=== PATIENT | male | born 1970 | race African-American/Black ===

== ENCOUNTER → 2018-01-21 11:22 | Outpatient (CLI) | payer SELFPAY ==
[2018-01-21 12:55] LABS: Vitamin D,25 Hydroxy 12.1 ng/mL (29.95-100.01)
[2018-01-21 12:59] LABS: Microalbumin:Creatinine Ratio 45.9 mg/g CRE (<30 mg/g CRE)
[2018-01-21 13:05] LABS: Albumin, Serum 3.8 g/dL (3.2-5.0); BUN 27 mg/dL (7-18); BUN/Creat Ratio 17.4 RATIO (10-20); Calcium,Total 9.1 mg/dL (8.5-10.1); Chloride 104 mmol/L (98-107); Creatinine, Serum 1.55 mg/dL (0.70-1.30); EST Glomerular Filtration Rate 52 mL/min (>60); Est Glom Filt Rate - Afr Amer 63 mL/min (>60); Glucose 95 mg/dL (74-106); Phosphorus 3.6 mg/dL (2.5-4.9); Potassium 3.9 mmol/L (3.5-5.1); Sodium Level 140 mmol/L (136-145); Uric Acid 8.8 mg/dL (3.5-7.2)
== END ==
PROVIDERS: Family Provider Family Medicine; PCP Family Medicine; Visit Provider Internal Medicine Nephrology
DX: N18.2 Chronic kidney disease, stage 2 (mild) (principal); E55.9 Vitamin D deficiency, unspecified
CPT/HCPCS: 36415; 80069; 82043; 82306; 82570; 84550

== ENCOUNTER → 2018-08-13 08:51 | Outpatient (CLI) | payer SELFPAY ==
[2018-08-13 10:34] LABS: Albumin, Serum 3.6 g/dL (3.2-5.0); BUN 20 mg/dL (7-18); BUN/Creat Ratio 12.2 RATIO (10-20); Calcium,Total 8.8 mg/dL (8.5-10.1); Chloride 109 mmol/L (98-107); Creatinine, Serum 1.64 mg/dL (0.70-1.30); EST Glomerular Filtration Rate 48 mL/min (>60); Est Glom Filt Rate - Afr Amer 59 mL/min (>60); Glucose 94 mg/dL (74-106); Phosphorus 2.9 mg/dL (2.5-4.9); Potassium 4.6 mmol/L (3.5-5.1); Sodium Level 142 mmol/L (136-145)
== END ==
LOC: LAB.FUTURE 08:58
PROVIDERS: Family Provider Family Medicine; PCP Family Medicine; Referring Provider Internal Medicine Nephrology; Visit Provider Internal Medicine Nephrology
DX: N18.2 Chronic kidney disease, stage 2 (mild) (principal)
CPT/HCPCS: 36415; 80069

== ENCOUNTER → 2018-08-19 13:35 | Outpatient (CLI) | payer SELFPAY ==
[2018-08-19 16:09] LABS: Uric Acid 7.3 mg/dL (3.5-7.2)
== END ==
PROVIDERS: Family Provider Family Medicine; PCP Family Medicine; Visit Provider Internal Medicine Nephrology
DX: M10.9 Gout, unspecified (principal)
CPT/HCPCS: 36415; 84550

== ENCOUNTER → 2019-05-07 12:17 | Outpatient (CLI) | payer MEDICAID, SELFPAY ==
[2019-05-07 14:19] LABS: Albumin, Serum 3.8 g/dL (3.2-5.0); BUN 21 mg/dL (7-18); BUN/Creat Ratio 14.2 RATIO (10-20); Calcium,Total 8.8 mg/dL (8.5-10.1); Chloride 105 mmol/L (98-107); Creatinine, Serum 1.48 mg/dL (0.70-1.30); EST Glomerular Filtration Rate 54 mL/min (>60); Est Glom Filt Rate - Afr Amer 66 mL/min (>60); Glucose 82 mg/dL (74-106); Phosphorus 2.5 mg/dL (2.5-4.9); Potassium 4.2 mmol/L (3.5-5.1); Sodium Level 139 mmol/L (136-145); Uric Acid 9.9 mg/dL (3.5-7.2)
== END ==
PROVIDERS: Family Provider Family Medicine; PCP Family Medicine; Referring Provider Internal Medicine Nephrology; Visit Provider Internal Medicine Nephrology
DX: N18.2 Chronic kidney disease, stage 2 (mild) (principal); M10.9 Gout, unspecified
CPT/HCPCS: 36415; 80069; 84550

== ENCOUNTER → 2019-12-23 11:19 | Outpatient (CLI) | payer MEDICAID, SELFPAY ==
[2019-12-23 12:26] LABS: Microalbumin:Creatinine Ratio 132.7 mg/g CRE (<30 mg/g CRE)
[2019-12-23 12:47] LABS: Albumin, Serum 3.8 g/dL (3.2-5.0); BUN 21 mg/dL (7-18); BUN/Creat Ratio 14.2 RATIO (10-20); Calcium,Total 8.9 mg/dL (8.5-10.1); Chloride 110 mmol/L (98-107); Creatinine, Serum 1.48 mg/dL (0.70-1.30); EST Glomerular Filtration Rate 54 mL/min (>60); Est Glom Filt Rate - Afr Amer 66 mL/min (>60); Glucose 101 mg/dL (74-106); Phosphorus 3.4 mg/dL (2.5-4.9); Potassium 3.9 mmol/L (3.5-5.1); Sodium Level 141 mmol/L (136-145); Uric Acid 7.6 mg/dL (3.5-7.2)
[2019-12-23 12:48] LABS: Vitamin D,25 Hydroxy 31.2 ng/mL
== END ==
PROVIDERS: PCP Family Medicine; Referring Provider Internal Medicine Nephrology; Visit Provider Internal Medicine Nephrology
DX: N18.2 Chronic kidney disease, stage 2 (mild) (principal); M10.9 Gout, unspecified; E55.9 Vitamin D deficiency, unspecified
CPT/HCPCS: 36415; 80069; 82043; 82306; 82570; 84550

== ENCOUNTER 2020-07-13 22:16 | Emergency (ER) | payer MEDICAID, SELFPAY ==
[2020-07-13 22:16] VITALS: BP 167/118; PULSE 107; RESP 18; TEMP 36.1; O2SAT 98; BMI 36.9
--- NOTE | 2020-07-13 22:25 | ED.VIS.GEN ---
History of Present Illness Chief Complaint: Upper Extremity Injury Informant: Patient Narrative: 49-year-old male with history of chronic kidney disease and gout states that for the past 3 weeks he has been having flares in his bilateral hands and right knee. He takes allopurinol daily. He states it has been about 10 years since he is needed to seek treatment for gout flare. He sees Dr. Mcduffie for renal and Dr. Pace for primary care. No fevers. No rashes. Most of his pain tonight is centered in the right index finger. Past Medical History - Allergies and Home Meds Allergies/Adverse Reactions: Allergies No Known Allergies Allergy (Verified 07/13/20 22:18) Primary Care Physician: Oscar Pace MD [Primary Care Provider] - Past Medical History: - - Kidney disease diabetes Surgical History: noncontributory Drugs: None Review of Systems General: Denies: Chills, Fever, Sweats Eyes: Denies: Visual changes - bilaterally, Diplopia ENT: Denies: Rhinorrhea, Sore throat Cardiovascular: Denies: Chest pain, Palpitations Respiratory: Denies: Dyspnea, Cough, Dyspnea on exertion Gastrointestinal: Denies: Abdominal pain, Nausea, Vomiting, Diarrhea, Melena, Hematochezia Genitourinary: Denies: Dysuria, Hematuria, Frequency Musculoskeletal: Reports: Swelling, Extremity Pain. Denies: Back pain Skin: Denies: Rash, Wounds Neurological: Denies: Headache, Weakness, Numbness Physical Exam Vital Signs/Narrative: Vital Signs Temp Pulse Resp BP Pulse Ox 07/13/20 22:16 96.9 F L 107 H 18 167/118 H 98 Inital Vital Signs reviewed: Yes General: Well nourished, Well developed, No Acute Distress Head: Normocephalic, Atraumatic Eyes: Perrl, EOMI ENT: Moist mucous membranes, No rhinorrhea Neck: Supple, Nontender Cardiovascular: Regular rate, Regular rhythm, No murmurs Respiratory: No distress, CTA bilaterally, Chest nontender Abdomen: Soft, Nontender, Nondistended, Normal bowel sounds Back: Nontender, Normal Inspection Extremities: Tenderness - Tenderness swelling right index finger right dorsum of hand. Skin: Normal color, No rash Neurological: Alert, Oriented x3, Cranial nerves II-XII grossly intact, Normal Strength, Normal Sensation Psychological: Normal affect, Normal Mood Diagnostic/Tx/Re-eval - Medical Decision Making Because of his chronic kidney disease we will place him on tapering dose of prednisone. Write for some [place] for pain control. Return if worsening or concerns follow-up primary care as needed ED Disposition - Plan for ED Patient: Disposition: Home or Assisted Living Diagnosis: Acute gout Instructions: ED Gout Prescriptions: Hydrocodone Bitart/Apap 5-325 [[place] 5MG-325MG] 1 tab PO Q6H PRN PRN 3 Days #10 tab PRN Reason: Pain Prescription Printed Prednisone 10 mg PO DAILY #63 tab Prescription Printed Referrals: Oscar Pace MD [Primary Care Provider] - 3-5 Days if not improving
[2020-07-13] MEDS: predniSONE 20 MG Tablet 60 MG PO (22:58)
[2020-07-13] MEDS: HYDROcodone Bitartrate/Apap 5/325 Tablet PO (22:58)
[2020-07-13 22:59] VITALS: O2SAT 98
== END 2020-07-13 22:59 | disposition home or self-care (01) ==
PROVIDERS: Emergency Provider Emergency Medicine; PCP Family Medicine
DX: M10.9 Gout, unspecified (principal); E11.22 Type 2 diabetes mellitus with diabetic chronic kidney disease; Z79.899 Other long term (current) drug therapy
CPT/HCPCS: 99283

== ENCOUNTER 2020-08-17 17:18 | Emergency (ER) | payer MEDICAID, SELFPAY ==
[2020-08-17 17:19] VITALS: BP 151/104; PULSE 111; RESP 20; TEMP 36.1; O2SAT 96; BMI 36.9
--- NOTE | 2020-08-17 18:15 | ED.VIS.GEN ---
History of Present Illness Chief Complaint: Lower Extremity Injury Informant: Patient Narrative: 49-year-old male with a long history of gout and chronic kidney disease on allopurinol states for the past 10 days has had pain swelling and increased warmth of the left knee. Patient sees Dr. Mcduffie for renal. He states that he has tried Uloric in the past and colchicine but alicea and side effects were prohibitive. I saw him in June of placed him on tapering dose of steroids and [place] which he did well with. Past Medical History - Allergies and Home Meds Allergies/Adverse Reactions: Allergies No Known Allergies Allergy (Verified 08/17/20 17:18) Primary Care Physician: Oscar Pace MD [Primary Care Provider] - Past Medical History: - - Chronic kidney disease gout Surgical History: noncontributory Lives: Spouse/ Significant Other Smoking Status: Never smoker Alcohol: None Drugs: None Review of Systems General: Denies: Chills, Fever, Sweats Eyes: Denies: Visual changes - bilaterally, Diplopia ENT: Denies: Rhinorrhea, Sore throat Cardiovascular: Denies: Chest pain, Palpitations Respiratory: Denies: Dyspnea, Cough, Dyspnea on exertion Gastrointestinal: Denies: Abdominal pain, Nausea, Vomiting, Diarrhea, Melena, Hematochezia Genitourinary: Denies: Dysuria, Hematuria, Frequency Musculoskeletal: Reports: Swelling, Extremity Pain. Denies: Back pain Skin: Denies: Rash, Wounds Neurological: Denies: Headache, Weakness, Numbness Physical Exam Vital Signs/Narrative: Vital Signs Temp Pulse Resp BP Pulse Ox 08/17/20 17:19 97 F L 111 H 20 H 151/104 H 96 Inital Vital Signs reviewed: Yes General: Well nourished, Well developed, No Acute Distress Head: Normocephalic, Atraumatic Eyes: Perrl, EOMI ENT: Moist mucous membranes, No rhinorrhea Neck: Supple, Nontender Cardiovascular: Regular rate, Regular rhythm, No murmurs Respiratory: No distress, CTA bilaterally, Chest nontender Abdomen: Soft, Nontender, Nondistended, Normal bowel sounds Back: Nontender, Normal Inspection Extremities: Tenderness - The left knee is swollen with increased warmth. No erythema. Painful range of motion. Skin: Normal color, No rash Neurological: Alert, Oriented x3, Cranial nerves II-XII grossly intact, Normal Strength, Normal Sensation Psychological: Normal affect, Normal Mood Diagnostic/Tx/Re-eval - Medical Decision Making I believe that this is most likely gout. Again place him on [place] and tapering dose of steroids. I asked that he follow-up with primary care. ED Disposition - Plan for ED Patient: Disposition: Home or Assisted Living Diagnosis: Gout of left knee Instructions: ED Gout Prescriptions: Prednisone [Deltasone] 60 mg PO DAILY #24 tab Prescription Printed Hydrocodone Bitart/Apap 5-325 [[place] 5MG-325MG] 1 tab PO Q6H PRN PRN 3 Days #10 tab PRN Reason: Pain Prescription Printed Referrals: Oscar Pace MD [Primary Care Provider] - 1-2 Weeks
[2020-08-17 18:37] VITALS: BP 108/74; PULSE 62; RESP 15; O2SAT 98
== END 2020-08-17 18:38 | disposition home or self-care (01) ==
LOC: ED 18:29
PROVIDERS: Emergency Provider Emergency Medicine; PCP Family Medicine
DX: M10.9 Gout, unspecified (principal); N18.9 Chronic kidney disease, unspecified; Z79.899 Other long term (current) drug therapy
CPT/HCPCS: 99282

== ENCOUNTER → 2020-10-20 16:30 | Outpatient (CLI) | payer MEDICAID, SELFPAY ==
[2020-10-20 17:36] LABS: Protein, Urine (Random) 77.2 mg/dL (<11.9); Protein:Creat Ratio 316 mg/g CRE (0-200)
[2020-10-20 18:04] LABS: Vitamin D,25 Hydroxy 18.3 ng/mL
[2020-10-20 19:31] LABS: AST(SGOT) 23 U/L (15-37); Alanine Aminotransfer ALT/SGPT 26 U/L (16-61); Albumin, Serum 3.6 g/dL (3.2-5.0); Alkaline Phosphatase 56 U/L (45-117); Bilirubin, Direct 0.13 mg/dL (0.00-0.30); Protein, Total 7.6 g/dL (6.4-8.2); Uric Acid 6.7 mg/dL (3.5-7.2)
[2020-10-23 14:20] LABS: Anion Gap 13 (5-15); BUN 20 mg/dL (7-18); BUN/Creat Ratio 13.2 RATIO (10-20); Calcium,Total 9.3 mg/dL (8.5-10.1); Chloride 108 mmol/L (98-107); Creatinine, Serum 1.51 mg/dL (0.70-1.30); EST Glomerular Filtration Rate 53 mL/min (>60); Est Glom Filt Rate - Afr Amer 64 mL/min (>60); Glucose 63 mg/dL (74-106); Phosphorus 3.8 mg/dL (2.5-4.9); Potassium 5.2 mmol/L (3.5-5.1); Sodium Level 141 mmol/L (136-145)
== END ==
PROVIDERS: PCP Family Medicine; Referring Provider Internal Medicine Nephrology; Visit Provider Internal Medicine Nephrology
DX: N18.2 Chronic kidney disease, stage 2 (mild) (principal); M10.9 Gout, unspecified; E55.9 Vitamin D deficiency, unspecified
CPT/HCPCS: 36415; 80048; 80076; 82306; 82570; 84100; 84156; 84550

== ENCOUNTER → 2020-10-24 11:14 | Outpatient (CLI) | payer MEDICAID, SELFPAY ==
[2020-10-24 12:32] LABS: Potassium 3.9 mmol/L (3.5-5.1)
== END ==
PROVIDERS: PCP Family Medicine; Visit Provider Internal Medicine Nephrology
DX: E87.5 Hyperkalemia (principal); N18.2 Chronic kidney disease, stage 2 (mild)
CPT/HCPCS: 36415; 84132

== ENCOUNTER 2021-02-28 21:16 | Emergency (ER) | payer MEDICAID, SELFPAY ==
[2021-02-28 21:17] VITALS: BP 143/94; PULSE 107; RESP 16; TEMP 36.2; O2SAT 96; BMI 31.2
--- NOTE | 2021-02-28 22:31 | EX.ED.DYSGE1 ---
HPI History of Present Illness Chief Complaint: Ear Problem Informant: patient Narrative Narrative: Patient presented with primary symptom of left earache. This started about 4 5 days ago. No drainage. No loss of hearing. He does have history of tubes as a child. He has had history of perforation. On review of systems, I also find out that the patient just has not felt well for about 4 to 5 days. He had a little bit of congestion. He has malaise. His appetite is down but he is able to eat and drink and has no nausea vomiting or diarrhea. He is not coughing or short of breath. He has no numbness tingling or weakness. He did have a slight fever off and on but he has not had 1 for about a day. Although he has a lot of malaise he does not really have myalgias. He states the symptoms are kind of improving but the earache seems to be worsening on the left. He has no known exposure to Covid. 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 He does not have Covid vaccination. [facility] Medical History Gout Home Medications allopurinol 200 mg PO DAILY 07/13/20 [History Last Taken Unknown] amoxicillin 500 mg PO TID #28 cap 02/28/21 [Rx Last Taken Unknown] naproxen 500 mg PO BID #14 tab 02/28/21 [Rx Last Taken Unknown] Allergy/AdvReac Type Severity Reaction Status Date / Time No Known Allergies Allergy Verified 02/28/21 21:18 Social History Smoking Status: Never smoker [facility] ED Constitutional Constitutional ED: Reports fever(s) Eyes Eyes: Denies change in vision ENT ENT ED: Reports ear pain, rhinorrhea and sore throat Cardiovascular Cardiovascular: Denies chest pain Respiratory/Chest Respiratory/Chest: Denies cough, dyspnea, dyspnea on exertion or sputum Gastrointestinal Gastrointestinal: Denies abdominal pain, nausea or vomiting Musculoskeletal Musculoskeletal: Denies arthralgias, back pain, myalgias or neck pain Integumentary Denies rash Neurologic Neurologic: Denies headache(s), paresthesias or weakness Endocrine Endocrinology: Denies polydipsia or polyuria Allergic/Immunologic Allergic/Immunologic ED: Denies urticaria EXAM Physical Exam Const Vital Signs: 02/28/21 21:17 Temperature 97.2 F L Temperature Source Temporal Pulse Rate 107 H Respiratory Rate 16 Blood Pressure 143/94 H Blood Pressure Mean 110 Pulse Ox 96 Oxygen Delivery Method Room Air Positive well nourished and well developed General Appearance ED: well developed and NAD; Negative for cyanotic or diaphoretic HEENT Reports moist mucous membranes HEENT Narrative: Pharynx is overall normal. No exudate. Voice is normal. No erythema. Right TM has moderate amount of scarring. There is a little bit of fluid. Mild erythema. Left tympanic membrane does have a perforation. There is a moderate amount of erythema. I do not see any drainage at this time. No tenderness around the tragus or motion of the ear. No parotid tenderness. No mastoid tenderness. No notable lymphadenopathy. No temporal artery tenderness. Eyes PERRL and EOMs intact bilaterally Neck no lymphadenopathy and no JVD General: Negative for tenderness Chest Wall inspection of chest normal Resp normal respiratory effort and clear to auscultation bilaterally Cardio regular rate and regular rhythm GI normal to inspection, nondistended, normoactive bowel sounds and non-tender Palpation: soft Extremity normal to inspection Neuro Sensorium / Orientation: alert Psych mental status grossly normal Skin no rashes or lesions noted and no wounds MDM MDM MDM Narrative Medical decision making narrative: With the patient's malaise we did check Covid which was negative. He states overall he is improving. His main symptom is left is the left ear pain. Other symptoms have improved although not gone. With some erythema perforation pain and fever we will treat as though this is infected. If he develops new symptoms, cough, trouble breathing or any other findings he should return. Discharge Plan Triage Chief Complaint: Ear Problem ED Provider: Peter Cox Dx/Rx/DC Orders Clinical Impression: URI (upper respiratory infection), Acute otitis media of left ear with perforation Prescriptions: New amoxicillin 500 mg capsule 500 mg PO TID Qty: 28 RF: 0 naproxen 500 mg tablet 500 mg PO BID Qty: 14 RF: 0 No Action allopurinol 100 MG tablet 200 mg PO DAILY RF: 0 Primary Care Provider: Oscar Pace Referrals: Oscar Pace MD [Primary Care Provider] - 3-5 Days if not improving Disposition Disposition: Home, Self Care
[2021-02-28 23:16] VITALS: BP 134/80; PULSE 74; RESP 17; O2SAT 96
[2021-02-28] MEDS: AMOXICILLIN 500 MG CAPSULE PO (23:23)
[2021-02-28] MEDS: Naproxen 375 MG Tablet PO (23:23)
== END 2021-02-28 23:24 | disposition home or self-care (01) ==
PROVIDERS: Emergency Provider Emergency Medicine; PCP Family Medicine
DX: J06.9 Acute upper respiratory infection, unspecified (principal); H66.92 Otitis media, unspecified, left ear; H72.92 Unspecified perforation of tympanic membrane, left ear; Z79.899 Other long term (current) drug therapy
CPT/HCPCS: 87426; 99283; A4216

== ENCOUNTER 2021-08-15 09:47 | Outpatient (CLI) | payer MEDICAID, SELFPAY ==
[2021-08-15 10:40] LABS: Vitamin D,25 Hydroxy 23.4 ng/mL
[2021-08-15 10:46] LABS: Albumin, Serum 3.5 g/dL (3.2-5.0); BUN 25 mg/dL (7-18); BUN/Creat Ratio 12.8 RATIO (10-20); Chloride 104 mmol/L (98-107); Creatinine, Serum 1.96 mg/dL (0.70-1.30); EST Glomerular Filtration Rate 39 mL/min (>60); Est Glom Filt Rate - Afr Amer 47 mL/min (>60); Glucose 101 mg/dL (74-106); Phosphorus 3.2 mg/dL (2.5-4.9); Potassium 4.4 mmol/L (3.5-5.1); Sodium Level 138 mmol/L (136-145)
[2021-08-15 14:37] LABS: Protein, Urine (Random) 56.2 mg/dL (<11.9); Protein:Creat Ratio 197 mg/g CRE (0-200)
== END 2021-08-15 23:59 | disposition home or self-care (01) ==
LOC: LAB 09:50
PROVIDERS: PCP Family Medicine; Referring Provider Internal Medicine Nephrology; Visit Provider Internal Medicine Nephrology
DX: N18.2 Chronic kidney disease, stage 2 (mild) (principal); E55.9 Vitamin D deficiency, unspecified
CPT/HCPCS: 36415; 80069; 82306; 82570; 84156

== ENCOUNTER 2021-08-25 16:59 | Emergency (ER) | payer MEDICAID, SELFPAY ==
[2021-08-25 16:59] VITALS: BP 148/108; PULSE 132; RESP 16; TEMP 36.3; O2SAT 98; BMI 36.2
--- NOTE | 2021-08-25 17:07 | RAD_ITS ---
STUDY: X-RAY - LEFT ANKLE REASON FOR EXAM: Male, 50 years old. PAIN TECHNIQUE: 3 view(s) of the ankle. COMPARISON: None. FINDINGS: Normal visualized distal tibia and fibula. Normal medial and lateral malleoli. Degenerative changes of the tibiotalar joint. Normal visualized talus and calcaneus. The visualized subtalar, talonavicular, calcaneocuboid and tarsal articulations are normal. The soft tissue structures are unremarkable. RAD/Ankle min 3 Views IMPRESSION: No fracture or malalignment. Electronically Signed: Krunal Gordon MD ([place]) at 17:29 EST ,
--- NOTE | 2021-08-25 17:59 | ED.VIS.LOWEX ---
HPI History of Present Illness Chief Complaint: Lower Extremity Injury Detail of Chief Complaint: Atraumatic left ankle pain Informant: patient Onset/Context/Timing Onset: Days Context: Gradual Onset Timing: Continuous Quality of Pain: Sharp Current Severity: Moderate Maximum Severity: Moderate Associated Symptoms Associated Symptoms: Negative for Parasthesia, Weakness and Loss of Funtion Narrative Narrative: 50-year-old male history of gout. He is of atraumatic left ankle pain for the last several days. He denies any fever. He is never had an infection in any joints. He is not diabetic. He has had no procedure on the left ankle. He has had gout before in a great toe and the ankle was primarily in toe in the past. He denies any falls or trauma. No injury. Prior similar symptoms: Yes Recent Illness/Hospitalization: No [facility] Medical History Gout Home Medications allopurinol 200 mg PO DAILY 07/13/20 [History Last Taken Unknown] hydrocodone-acetaminophen 2 tab PO Q6H PRN 5 Days #20 tab 08/25/21 [Rx Last Taken Unknown] prednisone 40 mg PO DAILY 10 Days #20 tab 08/25/21 [Rx Last Taken Unknown] Allergy/AdvReac Type Severity Reaction Status Date / Time No Known Allergies Allergy Verified 08/25/21 17:01 Social History Smoking Status: Never smoker ROS ROS ED ROS Narrative Denies. Review of Systems ROS Unobtainable: Denies due to encephalopathy Constitutional Constitutional ED: Denies fever(s) Eyes Eyes: Denies change in vision ENT ENT ED: Denies ear pain Cardiovascular Cardiovascular: Denies chest pain Respiratory/Chest Respiratory/Chest: Denies dyspnea Gastrointestinal Gastrointestinal: Denies abdominal pain Genitourinary Genitourinary ED: Denies dysuria Musculoskeletal Musculoskeletal: Denies myalgias Integumentary Denies rash Neurologic Neurologic: Denies headache(s) Psychiatric Psychiatric: Denies depression Endocrine Endocrinology: Denies polyuria Hematologic/Lymphatic Hematologic/Lymphatic: Denies easy bruising Allergic/Immunologic Allergic/Immunologic ED: Denies urticaria EXAM Physical Exam Narrative Exam Narrative: 50-year-old male no acute distress. Lungs are clear. Heart regular rate and rhythm. Abdomen soft. Left hip and knee are nontender. Left ankle mild swelling. Warmth. No redness. Pain with range of motion. Foot neurovascularly intact nontender. Normal DP pulse. There is no lymphangitic streaking. There is no inguinal lymphadenopathy. Exam is consistent with gout. Const Vital Signs: 08/25/21 16:59 Temperature 97.3 F L Temperature Source Temporal Pulse Rate 132 H Respiratory Rate 16 Blood Pressure 148/108 H Blood Pressure Mean 121 Pulse Ox 98 Oxygen Delivery Method Room Air Positive well nourished and well developed; Negative for cachectic, contractures or unkempt General Appearance ED: well developed and NAD; Negative for unkempt, cachectic or contractures Nutritional Appearance: Negative for cachectic HEENT Reports moist mucous membranes normocephalic and atraumatic Eyes PERRL Neck full ROM and supple Thyroid: Negative for tender Chest Wall inspection of chest normal and palpation of chest normal Resp normal respiratory effort, no retractions and clear to auscultation bilaterally Auscultation: Negative for rales, rhonchi or wheezes Cardio regular rate, regular rhythm, S1 normal heart sound, S2 normal heart sound and no murmurs GI non-tender, non-distended and no masses Auscultation: normoactive bowel sounds Palpation: soft; Negative for tender or guarding Back/Spine no CVA tenderness General Back: Negative for CVA tenderness Cervical Spine: Negative for cervical spine tenderness Thoracic Spine / Upper Back: Negative for thoracic spinal tenderness Extremity normal to inspection and full ROM Extremity Narrative: Except as nontender left ankle warm to the touch consistent with gout. No redness. No lymphangitic streaking. No inguinal lymphadenopathy. General Extremety ED: Negative for cyanosis or edema General Extremity: Negative for cyanosis or edema Neuro oriented x3 and moves all extremities Sensorium / Orientation: alert, oriented to person, oriented to place and oriented to time Motor Exam: strength 5/5 throughout Psych mental status grossly normal Appearance: Negative for unkempt Skin no wounds Lesions: no lesions Rashes: no rashes Trauma: Negative for abrasion or laceration MDM MDM MDM Narrative Medical decision making narrative: Middle-age male with atraumatic left ankle pain with a history of gout. Exam consistent with gout. X-ray showed chronic changes no acute process. Patient treated with [place] x2 here. Prednisone 60 mg. To be placed on prednisone for the next 10 days. [place] for pain. Follow-up with his primary care physician. Return if any signs of infection such as fever or red streaks. Lab Data Attestation: I reviewed the patient's lab results. Radiography Diagnostic Testing: Clinical Impression(s) from Imaging Studies Ankle X-Ray 08/25/21 17:07 IMPRESSION: No fracture or malalignment. Electronically Signed: Krunal Gordon MD ([place]) at 17:29 EST , Left ankle x-ray three views interpreted by myself and radiologist shows no acute abnormality. Chronic changes. No fracture. No dislocation. Discharge Plan Triage Chief Complaint: Lower Extremity Injury ED Provider: Dav Woody Dx/Rx/DC Orders Clinical Impression: Acute gout Instructions: ED Gout Prescriptions: New prednisone 20 mg tablet 40 mg PO DAILY 10 Days Qty: 20 RF: 0 hydrocodone-acetaminophen 5-325 mg tablet 2 tab PO Q6H PRN (Reason: pain) 5 Days Qty: 20 RF: 0 No Action allopurinol 100 MG tablet 200 mg PO DAILY RF: 0 Primary Care Provider: Oscar Pace Referrals: Oscar Pace MD [Primary Care Provider] - 3-5 Days Activity Restrictions/Additional Instructions: Prednisone daily and pill count and flareup has [place] for pain. Do not drive or drink alcohol if using the [place]. Plenty of fluids and fiber to prevent constipation. Follow-up with your doctor to ensure you are improving. Disposition Disposition: Home, Self Care
[2021-08-25] MEDS: HYDROcodone Bitartrate/Apap 5/325 Tablet PO (18:09)
[2021-08-25] MEDS: predniSONE 20 MG Tablet 60 MG PO (18:10)
== END 2021-08-25 18:25 | disposition home or self-care (01) ==
PROVIDERS: Emergency Provider Emergency Medicine; PCP Family Medicine; Visit Provider Emergency Medicine
DX: M10.9 Gout, unspecified (principal); M25.572 Pain in left ankle and joints of left foot
CPT/HCPCS: 73610; 99283

== ENCOUNTER 2021-09-06 14:12 | Outpatient (CLI) | payer MEDICAID, SELFPAY ==
[2021-09-06 16:06] LABS: Albumin, Serum 3.6 g/dL (3.2-5.0); BUN 29 mg/dL (7-18); BUN/Creat Ratio 16.2 RATIO (10-20); Calcium,Total 8.9 mg/dL (8.5-10.1); Chloride 104 mmol/L (98-107); Creatinine, Serum 1.79 mg/dL (0.70-1.30); EST Glomerular Filtration Rate 43 mL/min (>60); Est Glom Filt Rate - Afr Amer 52 mL/min (>60); Glucose 95 mg/dL (74-106); Phosphorus 3.3 mg/dL (2.5-4.9); Potassium 4.4 mmol/L (3.5-5.1); Sodium Level 137 mmol/L (136-145); Uric Acid 8.3 mg/dL (3.5-7.2)
== END 2021-09-06 23:59 | disposition home or self-care (01) ==
PROVIDERS: PCP Family Medicine; Referring Provider Internal Medicine Nephrology; Visit Provider Internal Medicine Nephrology
DX: N18.31 Chronic kidney disease, stage 3a (principal); M10.9 Gout, unspecified
CPT/HCPCS: 36415; 80069; 84550

== ENCOUNTER → 2022-01-18 | Outpatient (CLI) | payer MEDICAID, SELFPAY ==
[2022-01-18 14:26] LABS: Albumin, Serum 3.7 g/dL (3.2-5.0); BUN 19 mg/dL (7-18); BUN/Creat Ratio 12.3 RATIO (10-20); Calcium,Total 9.5 mg/dL (8.5-10.1); Chloride 105 mmol/L (98-107); Creatinine, Serum 1.54 mg/dL (0.70-1.30); EST Glomerular Filtration Rate 51 mL/min (>60); Est Glom Filt Rate - Afr Amer 62 mL/min (>60); Glucose 97 mg/dL (74-106); Phosphorus 3.1 mg/dL (2.5-4.9); Sodium Level 139 mmol/L (136-145)
== END | disposition home or self-care (01) ==
PROVIDERS: PCP Family Medicine; Visit Provider Internal Medicine Nephrology
DX: N18.31 Chronic kidney disease, stage 3a (principal); M10.9 Gout, unspecified
CPT/HCPCS: 36415; 80069; 84550

== ENCOUNTER 2022-03-17 14:43 | Emergency (ER) | payer MEDICAID, SELFPAY ==
[2022-03-17 14:43] VITALS: BP 149/99; PULSE 98; RESP 18; TEMP 36.6; O2SAT 98; BMI 36.2
--- NOTE | 2022-03-17 15:33 | ED.VIS.LOWEX ---
HPI History of Present Illness HPI Narrative: Patient presents with pain in his right great toe that has been constant for the past 3 days. Patient states it came on gradually. Patient states it feels similar to prior flareups of gout. Patient states he was on his feet all day yesterday and was unable to rest it. Patient states it has been worse in the past but he wants to get it treated before it becomes worse again. Patient describes his pain as dull. Patient denies any trauma or injury. Patient denies any fevers or chills. Patient states nothing makes it better and nothing makes it worse. Chief Complaint: Lower Extremity Injury Onset/Context/Timing Onset: Days (3) Context: Gradual Onset Timing: Continuous Quality of Pain: Dull Location: Right great toe Worsened by: Nothing Relieved by: Nothing Associated Symptoms Associated Symptoms: Negative for Parasthesia, Weakness or Loss of Funtion [facility] Medical History (Updated 03/17/22 @ 15:[address] Ulises Zhang DO) Chronic kidney disease Gout Home Medications allopurinol 100 mg tablet 200 mg PO DAILY 07/13/20 [History Last Taken Unknown] hydrocodone-acetaminophen 5-325mg 5mg-325mg 2 tab PO Q6H PRN pain 5 days #20 tabs 08/25/21 [Rx Last Taken Unknown] prednisone 20 mg tablet 40 mg PO DAILY 6 days #12 tabs 03/17/22 [Rx Last Taken Unknown] Allergy/AdvReac Type Severity Reaction Status Date / Time No Known Allergies Allergy Verified 03/17/22 14:45 Surgical History no surgical history no surgical history Social History Smoking Status: Never smoker ROS ROS ED Constitutional Constitutional ED: Denies chills or fever(s) Eyes Eyes: Denies blurry vision or change in vision ENT ENT ED: Denies rhinorrhea or sore throat Cardiovascular Cardiovascular: Denies chest pain or palpitations Respiratory/Chest Respiratory/Chest: Denies cough or dyspnea Gastrointestinal Gastrointestinal: Denies nausea or vomiting Genitourinary Genitourinary ED: Denies dysuria or hematuria Musculoskeletal Musculoskeletal: Denies back pain or neck pain Integumentary Denies abscess or rash Neurologic Neurologic: Denies headache(s) or weakness Allergic/Immunologic Allergic/Immunologic ED: Denies mouth swelling or urticaria EXAM Physical Exam Const Vital Signs: 03/17/22 14:43 Temperature 97.8 F Temperature Source Temporal Pulse Rate 98 Respiratory Rate 18 Blood Pressure 149/99 H Blood Pressure Mean 115 Pulse Ox 98 Oxygen Delivery Method Room Air Positive well nourished and well developed General Appearance ED: well developed and NAD Neck full ROM and supple Extremity Extremity Narrative: There is tenderness over the right first MTP joint and IP joint. There is some mild edema. There is some mild erythema. There is no warmth. Range of motion was limited in all motions of the MTP and IP joint of the right great toe. There is no obvious deformity noted. Strength is 5/5 in flexion extension of the MTP and IP joint of the right great toe. Sensation was intact to light touch in all digits. Capillary refill was less than 2 seconds in all digits. Pedal pulses are equal bilaterally. There is no tenderness of the ankle or calf. Neuro oriented x3, CN's II-XII intact bilaterally, moves all extremities and no sensory deficits noted Sensorium / Orientation: alert Motor Exam: strength 5/5 throughout Psych mental status grossly normal Skin no wounds MDM MDM MDM Narrative Medical decision making narrative: Patient states that his normal gout flareups are treated with prednisone. Patient states he does not tolerate colchicine well. Patient is on allopurinol already. Patient was given a prescription for prednisone. Patient was given his first dose here. Patient was instructed to ice and elevate the right foot. Patient was instructed to follow-up with his primary care physician in 5 to 7 days. Patient understood and was agreeable with the plan. All questions were answered. Discharge Plan Triage Chief Complaint: Lower Extremity Injury ED Provider: Ulises Zhang Dx/Rx/DC Orders Clinical Impression: Acute gouty arthritis, Chronic kidney disease Instructions: ED Gout Prescriptions: Continued prednisone 20 mg tablet 40 mg PO DAILY 6 Days Qty: 12 0RF No Action allopurinol 100 MG tablet 200 mg PO DAILY hydrocodone-acetaminophen 5-325 mg tablet 2 tab PO Q6H PRN (Reason: pain) 5 Days Qty: 20 0RF Primary Care Provider: Oscar Pace Referrals: Oscar Pace MD [Primary Care Provider] - 3-5 Days Disposition Disposition: Home, Self Care
[2022-03-17] MEDS: predniSONE 20 MG Tablet 40 MG PO (16:05)
== END 2022-03-17 16:07 | disposition home or self-care (01) ==
LOC: ED 15:47
PROVIDERS: Emergency Provider Emergency Medicine; PCP Family Medicine; Visit Provider Emergency Medicine
DX: M10.9 Gout, unspecified (principal); N18.9 Chronic kidney disease, unspecified; Z79.52 Long term (current) use of systemic steroids
CPT/HCPCS: 99283

== ENCOUNTER 2022-04-03 22:42 | Emergency (ER) | payer MEDICAID, SELFPAY ==
[2022-04-03 22:43] VITALS: BP 168/108; PULSE 120; RESP 16; TEMP 37.2; O2SAT 96; BMI 35.2
[2022-04-03 22:51] VITALS: BP 168/108; PULSE 120; RESP 16; TEMP 37.2; O2SAT 96
--- NOTE | 2022-04-03 23:33 | EDS_ITS ---
HPI History of Present Illness Chief Complaint: General Illness Informant: patient Onset/Context/Timing Onset: Days Context: Gradual Onset Timing: Continuous Current Severity: Mild Maximum Severity: Mild Narrative Narrative: 51-year-old male history of gout. States he has had fevers as high as 101 for last 2 days since Friday. He denies any nausea, vomiting or diarrhea. He denies any cough or shortness of breath. He denies abdominal pain. He denies any dysuria. He has a mild headache, sore throat and earaches. Denies any discharge. Prior similar symptoms: Yes Recent Illness/Hospitalization: No [facility] Medical History Chronic kidney disease Gout Home Medications allopurinol 100 mg tablet 200 mg PO DAILY 07/13/20 [History Last Taken Unknown] hydrocodone-acetaminophen 5-325mg 5mg-325mg 2 tab PO Q6H PRN pain 5 days #20 tabs 08/25/21 [Rx Last Taken Unknown] prednisone 20 mg tablet 40 mg PO DAILY 6 days #12 tabs 03/17/22 [Rx Last Taken Unknown] Allergy/AdvReac Type Severity Reaction Status Date / Time No Known Allergies Allergy Verified 04/03/22 22:45 Social History Smoking Status: Never smoker ROS ROS ED ROS Narrative HeadEarache, sore throat Review of Systems ROS Unobtainable: Denies due to encephalopathy Constitutional Constitutional ED: Reports fever(s); Denies chills Eyes Eyes: Denies blurry vision ENT ENT ED: Reports ear pain and sore throat; Denies rhinorrhea Cardiovascular Cardiovascular: Denies chest pain, palpitations or racing heartbeat Respiratory/Chest Respiratory/Chest: Denies cough or dyspnea Gastrointestinal Gastrointestinal: Denies abdominal pain, constipation, diarrhea, melena, nausea or vomiting Genitourinary Genitourinary ED: Denies dysuria or hematuria Musculoskeletal Musculoskeletal: Denies arthralgias Integumentary Denies abscess Neurologic Neurologic: Denies headache(s) Psychiatric Psychiatric: Denies anxiety or depression Endocrine Endocrinology: Denies cold intolerance Hematologic/Lymphatic Hematologic/Lymphatic: Reports none Allergic/Immunologic Allergic/Immunologic ED: Denies mouth swelling or tongue swelling EXAM Physical Exam Narrative Exam Narrative: 51-year-old male no acute distress. Vital signs stable afebrile. Temperature 9 0.9. Pulse ox 96% on room air no signs hypoxia. He is in no distress. Sitting upright in bed. H EENT exam chronic scarring to both eardrums. No perforation. Canals normal. Posterior pharynx status post tonsillectomy. No erythema or exudate. No trouble swallowing or breathing. No stridor or drooling. Tongue normal. Well-hydrated. Neck nontender. No meningismus. No lymphadenopathy. Attached in the chest. Lungs clear to auscultation bilaterally. Heart regular rhythm rate about 120 no murmur. Abdomen soft nontender normal bowel sounds no peritoneal signs. Completely nontender. Moving all 4 extremities. Nontender no edema. Normal range of motion. No hot, red or swollen joints. Back nontender. Neurologically is awake and alert with no focal motor deficits. Const Vital Signs: 04/03/22 22:43 04/03/22 22:51 Temperature 98.9 F 98.9 F Temperature Source Oral Oral Pulse Rate 120 H 120 H Respiratory Rate 16 16 Blood Pressure 168/108 H 168/108 H Blood Pressure Mean 128 128 Pulse Ox 96 96 Oxygen Delivery Method Room Air Room Air Positive well nourished and well developed; Negative for cachectic, contractures or unkempt General Appearance ED: well developed and NAD; Negative for unkempt, cachectic, contractures, cyanotic or diaphoretic Nutritional Appearance: Negative for cachectic HEENT Reports moist mucous membranes; Denies dry mucous membranes Negative for trauma or tenderness Mouth ED: No dry mucous membranes Mouth: No dry mucous membranes Eyes PERRL and EOMs intact bilaterally General Eye ED: Negative for pale conjunctiva or scleral icterus Neck no lymphadenopathy, supple and no JVD General: Negative for tenderness Resp normal respiratory effort and clear to auscultation bilaterally Effort and Inspection: Negative for retractions Auscultation: Negative for rales, rhonchi or wheezes Cardio regular rhythm, S1 normal heart sound, S2 normal heart sound and no murmurs; Negative for regular rate Palpation: Negative for palpable S3 Rate: tachycardic; Negative for bradycardia Rhythm: Negative for abnormal rhythm GI normal to inspection, nondistended, normoactive bowel sounds, non-tender, non- distended and no masses Inspection: Negative for abdominal distention Auscultation: normoactive bowel sounds Palpation: soft; Negative for tender or guarding Back/Spine no CVA tenderness General Back: Negative for CVA tenderness Cervical Spine: Negative for cervical spine tenderness Thoracic Spine / Upper Back: Negative for thoracic spinal tenderness Lumbar Spine / Lower Back: Negative for lumbar spinal tenderness Extremity normal to inspection General Extremety ED: Negative for edema or tenderness General Extremity: Negative for edema Neuro oriented x3 and CN's II-XII intact bilaterally Sensorium / Orientation: alert; Negative for orientation impaired, lethargic or stuporous Motor Exam: strength 5/5 throughout; Negative for general weakness or strength abnormal Psych mental status grossly normal Appearance: Negative for unkempt Attitude: No agitated Mood & Affect: Negative for depressed, anxious or tearful Skin no rashes or lesions noted and no wounds General Skin Exam: elasticity normal Lesions: lesion noted Rashes: No rashes noted Trauma: Negative for abrasion Wounds: Negative for wounds noted MDM MDM MDM Narrative Medical decision making narrative: 51-year-old male malaise. Reported fever at home but no fever here. Clinically looks well. Exam benign. Clinically and historically sounds like a viral URI. He will be treated as a viral syndrome. He does not need any antibiotics at this time. Discharge Plan Triage Chief Complaint: General Illness ED Provider: Dav Woody Dx/Rx/DC Orders Clinical Impression: Viral syndrome, URI (upper respiratory infection) Instructions: ED URI, Viral, No Abx (Adult) Prescriptions: No Action allopurinol 100 MG tablet 200 mg PO DAILY hydrocodone-acetaminophen 5-325 mg tablet 2 tab PO Q6H PRN (Reason: pain) 5 Days Qty: 20 0RF prednisone 20 mg tablet 40 mg PO DAILY 6 Days Qty: 12 0RF Primary Care Provider: Care Physician,No Primary Referrals: Oscar Pace MD [Med Staff - Active Staff] - 3-5 Days if not improving Care Physician,No Primary [Primary Care Provider] - Activity Restrictions/Additional Instructions: Plenty of fluids and rest. Tylenol for any fever. Follow-up with your doctor if not improving return if worse. At this time, Exam is unremarkable and you have no clinical findings to be prescribed antibiotics at this time. Disposition Disposition: Home, Self Care
== END 2022-04-03 23:55 | disposition home or self-care (01) ==
PROVIDERS: Emergency Provider Emergency Medicine; Visit Provider Emergency Medicine
DX: J06.9 Acute upper respiratory infection, unspecified (principal); N18.9 Chronic kidney disease, unspecified; R51.9 Headache, unspecified; B34.9 Viral infection, unspecified; Z79.52 Long term (current) use of systemic steroids
CPT/HCPCS: 99283

== ENCOUNTER 2022-06-10 16:33 | Emergency (ER) | payer MEDICAID, SELFPAY ==
[2022-06-10 16:34] VITALS: BP 187/119; PULSE 110; RESP 18; TEMP 35.8; O2SAT 99; BMI 30.1
--- NOTE | 2022-06-10 19:20 | RAD_ITS ---
STUDY: X-RAY - LEFT FOOT CLINICAL: Male, 51 years old. Pain, trauma TECHNIQUE: 3 view(s) of the foot. COMPARISON: None. FINDINGS: Normal talus, calcaneus, and tarsal bones. There is mild talonavicular spurring. Normal metatarsi. Normal metatarsophalangeal joint of the great toe. Normal tibial and fibular sesamoid bones. Normal interphalangeal joint of the great toe. Normal phalanges of the great toe. Normal second through fifth metatarsophalangeal joints. Normal interphalangeal joints and phalanges of the lesser toes. The soft tissue structures are unremarkable. There is no demonstrated fracture. RAD/Foot min 3 Views IMPRESSION: No acute fracture. Electronically Signed: Jason Sutton MD at 20:08 EST ,
--- NOTE | 2022-06-10 20:02 | ED.VIS.LOWEX ---
HPI History of Present Illness Chief Complaint: Lower Extremity Injury Informant: patient Narrative Narrative: Patient is a 51-year-old male with history of hypertension, CKD and gout presenting with worsening left foot pain. Patient states he accidentally struck his left foot 3 days ago. That pain is improved but then he had worsening pain over the base of his left great toe. States it feels like a gouty flare. Has had increased foot swelling. Is on allopurinol at baseline. Denies any systemic symptoms including fever, chills or night sweats. Cannot take NSAIDs because of his kidney function. States he does not tolerate colchicine because of side effects including sweating. No other complaints at this time [facility] Medical History Chronic kidney disease Gout Home Medications allopurinol 100 mg tablet 200 mg PO DAILY 07/13/20 [History Last Taken Unknown] hydrocodone-acetaminophen 5-325mg 5mg-325mg 2 tab PO Q6H PRN pain 5 days #20 tabs 08/25/21 [Rx Last Taken Unknown] prednisone 20 mg tablet 40 mg PO DAILY 6 days #12 tabs 03/17/22 [Rx Last Taken Unknown] hydrocodone-acetaminophen 5-325mg 5mg-325mg 1 tab PO Q6H PRN pain 3 days #12 tabs 06/10/22 [Rx Last Taken Unknown] prednisone 20 mg tablet 40 mg PO DAILY #8 tabs 06/10/22 [Rx Last Taken Unknown] Allergy/AdvReac Type Severity Reaction Status Date / Time No Known Allergies Allergy Verified 06/10/22 16:34 Social History Smoking Status: Never smoker ROS ROS ED Constitutional Constitutional ED: Denies chills, fever(s) or sweats Eyes Eyes: Denies change in vision ENT ENT ED: Denies rhinorrhea or sore throat Cardiovascular Cardiovascular: Denies chest pain Respiratory/Chest Respiratory/Chest: Denies cough Gastrointestinal Gastrointestinal: Denies nausea or vomiting Musculoskeletal Musculoskeletal: Reports other Details: Left foot pain Integumentary Reports rash Neurologic Neurologic: Denies headache(s), paresthesias or weakness Psychiatric Psychiatric: Denies anxiety or depression Hematologic/Lymphatic Hematologic/Lymphatic: Denies easy bleeding or easy bruising EXAM Physical Exam Const Vital Signs: 06/10/22 16:34 Temperature 96.5 F L Temperature Source Temporal Pulse Rate 110 H Respiratory Rate 18 Blood Pressure 187/119 H Blood Pressure Mean 141 Pulse Ox 99 Oxygen Delivery Method Room Air Positive well nourished and well developed General Appearance ED: well developed and NAD HEENT Reports moist mucous membranes normocephalic and atraumatic Eyes PERRL Neck full ROM and supple Chest Wall inspection of chest normal Resp normal respiratory effort and clear to auscultation bilaterally Cardio regular rate, regular rhythm and no murmurs Cardio Narrative: 2+ bilateral DP pulses GI non-tender and non-distended Extremity Extremity Narrative: Nonpitting mild edema of the left foot. No bony tenderness of the midfoot or ankle. Normal Borja test. Patient has exquisite tenderness with light palpation to the left first MTP with some mild associated edema and erythema. No lymphangitic streaking associated. Pain with range of motion of the left first toe. Neuro oriented x3, moves all extremities and no sensory deficits noted Motor Exam: strength 5/5 throughout Psych mental status grossly normal Skin Skin Narrative: Subtle erythema and warmth over the left first toe. Healing superficial abrasion to the medial aspect of the left midfoot. No associated tenderness, fluctuance or erythema. MDM MDM MDM Narrative Medical decision making narrative: Patient evaluated for pain at the left first MTP. Consistent with a gouty flare. Proximal to this he does have an abrasion I do not think the 2 are related. It is possible the trauma could have triggered the gouty flare. As patient has not tolerated colchicine and has CKD we will treat with prednisone and Isaban for pain control. Is given a dose in the ER. L foot x-ray reviewed by myself does not show any acute fracture. Patient will follow-up with his primary care doctor. 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 Discharge Plan Triage Chief Complaint: Lower Extremity Injury ED Provider: Carmen Casanova Dx/Rx/DC Orders Clinical Impression: Gout flare, Acute pain of left foot Instructions: ED Gout Prescriptions: New prednisone 20 mg tablet 40 mg PO DAILY Qty: 8 0RF hydrocodone-acetaminophen 5-325 mg tablet 1 tab PO Q6H PRN (Reason: pain) 3 Days Qty: 12 0RF No Action allopurinol 100 MG tablet 200 mg PO DAILY hydrocodone-acetaminophen 5-325 mg tablet 2 tab PO Q6H PRN (Reason: pain) 5 Days Qty: 20 0RF prednisone 20 mg tablet 40 mg PO DAILY 6 Days Qty: 12 0RF Primary Care Provider: Care Physician,No Primary Referrals: Care Physician,No Primary [Primary Care Provider] - Disposition Disposition: Home, Self Care
[2022-06-10] MEDS: predniSONE 20 MG Tablet 40 MG PO (20:11)
[2022-06-10] MEDS: HYDROcodone Bitartrate/Apap 5/325 Tablet PO (20:11)
== END 2022-06-10 20:38 | disposition home or self-care (01) ==
PROVIDERS: Emergency Provider Emergency Medicine; Visit Provider Emergency Medicine
DX: M10.072 Idiopathic gout, left ankle and foot (principal); M79.672 Pain in left foot; N18.9 Chronic kidney disease, unspecified
CPT/HCPCS: 73630; 99283

== ENCOUNTER → 2022-07-26 | Outpatient (CLI) | payer MEDICAID, SELFPAY ==
[2022-07-26 17:26] LABS: Albumin, Serum 3.7 g/dL (3.2-5.0); BUN 26 mg/dL (7-18); BUN/Creat Ratio 18.4 RATIO (10-20); Chloride 107 mmol/L (98-107); Creatinine, Serum 1.41 mg/dL (0.70-1.30); EST Glomerular Filtration Rate 57 mL/min (>60); Est Glom Filt Rate - Afr Amer 69 mL/min (>60); Glucose 102 mg/dL (74-106); Phosphorus 2.9 mg/dL (2.5-4.9); Sodium Level 140 mmol/L (136-145); Uric Acid 6.4 mg/dL (3.5-7.2)
== END | disposition home or self-care (01) ==
LOC: LAB 16:22
PROVIDERS: Visit Provider Internal Medicine Nephrology
DX: N18.31 Chronic kidney disease, stage 3a (principal); M10.9 Gout, unspecified
CPT/HCPCS: 36415; 80069; 84550

== ENCOUNTER 2022-08-12 19:17 | Inpatient (IN) | payer MEDICAID, SELFPAY ==
[2022-08-12] VITALS (9 sets, daily range): BP systolic 113–145; BP diastolic 66–91; PULSE 72–101; RESP 16–21; TEMP 36.3–36.8; O2SAT 97–100; BMI 34.5; BMI 34.6
--- NOTE | 2022-08-12 19:53 | ED.RN ---
RESPIRATORY NOTIFIED OF PT NEEDING AN EKG.
--- NOTE | 2022-08-12 20:30 | EKG12_ITS ---
Test Reason : SOB Blood Pressure : / mmHG Vent. Rate : 058 BPM Atrial Rate : 058 BPM P-R Int : 154 ms QRS Dur : 070 ms QT Int : 432 ms P-R-T Axes : 039 005 104 degrees QTc Int : 424 ms Sinus bradycardia Left ventricular hypertrophy with repolarization abnormality ( R in aVL ) Inferior infarct , possibly acute ACUTE MA / STEMI Consider right ventricular involvement in acute inferior infarct Abnormal ECG Confirmed by PRAFUL RODRIGUEZ, FRANCISCO JAVIER ([id number]), online editor NIMESH DAVIS ([id number]) on 08/13/2022 10:21:31 AM Referred By: Taz Brown Confirmed By:FRANCISCO JAVIER BASILIO MD
--- NOTE | 2022-08-12 20:31 | EDS_ITS ---
HPI History of Present Illness Chief Complaint: Shortness of Breath Narrative Narrative: 51-year-old male presenting with dyspnea and chest pain. He describes the chest pain as tightness, but then also describes it as someone standing on his chest. This happened at about 630 this evening. After patient finished CrossFit he states he just felt like he could not catch his breath. He states his only medical problems are CKD and sleep apnea. He denies cardiac history. No history of DVT/PE and no risk factors. He denied fever, chills, cough. [facility] Medical History Chronic kidney disease Gout Home Medications allopurinol 100 mg tablet 200 mg PO DAILY 07/13/20 [History Last Taken Unknown] hydrocodone-acetaminophen 5-325mg 5mg-325mg 2 tab PO Q6H PRN pain 5 days #20 tabs 08/25/21 [Rx Last Taken Unknown] prednisone 20 mg tablet 40 mg PO DAILY 6 days #12 tabs 03/17/22 [Rx Last Taken Unknown] hydrocodone-acetaminophen 5-325mg 5mg-325mg 1 tab PO Q6H PRN pain 3 days #12 tabs 06/10/22 [Rx Last Taken Unknown] prednisone 20 mg tablet 40 mg PO DAILY #8 tabs 06/10/22 [Rx Last Taken Unknown] Allergy/AdvReac Type Severity Reaction Status Date / Time No Known Allergies Allergy Verified 06/10/22 16:34 Social History Smoking Status: Never smoker EXAM Physical Exam Const Vital Signs: 08/12/22 19:18 08/12/22 20:14 08/12/22 20:55 Temperature 97.4 F L Temperature Source Temporal Pulse Rate 93 Respiratory Rate 20 H 21 H Respiratory Effort Pursed Lip Respiratory Depth Normal Blood Pressure 116/78 113/66 Blood Pressure Mean 90 Pulse Ox 100 Oxygen Delivery Method Room Air Room Air Oxygen Flow Rate (L/min) 08/12/22 20:30 08/12/22 21:15 08/12/22 21:18 Temperature Temperature Source Pulse Rate 72 Respiratory Rate 20 H Respiratory Effort Pursed Lip Respiratory Depth Blood Pressure 119/67 Blood Pressure Mean 84 Pulse Ox 97 Oxygen Delivery Method Room Air Nasal Cannula Oxygen Flow Rate (L/min) 2 Positive well nourished General Appearance ED: NAD and pallor HEENT Reports moist mucous membranes atraumatic Eyes PERRL and EOMs intact bilaterally Resp normal respiratory effort and clear to auscultation bilaterally Cardio regular rate and regular rhythm GI Auscultation: normoactive bowel sounds and hyperactive bowel sounds Palpation: soft Neuro oriented x3 and CN's II-XII intact bilaterally Sensorium / Orientation: alert Psych mental status grossly normal Skin no wounds and skin turgor normal General Skin Exam: jaundice and pallor MDM MDM MDM Narrative Medical decision making narrative: Patient with chest pain and shortness of breath. Will obtain EKG, chest x-ray. Cardiac work-up including troponin, CBC, BMP. Differential includes but is not limited to ACS, PE, PNA, chostochodritis, muscle strain, pneumothorax. Patient does not want a thing for pain at this point. I am however concerned more for ACS because the patient is laying there looking quite uncomfortable. I obtained an EKG which on my interpretation shows an acute DC. There is ST elevation in leads II 3, aVF with reciprocal changes in leads I and aVL. STEMI alert was called. Fortunately due to ER volume the patient had been sitting in the waiting room for an extended period of time before I could see him. I did immediately call a STEMI alert. I spoke with Dr. Brown. Patient given aspirin, Brilinta, heparin. Patient's vital signs are currently stable and he is afebrile. He is prepped for the Oral Health Therapist. Patient transported in stable condition. Impression: 1. STEMI Lab Data Attestation: I reviewed the patient's lab results. Labs: Laboratory Results - last 24 hr 08/12/22 08/12/22 08/12/22 20:30 20:30 20:30 WBC 9.7 RBC 3.91 L Hgb 11.4 L Hct 35.5 L MCV 90.8 MCH 29.2 MCHC 32.1 RDW Std Deviation 45.5 H RDW Coeff of Marquis 13.6 Plt Count 244 MPV 10.7 Immature Gran % (Auto) 0.700 Neut % (Auto) 81.1 H Lymph % (Auto) 11.1 L Mcdowell % (Auto) 5.2 Eos % (Auto) 1.7 Baso % (Auto) 0.2 Absolute Neuts (auto) 7.9 H Absolute Lymphs (auto) 1.07 Nucleated RBC % 0 PT 13.2 INR 1.0 APTT 30.4 Sodium 142 Potassium 4.4 Chloride 109 H Carbon Dioxide 24.0 Anion Gap 9 BUN 34 H Creatinine 2.02 H Estim Creat Clear Calc 48.55 Est GFR (MDRD) Af Amer 45 L Est GFR (MDRD) Non-Af 37 L BUN/Creatinine Ratio 16.8 Glucose 103 Calcium 9.9 Troponin I High Sens 35 Radiography Diagnostic Testing: Clinical Impression(s) from Imaging Studies Chest X-Ray 08/12/22 20:58 IMPRESSION: Normal x-ray examination of the chest. Electronically Signed: Omar Rincon MD at 21:37 EST , Discharge Plan Disposition Disposition: Acute Care Hospital [facility] Discharge Date/Time: 08/12/22 21:34
[2022-08-12 20:54] LABS: Absolute Lymphocyte Count 1.07 X10^3/uL (0.83-4.51); Absolute Neutrophil Count 7.9 X10^3/uL (2.0-7.7); Basophil# 0.02 X10^3/uL; Basophil% 0.2 % (0-1); Eosinophil# 0.16 X10^3/uL; Eosinophils% 1.7 % (0-5); Hematocrit 35.5 % (40-54); Hemoglobin 11.4 g/dL (13.0-16.5); Lymphocyte # 1.07 X10^3/ul (0.83-4.51); Lymphocyte % 11.1 % (19-41); Mean Corp Hgb Conc 32.1 g/dL (32-36); Mean Corpuscular Hgb 29.2 pg (27.0-32.0); Mean Corpuscular Volume 90.8 fL (80-94); Mean Platelet Vol. 10.7 fl (6.2-12.0); Monocyte% 5.2 % (0-10); NRBC Flagged by Analyzer 0 % (0-5); Neutrophil # 7.85 X10^3/uL (2.7-7.7); Neutrophil % 81.1 % (47-70); Platelet Count 244 K/mm3 (150-450); RBC Distribution Width CV 13.6 % (11.6-14.6); RBC Distribution Width SD 45.5 fl (35.1-43.9); Red Blood Count 3.91 M/mm3 (4.6-6.2); White Blood Count 9.7 K/mm3 (4.4-11.0)
--- NOTE | 2022-08-12 20:58 | RAD_ITS ---
STUDY: X-RAY CHEST REASON FOR EXAM: Male, 51 years old. chest pain TECHNIQUE: Single AP portable view of the chest. COMPARISON: None. FINDINGS: The lungs are clear and expanded. There is no demonstrated pleural abnormality. Normal size heart. Normal mediastinum and susan. Normal visualized pulmonary arteries. Normal visualized aortic arch and descending thoracic aorta. Normal visualized thoracic spine. Normal visualized ribs, clavicles, and shoulders. There is no demonstrated abnormality of the visualized soft tissue structures of the upper abdomen. RAD/Chest 1 View (Portable) IMPRESSION: Normal x-ray examination of the chest. Electronically Signed: Omar Rincon MD at 21:37 EST ,
[2022-08-12] MEDS: Aspirin 81 MG TAB.CHEW 324 MG PO (21:01)
[2022-08-12] MEDS: 0.9% Normal Saline 1,000 ML 1000 ML IV (21:01)
[2022-08-12] MEDS: Heparin Injection (Vial) 5,000 UNIT/ML VIAL 4000 UNIT IV (21:02)
[2022-08-12] MEDS: TICAGRELOR 90 MG TABLET 180 MG PO (21:02)
[2022-08-12 21:11] LABS: Anion Gap 9 (5-15); BUN 34 mg/dL (7-18); BUN/Creat Ratio 16.8 RATIO (10-20); Calcium,Total 9.9 mg/dL (8.5-10.1); Chloride 109 mmol/L (98-107); Creatinine, Serum 2.02 mg/dL (0.70-1.30); EST Glomerular Filtration Rate 37 mL/min (>60); Est Glom Filt Rate - Afr Amer 45 mL/min (>60); Estimated Creatinine Clearance 48.55 ml/min; Glucose 103 mg/dL (74-106); Potassium 4.4 mmol/L (3.5-5.1); Sodium Level 142 mmol/L (136-145); Troponin-I HS (w/2H Reflex) 35 pg/mL (3.0-78.0)
[2022-08-12 21:19] LABS: Prothrombin Time (Protime)PT. 13.2 SECONDS (11.7-14.9)
[2022-08-12 21:20] LABS: Partial Thromboplast Time 30.4 Seconds (24.1-36.2)
[2022-08-12] MEDS: Ondansetron 4 MG/2 ML Vial IV (21:24)
[2022-08-12] MEDS: Morphine 2 MG/ML Syringe IV (21:25)
--- NOTE | 2022-08-12 21:37 | CM.ED ---
SW Note Referral Source: STEMI Referral Reason: STEMI Code SW met with patient's and provided emotional support. SW remains available if needs arise. Kelly FLORES
--- NOTE | 2022-08-12 21:38 | HP.PCM_ITS ---
HPI - General General Date of Admission: 08/12/22 Date of Service: 08/12/22 Chief Complaint: Chest pain HPI Narrative NIK THOMAS, is a 51 M who presents to the emergency room with acute onset of chest pain. Patient states he was working out prior to arrival when he became more short of breath than usual for his workout along with some substernal chest pain pressure. Patient has no significant past medical history of known cardiac disease but he does have a history of chronic kidney disease. Current creatinine is 2.0 and was last tested at 1.4 on 26 July. Upon evaluation in the emergency room patient was given an EKG and found to have elevated ST segments in 2 3 aVF leads and a STEMI emergency was called. Patient was then transferred to the catheterization lab and evaluation is currently pending as I dictate now. Patient will be admitted to the ICU following his catheterization. [facility] Medical History Chronic kidney disease Gout Home Medications allopurinol 100 mg tablet 200 mg PO DAILY 07/13/20 [History Last Taken Unknown] hydrocodone-acetaminophen 5-325mg 5mg-325mg 2 tab PO Q6H PRN pain 5 days #20 tabs 08/25/21 [Rx Last Taken Unknown] prednisone 20 mg tablet 40 mg PO DAILY 6 days #12 tabs 03/17/22 [Rx Last Taken Unknown] hydrocodone-acetaminophen 5-325mg 5mg-325mg 1 tab PO Q6H PRN pain 3 days #12 tabs 06/10/22 [Rx Last Taken Unknown] prednisone 20 mg tablet 40 mg PO DAILY #8 tabs 06/10/22 [Rx Last Taken Unknown] Allergy/AdvReac Type Severity Reaction Status Date / Time No Known Allergies Allergy Verified 06/10/22 16:34 Social History Smoking Status: Never smoker ROS Constitutional Constitutional: Denies chills or fever(s) Eyes Eyes: Denies blurry vision ENT HEENT: Denies abnormal hearing Cardiovascular Cardiovascular: Reports chest pain Respiratory/Chest Respiratory/Chest: Reports shortness of breath at rest; Denies cough Gastrointestinal Gastrointestinal: Denies abdominal pain Genitourinary Genitourinary: Denies dysuria Musculoskeletal Musculoskeletal: Denies back pain Integumentary Integumentary: Denies jaundice Neurologic Neurologic: Denies abnormal gait, abnormal speech or confusion Psychiatric Psychiatric: Denies anxiety Vital Signs Vital Signs Vital Signs: 08/12/22 19:18 08/12/22 20:14 08/12/22 20:55 Temperature 97.4 F L Temperature Source Temporal Pulse Rate 93 Respiratory Rate 20 H 21 H Respiratory Effort Pursed Lip Respiratory Depth Normal Blood Pressure 116/78 113/66 Blood Pressure Mean 90 Pulse Ox 100 Oxygen Delivery Method Room Air Room Air 08/12/22 20:30 08/12/22 21:15 Temperature Temperature Source Pulse Rate Respiratory Rate Respiratory Effort Pursed Lip Respiratory Depth Blood Pressure Blood Pressure Mean Pulse Ox Oxygen Delivery Method Room Air Weight Weight: 255 lb Body Mass Index (BMI) 34.5 Physical Exam Const alert and oriented x3 General Appearance: cooperative and well developed HEENT normocephalic and head/scalp atraumatic Eyes PERRL Lymph Lymphatic: no lymphadenopathy noted Resp normal respiratory effort, normal air movement and clear to auscultation bi laterally Cardio regular rate, regular rhythm, S1 normal heart sound, S2 normal heart sound and no murmurs GI normal to inspection, nondistended, normoactive bowel sounds Skin General Skin Exam: no breakdown and turgor normal Neuro CN's II-XII intact bilaterally Psych cooperative and affect normal Appearance: appropriate Mood & Affect: anxious Results Lab / Micro Data Result Diagrams: 08/12/22 20:30 08/12/22 20:30 Labs: Laboratory Results - last 24 hr 08/12/22 20:30: WBC 9.7, RBC 3.91 L, Hgb 11.4 L, Hct 35.5 L, MCV 90.8, MCH 29.2, MCHC 32.1, RDW Std Deviation 45.5 H, RDW Coeff of Marquis 13.6, Plt Count 244, MPV 10.7, Immature Gran % (Auto) 0.700, Neut % (Auto) 81.1 H, Lymph % (Auto) 11.1 L, Cottle % (Auto) 5.2, Eos % (Auto) 1.7, Baso % (Auto) 0.2, Absolute Neuts (auto) 7.9 H, Absolute Lymphs (auto) 1.07, Nucleated RBC % 0 08/12/22 20:30: Sodium 142, Potassium 4.4, Chloride 109 H, Carbon Dioxide 24.0, Anion Gap 9, BUN 34 H, Creatinine 2.02 H, Estim Creat Clear Calc 48.55, Est GFR (MDRD) Af Amer 45 L, Est GFR (MDRD) Non-Af 37 L, BUN/Creatinine Ratio 16.8, Glucose 103, Calcium 9.9, Troponin I High Sens 35 08/12/22 20:30: PT 13.2, INR 1.0, APTT 30.4 Assessment & Plan Assessment/Plan (1) STEMI (ST elevation myocardial infarction): (2) Chronic kidney disease: PLAN: Plan [address] elevation MD. Patient is in the heart catheterization lab with Dr. ROGERS. Following catheterization patient will be transferred to the intensive care unit. 2. Chronic kidney disease?continue to follow basic metabolic panel especially following IV contrast media given during catheterization. We will continue IV hydration 3. DVT prophylaxis?anticoagulation per cardiology.
[2022-08-12 22:51] LABS: Reflex Troponin-HS? (from REC) Y
[2022-08-12] MEDS: 0.9% Normal Saline 1,000 ML 999 ML IV (23:00)
--- NOTE | 2022-08-12 23:02 | CL.I_ITS ---
Patient Name: NIK THOMAS Study Date: 08/12/2022 Performing: Taz Brown MD Ht: 72 inches 182.88 cm : 1970 Wt: 255.01 lbs 115.67 kg Age: 51 Gender: male BSA: 2.36 PROCEDURE(S) PERFORMED DC02-(92801)C/COR IC16-([id number]/[id number])AMI, DALIA OR PTCA, ARTERY/GRAFT, SINGLE VESSEL CLINICAL PROFILE AND CO-MORBIDITIES Heart Failure: None CONCLUSIONS 100% distal RCA 40% ostial, 30% Prox LAD 50% distal LCX LVEDP 31 mm Hg post-dilated using 3.5 mm balloon RECOMMENDATIONS ASA Supriyaefkenroy Griffin for at least 12 months DESCRIPTION OF PROCEDURE The patient arrived to the procedure lab. The risks and benefits of the procedure as well as a full description of our services here and lack of surgical backup were fully explained to the patient and/or their significant other prior to the catheterization. The Timeout was completed, verifying the correct patient and procedure. The patient's procedural site was prepped and draped in the usual fashion. Local anesthetic was given subcutaneously to right radial region with Lidocaine 2%. Using a modified Seldinger technique, arterial access was obtained via the right radial artery, a 6Fr sheath was inserted.. Left Coronary Artery selective angiography was performed in multiple views using a 5 Fr. 4.0 [place] catheter. Right Coronary Artery selective angiography was then performed in multiple views using a 5 Fr. 4.0 [place]wood catheterThe images were reviewed and options discussed. A decision was then made to proceed with an Intervention, IVUS or other adjunct procedure. AL 0.75 Guide catheter was inserted and engaged into the RCA. Runthrough Guide wire was advanced to the RCA. Emerge 2.0 x 12 Balloon catheter was inserted. Balloon catheter was advanced across lesion in the right coronary, distal. PTCA balloon inflated at 8 atms for 11 secs. PTCA balloon inflated at 6 atms for 10 secs. PTCA balloon inflated at 8 atms for 7 secs. Resolute Anil 2.5 x 18 Drug Eluting stent was inserted. Drug Eluting stent was advanced across the lesion in the right coronary, distal. Resolute [place] 3.0 x 8 Drug Eluting stent was inserted. Drug Eluting stent was advanced across the lesion in the right coronary, distal. NC Emerge 3.50 x 20 Balloon catheter was inserted. Balloon catheter was advanced across lesion in the right coronary, distal. Angiogram performed pre balloon dilatation. Angiogram performed post balloon dilatation. The arterial sheath was pulled and a TR Band was applied for hemostasis CORONARY ANGIOGRAPHY DOMINANCE: Right Dominant LEFT HEART ASSESSMENT Left Ventricular Ejection Fraction: Not assessed LVEDP: 31 mmHg LEFT ANTERIOR DESCENDING ARTERY: LAD: Tubular 40% Ostial lesion in LAD Tubular 30% Proximal lesion in LAD CIRCUMFLEX ARTERY: CIRCUMFLEX: Tubular 50% Distal lesion in Circumflex Tubular 40% Mid lesion in Circumflex RAMUS: Tubular 40% Proximal lesion in Ramus RIGHT CORONARY ARTERY: RCA: Tubular 50% Proximal lesion in RCA Complex 100% Distal lesion in RCA INTERVENTION INFORMATION LESION SITE: RCA (Distal) Lesion Complexity: High/C, thrombus present: Yes, lesion length: 24 mm, chronic total occlusion: No, culprit lesion: Yes Pre Stenosis: 100 % Pre intervention GERALD flow: 0 PROCEDURE: Drug Eluting Stent with pre and post dilatation Post Stenosis: 0 % Post intervention GERALD flow: 3 Lesion Devices: Cordis 6 Fr AL.75 100cm Guide Catheter Terumo .014 180cm Runthrough Extra Floppy straight Rodrigo Sci EMERGE MR 2.00x12 BALLOON Medtronic Resolute Anil RX DALIA 2.5x18 Medtronic Resolute Anil RX DALIA 3.0x08 Rodrigo Sci NC EMERGE MR 3.50x20 BALLOON COMPLICATIONS No Complications PROCEDURE MEDICATIONS Fentanyl 50 mcg IV Oxygen: 2 L/min via nasal cannula Atropine 1mg/10ml 0.5 amp 08/12/2022 22:03:51 Adenosine 48 mcg IC 08/12/2022 22:17:24 Adenosine 48 mcg IC @ 08/12/2022 22:19:41 Heparin 6000 unit(s) IV 08/12/2022 21:50:08 Heparin 4000 unit(s) IV 08/12/2022 22:09:02 Lasix 40 mg IV 08/12/2022 22:41:56 Verapamil 2.5mg, Ntg 200mcgs, given IA 08/12/2022 21:49:16 IV Bolus: .9 NaCl 250 ml total 08/12/2022 21:41:25 IV Bolus: .9 NaCl 800 ml total 08/12/2022 22:57:13 SUMMARY OF HEMODYNAMIC DATA Time AIR REST ECG 21:41:12 AO 94/78 (87) SA 21:52:24 LV 128/21, 31 22:27:55 LV 125/22, 31 22:28:04 LVp 125/19, 30 22:28:10 AOp 124/94 (107) 22:28:17 22:59:00 Signed By Taz Brown MD On 08/12/2022 23:01:39 Taz Brown MD
--- NOTE | 2022-08-12 23:07 | ECHOCS_ITS ---
Reason For Study: S/O HI Procedure This was a 2D Doppler, Color Flow transthoracic echocardiogram. The study was technically difficult. D/T BODY HABITUS. Contrast injection was performed. Exam performed portable in ICU/CCU. Left Ventricle Normal LV size. Mild concentric left ventricular hypertrophy. The left ventricular ejection fraction is 50 %. Normal diastololic function. Severe inferior and posterior hypokinesis. Right Ventricle Normal right ventricle. Atria The left and right atria are normal. Mitral Valve Trivial mitral valve insufficiency. Tricuspid Valve Trivial tricuspid valve insufficiency. Unable to estimate RV systolic pressure due to insufficient tricuspid regurgitant envelope. Aortic Valve Normal aortic valve. Pulmonic Valve The pulmonic valve is not well visualized. Great Vessels Normal sized aortic root. Pericardium/Pleural No pericardial effusion. Medication Diluted definity 3.0ml given slow IV push to enhance endocardial definition. MMode/2D Measurements & Calculations LVIDd: 5.1 cm IVSd: 1.4 cm LVOT diam: 2.2 cm LVIDs: 3.3 cm LVPWd: 1.4 cm RVDd: 3.3 cm FS: 34.7 % LVOT area: 3.7 cm2 Ao root diam: 3.4 cm LAV(MOD-bp): 55.9 ml LA A4 area: 18.2 cm2 LAV(MOD-bp) Indexed: 23.7 ml/m2 LAV(MOD-sp2): 53.0 ml LAV(MOD-sp4): 51.9 ml LA dimension(2D): 3.8 cm RA A4 area: 20.6 cm2 Time Measurements MV dec time: 0.15 sec Doppler Measurements & Calculations MV E max sheldon: 52.4 cm/sec Lat Peak E' Sheldon: 11.5 cm/sec Med Peak E' Sheldon: 7.6 cm/sec MV A max sheldon: 60.8 cm/sec E/E' lat: 4.6 E/E' med: 6.9 MV E/A: 0.86 Ao V2 max: 137.3 cm/sec LV V1 max: 78.7 cm/sec SV(LVOT): 52.2 ml Ao max P.5 mmHg LV V1 max P.5 mmHg Ao V2 mean: 89.9 cm/sec LV V1 mean P.4 mmHg Ao mean P.8 mmHg LV V1 mean: 55.7 cm/sec Ao V2 VTI: 23.7 cm LV V1 VTI: 14.3 cm AV (velocity ratio): 0.60 ABDI(I,D): 2.2 cm2 ABDI(V,D): 2.1 cm2 PA V2 max: 124.0 cm/sec PI dec slope: 270.6 cm/sec2 ECHO/Echo Complete W/ Contrast Interpretation Summary Mild concentric left ventricular hypertrophy. The left ventricular ejection fraction is 50 %. Severe inferior and posterior hypokinesis Ordering Physician: Taz Brown Referring Physician: NO PCP Performed By: Veena Rush, AMANDA, RVT
--- NOTE | 2022-08-12 23:10 | CON.PCM.CA_ITS ---
Assessment & Plan Assessment/Plan (1) STEMI (ST elevation myocardial infarction): PLAN: Emergent coronary angiography revealed total occlusion in the distal right coronary artery. The mid distal right coronary artery was noted to be corkscrew with a 360 degree turn. Successful percutaneous intervention was performed with balloon angioplasty and placement of 2 drug-eluting stents. Excellent results were noted. Continue aspirin lifelong. Brilinta for at least 1 year. Integrilin infusion for 6 hours. Risk factor modification. Check 2D echocardiogram. (2) Coronary artery disease: PLAN: See #1 above. Start on low-dose beta-blockers. Check lipid profile. Start atorvastatin. (3) Chronic kidney disease: PLAN: For IV hydration. Repeat creatinine in the morning. HPI Consult Data Date of Consult: 08/12/22 HPI Narrative Reason for Consultation: Acute SC HPI Narrative: NIK THOMAS, is a 51 M with past medical history significant for chronic kidney disease. He was doing his routine exercise this evening when he felt anterior chest discomfort. Subsequently presented to the emergency room. In the emergency room an EKG was done which showed acute inferior ST elevation myocardial infarction. Subsequently a STEMI alert was called. Denies any previous history of heart disease. [facility] Medical History Chronic kidney disease Gout Home Medications allopurinol 100 mg tablet 200 mg PO DAILY 07/13/20 [History Last Taken Unknown] hydrocodone-acetaminophen 5-325mg 5mg-325mg 2 tab PO Q6H PRN pain 5 days #20 tabs 08/25/21 [Rx Last Taken Unknown] prednisone 20 mg tablet 40 mg PO DAILY 6 days #12 tabs 03/17/22 [Rx Last Taken Unknown] hydrocodone-acetaminophen 5-325mg 5mg-325mg 1 tab PO Q6H PRN pain 3 days #12 tabs 06/10/22 [Rx Last Taken Unknown] prednisone 20 mg tablet 40 mg PO DAILY #8 tabs 06/10/22 [Rx Last Taken Unknown] Allergy/AdvReac Type Severity Reaction Status Date / Time No Known Allergies Allergy Verified 06/10/22 16:34 Social History Smoking Status: Never smoker Physical Exam Narrative Comfortable. No apparent distress. Bradycardic. Heart sounds 1 and 2 normal. Chest clear to auscultation bilaterally. Abdomen soft. Alert oriented x3. No ankle edema noted. Risk Stratification Risk Stratification Applicable: No Objective Data Vital Signs: Vital Signs Temp Pulse Resp BP Pulse Ox O2 Del Method O2 Flow Rate 98.1 F 72 20 H 119/67 97 Nasal Cannula 2 08/12/22 21:46 08/12/22 21:46 08/12/22 21:46 08/12/22 21:46 08/12/22 21:46 08/12/22 21:46 08/12/22 21:46 Oxygen Flow Rate (L/min) 2 Oxygen Delivery Method Nasal Cannula Weight: 255 lb Body Mass Index (BMI) 34.5 Lab / Micro Data Result Diagrams: 08/12/22 20:30 08/12/22 20:30 Labs: Laboratory Results - last 24 hr 08/12/22 20:30: WBC 9.7, RBC 3.91 L, Hgb 11.4 L, Hct 35.5 L, MCV 90.8, MCH 29.2, MCHC 32.1, RDW Std Deviation 45.5 H, RDW Coeff of [place] 13.6, Plt Count 244, MPV 10.7, Immature Gran % (Auto) 0.700, Neut % (Auto) 81.1 H, Lymph % (Auto) 11.1 L, [place] % (Auto) 5.2, Eos % (Auto) 1.7, Baso % (Auto) 0.2, Absolute Neuts (auto) 7.9 H, Absolute Lymphs (auto) 1.07, Nucleated RBC % 0 08/12/22 20:30: Sodium 142, Potassium 4.4, Chloride 109 H, Carbon Dioxide 24.0, Anion Gap 9, BUN 34 H, Creatinine 2.02 H, Estim Creat Clear Calc 48.55, Est GFR (MDRD) Af Amer 45 L, Est GFR (MDRD) Non-Af 37 L, BUN/Creatinine Ratio 16.8, Glucose 103, Calcium 9.9, Troponin I High Sens 35 08/12/22 20:30: PT 13.2, INR 1.0, APTT 30.4 Cardiology Labs/Tests 08/12/22 20:30: WBC 9.7, RBC 3.91 L, Hgb 11.4 L, Hct 35.5 L, MCV 90.8, MCH 29.2, MCHC 32.1, Plt Count 244, MPV 10.7, Immature Gran % (Auto) 0.700, Neut % (Auto) 81.1 H, Lymph % (Auto) 11.1 L, [place] % (Auto) 5.2, Eos % (Auto) 1.7, Baso % (Auto) 0.2, Absolute Neuts (auto) 7.9 H, Nucleated RBC % 0 08/12/22 20:30: Sodium 142, Potassium 4.4, Chloride 109 H, Carbon Dioxide 24.0, Anion Gap 9, BUN 34 H, Creatinine 2.02 H, Est GFR (MDRD) Af Amer 45 L, Est GFR (MDRD) Non-Af 37 L, BUN/Creatinine Ratio 16.8, Glucose 103, Calcium 9.9 08/12/22 20:30: PT 13.2, INR 1.0, APTT 30.4 Rhythm: EKG: ECHO: Stress Test: Cardiac Cath: PCI: CT Surgery: Holter monitor: EPS: PPM: CXR: Chest CT Scan: Radiography Diagnostic Testing: Radiology Impression Chest X-Ray 08/12/22 20:58 IMPRESSION: Normal x-ray examination of the chest. Electronically Signed: Omar Rincon MD at 21:37 EST ,
[2022-08-12] MEDS: 0.9% Saline Lock 10 ML Syringe IV (23:41)
[2022-08-12] MEDS: Atorvastatin Calcium 40 MG Tablet PO (23:41)
[2022-08-12] MEDS: Metoprolol Tartrate 25 MG Tablet 12.5 MG PO (23:55)
[2022-08-13] VITALS (26 sets, daily range): BP systolic 86–140; BP diastolic 49–103; PULSE 61–90; RESP 13–25; TEMP 35.9–37.1; O2SAT 93–100
[2022-08-13 00:46] LABS: Troponin-I HS 50962 pg/mL (3.0-78.0)
[2022-08-13] MEDS: 0.9% Normal Saline 1,000 ML 150 ML IV (00:52)
[2022-08-13 03:30] LABS: Hematocrit 31.3 % (40-54); Hemoglobin 9.9 g/dL (13.0-16.5); Mean Corp Hgb Conc 31.6 g/dL (32-36); Mean Corpuscular Hgb 29.3 pg (27.0-32.0); Mean Corpuscular Volume 92.6 fL (80-94); Mean Platelet Vol. 10.6 fl (6.2-12.0); Platelet Count 233 K/mm3 (150-450); RBC Distribution Width SD 47.4 fl (35.1-43.9); Red Blood Count 3.38 M/mm3 (4.6-6.2); White Blood Count 8.4 K/mm3 (4.4-11.0)
[2022-08-13 03:53] LABS: AST(SGOT) 253 U/L (15-37); Alanine Aminotransfer ALT/SGPT 38 U/L (16-61); Albumin, Serum 3.3 g/dL (3.2-5.0); Alkaline Phosphatase 43 U/L (45-117); Anion Gap 9 (5-15); BUN 30 mg/dL (7-18); BUN/Creat Ratio 16.1 RATIO (10-20); Calcium,Total 8.6 mg/dL (8.5-10.1); Chloride 107 mmol/L (98-107); Cholesterol 184 mg/dL (200); Creatinine, Serum 1.86 mg/dL (0.70-1.30); EST Glomerular Filtration Rate 41 mL/min (>60); Est Glom Filt Rate - Afr Amer 50 mL/min (>60); Estimated Creatinine Clearance 52.73 ml/min; Globulin 3.2 g/dL (2.2-4.2); Glucose 93 mg/dL (74-106); High Density Lipoprotein 46 mg/dL; Potassium 4.1 mmol/L (3.5-5.1); Protein, Total 6.5 g/dL (6.4-8.2); Sodium Level 139 mmol/L (136-145); Triglycerides 98 mg/dL; Very Low Density Lipoprotein 20 mg/dL (5-40)
--- NOTE | 2022-08-13 07:22 | PN.HOSP_ITS ---
Reason for Visit Reason for Visit: Diagnoses ST elevation (STEMI) myocardial infarction of unspecified site (08/12/22) Atherosclerotic heart disease of [place] coronary artery without angina pectoris (08/12/22) Chronic kidney disease, unspecified (08/12/22) Subjective Subjective Follow-up for inferior wall STEMI Objective Data Objective Data Vital Signs: Vital Signs Temp Pulse Resp BP Pulse Ox O2 Del Method O2 Flow Rate 98.2 F 76 16 122/87 H 97 Room Air 2 08/13/22 04:00 08/13/22 06:00 08/13/22 06:00 08/13/22 06:00 08/13/22 06:00 08/13/22 06:00 08/13/22 04:00 Oxygen Flow Rate (L/min) 2 Oxygen Delivery Method Room Air Weight: 255 lb 8.252 oz Body Mass Index (BMI) 34.6 Intake & Output: Intake and Output for Last 24 Hours 08/11/22 08/12/22 08/13/22 23:59 23:59 23:59 Intake Total 1000 / 1000 2000 / 1999 Output Total 2200 / 2200 Balance 1000 / -200 -200 / -200 Lab / Micro Data Result Diagrams: 08/13/22 03:20 08/13/22 03:20 Labs: Laboratory Results - last 24 hr 08/12/22 20:30: WBC 9.7, RBC 3.91 L, Hgb 11.4 L, Hct 35.5 L, MCV 90.8, MCH 29.2, MCHC 32.1, RDW Std Deviation 45.5 H, RDW Coeff of Marquis 13.6, Plt Count 244, MPV 10.7, Immature Gran % (Auto) 0.700, Neut % (Auto) 81.1 H, Lymph % (Auto) 11.1 L, [place] % (Auto) 5.2, Eos % (Auto) 1.7, Baso % (Auto) 0.2, Absolute Neuts (auto) 7.9 H, Absolute Lymphs (auto) 1.07, Nucleated RBC % 0 08/12/22 20:30: Sodium 142, Potassium 4.4, Chloride 109 H, Carbon Dioxide 24.0, Anion Gap 9, BUN 34 H, Creatinine 2.02 H, Estim Creat Clear Calc 48.55, Est GFR (MDRD) Af Amer 45 L, Est GFR (MDRD) Non-Af 37 L, BUN/Creatinine Ratio 16.8, Glucose 103, Calcium 9.9, Troponin I High Sens 35 08/12/22 20:30: PT 13.2, INR 1.0, APTT 30.4 08/12/22 23:43: Troponin I High Sens 38218 H* 08/13/22 03:20: WBC 8.4, RBC 3.38 L, Hgb 9.9 L, Hct 31.3 L, MCV 92.6, MCH 29.3, MCHC 31.6 L, RDW Std Deviation 47.4 H, RDW Coeff of Marquis 14.0, Plt Count 233, MPV 10.6 08/13/22 03:20: Sodium 139, Potassium 4.1, Chloride 107, Carbon Dioxide 23.0, Anion Gap 9, BUN 30 H, Creatinine 1.86 H, Estim Creat Clear Calc 52.73, Est GFR (MDRD) Af Amer 50 L, Est GFR (MDRD) Non-Af 41 L, BUN/Creatinine Ratio 16.1, Glucose 93, Calcium 8.6, Total Bilirubin 0.60, AST 253 H, ALT 38, Alkaline Phosphatase 43 L, Total Protein 6.5, Albumin 3.3, Globulin 3.2, Albumin/Globulin Ratio 1.0, Triglycerides 98, Cholesterol 184, LDL Cholesterol 118, VLDL Cholesterol 20, HDL Cholesterol 46 Radiography Diagnostic Testing: Radiology Impression Chest X-Ray 08/12/22 20:58 IMPRESSION: Normal x-ray examination of the chest. Electronically Signed: Omar Rincon MD at 21:37 EST , Physical Exam Narrative Seen and examined. Patient does not have chest pain or shortness of breath. Right forearm and hand is swollen after cardiac cath. Physical exam General: Alert, Oriented x3, Cooperative, obesity grade 2 with BMI 34.7 kg/m? HEENT: Atraumatic, PERRLA, EOMI, Normocephalic Oral: Oral mucosa moist. No Gingival or Mucosal Lesions/ Ulcerations Neck: Supple, No JVD, Negative Carotid Bruits Lungs: Air entry diminished in bilateral lung bases. No crepitation/rhonchi Cardiovascular: Regular rate, Regular Rhythm, Normal S1, Normal S2, No murmurs Abdomen: Bowel Sounds Present, Soft, Non Tender, Non-Distended : No renal angle tenderness. No suprapubic tenderness. Extremities: Right distal forearm and wrist and fingers are swollen, hematoma. Can extend fingers. No pedal edema, Capillary Refill Less than 3 Seconds Skin: No rashes, No breakdown Musculoskeletal: No Tenderness to Palpation of Joints or Extremities Neurological: Cranial nerves II-XII grossly intact, DTR 2+/4 and Symmetrical, Neuro grossly intact Psych/Mental Status: Normal Affect, Appropriate. Assessment & Plan Assessment/Plan (1) STEMI (ST elevation myocardial infarction): (2) Chronic kidney disease: PLAN: Plan 51-year-old gentleman came to ED for chest pain and dyspnea, sudden onset while doing his routine exercise. Twelve-lead EKG shows acute inferior wall STEMI. STEMI alert was called and patient was taken to Registered Nurse Step Down 1. Acute inferior wall ST elevation [place]. Patient is in the heart catheterization lab with Dr. ROGERS. Emergent coronary angiography showed total occlusion of distal RCA. Successful PCI with 2 DALIA was done. Integrilin infusion for 6 hours. On aspirin and Brilinta. On low-dose beta-laverne. Atorvastatin. Lipid profile shows LDL 118, TC 184, TG 98. HDL 46. 2D echo EF 50% with inferior and posterior hypokinesis. Mild concentric LVH 2. Right forearm and hand swelling and hematoma after cardiac cath access site: Pressure bandage intact. Right upper extremity venous duplex is ordered. 3. Chronic kidney disease?continue to follow basic metabolic panel especially following IV contrast media given during catheterization. continue IV hydration Follow-up with DVT prophylaxis?anticoagulation on hold due to hematoma. Clinical Impression(s) from Imaging Studies Chest X-Ray 08/12/22 20:58 IMPRESSION: Normal x-ray examination of the chest. Electronically Signed: Omar Rincon MD at 21:37 EST , Echocardiogram 08/12/22 23:07 Interpretation Summary Mild concentric left ventricular hypertrophy. The left ventricular ejection fraction is 50 %. Severe inferior and posterior hypokinesis Charges/Coding Visit Charges Inpatient E&M: 73541 Subs Hosp L3
[2022-08-13] MEDS: Aspirin E.C. 81 MG Tablet PO (08:16)
[2022-08-13 08:25] LABS: ACT Activated Clotting Time 167 sec (74-137)
[2022-08-13 08:26] LABS: ACT Activated Clotting Time 245 sec (74-137)
[2022-08-13] MEDS: TICAGRELOR 90 MG TABLET PO ×2 (09:38→20:55)
[2022-08-13] MEDS: Metoprolol Tartrate 25 MG Tablet 12.5 MG PO (09:40)
--- NOTE | 2022-08-13 09:58 | CRPHASE1 ---
Patient Communication Former Patient:: Phase I Guide to Cardiac Rehab Given to Patient:: Yes Cardiac Rehab Facility Choice List Given to Patient:: Yes Legal File Clerk:: Taz Brown Cardiac Rehabilitation Info Cardiac Rehabilitation Program Information: Cardiac Rehab The cardiac rehab team at [facility] consists of highly skilled exercise physiologists, nurses, respiratory therapists and physicians working together with you. Our purpose is to help you have a full recovery and achieve the goals you set for yourself. Over the years many of our patients have returned to activities they assumed they would never do again! We can help restore your confidence and motivation to make lifestyle changes that can have a significant impact on your health and quality of life! We can help answer questions and concerns you may have about exercise, lifestyle, medications, diet, stress and anxiety which are common following a hospitalization. WE monitor ECG and vital signs during exercise and discuss your progress with you and report to your physician(s). Cardiac Rehab is proven to help reduce readmissions, improve functional capacity and lower recurrence of problems with your heart. Our Cardiac Rehab program is Certified by the [place] [employer]-Vascular [employer] Pulmonary [employer] (AACVPR) and Accredited by the [place] [employer] through our [facility]. You can contact us at . We invite you to call us with your questions or to get started in our program. If you have other questions or concerns be sure to ask your physician/provider during your follow-up visit. WE look forward to seeing you!
--- NOTE | 2022-08-13 09:59 | CRPH1.INSTRU ---
General Education CAD and cardiac anatomy and function:: Patient communicates acknowledgment Explanation of diagnoses and procedures:: Patient communicates acknowledgment Sign/Symptoms of SD:: Patient communicates acknowledgment Antiplatelet therapy: Patient communicates acknowledgment Smoking Patient Nicotine/Smoking Risk Factors Are:: Never smoked Nicotine/Smoking Response Code:: Patient communicates acknowledgment Overweight/Obesity Overweight/Obesity:: Patient communicates acknowledgment Heart Disease Patient Heart Disease Risk Factors Are:: Previous cardiac event Heart Disease Response Code:: Patient communicates acknowledgment
--- NOTE | 2022-08-13 10:00 | EKG12_ITS ---
Test Reason : POSTCATH Blood Pressure : / mmHG Vent. Rate : 087 BPM Atrial Rate : 087 BPM P-R Int : 198 ms QRS Dur : 080 ms QT Int : 378 ms P-R-T Axes : 032 079 012 degrees QTc Int : 454 ms Sinus rhythm with occasional Premature ventricular complexes Otherwise normal ECG Confirmed by PRAFUL RODRIGUEZ, FRANCISCO JAVIER ([id number]), offline editor NIMESH DAVIS ([id number]) on 08/14/2022 1:54:39 PM Referred By: Taz Brown Confirmed By:FRANCISCO JAVIER BASILIO MD
--- NOTE | 2022-08-13 12:15 | CASEMGMT ---
RN?CM?[employer]W MEMBER?CM?to room to meet with patient for initial transition planning/care coordination?assessment.?RN?CM?introduced self and role at [facility].? Pt voices understanding and consents to?assessment?at this time.? Pt resting in bed in no distress at this time.?Mother @ bedside and pt agreeable to her being present during assessment. Pt is A/O at this time and answers all questions appropriately.?? Care providers, pharmacy, and demographics verified/updated at this time. PCP: Dr Pace Specialists: Dr Mcduffie-nephrology Preferred [facility]acy:[facility] Insurance: Lua Prescription Benefit:?Yes. Brilinta 30-day savings card given to pt and instructed on use. Living Will/HPOA:?Pt does not currently have LW/HCPOA LNOK: , [place] Living Arrangements: Lives w/ and 15-yr-old dtr. Independent. Transportation:?Pt states drives self and states no transportation concerns at this time.? also drives. DME:Has a CPAP. HHC/SNF: No hx of either. No needs identified. Pt wishes to return home and states has no concerns with going home at time of discharge.? ?CM?to follow for any further discharge planning/needs.? Pt voices no further concerns/needs at this time.? Advised pt to ask for?CM?if any further questions/concerns/needs arise.? Voices understanding. PLAN:??Home. Ayala BSN?RN?CM
--- NOTE | 2022-08-13 12:25 | VDUE_ITS ---
Reason For Study: Swelling Right Proximal Left Proximal Right jugular vein is spontaneous, widely Left subclavian vein is spontaneous, widely patent, phasic, with no intraluminal patent, phasic, with no intraluminal echogenicity noted. echogenicity noted. Right subclavian vein is spontaneous, widely patent, phasic, with no intraluminal echogenicity noted. Right Lower Arm Right radial vein is compressible. Right ulnar vein is compressible. Right Arm Right axillary vein is spontaneous, patent, phasic, competent, compressible and demonstrates augmentation. Right brachial vein is compressible. Right cephalic vein is compressible. Right basilic vein is compressible. . Radial artery, mid, 0.33 x 0.32 cm, 56.4 cm/sec. Radial artery, distal, 0.29 x 0.31 cm, 51.3 cm/sec. Patient Safety Preliminary report to DOSIER OPERATOR. VL/Venous Duplex US, Unilateral Interpretation Summary Deep veins of the right upper extremity are patent and compressible segmentally . There is no evidence of deep vein thrombosis. Superficial veins of the right upper extremity are patent and compressible segm entally. There is no evidence of deep vein thrombosis. Radial artery patent with normal waveforms, no evidence of pseudoaneurysm or fi stula. Ordering Physician: Taz Brown Performed By: Jesica Call RVT ???
--- NOTE | 2022-08-13 12:25 | PN.CARD_ITS ---
Subjective Subjective Resting blue. No distress. Denies any complaints. Objective Data Vital Signs: Vital Signs Temp Pulse Resp BP Pulse Ox O2 Del Method O2 Flow Rate 96.7 F L 73 16 90/66 97 Room Air 2 08/13/22 08:00 08/13/22 11:15 08/13/22 11:15 08/13/22 11:15 08/13/22 11:15 08/13/22 11:15 08/13/22 07:00 FiO2 98 08/13/22 06:56 Oxygen Flow Rate (L/min) 2 Oxygen Delivery Method Room Air Weight: 255 lb 8.252 oz Body Mass Index (BMI) 34.6 Intake & Output: Intake and Output for Last 24 Hours 08/11/22 08/12/22 08/13/22 23:59 23:59 23:59 Intake Total 1000 / 1000 3424.79 / 3424.79 Output Total 2500 / 2500 Balance 1000 / -200 924.79 / 924.79 Lab / Micro Data Result Diagrams: 08/13/22 03:20 08/13/22 03:20 Labs: Laboratory Results - last 24 hr 08/12/22 09:48: Activated Clotting Time 167 H 08/12/22 10:25: Activated Clotting Time 245 H 08/12/22 20:30: WBC 9.7, RBC 3.91 L, Hgb 11.4 L, Hct 35.5 L, MCV 90.8, MCH 29.2, MCHC 32.1, RDW Std Deviation 45.5 H, RDW Coeff of [place] 13.6, Plt Count 244, MPV 10.7, Immature Gran % (Auto) 0.700, Neut % (Auto) 81.1 H, Lymph % (Auto) 11.1 L, [place] % (Auto) 5.2, Eos % (Auto) 1.7, Baso % (Auto) 0.2, Absolute Neuts (auto) 7.9 H, Absolute Lymphs (auto) 1.07, Nucleated RBC % 0 08/12/22 20:30: Sodium 142, Potassium 4.4, Chloride 109 H, Carbon Dioxide 24.0, Anion Gap 9, BUN 34 H, Creatinine 2.02 H, Estim Creat Clear Calc 48.55, Est GFR (MDRD) Af Amer 45 L, Est GFR (MDRD) Non-Af 37 L, BUN/Creatinine Ratio 16.8, Glucose 103, Calcium 9.9, Troponin I High Sens 35 08/12/22 20:30: PT 13.2, INR 1.0, APTT 30.4 08/12/22 23:43: Troponin I High Sens 35031 H* 08/13/22 03:20: WBC 8.4, RBC 3.38 L, Hgb 9.9 L, Hct 31.3 L, MCV 92.6, MCH 29.3, MCHC 31.6 L, RDW Std Deviation 47.4 H, RDW Coeff of [place] 14.0, Plt Count 233, MPV 10.6 08/13/22 03:20: Sodium 139, Potassium 4.1, Chloride 107, Carbon Dioxide 23.0, Anion Gap 9, BUN 30 H, Creatinine 1.86 H, Estim Creat Clear Calc 52.73, Est GFR (MDRD) Af Amer 50 L, Est GFR (MDRD) Non-Af 41 L, BUN/Creatinine Ratio 16.1, Glucose 93, Calcium 8.6, Total Bilirubin 0.60, AST 253 H, ALT 38, Alkaline Phosphatase 43 L, Total Protein 6.5, Albumin 3.3, Globulin 3.2, Albumin/Globulin Ratio 1.0, Triglycerides 98, Cholesterol 184, LDL Cholesterol 118, VLDL Cholesterol 20, HDL Cholesterol 46 Rhythm Strip Rhythm Strip: Sinus Rhythm Cardiology Labs/Tests 08/12/22 20:30: WBC 9.7, RBC 3.91 L, Hgb 11.4 L, Hct 35.5 L, MCV 90.8, MCH 29.2, MCHC 32.1, Plt Count 244, MPV 10.7, Immature Gran % (Auto) 0.700, Neut % (Auto) 81.1 H, Lymph % (Auto) 11.1 L, [place] % (Auto) 5.2, Eos % (Auto) 1.7, Baso % (Auto) 0.2, Absolute Neuts (auto) 7.9 H, Nucleated RBC % 0 08/12/22 20:30: Sodium 142, Potassium 4.4, Chloride 109 H, Carbon Dioxide 24.0, Anion Gap 9, BUN 34 H, Creatinine 2.02 H, Est GFR (MDRD) Af Amer 45 L, Est GFR (MDRD) Non-Af 37 L, BUN/Creatinine Ratio 16.8, Glucose 103, Calcium 9.9 08/12/22 20:30: PT 13.2, INR 1.0, APTT 30.4 08/13/22 03:20: WBC 8.4, RBC 3.38 L, Hgb 9.9 L, Hct 31.3 L, MCV 92.6, MCH 29.3, MCHC 31.6 L, Plt Count 233, MPV 10.6 08/13/22 03:20: Sodium 139, Potassium 4.1, Chloride 107, Carbon Dioxide 23.0, Anion Gap 9, BUN 30 H, Creatinine 1.86 H, Est GFR (MDRD) Af Amer 50 L, Est GFR (MDRD) Non-Af 41 L, BUN/Creatinine Ratio 16.1, Glucose 93, Calcium 8.6, Total Bilirubin 0.60, Triglycerides 98, Cholesterol 184, LDL Cholesterol 118, VLDL Cholesterol 20, HDL Cholesterol 46 Rhythm: EKG: ECHO: Stress Test: Cardiac Cath: PCI: CT Surgery: Holter monitor: EPS: PPM: CXR: Chest CT Scan: Radiography Diagnostic Testing: Radiology Impression Chest X-Ray 08/12/22 20:58 IMPRESSION: Normal x-ray examination of the chest. Electronically Signed: Omar Rincon MD at 21:37 EST , Echocardiogram 08/12/22 23:07 Interpretation Summary Mild concentric left ventricular hypertrophy. The left ventricular ejection fraction is 50 %. Severe inferior and posterior hypokinesis Ordering Physician: Taz Brown Referring Physician: NO PCP Performed By: Veena Rush, RDCS, RVT Physical Exam Narrative Comfortable. No distress. Heart sounds 1 and 2 are normal. No murmurs or rubs. Chest clear to auscultation bilaterally. Abdomen soft. Alert oriented x3. No ankle edema. Right hand and forearm swollen. No tenderness. Right radial pulse 2+. Assessment & Plan Assessment/Plan (1) STEMI (ST elevation myocardial infarction): PLAN: Status post drug-eluting stents to the distal right coronary artery. Stable. Asymptomatic. Continue current medications. (2) Coronary artery disease: PLAN: See #1 above. (3) Chronic kidney disease: PLAN: Creatinine better. Continue to monitor. (4) Dyslipidemia: PLAN: Started on atorvastatin. (5) Swelling of arm: PLAN: Probably hematoma however will also check venous Doppler rule out DVT
[2022-08-13] MEDS: Atorvastatin Calcium 40 MG Tablet PO (20:54)
[2022-08-14] VITALS (19 sets, daily range): BP systolic 103–139; BP diastolic 56–99; PULSE 77–97; RESP 13–89; TEMP 36.3–36.7; O2SAT 91–97
[2022-08-14 07:56] LABS: Hemoglobin 9.9 g/dL (13.0-16.5); Mean Corp Hgb Conc 30.9 g/dL (32-36); Mean Corpuscular Volume 93.8 fL (80-94); Mean Platelet Vol. 10.7 fl (6.2-12.0); Platelet Count 204 K/mm3 (150-450); RBC Distribution Width CV 14.3 % (11.6-14.6); RBC Distribution Width SD 49.1 fl (35.1-43.9); Red Blood Count 3.41 M/mm3 (4.6-6.2); White Blood Count 7.3 K/mm3 (4.4-11.0)
[2022-08-14] MEDS: Aspirin E.C. 81 MG Tablet PO (08:55)
--- NOTE | 2022-08-14 10:00 | EKG12_ITS ---
Test Reason : POST PCI Blood Pressure : / mmHG Vent. Rate : 073 BPM Atrial Rate : 073 BPM P-R Int : 172 ms QRS Dur : 066 ms QT Int : 376 ms P-R-T Axes : 051 -25 -03 degrees QTc Int : 414 ms Sinus rhythm with marked sinus arrhythmia with occasional Premature ventricular complexes and Fusion complexes Inferior infarct , age undetermined Abnormal ECG Confirmed by PRAFUL RODRIGUEZ, FRANCISCO JAVIER ([id number]), book or script editor NIMESH DAVIS ([id number]) on 08/14/2022 1:53:47 PM Referred By: Taz Brown Confirmed By:FRANCISCO JAVIER BASILIO MD
[2022-08-14] MEDS: Metoprolol Tartrate 25 MG Tablet 12.5 MG PO ×2 (10:56→21:46)
[2022-08-14] MEDS: TICAGRELOR 90 MG TABLET PO ×2 (10:56→21:46)
--- NOTE | 2022-08-14 11:13 | PN.CARD_ITS ---
Subjective Subjective Denies any complaints. Objective Data Vital Signs: Vital Signs Temp Pulse Resp BP Pulse Ox O2 Del Method O2 Flow Rate 97.4 F L 92 89 H 123/78 H 95 Room Air 2 08/14/22 10:00 08/14/22 10:56 08/14/22 10:00 08/14/22 10:56 08/14/22 10:00 08/14/22 10:00 08/13/22 07:00 FiO2 98 08/13/22 06:56 Oxygen Flow Rate (L/min) 2 Oxygen Delivery Method Room Air Weight: 256 lb 13.416 oz Body Mass Index (BMI) 34.6 Intake & Output: Intake and Output for Last 24 Hours 08/12/22 08/13/22 08/14/22 23:59 23:59 23:59 Intake Total 1000 / 1000 4144.79 / 4144.79 300 / 300 Output Total 3350 / 3950 1550 / 1550 Balance 1000 / -200 794.79 / 194.79 -1250 / -1250 Lab / Micro Data Attestation: I reviewed the patient's lab results. Result Diagrams: 08/14/22 07:45 08/13/22 03:20 Labs: Laboratory Results - last 24 hr 08/14/22 07:45: WBC 7.3, RBC 3.41 L, Hgb 9.9 L, Hct 32.0 L, MCV 93.8, MCH 29.0, MCHC 30.9 L, RDW Std Deviation 49.1 H, RDW Coeff of [place] 14.3, Plt Count 204, MPV 10.7 Rhythm Strip Rhythm Strip: Sinus Rhythm Cardiology Labs/Tests 08/14/22 07:45: WBC 7.3, RBC 3.41 L, Hgb 9.9 L, Hct 32.0 L, MCV 93.8, MCH 29.0, MCHC 30.9 L, Plt Count 204, MPV 10.7 Rhythm: EKG: ECHO: Stress Test: Cardiac Cath: PCI: CT Surgery: Holter monitor: EPS: PPM: CXR: Chest CT Scan: Radiography Diagnostic Testing: Radiology Impression Echocardiogram 08/12/22 23:07 Interpretation Summary Mild concentric left ventricular hypertrophy. The left ventricular ejection fraction is 50 %. Severe inferior and posterior hypokinesis Ordering Physician: Taz Brown Referring Physician: JASWANT PCP Performed By: Veena Rush RDCS, RVT Venous Doppler Study 08/13/22 12:25 Interpretation Summary Deep veins of the right upper extremity are patent and compressible segmentally. There is no evidence of deep vein thrombosis. Superficial veins of the right upper extremity are patent and compressible segmentally. There is no evidence of deep vein thrombosis. Radial artery patent with normal waveforms, no evidence of pseudoaneurysm or fistula. Ordering Physician: Taz Brown Performed By: Jesica Call RVT ??? Physical Exam Narrative Comfortable. No distress. Heart sounds 1 and 2 are normal. No murmurs or rubs. Chest clear to auscultation bilaterally. Abdomen soft. Alert oriented x3. No ankle edema. Right hand and forearm swollen. No tenderness. Right radial pulse 2+. Assessment & Plan Assessment/Plan (1) STEMI (ST elevation myocardial infarction): PLAN: Status post drug-eluting stents to the distal right coronary artery. Stable. Asymptomatic. Continue current medications. (2) Coronary artery disease: PLAN: See #1 above. (3) Chronic kidney disease: PLAN: Continue to monitor. Check basic metabolic panel in a.m. (4) Dyslipidemia: PLAN: Started on atorvastatin. (5) Swelling of arm: PLAN: Hematoma right hand. Soft. Moving all fingers without any discomfort. Right radial pulse 2+. Continue to monitor. PLAN: Plan Okay to transfer to [facility] today. Possibly home tomorrow.
--- NOTE | 2022-08-14 12:38 | PN.HOSP_ITS ---
Reason for Visit Reason for Visit: Diagnoses Hyperlipidemia, unspecified (08/12/22) ST elevation (STEMI) myocardial infarction of unspecified site (08/12/22) Atherosclerotic heart disease of [place] coronary artery without angina pectoris (08/12/22) Other specified soft tissue disorders (08/12/22) Chronic kidney disease, unspecified (08/12/22) Subjective Subjective Follow-up for inferior wall STEMI Objective Data Objective Data Vital Signs: Vital Signs Temp Pulse Resp BP Pulse Ox O2 Del Method O2 Flow Rate 97.4 F L 81 18 122/93 H 96 Room Air 2 08/14/22 10:00 08/14/22 12:00 08/14/22 12:00 08/14/22 12:00 08/14/22 12:00 08/14/22 12:00 08/13/22 07:00 FiO2 98 08/13/22 06:56 Oxygen Flow Rate (L/min) 2 Oxygen Delivery Method Room Air Weight: 256 lb 13.416 oz Body Mass Index (BMI) 34.6 Intake & Output: Intake and Output for Last 24 Hours 08/12/22 08/13/22 08/14/22 23:59 23:59 23:59 Intake Total 1000 / 1000 4144.79 / 4144.79 680 / 680 Output Total 3350 / 3950 1950 / 1950 Balance 1000 / -200 794.79 / 194.79 -1270 / -1270 Lab / Micro Data Result Diagrams: 08/14/22 07:45 08/13/22 03:20 Labs: Laboratory Results - last 24 hr 08/14/22 07:45: WBC 7.3, RBC 3.41 L, Hgb 9.9 L, Hct 32.0 L, MCV 93.8, MCH 29.0, MCHC 30.9 L, RDW Std Deviation 49.1 H, RDW Coeff of [place] 14.3, Plt Count 204, MPV 10.7 Radiography Diagnostic Testing: Radiology Impression Venous Doppler Study 08/13/22 12:25 Interpretation Summary Deep veins of the right upper extremity are patent and compressible segmentally. There is no evidence of deep vein thrombosis. Superficial veins of the right upper extremity are patent and compressible segmentally. There is no evidence of deep vein thrombosis. Radial artery patent with normal waveforms, no evidence of pseudoaneurysm or fistula. Ordering Physician: Taz Rogers Performed By: Jesica Call, RVT ??? Rhythm Strip Rhythm Strip: Sinus Rhythm Physical Exam Narrative Seen and examined. Patient does not have chest pain or shortness of breath. Right forearm and hand hematoma is better. Patient can close his fingers. Physical exam General: Alert, Oriented x3, Cooperative, obesity grade 2 with BMI 34.7 kg/m? HEENT: Atraumatic, PERRLA, EOMI, Normocephalic Oral: Oral mucosa moist. No Gingival or Mucosal Lesions/ Ulcerations Neck: Supple, No JVD, Negative Carotid Bruits Lungs: Air entry diminished in bilateral lung bases. No crepitation/rhonchi Cardiovascular: Regular rate, Regular Rhythm, Normal S1, Normal S2, No murmurs Abdomen: Bowel Sounds Present, Soft, Non Tender, Non-Distended : No renal angle tenderness. No suprapubic tenderness. Extremities: Right distal forearm and wrist and fingers are swollen, hematoma improving. No tenderness on extension of fingers. Radial artery 2+. Capillary Refill Less than 3 Seconds Skin: Right radial artery minimally described above No breakdown Musculoskeletal: No Tenderness to Palpation of Joints or Extremities Neurological: Cranial nerves II-XII grossly intact, DTR 2+/4 and Symmetrical, Neuro grossly intact Psych/Mental Status: Normal Affect, Appropriate. Assessment & Plan Assessment/Plan (1) STEMI (ST elevation myocardial infarction): (2) Chronic kidney disease: PLAN: Plan 51-year-old gentleman came to ED for chest pain and dyspnea, sudden onset while doing his routine exercise. Twelve-lead EKG shows acute inferior wall STEMI. STEMI alert was called and patient was taken to [facility]. Acute inferior wall ST elevation DC. Patient is in the heart catheterization lab with Dr. ROGERS. Emergent coronary angiography showed total occlusion of distal RCA. Successful PCI with 2 DALIA was done. Integrilin infusion for 6 hours. On aspirin and Brilinta. On low-dose beta-laver[place]. Atorvastatin. Lipid profile shows LDL 118, TC 184, TG 98. HDL 46. 2D echo EF 50% with inferior and posterior hypokinesis. Mild concentric LVH 08/14: Right radial artery hematoma patient is transferred to PCU. BMP tomorrow AM. Right radial artery hematoma improving. No tenderness on extension of right hand fingers. Venous duplex showed normal radial artery waveforms with no pseudoaneurysm or fistula. Patient is transferred to PCU. 2. Right forearm and hand swelling and hematoma after cardiac cath access site: Pressure bandage intact. Right upper extremity venous duplex is ordered. 3. Chronic kidney disease?continue to follow basic metabolic panel especially following IV contrast media given during catheterization. continue IV hydration Follow-up with DVT prophylaxis?anticoagulation on hold due to hematoma. Clinical Impression(s) from Imaging Studies Chest X-Ray 08/12/22 20:58 IMPRESSION: Normal x-ray examination of the chest. Electronically Signed: Omar Rincon MD at 21:37 EST , Echocardiogram 08/12/22 23:07 Interpretation Summary Mild concentric left ventricular hypertrophy. The left ventricular ejection fraction is 50 %. Severe inferior and posterior hypokinesis Ordering Physician: Taz Rogers Referring Physician: NO PCP Performed By: Veena Rush, RDCS, RVT Venous Doppler Study 08/13/22 12:25 Interpretation Summary Deep veins of the right upper extremity are patent and compressible segmentally. There is no evidence of deep vein thrombosis. Superficial veins of the right upper extremity are patent and compressible segmentally. There is no evidence of deep vein thrombosis. Radial artery patent with normal waveforms, no evidence of pseudoaneurysm or fistula. ? Charges/Coding Visit Charges Inpatient E&M: 86947 Subs Hosp L2
[2022-08-14] MEDS: Pantoprazole Sodium 40 MG Tablet PO (15:31)
[2022-08-14] MEDS: Atorvastatin Calcium 40 MG Tablet PO (21:46)
[2022-08-15] VITALS (9 sets, daily range): BP systolic 116–137; BP diastolic 70–92; PULSE 81–88; RESP 15–18; TEMP 35.9–36.7; O2SAT 95–98
[2022-08-15 03:45] LABS: Absolute Lymphocyte Count 1.25 X10^3/uL (0.83-4.51); Absolute Neutrophil Count 4.5 X10^3/uL (2.0-7.7); Basophil# 0.02 X10^3/uL; Basophil% 0.3 % (0-1); Eosinophil# 0.35 X10^3/uL; Eosinophils% 5.4 % (0-5); Hematocrit 30.6 % (40-54); Hemoglobin 9.7 g/dL (13.0-16.5); Lymphocyte # 1.25 X10^3/ul (0.83-4.51); Lymphocyte % 19.1 % (19-41); Mean Corp Hgb Conc 31.7 g/dL (32-36); Mean Corpuscular Hgb 29.7 pg (27.0-32.0); Mean Corpuscular Volume 93.6 fL (80-94); Mean Platelet Vol. 10.8 fl (6.2-12.0); Monocyte# 0.41 X10^3/uL; Monocyte% 6.3 % (0-10); NRBC Flagged by Analyzer 0 % (0-5); Neutrophil % 68.7 % (47-70); Platelet Count 209 K/mm3 (150-450); RBC Distribution Width SD 47.9 fl (35.1-43.9); Red Blood Count 3.27 M/mm3 (4.6-6.2); White Blood Count 6.5 K/mm3 (4.4-11.0)
[2022-08-15 03:55] LABS: Anion Gap 7 (5-15); BUN 19 mg/dL (7-18); BUN/Creat Ratio 12.5 RATIO (10-20); Calcium,Total 8.6 mg/dL (8.5-10.1); Chloride 109 mmol/L (98-107); Creatinine, Serum 1.52 mg/dL (0.70-1.30); EST Glomerular Filtration Rate 52 mL/min (>60); Est Glom Filt Rate - Afr Amer 63 mL/min (>60); Estimated Creatinine Clearance 64.52 ml/min; Glucose 95 mg/dL (74-106); Potassium 3.8 mmol/L (3.5-5.1); Sodium Level 141 mmol/L (136-145)
[2022-08-15] MEDS: Metoprolol Tartrate 25 MG Tablet 12.5 MG PO (07:59)
[2022-08-15] MEDS: TICAGRELOR 90 MG TABLET PO (08:00)
[2022-08-15] MEDS: Aspirin E.C. 81 MG Tablet PO (08:00)
[2022-08-15] MEDS: Pantoprazole Sodium 40 MG Tablet PO (08:00)
--- NOTE | 2022-08-15 08:03 | DCINST_ITS ---
Discharge Instructions Diet Discharge Diet: Low fat / Low cholesterol and 2000 mg Sodium Diet Activity Discharge Activity: Return to Normal Activity Weight Bearing Status: Weight bearing as tolerated Dressing / Incision Call your doctor if you observe: Fever of 101 or Higher, Coldness, Increased Pain, Numbness or Tingling, Change in Color, Inability to urinate, Inability to have a bowel movement, Shortness of breath, Dizziness, Fainting spells, Swelling in the ankles, Chest pain, Prolonged hiccupping, Increased palpitations (irregular heartbeat) and Calf discomfort Follow Up Care When: IN 2 WEEKS Test Results: Test results from this visit will be discussed in further detail at your follow- up appointment, if applicable. Discharge Plan Admission Admit Date/Time: 08/12/22 21:46 Primary Reason for Your Visit: INFERIOR Wall STEMI Attending Provider: Jonah Carmen Primary Care Provider: Oscar Pace Consulting Providers: Taz Brown Discharge Orders/Prescriptions Prescriptions: New atorvastatin 40 mg Tablet 40 mg PO QHS Qty: 30 3RF aspirin 81 mg Tablet,Delayed Release (Dr/Ec) 81 mg PO DAILY@0800 30 Days Qty: 30 4RF metoprolol tartrate 25 mg Tablet 25 mg PO BID Qty: 60 3RF Brilinta 90 mg Tablet 90 mg PO BID Qty: 60 3RF nitroglycerin 0.4 mg tablet, sublingual 0.4 mg sublingual Q5M PRN (Reason: chest pain) Qty: 30 0RF Rx Instructions: do not exceed 3 doses per episode Continued allopurinol 100 MG tablet 200 mg PO DAILY hydrocodone-acetaminophen 5-325 mg tablet 2 tab PO Q6H PRN (Reason: pain) 5 Days Qty: 20 0RF hydrocodone-acetaminophen 5-325 mg tablet 1 tab PO Q6H PRN (Reason: pain) 3 Days Qty: 12 0RF Discontinued prednisone 20 mg tablet 40 mg PO DAILY 6 Days Qty: 12 0RF prednisone 20 mg tablet 40 mg PO DAILY Qty: 8 0RF Referrals / Follow Up: Taz Brown MD [Med Staff - Active Staff] - Within 2 Weeks (Inferior wall STEMI) Oscar Pace MD [Primary Care Provider] - Care Physician,No Primary [Non-Staff] - Disposition Disposition (needs filled in before D/C Order can be placed): Home, Self Care
--- NOTE | 2022-08-15 08:15 | PCM.DC.SUM ---
Providers Date of Admission: 08/12/22 Date of Discharge: 08/15/22 Primary Care Physician: Dr. Oscar Pace MD Reason For Visit: STEMI Diagnosis Discharge Diagnosis (1) STEMI (ST elevation myocardial infarction): Status: Acute Code(s): I21.3 - ST elevation (STEMI) myocardial infarction of unspecified site (2) Chronic kidney disease: Status: Chronic Code(s): N18.9 - Chronic kidney disease, unspecified Plan 51-year-old gentleman came to ED for chest pain and dyspnea, sudden onset while doing his routine exercise. Twelve-lead EKG shows acute inferior wall STEMI. STEMI alert was called and patient was taken to [facility]. Acute inferior wall ST elevation [place]. Patient is in the heart catheterization lab with Dr. ROGERS. Emergent coronary angiography showed total occlusion of distal RCA. Successful PCI with 2 DALIA was done. Integrilin infusion for 6 hours. On aspirin and Brilinta. On low-dose beta-jessica. Atorvastatin. Lipid profile shows LDL 118, TC 184, TG 98. HDL 46. 2D echo EF 50% with inferior and posterior hypokinesis. Mild concentric LVH 08/14: Right radial artery hematoma patient is transferred to PCU. BMP tomorrow AM. Right radial artery hematoma improving. No tenderness on extension of right hand fingers. 08/15: Metoprolol dose increased to 25 mg twice daily. Patient discharged on aspirin, Brilinta, metoprolol and atorvastatin. Discussed with the fell cutter Dr. Rogers. 2. Right forearm and hand swelling and hematoma after cardiac cath access site: Pressure bandage intact. Venous duplex showed normal radial artery waveforms with no pseudoaneurysm or fistula. Patient is transferred to PCU. 08/15: Right wrist and forearm hematoma has much improved about 60 to 70%. Patient can make a fist and extend fingers. Advised not to do lifting pushing pulling from right hand at least for 2 weeks. 3. Chronic kidney disease?continue to follow basic metabolic panel especially following IV contrast media given during catheterization. continue IV hydration 08/15: Daily monitoring of kidney function as well as improvement to 1.52. Patient was admitted with creatinine 2.0. Patient does not need CÉSAR or ARB as EF is 50% and patient has CKD. Follow-up with DVT prophylaxis?anticoagulation on hold due to hematoma. Discharge medication reconciliation done. Discharge follow-up instructions completed. Discharge process discussed with the patient and all questions were answered to patient's satisfaction. Total time spent, exact 35 minutes on discharge meds reconciliation, examination, coordination of care with nurses and ancillary staff, review of imaging and blood test and discussion with the patient on follow-up instructions. Clinical Impression(s) from Imaging Studies Chest X-Ray 08/12/22 20:58 IMPRESSION: Normal x-ray examination of the chest. Electronically Signed: Omar Rincon MD at 21:37 EST , Echocardiogram 08/12/22 23:07 Interpretation Summary Mild concentric left ventricular hypertrophy. The left ventricular ejection fraction is 50 %. Severe inferior and posterior hypokinesis Ordering Physician: Taz Rogers Referring Physician: NO PCP Performed By: Veena Rush, AMANDA, RVT Venous Doppler Study 08/13/22 12:25 Interpretation Summary Deep veins of the right upper extremity are patent and compressible segmentally. There is no evidence of deep vein thrombosis. Superficial veins of the right upper extremity are patent and compressible segmentally. There is no evidence of deep vein thrombosis. Radial artery patent with normal waveforms, no evidence of pseudoaneurysm or fistula. ? Medications at Discharge Home Medications allopurinol 100 mg tablet 200 mg PO DAILY 07/13/20 hydrocodone-acetaminophen 5-325mg 5mg-325mg 2 tab PO Q6H PRN pain 5 days #20 tabs 08/25/21 hydrocodone-acetaminophen 5-325mg 5mg-325mg 1 tab PO Q6H PRN pain 3 days #12 tabs 06/10/22 aspirin 81 mg tablet,delayed release 81 mg PO DAILY@0800 30 days #30 tabs 08/15/22 atorvastatin 40 mg tablet 40 mg PO QHS #30 tabs 08/15/22 metoprolol tartrate 25 mg tablet 25 mg PO BID #60 tabs 08/15/22 nitroglycerin 0.4 mg sublingual tablet 0.4 mg sublingual Q5M PRN chest pain #30 tabs 08/15/22 ticagrelor 90 mg tablet (Brilinta) 90 mg PO BID #60 tabs 08/15/22 Physical Exam Narrative Seen and examined. Patient does not have chest pain or shortness of breath. Right forearm and hand hematoma is better. Patient can close his fingers. Physical exam General: Alert, Oriented x3, Cooperative, obesity grade 2 with BMI 34.7 kg/m? HEENT: Atraumatic, PERRLA, EOMI, Normocephalic Oral: Oral mucosa moist. No Gingival or Mucosal Lesions/ Ulcerations Neck: Supple, No JVD, Negative Carotid Bruits Lungs: Air entry diminished in bilateral lung bases. No crepitation/rhonchi Cardiovascular: Regular rate, Regular Rhythm, Normal S1, Normal S2, No murmurs Abdomen: Bowel Sounds Present, Soft, Non Tender, Non-Distended : No renal angle tenderness. No suprapubic tenderness. Extremities: Right distal forearm and wrist and fingers are swollen, hematoma improving. No tenderness on extension of fingers. Radial artery 2+. Capillary Refill Less than 3 Seconds Skin: Right radial artery minimally described above No breakdown Musculoskeletal: No Tenderness to Palpation of Joints or Extremities Neurological: Cranial nerves II-XII grossly intact, DTR 2+/4 and Symmetrical, Neuro grossly intact Psych/Mental Status: Normal Affect, Appropriate. Weight / BMI Weight Weight: 256 lb 13.416 oz Body Mass Index (BMI) 34.6 ABG / Lab / Microbiology Data Result Diagrams: 08/15/22 03:20 08/15/22 03:20 Laboratory: Laboratory Results - last 24 hr 08/15/22 03:20: WBC 6.5, RBC 3.27 L, Hgb 9.7 L, Hct 30.6 L, MCV 93.6, MCH 29.7, MCHC 31.7 L, RDW Std Deviation 47.9 H, RDW Coeff of Marquis 14.0, Plt Count 209, MPV 10.8, Immature Gran % (Auto) 0.200, Neut % (Auto) 68.7, Lymph % (Auto) 19.1, [place] % (Auto) 6.3, Eos % (Auto) 5.4 H, Baso % (Auto) 0.3, Absolute Neuts (auto) 4.5, Absolute Lymphs (auto) 1.25, Nucleated RBC % 0 08/15/22 03:20: Sodium 141, Potassium 3.8, Chloride 109 H, Carbon Dioxide 25.0, Anion Gap 7, BUN 19 H, Creatinine 1.52 H, Estim Creat Clear Calc 64.52, Est GFR (MDRD) Af Amer 63, Est GFR (MDRD) Non-Af 52 L, BUN/Creatinine Ratio 12.5, Glucose 95, Calcium 8.6 D/C Instructions Discharge Diet: Low fat / Low cholesterol and 2000 mg Sodium Diet Weight Bearing Status: Weight bearing as tolerated Call your doctor if you observe: Fever of 101 or Higher, Coldness, Increased Pain, Numbness or Tingling, Change in Color, Inability to urinate, Inability to have a bowel movement, Shortness of breath, Dizziness, Fainting spells, Swelling in the ankles, Chest pain, Prolonged hiccupping, Increased palpitations (irregular heartbeat) and Calf discomfort When: IN 2 WEEKS Meaningful Use Info Meaningful Use Diagnoses (Choose all that apply): AMI AMI/Post PCI/Angioplasty Aspirin given w/in 24hrs of arrival?: Yes ASA at discharge?: Yes Statins at discharge?: Yes César/ARB at discharge?: No Reason César/ARB not ordered:: Worsening renal disease Beta Jessica at discharge?: Yes Done w/ Acute [place] measure.: Yes Discharge Plan Admission Admit Date/Time: 08/12/22 21:46 Primary Reason for Your Visit: INFERIOR Wall STEMI Attending Provider: Jonah Carmen Primary Care Provider: Oscar Pace Consulting Providers: Taz Rogers Discharge Orders/Prescriptions Prescriptions: New atorvastatin 40 mg Tablet 40 mg PO QHS Qty: 30 3RF aspirin 81 mg Tablet,Delayed Release (Dr/Ec) 81 mg PO DAILY@0800 30 Days Qty: 30 4RF metoprolol tartrate 25 mg Tablet 25 mg PO BID Qty: 60 3RF Brilinta 90 mg Tablet 90 mg PO BID Qty: 60 3RF nitroglycerin 0.4 mg tablet, sublingual 0.4 mg sublingual Q5M PRN (Reason: chest pain) Qty: 30 0RF Rx Instructions: do not exceed 3 doses per episode Continued allopurinol 100 MG tablet 200 mg PO DAILY hydrocodone-acetaminophen 5-325 mg tablet 2 tab PO Q6H PRN (Reason: pain) 5 Days Qty: 20 0RF hydrocodone-acetaminophen 5-325 mg tablet 1 tab PO Q6H PRN (Reason: pain) 3 Days Qty: 12 0RF Discontinued prednisone 20 mg tablet 40 mg PO DAILY 6 Days Qty: 12 0RF prednisone 20 mg tablet 40 mg PO DAILY Qty: 8 0RF Referrals / Follow Up: Taz Rogers MD [Med Staff - Active Staff] - Within 2 Weeks (Inferior wall STEMI) Oscar Pace MD [Primary Care Provider] - Care Physician,No Primary [Non-Staff] - Disposition Disposition (needs filled in before D/C Order can be placed): Home, Self Care Charges/Coding Visit Charges Inpatient E&M: 38160 Disch Hosp >30min
--- NOTE | 2022-08-15 09:28 | CASEMGMT ---
NALDO CM Follow-up: Face to face with pt at bedside. Pt received Brilinta card previously, denies any concerns or needs at discharge. No additional DC needs identified at this time. Hamilton Woods RN CM
--- NOTE | 2022-08-15 10:00 | EKG12_ITS ---
Test Reason : AM EKG Blood Pressure : / mmHG Vent. Rate : 088 BPM Atrial Rate : 088 BPM P-R Int : 152 ms QRS Dur : 076 ms QT Int : 374 ms P-R-T Axes : 049 -22 -36 degrees QTc Int : 452 ms Normal sinus rhythm Inferior infarct , age undetermined Abnormal ECG When compared with ECG of 13-AUG-2022 05:11, MANUAL COMPARISON REQUIRED, DATA IS UNCONFIRMED Confirmed by AMOL RODRIGUEZ, PANCHITO ([id number]), newspaper editor NIMESH DAVIS ([id number]) on 08/15/2022 11:22:25 AM Referred By: Taz Brown Confirmed By:PANCHITO CARMICHAEL MD
== END 2022-08-15 14:15 | disposition home or self-care (01) | DRG 174 ==
LOC: ED 20:56 → ICU 21:45
PROVIDERS: Admitting Provider Internal Medicine Cardiovascular Disease; Emergency Provider Student in an Organized Health Care Education/Training Program; PCP Family Medicine; Referring Provider Internal Medicine Cardiovascular Disease; Visit Provider Internal Medicine
DX: I21.11 ST elevation (STEMI) myocardial infarction involving right coronary artery (principal); E78.5 Hyperlipidemia, unspecified; I25.10 Atherosclerotic heart disease of native coronary artery without angina pectoris; L76.32 Postprocedural hematoma of skin and subcutaneous tissue following other procedure; N18.9 Chronic kidney disease, unspecified; M10.9 Gout, unspecified; G47.30 Sleep apnea, unspecified; Z79.52 Long term (current) use of systemic steroids; Z79.899 Other long term (current) drug therapy
CPT/HCPCS: 71045; 80048; 80053; 80061; 84484; 85025; 85027; 85347; 85610; 85730; 92941; 93005; 93306; 93454; 93971; 99152; 99153; 99284; C1757; J7030; J7040; J7050; Q9957; Q9967; A4216; C1725; C1769; C1874; C1887; C1894; C8929; C9606; J0153; J1327; J1940; J2405

== ENCOUNTER 2022-08-28 21:18 | Emergency (ER) | payer MEDICAID, SELFPAY ==
[2022-08-28 21:19] VITALS: BP 150/113; PULSE 96; RESP 18; TEMP 36.6; O2SAT 100; BMI 75.9
--- NOTE | 2022-08-28 21:45 | EDS_ITS ---
HPI History of Present Illness Chief Complaint: Lower Extremity Injury Informant: patient Narrative Narrative: Nontraumatic left ankle pain and swelling since yesterday. No fevers. No injuries. History of similar multiple times with gout. Last time a few months ago. He states he did not know what medications to take due to having a STEMI 2 weeks ago. Currently on aspirin Brilinta and statin. Reported no family history of MIs at young age no tobacco or diabetes history. Denies any increasing red meat seafood wine or cheese. Prior similar symptoms: Yes [facility] Medical History (Updated 08/28/22 @ 22:[address] Piotr Russo DO) Acute otitis media of left ear with perforation Chronic kidney disease Dyslipidemia Gout STEMI (ST elevation myocardial infarction) Swelling of arm URI (upper respiratory infection) Home Medications allopurinol 100 mg tablet 200 mg PO DAILY 07/13/20 [History Last Taken Unknown] hydrocodone-acetaminophen 5-325mg 5mg-325mg 2 tab PO Q6H PRN pain 5 days #20 tabs 08/25/21 [Rx Last Taken Unknown] hydrocodone-acetaminophen 5-325mg 5mg-325mg 1 tab PO Q6H PRN pain 3 days #12 t abs 06/10/22 [Rx Last Taken Unknown] aspirin 81 mg tablet,delayed release 81 mg PO DAILY@0800 30 days #30 tabs 08/15/22 [Rx Last Taken Unknown] atorvastatin 40 mg tablet 40 mg PO QHS #30 tabs 08/15/22 [Rx Last Taken Unknown] metoprolol tartrate 25 mg tablet 25 mg PO BID #60 tabs 08/15/22 [Rx Last Taken Unknown] nitroglycerin 0.4 mg sublingual tablet 0.4 mg sublingual Q5M PRN chest pain #30 tabs 08/15/22 [Rx Last Taken Unknown] ticagrelor 90 mg tablet (Brilinta) 90 mg PO BID #60 tabs 08/15/22 [Rx Last Taken Unknown] prednisone 20 mg tablet 40 mg PO DAILY #12 tabs 08/28/22 [Rx Last Taken Unknown] Allergy/AdvReac Type Severity Reaction Status Date / Time No Known Allergies Allergy Verified 06/10/22 16:34 Surgical History (Updated 08/28/22 @ 22:[address] Piotr Russo DO) History of coronary artery stent placement (~08/12/22) Social History Smoking Status: Never smoker ROS ROS ED Constitutional Constitutional ED: Denies chills, fever(s) or sweats Eyes Eyes: Denies change in vision ENT ENT ED: Denies dysphagia or sore throat Cardiovascular Cardiovascular: Denies chest pain, leg edema, palpitations or racing heartbeat Respiratory/Chest Respiratory/Chest: Denies cough, dyspnea or dyspnea on exertion Gastrointestinal Gastrointestinal: Denies abdominal pain, diarrhea, nausea or vomiting Genitourinary Genitourinary ED: Denies dysuria, hematuria or urinary frequency Musculoskeletal Musculoskeletal: Reports arthralgias; Denies back pain, extremity pain or neck pain Integumentary Denies rash or wounds Neurologic Neurologic: Denies headache(s), paresthesias or weakness EXAM Physical Exam Const Vital Signs: 08/28/22 21:19 08/28/22 22:08 Temperature 98 F Temperature Source Temporal Pulse Rate 96 Respiratory Rate 18 16 Blood Pressure 150/113 H Blood Pressure Mean 125 Pulse Ox 100 Oxygen Delivery Method Room Air Positive well nourished and well developed General Appearance ED: well developed and NAD HEENT Reports moist mucous membranes normocephalic and atraumatic Eyes PERRL, EOMs intact bilaterally and conjunctivae normal General Eye ED: Yes normal appearance of both eyes Neck no lymphadenopathy and supple General: Negative for tenderness Chest Wall Chest: Negative for tenderness Resp normal respiratory effort and normal air movement Effort and Inspection: symmetric chest movement; Negative for respiratory distress Cardio regular rate, regular rhythm and no murmurs Peripheral Pulses: pulses 2+ throughout GI normal to inspection, nondistended, normoactive bowel sounds and non-tender Palpation: Negative for guarding or rebound tenderness present Back/Spine no CVA tenderness and no thoracic nor lumbar tenderness Extremity Extremity Narrative: Left lower extremity: There is swelling around the left ankle there is no redness or warmth. No pain with short arc movement. Skin intact. Pulses intact distally. General Extremety ED: Yes edema; Negative for tenderness General Extremity: edema Neuro oriented x3 and no sensory deficits noted Sensorium / Orientation: awake and alert Skin no rashes or lesions noted and no wounds MDM MDM MDM Narrative Medical decision making narrative: Interventions / MDM: Differential diagnosis: Gouty arthritis Diagnosis considered but do not suspect: Septic joint without any redness or warmth, sprain however denies injuries. My EKG interpretation: N/A Imaging independently reviewed and interpreted by myself: N/A External documents reviewed: N/A Test considered but not ordered:N/A ED course: Similar presentation of swelling in the past. Treated with Tylenol and start on prednisone. He will avoid NSAIDs due to recent stenting. No clinical signs of septic joint. He is able to ambulate. Outpatient follow-up. Re-evaluation: stable Disposition discussed with patient/family/significant other: Patient Case discussed with consulting clinician: N/A Discharge Plan Triage Chief Complaint: Lower Extremity Injury ED Provider: Piotr Russo Dx/Rx/DC Orders Clinical Impression: Gout attack, History of coronary artery stent placement Instructions: ED Gout Prescriptions: New prednisone 20 mg tablet 40 mg PO DAILY Qty: 12 0RF No Action allopurinol 100 MG tablet 200 mg PO DAILY hydrocodone-acetaminophen 5-325 mg tablet 2 tab PO Q6H PRN (Reason: pain) 5 Days Qty: 20 0RF hydrocodone-acetaminophen 5-325 mg tablet 1 tab PO Q6H PRN (Reason: pain) 3 Days Qty: 12 0RF atorvastatin 40 mg Tablet 40 mg PO QHS Qty: 30 3RF aspirin 81 mg Tablet,Delayed Release (Dr/Ec) 81 mg PO DAILY@0800 30 Days Qty: 30 4RF metoprolol tartrate 25 mg Tablet 25 mg PO BID Qty: 60 3RF Brilinta 90 mg Tablet 90 mg PO BID Qty: 60 3RF nitroglycerin 0.4 mg tablet, sublingual 0.4 mg sublingual Q5M PRN (Reason: chest pain) Qty: 30 0RF Rx Instructions: do not exceed 3 doses per episode Primary Care Provider: Oscar Pace Referrals: Oscar Pace MD [Primary Care Provider] - Activity Restrictions/Additional Instructions: Avoid NSAIDs with your recent heart attack. May use Tylenol. Take prednisone as prescribed. Next dose tomorrow. Disposition Disposition: Home, Self Care Discharge Date/Time: 08/28/22 22:08
[2022-08-28] MEDS: Acetaminophen 500 MG Tablet 1000 MG PO (21:50)
[2022-08-28] MEDS: predniSONE 20 MG Tablet 40 MG PO (21:50)
[2022-08-28 22:08] VITALS: RESP 16
== END 2022-08-28 22:08 | disposition home or self-care (01) ==
PROVIDERS: Emergency Provider Emergency Medicine; PCP Family Medicine; Visit Provider Emergency Medicine
DX: M10.9 Gout, unspecified (principal); I21.3 ST elevation (STEMI) myocardial infarction of unspecified site; Z95.5 Presence of coronary angioplasty implant and graft; N18.9 Chronic kidney disease, unspecified; E78.5 Hyperlipidemia, unspecified; Z79.82 Long term (current) use of aspirin; Z79.52 Long term (current) use of systemic steroids
CPT/HCPCS: 99283

== ENCOUNTER → 2022-09-05 | Outpatient (CLI) | payer MEDICAID, SELFPAY ==
--- NOTE | 2022-09-05 09:37 | CR.ITP_ITS ---
Diagnosis - General Information Admitting Diagnosis: ST Elevated Myocardial Infarction (STEMI), PCI w/ coronary stenting Personal Learning Style:: Audio/Visual, Written Gave educational material for:: Treating Heart Disease, Emotions & Heart Disease, Stress Management & Relaxation, Sleep Disorders & Heart Disease, How The Heart Works, What it means to have Heart Disease, How Coronary Artery Disease is Diagnosed, Heart Procedures, What Heart Medications Do, Risk Factors & Modifications, Living an Active Life, Nutrition - Education/Goals Individual Counseling: Initial Assessment: Overweight/Obesity - BMI>35 Cardiac Rehabilitation Goals: 1. Maintain the individual as the primary focus of care. 2. To improve the patient's quality of life. 3. Identification of cardiac risk factors and provide cardiac risk factor management. 4. Enhance the psychosocial status of the patient. 5. Reconditioning enough to allow the patient to resume customary activities. 6. Control symptoms of cardiac disease Personal Goals: Initial Assessment: Get back to work, or to resume activities faster, Control risk factors (learn risk factor modification) Scale for measuring improvement of personal goals: Enter appropriate number in Comments. 2 = Unchanged. 3 = Slightly Better. 4 = Moderate Improvement. 5 = Met my Goal - Diagnosis & Disease Process Outcomes/Goals: Pt IDs own risk factors & lifestyle modifications by Session 10, Verbalizes symptoms of angina & response by session 3., Pt independently manages Plan/Interventions: Instruct on individual risk factors, Review symptoms of angina & emergency actions, Review secondary diagnosis & identify educational needs. - Safety Referral to Physical Therapy: No Referral to [facility] Case Management: No Fall Risk Assessed:: Yes Assistive Devices:: None Exercise - Initial Assessment - Visit Date of Eval: 09/05/22 Session #:: 0 - Pre-cardiac Rehab Evaluation Mets: Pre-: >7 METS for 30 minutes by discharge - Physician Prescribed Exercise Modalities: Treadmill, Rower, Airdyne Frequency: 3x/week for 12 weeks [36 sessions] Intensity: 60-80% of age predicted maximum heart rate reserve Duration: 30 - 45 minutes Current METSs:: 5.0 Target Heart Rate:: 111-128 Resting Blood Pressure: 118/66 EKG Type: Normal SInus Rhythm Current Physical Activity or Exercising minutes: Patient actively exercised and does cross fit 3-4 days per week. - Outcomes & Goals Goals:: Verbalizes understanding of THR, RPE & goal METS by session 6, Documents in home exercise log/reports 30 min aerobic 5 day/wk by DC, Demonstrates accurate pulse taking by DC - Intervention & Plan Exercise Program Goals: Instruct on personal THR & RPE, Instruct on MET level & personal MET goal, Show patient to take own pulse /validate performance until accurate, Instruct on home exercise - Physical Activity Home Exercise Physical Activity - Home Exercise: Safe Exercise, Warm-up, Self-monitoring, C ool-Down, Home Exercise > 30 min Daily, Sitting Time <3 hours/daily - Outcomes & Goals Outcomes/Goals: Demonstrates correct Warm-up/exercise Cool-Down (S3) if = 2.5 METs, Verbalizes symptoms of exercise intolerance by Session 3 (S3), Demonstrate safe equipment use (S3) & follows exercise prescrition (6) - Intervention & Plan Plan/Intervention: Instruct warm-up & cool-down if exercising at > 2 METs, Instruct on symptoms of exercise intolerance & actions to take, Instruct & monitor on saf, Assess intial functional capacity & safety risk Nutrition - Initial Assessment - Program Goals Nutrition Program Goals: LDL <100 optimal. 100 - 129 Near optimal. 130 - 159 Borderline High. 160 - 189 High. Total Cholesterol <200 desirable. 200 - 239 Borderline High. >/= 240 High. HDL < 40 Low >/=60 High. Triglycerides <150 desirable. <199 optimal. VlDL 5 - 40. HgbA1C <7%. BMI <25 Patient has diagnosis of Hyperlipidemia (ICD E78)?: Yes - Visit Date of Assessment:: 09/05/22 Session #:: 0 - Pre-cardiac Rehab Evaluation - Cholesterol/Lipids (Other Core Measures) Determine presence & major risk factors that modify LDL goal: Hypertension or hypertensive medication, Low HDL cholesterol <40 mg/dL*, Age men > 45 years; women >/= 55 years Outcomes/Goals: Pt IDs own risk factors & lifestyle modifications by Session 10, Verbalizes symptoms of angina & response by session 3., Pt independently manages Intervention/Plan: Instruct on personal lipid levels & lipid goals/NCEP guidelines, Instruct on cholesterol Referral to dietitian:: Yes - Medical Nutrition Therapy - Diabetes (Other Core Measures) Diabetes Type: Not Applicable - Weight Mgt (Other Care) Not Applicable: No Height: 6 ft - Weight:: 256 lb BMI: 34.7 Diagnosis Overweight/Obesity BMI> 30% ICD-10 E66: Yes Diagnosis High BMI/Morbid Obesity BMI> 35% ICD-10 Z68: Yes Outcomes/Goals: Pt sets, maintains & shows weight loss goal & trend during rehab Intervention/Plan: Instruct on ideal BMI & set weight loss goal w/patient, Assist pt to ID & incorporate diet changes for weight loss by S9, Refer to Structured Weight Loss program as appropriate, Encourage goal of using 250- 300dcal per session for weight loss - Healthy Eating Habits Will attend diet classes:: Yes Outcomes/Goals:: Consume diet rich in vegs,fruits,whole grain/high fiber,fish,lean meat, Limit sat/trans fats,cholesterol & added salts & sugars Intervention/Plan:: Assess current eating habits - Education Gave educational materials for:: Healthy eating Nutrition - 30-Day Assessment Nutrition - 60-Day Assessment Nutrition - 90-Day Assessment Nutrition - Final Assessment Core - Initial Assessment - Visit Date of Eval: 09/05/22 Session #:: 0 - Pre-cardiac Rehab Evaluation - Medication Compliance Preventative Medication(s):: Aspirin, Ticagrelor/P2Y12 inhibitor, Statin/lipid, Beta laverne H/O mental health issues: depression, anxiety, or addiction?: No Doesn?t believe in the benefits of treatment?: No Believes medications are unnecessary or harmful?: No Has a concern about medication side effects?: No Expresses concern over the cost of medications?: No Outcomes/Goals: Verbalizes medications,desired effect & common side effects @ DC, Pt self-reports following medication regimen, Keeps card in wallet w/medications listed by DC Interventions/plans: Instruct on medication effects & side effects, Review medication list w/patient every two weeks, Instruct importance of taking meds as ordered & assist problem solving - Tobacco Use Tobacco Use: Non-smoker - Hypertension Hypertension Diagnosis:: Hypertension ICD-10 I10 Resting Blood Pressure:: 118/66 [place] [employer] Hypertension Guidelines: [place] [employer] Hypertension Guidelines. Normal BP Less than 120/80. Elevated BP 120/80. Hypertension Stage 1: BP 130-139/80-89. Hypertesnion Stage 2: BP 140 or higher/90 or higher. Hypertension Crisis: BP higher than 180/120 Outcomes/Goals: Able to verbalize/achieve optimal blood pressure <130/80, Incorporates diet changes & exercise for blood pressure control by DC Interventions/plan: Instruct on optimal blood pressure, hypertension & medications, Instruct on effects of sodium, alcohol, stress, exercise &hypertension - Tobacco Cessation Referral Smoking Cessation Referral:: No Individual Education/Counseling:: No Education Schedule Given:: Yes Core - 30-Day Assessment Core - 60-Day Assessment Core - 90 Day Assessment Core - Final Assessment Psychosocial - Initial Assess - VIsit Date of Eval: 09/05/22 Session #:: 0 - Pre-cardaic Rehab Evaluation Not Applicable: Yes History of previous Mental disease:: No - Psychosocial Test Tool Used:: [employer] Power QOL Cardiac, PHQ-9 Questionnaire phq-9 Severity: Severity. 1-4 Minimal Depression. 5-9 Mild Depression. 10-14 Moderate Depression. 15-19 Moderately Sever Depression. 20-27 Severe Depression. Rule: - Outcomes/Goals: See list Psychosocial Outcomes/Goals:: ID's personal stressors & 2 strategies to manage stress by discharge - Intervention/Plan: See List Interventions/Plan:: Assess stressors,coping strategies & signs of derpression on admission, Instruct/assist pt to develop coping & personal stress Mgt strategies, Instruct patient to recognize signs & symptoms of depression, Instruct patient to recog Psychosocial - 30-Day Assess Psychosocial - 60-Day Assess Psychosocial - 90-Day Assess Psychosocial - Final Assessmen Patient Health Questionnaire Initial Assessment 1. Little interest or pleasure in doing things: Not at all 2. Feeling down, depressed, or hopeless: Not at all 3. Trouble falling or staying asleep, or sleeping too much: More than half the days 4. Feeling tired or having little energy: More than half the days 5. Poor appetite or overeating: Several days 6. Feeling bad about yourself -- or that you are a failure or have let yourself or your family down: Not at all 7. Trouble concentrating on things, such as reading the newspaper or watching television: Not at all 8. Moving or speaking so slowly that other people could have noticed. Or the opposite - being so fidgety or restless that you have been moving around a lot more than usual: Not at all 9. Thoughts that you would be better off , or of hurting yourself in some way: Not at all How difficult have these problems made it for you to do your work, take care of things at home, or get along with other people?: Not difficult at all Total Score: 5 BEN-Q SV Test - Statements CAD is a disease of the arteries in the heart: False Examples of risk factors for heart disease: True Angina is chest pain or discomfort: True The benefits of resistance training include: True Eating more meat and dairy products: False Anti-platelet medications such as aspirin are important: True The only effective way to manage stress: True An exercise warm-up slowly increases heart rate: True Prepared, processed foods usually have high sodium: True Depression is common after a heart attack: True The statin medications lower cholesterol: False To control blood pressure, lower the amount of sodium: I Don't Know If someone gets chest discomfort during walking: False Transfats are partially hydrogenated vegetable oils: I Don't Know Sleep apnea that is not treated increases the risk: False To control cholesterol, one should become a vegetarian: False Someone knows if he/she is exercising at the right level: True Diabetes cannot be prevented with exercise & health eating: I Don't Know Stress is a large risk for heart attack: True A diet that can help lower blood pressure is rich in: True - Total Score Total Correct Responses: 15 Self-Efficacy Initial Assessment We would like to know how confident you are in doing certain activities. Please select your confidence level for:: Select your confidence level for the following using the scale 1-10 where 1 is not at all confident and 10 is totally confident. Your score is the average of all 6 responses. Fatigue: How confident are you that you can keep the fatigue caused by your disease from interfering with the things you want to do? Select Number: 5 Physical Discomfort or Pain: How confident are you that you can keep the physical discomfort or pain of your disease from interfering with the things you want to do? Select Number: 5 Emotional Distress: How confident are you that you can keep the emotional distress caused by your disease from interfering with the things you want to do? Select Number: 9 Other Symptoms or Health Problems: How confident are you that you can keep other symptoms or health problems from interfering with the things you want to do? Select Number: 7 Different Tasks and Activities: How confident are you that you can do the different tasks and activities needed to manage your health condition so as to reduce your need to see a doctor? Select Number: 9 Medication: How confident are you that you can do things other than just taking medication to reduce how much your illness affects your everyday life? Select Number: 10 Total Score:: 7 Nutrition Survey - Nutrition Survey Initial Have you lost >10 lbs over the past 2 months without trying?: No Are you following a special diet at home for diabetes, low fat, or low salt?: No Are you interested in meeting with a dietitian for help understanding your diet?: No Do you eat less than 3 meals a day?: No Do you eat fatty meats (tate, sausage, ribs, etc), fried foods, desserts, large amounts of salad dressings, margarine, butter, or cheese most days?: No Do you have food allergies? [Enter types in comment field]: No Do you eat in restaurants more than 3 times a week?: Yes Do you season food with salt, seasoning salt, or garlic salt?: Yes Do you used canned, boxed, frozen meals, or soups, seasoning packets?: No Total Score:: 2
--- NOTE | 2022-09-05 09:37 | PCM.CR.HP2 ---
CR - History & Physical - General Arrival date:: 09/05/22 Arrival time:: 09:40 Date of Referral:: 08/13/22 - History of Present Cardiac Event Onset Date: Enter Onset Date of cardiac illnesses in Comment field below Acute Myocardial Infarction within 12 months:: Yes - STEMI 08/12/2022 PTCA or coronary stenting:: Yes - 08/12/2022 Type of Symptoms:: 51 yr old male patient of Dr. Brown presented to the emergency room on 08/12/2022 with change in shortness of breath and chest pains. HE described the pain as tightness similar to someone standing on his chest. - Sleep Disorder Evaluation Hx of Sleep Apnea: Yes Do you snore loudly (louder than talking or can be heard through closed doors)?: Yes - Patient has CPAP unit at home Do you often feel tired/ fatigued/ sleepy during daytime?: No Has anyone observed you stop breathing during sleep?: No History of Hypertension (for STOP score): No STOP Results: Negative - Medications Home Medications: Ambulatory Orders Medication Instructions Recorded allopurinol 100 mg tablet 200 mg PO DAILY 07/13/20 hydrocodone-acetaminophen 5-325mg 2 tab PO Q6H PRN pain 5 days #20 08/25/21 5mg-325mg tabs hydrocodone-acetaminophen 5-325mg 1 tab PO Q6H PRN pain 3 days #12 06/10/22 5mg-325mg tabs aspirin 81 mg tablet,delayed 81 mg PO DAILY@0800 30 days #30 08/15/22 release tabs atorvastatin 40 mg tablet 40 mg PO QHS #30 tabs 08/15/22 metoprolol tartrate 25 mg tablet 25 mg PO BID #60 tabs 08/15/22 nitroglycerin 0.4 mg sublingual 0.4 mg sublingual Q5M PRN chest 08/15/22 tablet pain #30 tabs ticagrelor 90 mg tablet (Brilinta) 90 mg PO BID #60 tabs 08/15/22 prednisone 20 mg tablet 40 mg PO DAILY #12 tabs 08/28/22 - Allergies Allergies/Adverse Reactions: Allergies No Known Allergies Allergy (Verified 06/10/22 16:34) Advanced Directives - Advanced Directives Power of Assembler For Puller Over Machine: No Living Will: No Advance Directives Information Provided: No Advance Directives on File: No DNR Order?:: No - MOLST See MOLST form: No Past Medical History - Covid-19 Screening Fever: No Unexplained muscle aches: No Current respiratory symptoms: No Upper respiratory infections symptoms: No Gastro-intestinal symptoms: No [id number] symptoms: No Has tested positive for COVID-19 in last 30 days: No Date of testin09/05/22 - patinet unvaccinated Had contact w/person w/symptoms or Covid-19 (+) last 14 days: No Has High Risk Exposures ID'd by Health dept/Inf Control team: No 65 years or older:: No Lives in Assisted Living facility:: No Has a chronic lung disease or moderate to severe asthma:: No Has a serious heart condition:: No Immunocompromised:: No Severely obese (Body Mass Index of 40 or higher):: No Diabetic:: No Has chronic kidney disease undergoing dialysis:: Yes Has liver disease:: No - Past Medical Illness Medical History: Past Medical History (Last Updated 08/13/22 @ 11:21 by Marina Connell) Acute otitis media of left ear with perforation H66.92, H72.92 Chronic kidney disease N18.9 Dyslipidemia E78.5 Gout M10.9 STEMI (ST elevation myocardial infarction) I21.3 Swelling of arm M79.89 URI (upper respiratory infection) J06.9 - Past Surgical History Surgical History: Past Surgical History (Last Updated 08/13/22 @ 11:21 by Marina Connell) History of coronary artery stent placement Onset Date: ~08/12/22 Z95.5 PTCA/DALIA Distal RCA using Resolute [place] 2.5x18mm and Resolute [place] 3.0x8mm Surgical History: noncontributory Social History - Smoking History Smoking Status: Former smoker - Quti smoking well over 20 years ago. - Alcohol Use Alcohol Usage: No - Substance Abuse Hx Substance Use: No - Occupation Occupation (List type of work in comments):: Employed Hours worked per day:: 8 - Hobbies, Recreation, Social Activities Hobbies: Sports - play poker, Exercise - Cross fit, Other - kid keep me busy Social Environment - Status Marital Status: - Current Living Arrangements Living Environment:: Spouse - Children How many children do you have?: 3 Do any of your children live nearby?: Yes - Safety Do you feel safe in your surroundings?: Yes - Assistance Do you need any assistance at home?: no Review of Systems - Review of Systems Hints: Right click = Denies (Slash). Left click = Reports (Fults) Review of Present Symptoms: Reports: Shortness of Breath at Rest - mostly related to the sleep apnea, when he awakens finds he has to take a couple deep breaths first., Dizziness/Lightheadedness - one incident about a week ago. Sitting and watching TV., Fatigue - at times, there are some days just tired., Sleep - Normal. Denies: Shortness of Breath with Exertion, Angina, Heart Arrhythmia/Irregularities, Appetite - Normal - less than normal right now. Eating less than did prior to the STEMI, Appetite - Special Diet, Sexual Changes - Pain Is Patient Pain Free?: Yes Pain Level: 0/10 - History of GOUT Risk Factor Assessment - Vital Signs Temperature: 97.4 F Respiratory Rate: 14 Pulse Ox: 97 Blood Pressure: 119/67 - Pulse Pulse Rate: 72 Pulse Rhythm: Regular - Hypertension How long have you been treated?: no previous history Blood Pressure Sitting - Left Arm: 119/67 - Blood Cholesterol/Lipids Total Cholesterol (mg/dL) Goal = less than 200 mg/dL: 184 HDL Cholesterol (mg/dL) Goal = less than 40 mg/dL: 46 LDL Cholesterol (mg/dL) Goal = less than 70 mg/dL: 118 Triglycerides (mg/dL) Goal = less than 150 mg/dL: 98 - Obesity Height: 5 ft 11 in Weight:: 256 lb Weight in Pounds: 256.0 lbs Weight Source: Stated by Patient Body Mass Index (BMI): 35.6 Nutritional Referral for Obesity: Yes - Physical Inactivity Physical Inactivity: Reg Exercise 30 min/day, Recreational activity - Actively did cross fit 3-4 times per week. - Risk Stratification Risk Guidelines: Lowest Risk: Risk Factor for Smoking, Risk Factor for Dyslipidemia, Risk Factor for Diabetes, Risk Factor for Obesity, Risk Factor for Hypertension, Risk Factor for Sedentary Lifestyle, Risk Factor for Depression Motivation - Motivation to Participate On a scale of 1 to 10, how prepared are you to commit to attending program?: 10 What do you see as barriers to successfully being able to complete the program?: none What do you see as the benefits of succesfully completing the program? In other words, what do you hope to get out of participating in the program?: get back to where I was before Are there issues you are dealing with that will interfere with completing the program?: none Do you have a spouse or signficant other, family or friends who will help support you to complete the program?: Yes
[2022-09-05 10:01] VITALS: BP 119/67; PULSE 72; RESP 14; TEMP 36.3; O2SAT 97; BMI 35.6
[2022-09-05 10:20] VITALS: BP 118/66; BMI 34.7
== END | disposition home or self-care (01) ==
LOC: CR 09:33
PROVIDERS: PCP Family Medicine; Referring Provider Internal Medicine Cardiovascular Disease; Visit Provider Internal Medicine Cardiovascular Disease
DX: I25.2 Old myocardial infarction (principal); Z95.5 Presence of coronary angioplasty implant and graft

== ENCOUNTER → 2022-09-10 | Outpatient (CLI) | payer MEDICAID, SELFPAY ==
[2022-09-05 10:20] VITALS: BMI 34.7
[2022-09-10 12:13] LABS: Hematocrit 37.2 % (40-54); Hemoglobin 11.6 g/dL (13.0-16.5); Mean Corp Hgb Conc 31.2 g/dL (32-36); Mean Corpuscular Hgb 29.3 pg (27.0-32.0); Mean Corpuscular Volume 93.9 fL (80-94); Platelet Count 249 K/mm3 (150-450); RBC Distribution Width CV 13.5 % (11.6-14.6); RBC Distribution Width SD 46.4 fl (35.1-43.9); Red Blood Count 3.96 M/mm3 (4.6-6.2); White Blood Count 9.5 K/mm3 (4.4-11.0)
[2022-09-10 12:36] LABS: Anion Gap 5 (5-15); BUN 19 mg/dL (7-18); BUN/Creat Ratio 13.5 RATIO (10-20); Calcium,Total 9.6 mg/dL (8.5-10.1); Chloride 107 mmol/L (98-107); Creatinine, Serum 1.41 mg/dL (0.70-1.30); EST Glomerular Filtration Rate 57 mL/min (>60); Est Glom Filt Rate - Afr Amer 68 mL/min (>60); Glucose 93 mg/dL (74-106); Sodium Level 139 mmol/L (136-145)
== END | disposition home or self-care (01) ==
LOC: LAB 10:53
PROVIDERS: PCP Family Medicine; Visit Provider Internal Medicine Cardiovascular Disease
DX: I12.9 Hypertensive chronic kidney disease with stage 1 through stage 4 chronic kidney disease, or unspecified chronic kidney disease (principal); E78.5 Hyperlipidemia, unspecified; I25.10 Atherosclerotic heart disease of native coronary artery without angina pectoris; N18.9 Chronic kidney disease, unspecified
CPT/HCPCS: 36415; 80048; 85027

== ENCOUNTER 2022-09-23 09:17 | Outpatient (RCR) | payer MEDICAID, SELFPAY ==
[2022-09-05 10:20] VITALS: BMI 34.7
== END 2022-09-27 23:59 ==
LOC: NS 09:17
PROVIDERS: PCP Family Medicine; Visit Provider Internal Medicine Cardiovascular Disease
DX: Z71.3 Dietary counseling and surveillance (principal); Z68.35 Body mass index [BMI] 35.0-35.9, adult; I21.4 Non-ST elevation (NSTEMI) myocardial infarction; N18.9 Chronic kidney disease, unspecified; M10.9 Gout, unspecified
CPT/HCPCS: 97802

== ENCOUNTER 2022-09-27 08:00 | Outpatient (RCR) | payer MEDICAID, SELFPAY ==
[2022-09-05 10:20] VITALS: BMI 34.7
== END 2022-09-27 23:59 ==
LOC: CR 08:00
PROVIDERS: PCP Family Medicine; Visit Provider Internal Medicine Cardiovascular Disease
DX: Z95.5 Presence of coronary angioplasty implant and graft (principal); I25.10 Atherosclerotic heart disease of native coronary artery without angina pectoris; I21.3 ST elevation (STEMI) myocardial infarction of unspecified site; Z71.3 Dietary counseling and surveillance; Z68.35 Body mass index [BMI] 35.0-35.9, adult; I21.4 Non-ST elevation (NSTEMI) myocardial infarction; N18.9 Chronic kidney disease, unspecified; M10.9 Gout, unspecified; I12.9 Hypertensive chronic kidney disease with stage 1 through stage 4 chronic kidney disease, or unspecified chronic kidney disease; E78.5 Hyperlipidemia, unspecified
CPT/HCPCS: 36415; 80048; 85027; 93798; 97802

== ENCOUNTER 2022-10-21 08:00 | Outpatient (RCR) | payer MEDICAID, SELFPAY ==
[2022-09-05 10:20] VITALS: BMI 34.7
--- NOTE | 2022-10-07 12:59 | PCM.CR.ITP ---
Diagnosis Exercise - 30-day Assessment - Visit Date of Eval: 10/07/22 Session #:: 11 - Physician Prescribed Exercise Modalities: Treadmill, Rower Frequency: 3x/week for 12 weeks [36 sessions] Intensity: 60-80% of age predicted maximum heart rate reserve Duration: 30 - 45 minutes Current METSs:: 7.0 Target Heart Rate:: 128-145 Current RPE:: 10-13 Maximum Excercise HR:: 157 Resting Blood Pressure: 124/64 Maximum Exercise Blood Pressure: 200/98 EKG Type: NSR to sinus tachycardia with rare PVCs - Outcomes & Goals Goals:: Verbalizes understanding of THR, RPE & goal METS by session 6, Documents in home exercise log/reports 30 min aerobic 5 day/wk by DC, Demonstrates accurate pulse taking by DC - Intervention & Plan Exercise Program Goals: Instruct on personal THR & RPE, Instruct on MET level & personal MET goal, Show patient to take own pulse /validate performance until accurate, Instruct on home exercise - 30-day Reassessments 30 day Reassessments:: Met - Physical Activity Home Exercise Physical Activity - Home Exercise: Safe Exercise, Warm-up, Self-monitoring, Cool-Down, Home Exercise > 30 min Daily, Sitting Time <3 hours/daily - Outcomes & Goals Outcomes/Goals: Demonstrates correct Warm-up/exercise Cool-Down (S3) if = 2.5 METs, Verbalizes symptoms of exercise intolerance by Session 3 (S3), Demonstrate safe equipment use (S3) & follows exercise prescrition (6) - Intervention & Plan Plan/Intervention: Instruct warm-up & cool-down if exercising at > 2 METs, Instruct on symptoms of exercise intolerance & actions to take, Instruct & monitor on saf, Assess intial functional capacity & safety risk - 30-day Reassessments 30 day Reassessments:: Met Nutrition - Initial Assessment Nutrition - 30-Day Assessment - Program Goals Nutrition Program Goals: LDL <100 optimal. 100 - 129 Near optimal. 130 - 159 Borderline High. 160 - 189 High. Total Cholesterol <200 desirable. 200 - 239 Borderline High. >/= 240 High. HDL < 40 Low >/=60 High. Triglycerides <150 desirable. <199 optimal. VlDL 5 - 40. HgbA1C <7%. BMI <25 Patient has diagnosis of Hyperlipidemia (ICD E78)?: Yes - Visit Date of Assessment:: 10/07/22 Session #:: 11 - Cholesterol/Lipids (Other Core Measures) Triglycerides (mg/dL): 98 Total Cholesterol (mg/dL): 184 LDL Cholesterol (mg/dL): 118 HDL Cholesterol (mg/dL): 46 Determine presence & major risk factors that modify LDL goal: Hypertension or hypertensive medication, Age men > 45 years; women >/= 55 years Outcomes/Goals: Pt IDs own risk factors & lifestyle modifications by Session 10, Verbalizes symptoms of angina & response by session 3., Pt independently manages Intervention/Plan: Instruct on personal lipid levels & lipid goals/NCEP guidelines, Instruct on cholesterol Referral to dietitian:: No - Met with Nutritional Services on 09/23/2022 30-day Reassessments:: Met - Diabetes (Other Core Measures) Diabetes Type: Not Applicable - Weight Mgt (Other Care) Height: 6 ft Weight:: 247 lb 8 oz BMI: 33.5 Diagnosis Overweight/Obesity BMI> 30% ICD-10 E66: Yes Diagnosis High BMI/Morbid Obesity BMI> 35% ICD-10 Z68: No Outcomes/Goals: Pt sets, maintains & shows weight loss goal & trend during rehab Intervention/Plan: Instruct on ideal BMI & set weight loss goal w/patient, Assist pt to ID & incorporate diet changes for weight loss by S9, Encourage goal of using 250-300dcal per session for weight loss 30 day Reassessments:: Progressing - Healthy Eating Habits Will attend diet classes:: Yes Outcomes/Goals:: Consume diet rich in vegs,fruits,whole grain/high fiber,fish,lean meat, Limit sat/trans fats,cholesterol & added salts & sugars Intervention/Plan:: Assess current eating habits 30-day Reassessments:: Met - Education Gave educational materials for:: Healthy eating Nutrition - 60-Day Assessment Nutrition - 90-Day Assessment Nutrition - Final Assessment Core - Initial Assessment Core - 30-Day Assessment - Visit Date of Eval: 10/07/22 Session #:: 11 - Medication Compliance Preventative Medication(s):: Aspirin, Ticagrelor/P2Y12 inhibitor, Statin/lipid, Beta laverne H/O mental health issues: depression, anxiety, or addiction?: No Doesn?t believe in the benefits of treatment?: No Believes medications are unnecessary or harmful?: No Has a concern about medication side effects?: No Expresses concern over the cost of medications?: No Outcomes/Goals: Verbalizes medications,desired effect & common side effects @ DC, Pt self-reports following medication regimen, Keeps card in wallet w/medications listed by DC Interventions/plans: Instruct on medication effects & side effects, Review medication list w/patient every two weeks, Instruct importance of taking meds as ordered & assist problem solving 30-day Reassessments:: Progressing - Tobacco Use Tobacco Use: Non-smoker - Hypertension Hypertension Diagnosis:: Hypertension ICD-10 I10 Resting Blood Pressure:: 124/64 [place] [employer] Hypertension Guidelines: [place] [employer] Hypertension Guidelines. Normal BP Less than 120/80. Elevated BP 120/80. Hypertension Stage 1: BP 130-139/80-89. Hypertesnion Stage 2: BP 140 or higher/90 or higher. Hypertension Crisis: BP higher than 180/120 Peak Exercise Blood Pressure:: 200/98 Outcomes/Goals: Able to verbalize/achieve optimal blood pressure <130/80, Incorporates diet changes & exercise for blood pressure control by DC Interventions/plan: Instruct on optimal blood pressure, hypertension & medications, Instruct on effects of sodium, alcohol, stress, exercise &hypertension 30 day Reassessments:: Met - Tobacco Cessation Referral Smoking Cessation Referral:: No Individual Education/Counseling:: No Education Schedule Given:: Yes Core - 60-Day Assessment Core - 90 Day Assessment Core - Final Assessment Psychosocial - Initial Assess Psychosocial - 30-Day Assess - VIsit Date of Eval: 10/07/22 Session #:: 11 Not Applicable: Yes History of previous Mental disease:: No - Psychosocial Test Tool Used:: PHQ-9 Questionnaire phq-9 Severity: Severity. 1-4 Minimal Depression. 5-9 Mild Depression. 10-14 Moderate Depression. 15-19 Moderately Sever Depression. 20-27 Severe Depression. Rule: - Referral to Behavioral Health PS - Interventions: Yes Attend Stress Management Classes, No Referral to Behavioral Health if PHQ-9 score >9:, No Referral to [facility], No Referral to Physician if PHQ-9 if score is 5-9: - Outcomes/Goals: See list Psychosocial Outcomes/Goals:: ID's personal stressors & 2 strategies to manage stress by discharge - Intervention/Plan: See List Interventions/Plan:: Assess stressors,coping strategies & signs of derpression on admission, Instruct/assist pt to develop coping & personal stress Mgt strategies, Instruct patient to recognize signs & symptoms of depression, Instruct patient to recog - 30-day Reassessments: 30 day Reassessments:: Met Psychosocial - 60-Day Assess Psychosocial - 90-Day Assess Psychosocial - Final Assessmen Patient Health Questionnaire 30-Day Re-eval Assessment 1. Little interest or pleasure in doing things: Not at all 2. Feeling down, depressed, or hopeless: Not at all 3. Trouble falling or staying asleep, or sleeping too much: Several days 4. Feeling tired or having little energy: Several days 5. Poor appetite or overeating: Not at all 6. Feeling bad about yourself -- or that you are a failure or have let yourself or your family down: Not at all 7. Trouble concentrating on things, such as reading the newspaper or watching television: Not at all 8. Moving or speaking so slowly that other people could have noticed. Or the opposite - being so fidgety or restless that you have been moving around a lot more than usual: Not at all 9. Thoughts that you would be better off , or of hurting yourself in some way: Not at all How difficult have these problems made it for you to do your work, take care of things at home, or get along with other people?: Not difficult at all Total Score: 2 Self-Efficacy 30-Day Re-eval Assessment We would like to know how confident you are in doing certain activities. Please select your confidence level for:: Select your confidence level for the following using the scale 1-10 where 1 is not at all confident and 10 is totally confident. Your score is the average of all 6 responses. Fatigue: How confident are you that you can keep the fatigue caused by your disease from interfering with the things you want to do? Select Number: 8 Physical Discomfort or Pain: How confident are you that you can keep the physical discomfort or pain of your disease from interfering with the things you want to do? Select Number: 8 Emotional Distress: How confident are you that you can keep the emotional distress caused by your disease from interfering with the things you want to do? Select Number: 9 Other Symptoms or Health Problems: How confident are you that you can keep other symptoms or health problems from interfering with the things you want to do? Select Number: 8 Different Tasks and Activities: How confident are you that you can do the different tasks and activities needed to manage your health condition so as to reduce your need to see a doctor? Select Number: 10 Medication: How confident are you that you can do things other than just taking medication to reduce how much your illness affects your everyday life? Select Number: 10 Total Score:: 8 Nutrition Survey
[2022-10-07 13:09] VITALS: BP 124/64; BP 200/98; BMI 33.5
== END 2022-10-27 23:59 ==
LOC: CR 08:00
PROVIDERS: PCP Family Medicine; Visit Provider Internal Medicine Cardiovascular Disease
DX: Z95.5 Presence of coronary angioplasty implant and graft (principal); I25.10 Atherosclerotic heart disease of native coronary artery without angina pectoris; I21.3 ST elevation (STEMI) myocardial infarction of unspecified site; Z71.3 Dietary counseling and surveillance; Z68.35 Body mass index [BMI] 35.0-35.9, adult; N18.9 Chronic kidney disease, unspecified; M10.9 Gout, unspecified
CPT/HCPCS: 93798

== ENCOUNTER → 2022-12-26 | Outpatient (CLI) | payer MEDICAID, SELFPAY ==
[2022-10-07 13:09] VITALS: BMI 33.5
[2022-12-26 13:13] LABS: AST(SGOT) 19 U/L (15-37); Alanine Aminotransfer ALT/SGPT 23 U/L (16-61); Albumin, Serum 3.7 g/dL (3.2-5.0); Alkaline Phosphatase 56 U/L (45-117); CPK Total, Creatine Kinase 330 U/L (39-308); Cholesterol 120 mg/dL (200); Globulin 3.7 g/dL (2.2-4.2); High Density Lipoprotein 41 mg/dL; Protein, Total 7.4 g/dL (6.4-8.2); Triglycerides 115 mg/dL; Very Low Density Lipoprotein 23 mg/dL (5-40)
== END | disposition home or self-care (01) ==
LOC: LAB 11:37
PROVIDERS: PCP Family Medicine; Referring Provider Internal Medicine Cardiovascular Disease; Visit Provider Internal Medicine Cardiovascular Disease
DX: I25.10 Atherosclerotic heart disease of native coronary artery without angina pectoris (principal); I12.9 Hypertensive chronic kidney disease with stage 1 through stage 4 chronic kidney disease, or unspecified chronic kidney disease; N18.9 Chronic kidney disease, unspecified; E78.00 Pure hypercholesterolemia, unspecified; Z95.5 Presence of coronary angioplasty implant and graft
CPT/HCPCS: 36415; 80061; 80076; 82550

== ENCOUNTER 2023-01-20 23:29 | Emergency (ER) | payer MEDICAID, SELFPAY ==
[2022-10-07 13:09] VITALS: BMI 33.5
[2023-01-20 23:30] VITALS: BP 156/110; PULSE 75; RESP 16; TEMP 35.8; O2SAT 97; BMI 34.1
--- NOTE | 2023-01-21 00:18 | EDS_ITS ---
HPI History of Present Illness HPI Narrative: Atraumatic right elbow pain since Friday night. No fall injury or trauma. No fever or redness. History of gout with similar pain. Chief Complaint: Upper Extremity Injury Informant: patient Occured/Mechanism Mechanism/Context: No injury and No blunt trauma Comment: Atraumatic right elbow pain for days. Onset/Context/Timing Onset: Days Context: Gradual Onset Timing: Continuous Quality of Pain: Dull and Aching Current Severity: Moderate Maximum Severity: Moderate Associated Symptoms Associated Symptoms: Negative for Parasthesia, Weakness or Loss of Funtion Narrative Narrative: 52-year-old male history of gout atraumatic right elbow pain for 4 days. No fever. No prior surgeries to the right elbow. Prior similar symptoms: Yes Recent Illness/Hospitalization: No PFSH PFSH Medical History Acute otitis media of left ear with perforation Atherosclerosis of coronary artery of [place] heart without angina pectoris Chronic kidney disease Dyslipidemia Essential (primary) hypertension Gout STEMI (ST elevation myocardial infarction) Swelling of arm URI (upper respiratory infection) Home Medications nitroglycerin 0.4 mg sublingual tablet 0.4 mg sublingual Q5M PRN chest pain #30 tabs 08/15/22 [Rx Last Taken Unknown] allopurinol 300 mg tablet 300 mg PO DAILY 09/10/22 [History Last Taken Unknown] ergocalciferol (vitamin D2) 1,250 mcg (50,000 unit) capsule 50,000 unit PO QMONTH 09/10/22 [History Last Taken Unknown] metoprolol tartrate 50 mg tablet 50 mg PO BID #60 tabs 09/10/22 [Rx Last Taken Unknown] atorvastatin 40 mg tablet 40 mg PO QHS #90 tabs 12/13/22 [Rx Last Taken Unknown] ticagrelor 90 mg tablet (Brilinta) 90 mg PO BID #180 tabs 12/13/22 [Rx Last Taken Unknown] aspirin 81 mg tablet,delayed release 81 mg PO DAILY #90 tabs 01/13/23 [Rx Last Taken Unknown] prednisone 20 mg tablet 40 mg (2 x 20 mg) PO DAILY 10 days #20 tabs 01/21/23 [Rx Last Taken Unknown] Allergy/AdvReac Type Severity Reaction Status Date / Time No Known Allergies Allergy Verified 01/20/23 23:30 Surgical History History of coronary artery stent placement (~08/12/22) Hx of tonsillectomy Social History Smoking Status: Former smoker alcohol intake: current alcohol intake frequency: holidays/special occasions only details: rarely substance use type: does not use caffeine: Yes Type: coffee Number of servings: 1 ROS ROS ED ROS Narrative Denies recent illness. Denies fever. Review of Systems ROS Unobtainable: Denies due to encephalopathy Constitutional Constitutional ED: Denies chills or fever(s) Eyes Eyes: Denies blurry vision ENT ENT ED: Denies ear pain Cardiovascular Cardiovascular: Denies chest pain Respiratory/Chest Respiratory/Chest: Denies cough Gastrointestinal Gastrointestinal: Denies abdominal pain Genitourinary Genitourinary ED: Denies dysuria Musculoskeletal Musculoskeletal: Denies back pain Integumentary Denies abscess Neurologic Neurologic: Denies headache(s) Psychiatric Psychiatric: Denies anxiety Endocrine Endocrinology: Denies cold intolerance Hematologic/Lymphatic Hematologic/Lymphatic: Denies easy bleeding Allergic/Immunologic Allergic/Immunologic ED: Denies mouth swelling EXAM Physical Exam Narrative Exam Narrative: 52-year-old male no acute distress. Vital signs stable afebrile. He does not look septic toxic. HEENT exam unremarkable. Lungs clear. Heart regular rhythm. No murmur. Rate about 75. Chest were nontender. Abdomen soft nontender. Moving all 4 extremities. Right elbow mildly swollen. Minimal tenderness. Discomfort with range of motion. Does not appear to be a septic j oint. No cellulitis. No axillary lymphadenopathy. Normal radial pulse. 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 Normal range of motion to his wrist. He can do flexion and extension of his right elbow is just uncomfortable. Clinically this is consistent with gout. Neurologically is awake and alert. Const Vital Signs: 01/20/23 23:30 Temperature 96.4 F L Temperature Source Temporal Pulse Rate 75 Respiratory Rate 16 Blood Pressure 156/110 H Blood Pressure Mean 125 Pulse Ox 97 Positive well nourished and well developed; Negative for cachectic, contractures or unkempt General Appearance ED: well developed and NAD; Negative for unkempt, cachectic, contractures, cyanotic or diaphoretic Nutritional Appearance: Negative for cachectic HEENT Reports moist mucous membranes normocephalic and atraumatic; Negative for trauma or tenderness Eyes PERRL and EOMs intact bilaterally General Eye ED: Negative for other Neck full ROM and supple General: Negative for tenderness Lymph Lymphatic: Negative for other Chest Wall inspection of chest normal and palpation of chest normal Resp normal respiratory effort and clear to auscultation bilaterally Effort and Inspection: Negative for pain with movement Auscultation: Negative for rales, rhonchi or wheezes Cardio regular rate, regular rhythm, S1 normal heart sound, S2 normal heart sound and no murmurs GI non-tender, non-distended and no masses Auscultation: normoactive bowel sounds Palpation: soft Back/Spine no CVA tenderness Extremity normal to inspection and full ROM Extremity Narrative: Except mild tenderness right elbow. Mild swelling. No redness. No cellulitis. Range of motion with some discomfort but able to do it. No axillary lymphadenopathy. Right wrist and hand nontender. 5/5 bag machine set up operator strength. Normal radial pulse. Exam consistent with acute gout right elbow. General Extremety ED: Yes edema General Extremity: edema Neuro oriented x3, CN's II-XII intact bilaterally, moves all extremities and no focal motor deficits Sensorium / Orientation: alert, oriented to person, oriented to place and oriented to time; Negative for orientation impaired or lethargic Motor Exam: strength 5/5 throughout Psych mental status grossly normal Appearance: Negative for unkempt Attitude: No agitated Mood & Affect: Negative for depressed, anxious or tearful Skin Lesions: no lesions Rashes: no rashes Trauma: no lacerations or abrasions MDM MDM MDM Narrative Medical decision making narrative: 52-year-old history of gout has atraumatic right elbow pain consistent with gout. He will be given 60 mg p.o. prednisone now. Written a prescription for prednisone 40 mg a day for 10 days. May stop early if his elbow resolves. He did not want anything for pain or any pain medications for home. He will follow-up with his primary care provider as needed. He knows if he develops a fever or this is not improving he needs to be reevaluated. History & Record Review Discussion w/independent historian: Patient Discharge Plan Triage Chief Complaint: Upper Extremity Injury ED Provider: Dav Woody Dx/Rx/DC Orders Clinical Impression: Acute gout Instructions: ED Gout Prescriptions: New prednisone 20 mg tablet 40 mg PO DAILY 10 Days Qty: 20 0RF No Action allopurinol 300 mg tablet 300 mg PO DAILY ergocalciferol (vitamin D2) 1,250 mcg (50,000 unit) capsule 50,000 unit PO QMONTH metoprolol tartrate 50 mg tablet 50 mg PO BID Qty: 60 6RF nitroglycerin 0.4 mg tablet, sublingual 0.4 mg sublingual Q5M PRN (Reason: chest pain) Qty: 30 0RF Rx Instructions: do not exceed 3 doses per episode atorvastatin 40 mg tablet 40 mg PO QHS Qty: 90 3RF Brilinta 90 mg tablet 90 mg PO BID Qty: 180 3RF aspirin 81 mg tablet,delayed release (DR/EC) 81 mg PO DAILY Qty: 90 3RF Primary Care Provider: Care Physician,No Primary Referrals: Care Physician,No Primary [Primary Care Provider] - Activity Restrictions/Additional Instructions: Prednisone 40 mg a day for the next 10 days. You may stop early if your elbow gets back to normal. Follow-up with your primary care provider if not improving. Return if you develop a fever or significant redness. Motrin and Tylenol for pain. Disposition Disposition: Home, Self Care
[2023-01-21] MEDS: predniSONE 20 MG Tablet 60 MG PO (00:35)
== END 2023-01-21 00:37 | disposition home or self-care (01) ==
PROVIDERS: Emergency Provider Emergency Medicine; Visit Provider Emergency Medicine
DX: M10.9 Gout, unspecified (principal); I25.10 Atherosclerotic heart disease of native coronary artery without angina pectoris; I12.9 Hypertensive chronic kidney disease with stage 1 through stage 4 chronic kidney disease, or unspecified chronic kidney disease; N18.9 Chronic kidney disease, unspecified; E78.5 Hyperlipidemia, unspecified; I25.2 Old myocardial infarction; Z79.82 Long term (current) use of aspirin; Z79.02 Long term (current) use of antithrombotics/antiplatelets; Z79.899 Other long term (current) drug therapy; Z87.891 Personal history of nicotine dependence
CPT/HCPCS: 99283

== ENCOUNTER → 2023-02-14 | Outpatient (CLI) | payer MEDICAID, SELFPAY ==
[2022-10-07 13:09] VITALS: BMI 33.5
[2023-02-14 14:09] LABS: Albumin, Serum 3.5 g/dL (3.2-5.0); BUN 17 mg/dL (7-18); Chloride 108 mmol/L (98-107); Creatinine, Serum 1.42 mg/dL (0.70-1.30); EST Glomerular Filtration Rate 56 mL/min (>60); Est Glom Filt Rate - Afr Amer 68 mL/min (>60); Glucose 102 mg/dL (74-106); Phosphorus 3.1 mg/dL (2.5-4.9); Potassium 3.9 mmol/L (3.5-5.1); Sodium Level 138 mmol/L (136-145); Uric Acid 5.5 mg/dL (3.5-7.2)
== END | disposition home or self-care (01) ==
PROVIDERS: Referring Provider Internal Medicine Nephrology; Visit Provider Internal Medicine Nephrology
DX: N18.31 Chronic kidney disease, stage 3a (principal); M10.9 Gout, unspecified
CPT/HCPCS: 36415; 80069; 84550

== ENCOUNTER → 2023-02-19 | Outpatient (CLI) | payer MEDICAID, SELFPAY ==
[2022-10-07 13:09] VITALS: BMI 33.5
[2023-02-19 12:32] LABS: Vitamin D,25 Hydroxy 32.8 ng/mL
== END | disposition home or self-care (01) ==
LOC: POLAB3 10:33
PROVIDERS: Visit Provider Internal Medicine Nephrology
DX: E55.9 Vitamin D deficiency, unspecified (principal)
CPT/HCPCS: 36415; 82306

== ENCOUNTER → 2023-04-01 | Outpatient (CLI) | payer MEDICAID, SELFPAY ==
[2022-10-07 13:09] VITALS: BMI 33.5
[2023-04-01 14:52] LABS: Absolute Lymphocyte Count 1.38 X10^3/uL (0.83-4.51); Basophil# 0.04 X10^3/uL; Basophil% 0.6 % (0-1); Eosinophil# 0.43 X10^3/uL; Eosinophils% 6.8 % (0-5); Hematocrit 39.5 % (40-54); Hemoglobin 12.7 g/dL (13.0-16.5); Lymphocyte # 1.38 X10^3/ul (0.83-4.51); Lymphocyte % 21.8 % (19-41); Mean Corp Hgb Conc 32.2 g/dL (32-36); Mean Corpuscular Hgb 30.4 pg (27.0-32.0); Mean Corpuscular Volume 94.5 fL (80-94); Mean Platelet Vol. 10.3 fl (6.2-12.0); Monocyte# 0.48 X10^3/uL; Monocyte% 7.6 % (0-10); NRBC Flagged by Analyzer 0 % (0-5); Neutrophil # 3.99 X10^3/uL (2.7-7.7); Neutrophil % 62.9 % (47-70); Platelet Count 227 K/mm3 (150-450); RBC Distribution Width CV 13.1 % (11.6-14.6); Red Blood Count 4.18 M/mm3 (4.6-6.2); White Blood Count 6.3 K/mm3 (4.4-11.0)
[2023-04-01 15:43] LABS: ALB/GLOB Ratio 0.9 RATIO (0.9-2.4); AST(SGOT) 20 U/L (15-37); Alanine Aminotransfer ALT/SGPT 29 U/L (16-61); Albumin, Serum 3.6 g/dL (3.2-5.0); Alkaline Phosphatase 49 U/L (45-117); Anion Gap 3 (5-15); BUN 18 mg/dL (7-18); BUN/Creat Ratio 12.2 RATIO (10-20); Calcium,Total 9.2 mg/dL (8.5-10.1); Chloride 111 mmol/L (98-107); Cholesterol 164 mg/dL (200); Creatinine, Serum 1.47 mg/dL (0.70-1.30); EST Glomerular Filtration Rate 54 mL/min (>60); Est Glom Filt Rate - Afr Amer 65 mL/min (>60); Globulin 3.8 g/dL (2.2-4.2); Glucose 91 mg/dL (74-106); High Density Lipoprotein 40 mg/dL; Potassium 4.5 mmol/L (3.5-5.1); Protein, Total 7.4 g/dL (6.4-8.2); Sodium Level 142 mmol/L (136-145); Triglycerides 237 mg/dL; Uric Acid 5.6 mg/dL (3.5-7.2); Very Low Density Lipoprotein 47 mg/dL (5-40)
[2023-04-01 16:13] LABS: Hepatitis C Antibody Non-Reactive (Nonreactive); Vitamin D,25 Hydroxy 35.3 ng/mL
== END | disposition home or self-care (01) ==
LOC: POLAB3 14:38
PROVIDERS: Visit Provider Family Medicine Geriatric Medicine
DX: I25.10 Atherosclerotic heart disease of native coronary artery without angina pectoris (principal); E78.5 Hyperlipidemia, unspecified; E55.9 Vitamin D deficiency, unspecified; M10.9 Gout, unspecified
CPT/HCPCS: 36415; 80053; 80061; 82306; 84443; 84550; 85025; 86803

== ENCOUNTER 2023-06-27 21:13 | Emergency (ER) | payer MEDICAID, SELFPAY ==
[2022-10-07 13:09] VITALS: BMI 33.5
[2023-06-27 21:14] VITALS: BP 142/99; PULSE 92; TEMP 37.3; O2SAT 96; BMI 34.2
--- NOTE | 2023-06-27 22:14 | EDS_ITS ---
HPI History of Present Illness Chief Complaint: General Illness Informant: patient Onset/Context/Timing Onset: Today and Yesterday Context: Gradual Onset Timing: Continuous Current Severity: Mild Maximum Severity: Mild Narrative Narrative: 52-year-old male history of CAD and CKD. On Brilinta. URI symptoms last 2 day s. Denies nausea or vomiting. He has been taking in p.o. fluids. He still urinating. Complaining of dry cough fever and body aches. Prior similar symptoms: Yes Recent Illness/Hospitalization: No [facility] Medical History Acute otitis media of left ear with perforation Atherosclerosis of coronary artery of cahto heart without angina pectoris Chronic kidney disease Dyslipidemia Essential (primary) hypertension Gout STEMI (ST elevation myocardial infarction) Swelling of arm URI (upper respiratory infection) Home Medications nitroglycerin 0.4 mg sublingual tablet 0.4 mg sublingual Q5M PRN chest pain #30 tabs 08/15/22 [Rx Last Taken Unknown] allopurinol 300 mg tablet 300 mg PO DAILY 09/10/22 [History Last Taken Unknown] ergocalciferol (vitamin D2) 1,250 mcg (50,000 unit) capsule 50,000 unit PO QMONTH 09/10/22 [History Last Taken Unknown] atorvastatin 40 mg tablet 40 mg PO QHS #90 tabs 12/13/22 [Rx Last Taken Unknown] ticagrelor 90 mg tablet (Brilinta) 90 mg PO BID #180 tabs 12/13/22 [Rx Last Taken Unknown] aspirin 81 mg tablet,delayed release 81 mg PO DAILY #90 tabs 01/13/23 [Rx Last Taken Unknown] prednisone 20 mg tablet 40 mg (2 x 20 mg) PO DAILY 10 days #20 tabs 01/21/23 [Rx Last Taken Unknown] metoprolol tartrate 50 mg tablet See Rx Instructions .Route .COMPLEX #180 tabs 06/24/23 [Rx Last Taken Unknown] Allergy/AdvReac Type Severity Reaction Status Date / Time No Known Allergies Allergy Verified 06/27/23 21:16 Surgical History History of coronary artery stent placement (~08/12/22) Hx of tonsillectomy Social History Smoking Status: Former smoker alcohol intake: current alcohol intake frequency: holidays/special occasions only details: rarely substance use type: does not use caffeine: Yes Type: coffee Number of servings: 1 ROS ROS ED ROS Narrative Dry cough. Fever and chills. Review of Systems ROS Unobtainable: Denies due to encephalopathy Constitutional Constitutional ED: Reports chills and fever(s) Eyes Eyes: Denies blurry vision ENT ENT ED: Denies ear pain, rhinorrhea or sore throat Cardiovascular Cardiovascular: Denies chest pain or palpitations Respiratory/Chest Respiratory/Chest: Reports cough; Denies dyspnea Gastrointestinal Gastrointestinal: Denies abdominal pain, constipation, diarrhea, melena, nausea or vomiting Genitourinary Genitourinary ED: Denies dysuria Musculoskeletal Musculoskeletal: Reports myalgias; Denies arthralgias, back pain or neck pain Integumentary Denies abscess, Abrasions or rash Neurologic Neurologic: Denies headache(s) Psychiatric Psychiatric: Denies anxiety or depression Endocrine Endocrinology: Denies cold intolerance Hematologic/Lymphatic Hematologic/Lymphatic: Reports none Allergic/Immunologic Allergic/Immunologic ED: Denies mouth swelling, tongue swelling or urticaria EXAM Physical Exam Narrative Exam Narrative: Well-appearing 52-year-old male. Vital signs are stable. Temperature 99.1 he does not look septic or toxic. He does not look dehydrated. He is resting comfortably. H EENT exam unremarkable. Moist membranes. Neck nontender. Lungs dry cough. No rales, rhonchi or wheezing. Equal symmetrical. Clear. Heart regular rhythm rate about 90 no murmur. Abdomen soft nontender. Moving all 4 extremities. Calves are nontender without edema or cords. Neurologically is awake and alert. Const Vital Signs: 06/27/23 21:14 06/27/23 21:13 Temperature 99.1 F Temperature Source Temporal Pulse Rate 92 Respiratory Effort Normal Non-Labored Respiratory Pattern Normal Blood Pressure 142/99 H Blood Pressure Mean 113 Pulse Ox 96 Oxygen Delivery Method Room Air Positive well nourished and well developed; Negative for cachectic, contractures or unkempt General Appearance ED: well developed and NAD; Negative for unkempt, cachectic, contractures, cyanotic, diaphoretic or pallor Nutritional Appearance: Negative for cachectic HEENT Reports moist mucous membranes Negative for trauma or tenderness Eyes PERRL and EOMs intact bilaterally General Eye ED: Negative for pale conjunctiva, scleral icterus or other Neck no lymphadenopathy, supple and no JVD General: Negative for tenderness Lymph Lymphatic: Negative for other Chest Wall inspection of chest normal and palpation of chest normal Chest: Negative for other Resp normal respiratory effort and clear to auscultation bilaterally Effort and Inspection: Negative for retractions Auscultation: Negative for rales, rhonchi or wheezes Cardio regular rate, regular rhythm, S1 normal heart sound, S2 normal heart sound and no murmurs Rhythm: Negative for abnormal rhythm GI normal to inspection, nondistended, normoactive bowel sounds, non-tender, non- distended and no masses Inspection: Negative for abdominal distention Auscultation: normoactive bowel sounds Palpation: soft; Negative for tender or guarding Back/Spine no CVA tenderness General Back: Negative for CVA tenderness or other Cervical Spine: Negative for cervical spine tenderness Thoracic Spine / Upper Back: Negative for thoracic spinal tenderness or paraspinal muscle tenderness Lumbar Spine / Lower Back: Negative for lumbar spinal tenderness Extremity normal to inspection General Extremety ED: Negative for edema, tenderness or other findings General Extremity: Negative for edema or other findings Neuro oriented x3 and CN's II-XII intact bilaterally Sensorium / Orientation: alert; Negative for orientation impaired, lethargic or stuporous Motor Exam: strength 5/5 throughout Psych mental status grossly normal Appearance: Negative for unkempt Attitude: No agitated Mood & Affect: Negative for depressed, anxious or tearful Skin no rashes or lesions noted, no wounds and skin turgor normal General Skin Exam: elasticity normal; Negative for jaundice or pallor Lesions: No lesion noted Rashes: No rashes noted Trauma: Negative for abrasion Wounds: Negative for wounds noted MDM MDM MDM Narrative Medical decision making narrative: 52-year-old male with URI symptoms. I do not believe he needs a chest x-ray at this time I do not hear any pneumonia. RSV COVID and flu will be obtained. He did not want an IV or IV fluids clinically I do not think he needs it at this time and he is drinking glasses ice water bedside. repeat exam doing well at 11:30 p.m. His drink p.o. fluids. History & Record Review Discussion w/independent historian: Patient Additional record(s) reviewed:: Prior inpatient record, Prior outpatient record, Prior ED visit and Prior labs Lab Data Attestation: I reviewed the patient's lab results. Lab results narrative: Influenza A positive. COVID and RSV negative. Discharge Plan Triage Chief Complaint: General Illness ED Provider: Dav Woody Dx/Rx/DC Orders Clinical Impression: Influenza A, Chronic kidney disease, History of coronary artery disease Instructions: The Flu (Influenza) Prescriptions: No Action allopurinol 300 mg tablet 300 mg PO DAILY ergocalciferol (vitamin D2) 1,250 mcg (50,000 unit) capsule 50,000 unit PO QMONTH nitroglycerin 0.4 mg tablet, sublingual 0.4 mg sublingual Q5M PRN (Reason: chest pain) Qty: 30 0RF Rx Instructions: do not exceed 3 doses per episode prednisone 20 mg tablet 40 mg PO DAILY 10 Days Qty: 20 0RF atorvastatin 40 mg tablet 40 mg PO QHS Qty: 90 3RF Brilinta 90 mg tablet 90 mg PO BID Qty: 180 3RF aspirin 81 mg tablet,delayed release (DR/EC) 81 mg PO DAILY Qty: 90 3RF metoprolol tartrate 50 mg tablet See Rx Instructions .ROUTE .COMPLEX Qty: 180 3RF Dose Instruction: Take 1 tablet by mouth twice daily Rx Instructions: Take 1 tablet by mouth twice daily Primary Care Provider: Berto Urena Chi Referrals: Berto Urena Chi, MD [Primary Care Provider] - 3-5 Days if not improving Activity Restrictions/Additional Instructions: Plenty of fluids and rest. Tylenol for fever. Follow-up if not improving or return if worse. You have the flu. Disposition Disposition: Home, Self Care
[2023-06-27] MEDS: Acetaminophen 500 MG Tablet 1000 MG PO (22:28)
--- OUTSIDE RECORDS SUMMARY | 2023-06-27 22:59 | XMS RPT_ITS | CCD ---
Author Name Unknown Address [address] [place] [address] Organization [facility] Care Team Providers Care Repair Operator Name Role Phone Unavailable Primary Care Provider Waleska Concepcion APRN.CNP Primary Care Provider WALESKA SENA Attending Unavailable WALESKA SENA Primary Care Unavailable Medications Current Medications Medication Drug Class(es) Dates Sig (Normalized) Sig (Original) amoxicillin 875 mg oral tablet (1 source) Penicillin-class Antibacterial Start: 10-26-2021 End: 11-02-2021 take 1 tablet by mouth twice daily amoxicillin (AMOXIL) 875 mg tablet Indications: Other acute nonsuppurative otitis media of right ear, recurrence not specified Take 1 tablet by mouth twice daily for 7 days. 14 tablet 0 10/26/2021 11/02/2021 Active Completed/Discontinued Medications Medication Drug Class(es) Dates Sig (Normalized) Sig (Original) allopurinol 300 mg oral tablet (3 sources) Xanthine Oxidase Inhibitor Start: 07-20-2022 allopurinol (ZYLOPRIM) 300 mg tablet allopurinol (ZYLOPRIM) 200 mg tablet Haitian Formulary (2 sources) take 1 tablet by mouth once daily allopurinol (ZYLOPRIM) 200 mg tablet Haitian Formulary Take 200 mg by mouth once daily. 0 Active Problems Active Problems Problem Classification Problem Date Documented Da te Episodic/Chronic Abdominal pain (1 source) Right lower quadrant pain; Translations: [Right lower quadrant pain] Episodic Acute myocardial infarction (3 sources) Myocardial infarction; Translations: [Acute myocardial infarction, unspecified] Onset: 09-04-2022 09-24-2022 Chronic Chronic kidney disease (3 sources) Chronic kidney disease; Translations: [Chronic kidney disease, unspecified] Onset: 08-08-2022 09-24-2022 Chronic Coronary atherosclerosis and other heart disease (3 sources) Coronary arteriosclerosis; Translations: [Atherosclerotic heart disease of [place] coronary artery without angina pectoris] Onset: 09-04-2022 09-24-2022 Chronic Disorders of lipid metabolism (3 sources) Dyslipidemia; Translations: [Hyperlipidemia, unspecified] Onset: 09-04-2022 09-24-2022 Chronic Essential hypertension (3 sources) Essential hypertension; Translations: [Essential (primary) hypertension] Onset: 09-10-2022 09-24-2022 Chronic Osteoarthritis (3 sources) Arthritis of knee; Translations: [Unilateral primary osteoarthritis, unspecified knee] Onset: 09-04-2022 09-24-2022 Chronic Other nutritional; endocrine; and metabolic disorders (3 sources) Obese class I; Translations: [Obesity, unspecified] Onset: 09-24-2022 09-24-2022 Chronic Other upper respiratory disease (5 sources) Seasonal allergy; Translations: [Other seasonal allergic rhinitis] Onset: 06-13-2009 06-13-2009 Chronic Otitis media and related conditions (1 source) Acute secretory otitis media; Translations: [Other acute nonsuppurative otitis media, right ear] Episodic Residual codes; unclassified (5 sources) Sleep apnea; Translations: [Sleep apnea, unspecified] Onset: 06-13-2009 06-13-2009 Chronic Residual codes; unclassified (1 source) Obstructive sleep apnea (adult) (pediatric); Translations: [Obstructive sleep apnea syndrome] Onset: 06-13-2009 Chronic Past or Other Problems Problem Classification Problem Date Documented Da te Episodic/Chronic Coronary atherosclerosis and other heart disease (3 sources) History of cardiovascular surgery; Translations: [Presence of coronary angioplasty implant and graft] Onset: 09-23-2022 09-24-2022 Episodic Other screening for suspected conditions (not mental disorders or infectious disease) (2 sources) Patient encounter status; Translations: [Encounter for screening for malignant neoplasm of colon] Onset: 09-24-2022 Episodic Results Test Name Value Interpretation Reference Range Facil ity Vital Signs Date Time Vital Sign Value Performing Clinician Jerrod riley 10-26-2021 13:41-0400 Body temperature 97.39 [degF] Maggie Praisler-Wood CITIZENSHIP INSTRUCTOR.MOLDER P[employer]CH Work Phone: [facility] 10-26-2021 13:41-0400 Body weight 116.85 kg Maggie Praisler-Wood CITIZENSHIP INSTRUCTOR.M[employer]DER [employer]CH Work Phone: [facility] 10-26-2021 13:41-0400 Diastolic blood pressure 88 mm[Hg] Maggie Praisler-Wood CITIZENSHIP INSTRUCTOR.M[employer]DER [employer]CH Work Phone: [facility] 10-26-2021 13:41-0400 Heart rate 86 /min Maggie Praisler-Wood CITIZENSHIP INSTRUCTOR.[employer] Work Phone: [facility] 10-26-2021 13:41-0400 Respiratory rate 16 /min Maggie Praisler-Wood CITIZENSHIP INSTRUCTOR.M[employer] Work Phone: [facility] 10-26-2021 13:41-0400 SaO2% (BldA) [Mass fraction] 98 % Maggie Praisler-Wood CITIZENSHIP INSTRUCTOR.[employer] Work Phone: [facility] 10-26-2021 13:41-0400 Systolic blood pressure 130 mm[Hg] Maggie Praisler-Wood CITIZENSHIP INSTRUCTOR.[employer] Work Phone: [facility] 10-18-2021 12:41-0400 Body temperature 97.59 [degF] Josue Covington MD Work Phone: [facility] 10-18-2021 12:41-0400 Body weight 116.21 kg Josue Covington MD Work Phone: [facility] 10-18-2021 12:41-0400 Diastolic blood pressure 84 mm[Hg] Josue Covington MD Work Phone: [facility] 10-18-2021 12:41-0400 Heart rate 97 /min Josue Covington MD Work Phone: [facility] 10-18-2021 12:41-0400 SaO2% (BldA) [Mass fraction] 98 % Josue Covington MD Work Phone: [facility] 10-18-2021 12:41-0400 Systolic blood pressure 126 mm[Hg] Josue Covington MD Work Phone: [facility] Encounters Encounter Date Encounter Type Care Provider Facility Start: 12-26-2022 Orders Only Dylon Jean MD Work Phone: [facility] Procedures Date Procedure Procedure Detail Performing Clinician Start: 06-20-2009 Lipid 1996 panel - S lori or Plasma Dylon Jean MD Work Phone: Plan of Treatment Date Care Activity Detail Author Start: 09-13-2026 Urine microalbumin profile [facility] Start: 09-25-2023 ANNUAL PCP TEAM SHIP MANAGER TERRY DISEASE VISIT ANNUAL PCP TEAM CHRONIC DISEASE VISIT [facility] Start: 09-25-2023 BP CONTROLLED (<130/80) BP CONTROLLE D (<130/80) [facility] Start: 09-25-2023 COLORECTAL CANCER SCREENING COLORECTAL CANCER SCREENING [facility] Immunizations Immunization Date Immunization Notes Care Provider Adithya grace 09-13-2016 tetanus toxoid, redu whit[place] diphtheria toxoid, and acellular pertussis vaccine, adsorbed Waleska Sena APRN.CNP Work Phone: [facility] 01-16-2009 tetanus toxoid, redu whitney diphtheria toxoid, and acellular pertussis vaccine, adsorbed Josue Covington MD Work Phone: [facility] Work Phone: Payers Date Payer Category Payer Medicaid [employer] [employer] [id number] 2022-Present [phone] [place] [id number] Medicaid [id number] 2022 Medicaid [id number] 2019 Medicaid [employer] [employer] [employer] [id number] 2019-Present [phone] [place] [id number] Medicaid [id number] Social History Date Type Detail Facility Start: 09-24-2022 Tobacco smoking stat us NHIS Ex-smoker [facility] End: 06-30-2000 History of tobacco use Current smoker [facility]: 06-30-2000 History of tobacco use Cigarette Smoker [facility] Start: 10-18-2021 End: 09-24-2022 Alcohol intake Current drinker of alcohol (finding) [facility] Start: 06-13-2009 History SDOH Alcohol Comment rare use - much less than one drink/week [facility] Start: 1970 Sex Assigned At Not on file [facility] Start: 10-08-2021 End: 10-26-2021 Exposure to SARS-CoV-2 (event) Not sure [facility] Start: 09-24-2022 Cigarettes smoked current (pack per day) - Reported 0.5 [facility] Work Phone: Start: 09-24-2022 Tobacco use and exposure Smokeless tobacco non-user [facility] Start: 09-24-2022 Tobacco use panel [facility] Work Phone: Adult Depression Screening Assessment 0 [facility] Work Phone: Clinical Notes 10-18-2021 to 10-02-2022 Telephone Encounter - Zeina Garrison RN - 10/02/2022 12:44 PM EDTTelephone Encounter - Pamella Mar - 09/24/2022 12:01 PM Alvina Washington APRN.CNP - 10/26/2021 1:56 PM EDT Note Date & Type Note Facility 10-02-2022 Miscellaneous Notes Formattin g of this note might be different from the original. Images from the original note were not included. Screening Colonoscopy Checklist Luke Dc [phone] (home) [phone] (work) 1970 52 year old Date of Referral: 09/24/22 Referral #: [id number] Referring physician: Lisa Sena Height: 6f Weight: 248lb BMI: 33.63 *If BMI is 40 or > or weight is >350 lbs., schedule at the hospital. Assessment Questions 80 years old or greater? No *If yes, requires an office visit Do you live in a [facility]? No *If from [facility] facility schedule at [facility]. Can you ambulate without assistance? ambulatory *Schedule at [facility] if needs more than 1 assist and or Jonathan lift. Are you using oxygen at home? No *Continuous oxygen schedule at [facility]. Did you use a CPAP or BIPAP machine? Yes Any previous problems with anesthesia? No *Any personal history of difficult airway or personal or family history of malignant hyperthermia schedule at [facility]. Have you had a heart attack or stents placed in your heart in the past year? Yes *If yes, refer back to PCP to schedule a later date; if no proceed to next question. Do you see a electronic device monitor on a regular basis? Yes *If yes, has patient seen electronic device monitor in past year? If yes, OK to schedule, if no, patient to see electronic device monitor before scheduling at [facility] or schedule at [facility]. Have you had a stroke in the last year? No *If yes, has patient had follow up in the last 6 months? If yes, OK to schedule, if no, patient needs follow up appointment or schedule at [facility]. Do you have a pacemaker or an ICD? No *If yes, document in [facility], schedule so instructions can be obtained from device clinic in advance. Are you currently having any chest pain or are you currently being evaluated or undergoing any testing for chest pain or heart problems? No *If yes, schedule after cardiac evaluation is complete. Do you have a heart valve replacement? No [] MVR [] AVR *Ok to schedule if patient has had follow up office visit and echo. Have you ever been told you have a heart valve problem, other than mitral valve prolapse? No *If yes, patient needs to have seen a electronic device monitor within the last year or be scheduled at [facility]. Are you currently on any blood thinners? Yes (Coumadin, Xarelto, Plavix, Eliquis, Pradaxa, Brillinta,Effient) [] Managed by PCP [x] Managed by Rag Room Supervisor [] Managed by [facility] Are you currently on Aspirin? Yes [x] 81 mg daily (pt to continue) [] 325 mg daily (pt to DISCONTINUE prior to procedure) Are you currently undergoing treatment for cancer? No *Current treatment for head, neck, or lung cancer, schedule at [facility]. Do you have a history of renal failure or chronic kidney disease? No [] On dialysis *If yes, report to physician for optional prep orders. Do you have any allergies to latex, adhesives, or medications? No *If anaphylactic reaction to latex, schedule at the hospital. Have you ever had a colonoscopy? No If yes, where and when: Are you having any abdominal pain? No Have you had any changes in your bowel habits? No Have you noticed any blood in your stool or had black tarry stools? No Do you personally have a history of colon polyps or colon cancer? No Is there a family history of colon polyps or colon cancer? No Do you have Crohn's disease or ulcerative colitis? No Office visit scheduled: Not Applicable Colonoscopy scheduled: Yes Date/time: 03/25/2023 Endoscopist: Dylon Jean Locations:[x] [facility] [] [facility] [] [facility] Case#: [x] On spreadsheet [] Referral list completed [] On Completed by: Meli Hatfield Reminder phone call (date/time/initials): documented in this encounter [facility] 09-24-2022 Note HNO ID: [id number] Author: Waleska Sena APRN.CNP Service: ? Author Type: Nurse Practitioner Type: Progress Notes Filed: 09/24/2022 5:43 PM Note Text: [facility] Waleska Sena APRN-MOL[employer] PUNCH [address] [place] [address] Dept Dept. Visit Date: September 24, 2022 Mr.Johnnie Mauro Dc Date of : 1970 MRN/E #: [id number] Chief Complaint: Patient presents with: Wellness Establish Care History of Present Illness Luke Dc is a 51 year old male presenting today as a new patient to establish care. I reviewed past medical, surgical, social, and family histories today and updated chart. Allergies, chronic medications, and supplements were also reviewed. PMH of recent inferior wall STEMI in July 2022 that resulted in 1 drug-eluting stent placed. PMH also significant for CKD and follows with nephrology every 8-10 months (diagnosed about 3-4 years ago) He was started on Brilinta, Metoprolol, Lipitor, ASA, and Nitro prn (which hasn't had to use). He has had a follow up with cardiology since his discharge and has been attending cardiac rehab 3 times a week for the last 3 weeks. Will go for a total of 8-12 weeks. His previous PCP was Dr. Tate with [facility] but he didn't see him much the last few years. Rare alcohol use Caffeine use- 1-2 cups most days Not currently working out outside of cardiac rehab Had labs checked while in the hospital- need records Also has a educational guidance counselor Has followed up with cardiology- Dr. Brown in [place] Due for colonoscopy, has never had one No family history of colon cancer Has RONEN and has a CPAP machine but it is old. Thinks his last sleep study was back in 2008. The history is provided by the patient. No language path was used. PAST MEDICAL HISTORY Diagnosis Date CKD (chronic kidney disease) Dyslipidemia Gout Heart attack (HCC) 07/31/2022 Hiatal hernia Hypertension RONEN (obstructive sleep apnea) Vitamin D deficiency PAST SURGICAL HISTORY Procedure Laterality Date PAST SURGICAL HISTORY OF 1977 T AND A PAST SURGICAL HISTORY OF 1979 BMT with tympanoplasty Social History Tobacco Use Smoking status: Former Packs/day: 0.50 Years: 2.00 Pack years: 1.00 Types: Cigarettes Quit date: 06/30/2000 Years since quittin.2 Smokeless tobacco: Never Substance Use Topics Alcohol use: Yes Comment: rare use - much less than one drink/week Drug use: Never Social History Social History Narrative Not on file Family History Reviewed Including Cardiac Diseases, Psychiatric Diseases, AND Substance Abuse Problem: Breast Cancer Relation: Mother Age of Onset: (Not Specified) Comment: at 55 Problem: Kidney Disease Relation: Father Age of Onset: (Not Specified) Problem: Allergies Relation: Sister Age of Onset: (Not Specified) Problem: Diabetes Relation: Maternal Grandmother Age of Onset: (Not Specified) Problem: Hypertension Relation: Maternal Grandfather Age of Onset: (Not Specified) Problem: Kidney Disease Relation: Paternal Grandfather Age of Onset: (Not Specified) ALLERGIES No Known Allergies Current Outpatient Medications Medication Sig allopurinol (ZYLOPRIM) 300 mg tablet BRILINTA 90 mg tablet Take 90 mg by mouth twice daily. nitroglycerin sublingual (NITROQUICK) 0.4 mg SL tablet Nitroglycerin Active 0.4 MG SL Q5M August 15, 2022 1:00am do not exceed 3 doses per episode metoprolol tartrate, short acting, (LOPRESSOR) 50 mg tablet Take 50 mg by mouth twice daily. aspirin, enteric coated (ASPIRIN, ENTERIC COATED) 81 mg EC tablet TAKE 1 TABLET BY MOUTH ONCE DAILY AT 8 AM atorvastatin (LIPITOR) 40 mg tablet Take 40 mg by mouth daily at bedtime. ergocalciferol 50,000 unit capsule (VITAMIN D2, DRISDOL) TAKE 1 CAPSULE BY MOUTH ONCE A WEEK FOR 8 WEEKS, THEN DECREASE TO 1 CAPSULE ONCE PER MONTH No current facility-administered medications for this visit. Review of Systems Review of Systems Constitutional: Negative for appetite change, chills, diaphoresis, fatigue, fever and unexpected weight change. Eyes: Negative for visual disturbance. Respiratory: Positive for apnea (RONEN and wears CPAP) and shortness of breath. Negative for cough, chest tightness and wheezing. Cardiovascular: Negative for chest pain, palpitations and leg swelling. Gastrointestinal: Negative for abdominal pain, blood in stool, constipation, diarrhea, nausea and vomiting. Genitourinary: Negative. Musculoskeletal: Negative. Skin: Negative. Neurological: Negative for dizziness, light-headedness and headaches. Psychiatric/Behavioral: Positive for sleep disturbance (some nights doesn't sleep well). Negative for dysphoric mood. The patient is not nervous/anxious. Vital Signs BP 120/76 Pulse 62 Temp 98 Resp 19 Ht 6' 0 (1.83m) Wt 248 lb (112.5kg) SpO2 98% (more content not included)... [facility] 09-24-2022 Miscellaneous Notes Formattin g of this note might be different from the original. Referral for Dr. Jean was placed on [facility] Portal with Id # [id number]. Pamella Mar documented in this encounter [facility] 10-26-2021 Note HNO ID: [id number] Author: Maggie Washington APRN.MOLDER PUNCH Service: ? Author Type: Nurse Practitioner Type: Progress Notes Filed: 10/26/2021 1:58 PM Note Text: Subjective HPI Luke Dc is a 51 year old male who presents with bilateral ear pain for the past one day. He has hx of ruptured eardrum on left since childhood. He denies associated URI symptoms. He rates his pain 5/10. Worse on right than left side. No headaches or sore throat. He has not taken any medication for this problem. Review of Systems Constitutional: Negative for chills and fever. HENT: Positive for ear pain. Negative for hearing loss, sore throat and tinnitus. Respiratory: Negative for cough. Cardiovascular: Negative. Neurological: Negative for headaches. BP 130/88 Pulse 86 Temp 36.3 ?C (97.4 ?F) Resp 16 Wt 116.8 kg (257 lb 9.6 oz) SpO2 98% PAST MEDICAL HISTORY Diagnosis Date - CKD (chronic kidney disease) - Gout - Hiatal hernia - Vitamin D deficiency PAST SURGICAL HISTORY Procedure Laterality Date - PAST SURGICAL HISTORY OF 1977 T AND A - PAST SURGICAL HISTORY OF 1979 BMT with tympanoplasty ALLERGIES Patient has no known allergies. MEDICATIONS ergocalciferol 50,000 unit capsule (VITAMIN D2, DRISDOL) TAKE 1 CAPSULE BY MOUTH ONCE A WEEK FOR 8 WEEKS, THEN DECREASE TO 1 CAPSULE ONCE PER MONTH allopurinol (ZYLOPRIM) 200 mg tablet Haitian Formulary Take 200 mg by mouth once daily. amoxicillin (AMOXIL) 875 mg tablet Take 1 tablet by mouth twice daily for 7 days. FAMILY HISTORY Problem Relation Age of Onset - Allergies Sister - Breast Cancer Mother at 55 - Diabetes Maternal Grandmother - Hypertension Maternal Grandfather Social History Tobacco Use - Smoking status: Former Smoker Packs/day: 0.50 Years: 2.00 Pack years: 1.00 Types: Cigarettes Quit date: 06/30/2000 Years since quittin.3 - Smokeless tobacco: Never Used Substance Use Topics - Alcohol use: Yes Comment: rare use - much less than one drink/week - Drug use: No Objective Physical Exam Vitals and nursing note reviewed. Constitutional: Appearance: He is obese. HENT: Right Ear: Ear canal and external ear normal. A middle ear effusion is present. Tympanic membrane is injected and erythematous. Left Ear: Ear canal and external ear normal. 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 Nose: Nose normal. Mouth/Throat: Mouth: Mucous membranes are moist. Pharynx: Oropharynx is clear. Uvula midline. No oropharyngeal exudate or posterior oropharyngeal erythema. Cardiovascular: Rate and Rhythm: Normal rate and regular rhythm. Heart sounds: Normal heart sounds. Pulmonary: Effort: Pulmonary effort is normal. No respiratory distress. Breath sounds: Normal breath sounds. No wheezing or rales. Musculoskeletal: Cervical back: Neck supple. Lymphadenopathy: Cervical: No cervical adenopathy. Skin: General: Skin is warm and dry. Findings: No erythema or rash. Neurological: Mental Status: He is alert. ASSESSMENT/PLAN: 1. Other acute nonsuppurative otitis media of right ear, recurrence not specified - ICD9: 381.00, ICD10: H65.191 - Will begin treatment with Amoxicillin for 7 days - Supportive care with plenty of fluids, rest, and analgesia prn. - AMOXICILLIN 875 MG TABLET - Follow-up with your PCP in 3-5 days if symptoms have not improved or sooner if symptoms worsen - Discussed red flags and need for immediate medical evaluation if any occur. - Discussed supportive care treatment with fluids, rest and analgesia. - Discussed expected course of illness Maggie Washington APRN.[facility] 10-26-2021 History of Presen t illness Narrative Subjective HPI Luke Dc is a 51 year old male who presents with bilateral ear pain for the past one day. He has hx of ruptured eardrum on left since childhood. He denies associated URI symptoms. He rates his pain 5/10. Worse on right than left side. No headaches or sore throat. He has not taken any medication for this problem. Review of Systems Constitutional: Negative for chills and fever. HENT: Positive for ear pain. Negative for hearing loss, sore throat and tinnitus. Respiratory: Negative for cough. Cardiovascular: Negative. Neurological: Negative for headaches. BP 130/88 Pulse 86 Temp 36.3 C (97.4 F) Resp 16 Wt 116.8 kg (257 lb 9.6 oz) SpO2 98% PAST MEDICAL HISTORY Diagnosis Date CKD (chronic kidney disease) Gout Hiatal hernia Vitamin D deficiency PAST SURGICAL HISTORY Procedure Laterality Date PAST SURGICAL HISTORY OF 1977 T & A PAST SURGICAL HISTORY OF 1979 BMT with tympanoplasty ALLERGIES Patient has no known allergies. MEDICATIONS ergocalciferol 50,000 unit capsule (VITAMIN D2, DRISDOL) TAKE 1 CAPSULE BY MOUTH ONCE A WEEK FOR 8 WEEKS, THEN DECREASE TO 1 CAPSULE ONCE PER MONTH allopurinol (ZYLOPRIM) 200 mg tablet Haitian Formula Take 200 mg by mouth once daily. amoxicillin (AMOXIL) 875 mg tablet Take 1 tablet by mouth twice daily for 7 days. FAMILY HISTORY Problem Relation Age of Onset Allergies Sister Breast Cancer Mother at 55 Diabetes Maternal Grandmother Hypertension Maternal Grandfather Social History Tobacco Use Smoking status: Former Smoker Packs/day: 0.50 Years: 2.00 Pack years: 1.00 Types: Cigarettes Quit date: 06/30/2000 Years since quittin.3 Smokeless tobacco: Never Used Substance Use Topics Alcohol use: Yes Comment: rare use - much less than one drink/week Drug use: No Objective Physical Exam Vitals and nursing note reviewed. Constitutional: Appearance: He is obese. HENT: Right Ear: Ear canal and external ear normal. A middle ear effusion is present. Tympanic membrane is injected and erythematous. Left Ear: Ear canal and external ear normal. 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 Nose: Nose normal. Mouth/Throat: Mouth: Mucous membranes are moist. Pharynx: Oropharynx is clear. Uvula midline. No oropharyngeal exudate or posterior oropharyngeal erythema. Cardiovascular: Rate and Rhythm: Normal rate and regular rhythm. Heart sounds: Normal heart sounds. Pulmonary: Effort: Pulmonary effort is normal. No respiratory distress. Breath sounds: Normal breath sounds. No wheezing or rales. Musculoskeletal: Cervical back: Neck supple. Lymphadenopathy: Cervical: No cervical adenopathy. Skin: General: Skin is warm and dry. Findings: No erythema or rash. Neurological: Mental Status: He is alert. ASSESSMENT/PLAN: 1. Other acute nonsuppurative otitis media of right ear, recurrence not specified - ICD9: 381.00, ICD10: H65.191 - Will begin treatment with Amoxicillin for 7 days - Supportive care with plenty of fluids, rest, and analgesia prn. - AMOXICILLIN 875 MG TABLET - Follow-up with your PCP in 3-5 days if symptoms have not improved or sooner if symptoms worsen - Discussed red flags and need for immediate medical evaluation if any occur. - Discussed supportive care treatment with fluids, rest and analgesia. - Discussed expected course of illness Maggie Washington APRN.[employer] documented in this encounter [facility] 10-26-2021 Instructions Maggie Washington APRN.CNP - 10/26/2021 1:48 PM EDT ASSESSMENT/PLAN: 1. Other acute nonsuppurative otitis media of right ear, recurrence not specified - ICD9: 381.00, ICD10: H65.191 - Will begin treatment with Amoxicillin for 7 days - Supportive care with plenty of fluids, rest, and analgesia prn. - AMOXICILLIN 875 MG TABLET - Follow-up with your PCP in 3-5 days if symptoms have not improved or sooner if symptoms worsen - Discussed red flags and need for immediate medical evaluation if any occur. - Discussed supportive care treatment with fluids, rest and analgesia. - Discussed expected course of illness Maggie Washington APRN.CNP OTITIS MEDIA GENERAL INFORMATION: Otitis media is an infection of the middle ear. The middle ear sits behind the eardrum. This infection may be caused by a virus or bacteria and often follows a cold. Children often have repeat ear infections. Otitis media is not contagious. INSTRUCTIONS: 1. An antibiotic has been prescribed. It should be taken exactly as prescribed. Do not stop the medicine even if the symptoms go away. 2. Uzyg-zrd-caidzio pain medication may be taken or other pain medication as prescribed by the doctor. 3. Nothing should be placed in the ear unless instructed by your doctor. 4. The patient may return to school/daycare or work when the temperature is normal (98.6 F or 37 C). 5. The patient should not swim while the ear is infected. CONTACT YOUR DOCTOR IF YOU OR YOUR CHILD: 1. Does not feel better within 36 hours. 2. Develops a temperature over 102E F (39E C). 3. Starts vomiting or has diarrhea. 4. Develops drainage from the affected ear. 5. Has any new problem that may be related to the medicine prescribed. RETURN TO THE ED IF: 1. You or your child has a severe headache or pain around the ear. 2. You or your child notice swelling around the ear. 3. You or your child has a seizure (convulsion), twitching of the facial muscles, or passes out. 4. You or your child is dizzy, has a stiff neck, or cannot walk or talk normally. 5. Your child becomes more irritable or listless (not interested in his or her surroundings, does not get soothed by you holding him or her). documented in this encounter [facility] 10-18-2021 Note HNO ID: [id number] Author: Josue Covington MD Service: ? Author Type: Physician Type: Progress Notes Filed: 10/18/2021 2:23 PM Note Text: Patient presents with: Pain: Pt reported lower (RT) groin pain radiating to leg, pain rated 3, x5 days HPI: Right groin pain: Duration: 5 days. Location: RLQ Character: dull Radiation: Medial right thigh Aggravating: Worse when he wakes. No change with BM or lifting Relieving: Improves during the day, walking Pain relievers: none Associated: Pertinent negatives: Denies fever, diarrhea, constipation, nausea, anorexia, blood in stool PAST MEDICAL HISTORY Diagnosis Date - CKD (chronic kidney disease) - Gout - Hiatal hernia - Vitamin D deficiency PAST SURGICAL HISTORY Procedure Laterality Date - PAST SURGICAL HISTORY OF 1977 T AND A - PAST SURGICAL HISTORY OF 1979 BMT with tympanoplasty MEDICATIONS: ergocalciferol 50,000 unit capsule (VITAMIN D2, DRISDOL) TAKE 1 CAPSULE BY MOUTH ONCE A WEEK FOR 8 WEEKS, THEN DECREASE TO 1 CAPSULE ONCE PER MONTH allopurinol (ZYLOPRIM) 200 mg tablet Haitian Formulary Take 200 mg by mouth once daily. ALLERGIES: ALLERGIES No Known Allergies VITALS: BP 126/84 Pulse 97 Temp 36.4 ?C (97.6 ?F) Wt 116.2 kg (256 lb 3.2 oz) SpO2 98% PHYSICAL EXAM: GEN: pleasant, no acute distress, alert HEENT: PERRL, EOMI, NECK: supple, no lymphadenopathy, no thyromegaly HEART: regular rate, regular rhythm, no murmurs LUNGS: clear to auscultation, no wheezes or crackles, no increased WOB ABD: soft, non-distended, no masses palpated, tender RLQ : Normal external male genitalia. No masses. No testicular tenderness. No femoral or inguinal hernia area bulges. EXT: no clubbing, no cyanosis, no edema. Right hip flexion induces some groin pain. ASSESSMENT/PLAN: 1. Abdominal pain, RLQ (right lower quadrant) - ICD9: 789.03, ICD10: R10.31 Differential includes abdominal or groin strain, occult hernia, appendicitis, right diverticulitis. He would like to observe symptoms for now. No supporting signs or symptoms of appendicitis. Proceed to the ER with increasing abdominal pain, anorexia/nausea, significant change in bowel habits, blood in the stool, fever. He is without a PCP currently because of insurance change. He may return here or be referred to general surgery if pain is not resolving. Josue Covington MD [facility] 10-18-2021 History of Presen t illness Narrative Patient presents with: Pain: Pt reported lower (RT) groin pain radiating to leg, pain rated 3, x5 days HPI: Right groin pain: Duration: 5 days. Location: RLQ Character: dull Radiation: Medial right thigh Aggravating: Worse when he wakes. No change with BM or lifting Relieving: Improves during the day, walking Pain relievers: none Associated: Pertinent negatives: Denies fever, diarrhea, constipation, nausea, anorexia, blood in stool PAST MEDICAL HISTORY Diagnosis Date CKD (chronic kidney disease) Gout Hiatal hernia Vitamin D deficiency PAST SURGICAL HISTORY Procedure Laterality Date PAST SURGICAL HISTORY OF 1977 T & A PAST SURGICAL HISTORY OF 1979 BMT with tympanoplasty MEDICATIONS: ergocalciferol 50,000 unit capsule (VITAMIN D2, DRISDOL) TAKE 1 CAPSULE BY MOUTH ONCE A WEEK FOR 8 WEEKS, THEN DECREASE TO 1 CAPSULE ONCE PER MONTH allopurinol (ZYLOPRIM) 200 mg tablet Haitian Formula Take 200 mg by mouth once daily. ALLERGIES: ALLERGIES No Known Allergies VITALS: BP 126/84 Pulse 97 Temp 36.4 C (97.6 F) Wt 116.2 kg (256 lb 3.2 oz) SpO2 98% PHYSICAL EXAM: GEN: pleasant, no acute distress, alert HEENT: PERRL, EOMI, NECK: supple, no lymphadenopathy, no thyromegaly HEART: regular rate, regular rhythm, no murmurs LUNGS: clear to auscultation, no wheezes or crackles, no increased WOB ABD: soft, non-distended, no masses palpated, tender RLQ : Normal external male genitalia. No masses. No testicular tenderness. No femoral or inguinal hernia area bulges. EXT: no clubbing, no cyanosis, no edema. Right hip flexion induces some groin pain. ASSESSMENT/PLAN: 1. Abdominal pain, RLQ (right lower quadrant) - ICD9: 789.03, ICD10: R10.31 Differential includes abdominal or groin strain, occult hernia, appendicitis, right diverticulitis. He would like to observe symptoms for now. No supporting signs or symptoms of appendicitis. Proceed to the ER with increasing abdominal pain, anorexia/nausea, significant change in bowel habits, blood in the stool, fever. He is without a PCP currently because of insurance change. He may return here or be referred to general surgery if pain is not resolving. Josue Covington MD documented in this encounter [facility] Diagnosis Other acute nonsuppurative otitis media of right ear, recurrence not specified- Primary [facility] Diagnosis Encounter for screening colonoscopy- Primary Special screening for malignant neoplasms, colon [facility] Outpatient Procedure (Routine) - Authorized Specialty Diagnoses / Procedures Referred By Jewels t Referred To Contact [facility] Diagnoses Encounter for screening colonoscopy Procedures COLONOSCOPY SCREENING COLONOSCOPY FLX DX W/COLLJ SPEC WHEN PFRMD Dylon Jean MD [address] [id number] [facility] [address] [place] [address] Referral ID Status Reason Start Date Expiration Date Visits Requested Visits Authorized [id number] Authorized Auto-Generat ed Referral 03/25/2023 12/27/2023 1 1 [facility] Summary Purpose Family History No Family History Records FoundNo Family History Records Found Advance Directives No Advanced Directives Records FoundNo Advanced Directives Records Found Additional Source Comments Source Comments (unrecognize d section and content) In the event this informatio n is protected by the Federal Confidentiality of Alcohol and Drug Abuse Patient Records regulations: The Federal rules restrict any use of the information to criminally investigate or prosecute any alcohol or drug abuse patient.[facility] the event this information is protected by the Federal Confidentiality of Alcohol and Drug Abuse Patient Records regulations: The Federal rules restrict any use of the information to criminally investigate or prosecute any alcohol or drug abuse patient.[facility] the event this information is protected by the Federal Confidentiality of Alcohol and Drug Abuse Patient Records regulations: The Federal rules restrict any use of the information to criminally investigate or prosecute any alcohol or drug abuse patient.[facility] the event this information is protected by the Federal Confidentiality of Alcohol and Drug Abuse Patient Records regulations: The Federal rules restrict any use of the information to criminally investigate or prosecute any alcohol or drug abuse patient.[facility] the event this information is protected by the Federal Confidentiality of Alcohol and Drug Abuse Patient Records regulations: The Federal rules restrict any use of the information to criminally investigate or prosecute any alcohol or drug abuse patient.[facility] Reason for Visit (unrecogniz ed section and content) Reason Comments Ear Pain Bilateral ear pain r ated 5, x1 week swelling neck Reason Comments Referral Information Reason Comments screening colonoscopy checklist (unrecognized sect ion and content) No Status Records FoundNo Status Records Found INFORMATION SOURCE (unrecogn ized section and content) DATE CREATED AUTHOR AUTHOR'S ORGANIZ ATION 05/10/2023 [facility] Care Teams (unrecognized sec tion and content) Repair Operator Relationship Specialty Start Date End Date Waleska Sena, CITIZENSHIP INSTRUCTOR.[employer]CH [address] [place], [place] [id number] PCP - General Family Medicine 09/24/22 Repair Operator Relationship Specialty Start Date End Date Waleska Sena CITIZENSHIP INSTRUCTOR.DAVID [address] [place], [place] [id number] PCP - General Family Medicine 09/24/22 FOR RECORDS PERTAINING TO PATIENTS WHO ARE OR HAVE BEEN ENROLLED IN A CHEMICAL DEPENDENCY/SUBSTANCEABUSE PROGRAM, SOME INFORMATION MAY BE OMITTED. This clinical summary was aggregated from multiple sources. Caution should be exercised in using it in the provision of clinical care. This summary normalizes information from multiple sources, and as a consequence, information in this document may materially change the coding, format and clinical context of patient data. In addition, data may be omitted in some cases. CLINICAL DECISIONS SHOULD BE BASED ON THE PRIMARY CLINICAL RECORDS. [facility] [employer] provides no warranty or guarantee of the accuracy or completeness of information in this document.
[2023-06-27 23:36] VITALS: PULSE 93; RESP 17; O2SAT 98
== END 2023-06-27 23:37 | disposition home or self-care (01) ==
PROVIDERS: Emergency Provider Emergency Medicine; PCP Family Medicine Geriatric Medicine; Referring Provider Emergency Medicine; Visit Provider Emergency Medicine
DX: J10.1 Influenza due to other identified influenza virus with other respiratory manifestations (principal); I25.10 Atherosclerotic heart disease of native coronary artery without angina pectoris; I12.9 Hypertensive chronic kidney disease with stage 1 through stage 4 chronic kidney disease, or unspecified chronic kidney disease; N18.9 Chronic kidney disease, unspecified; Z87.891 Personal history of nicotine dependence; Z79.02 Long term (current) use of antithrombotics/antiplatelets
CPT/HCPCS: 87631; 99282

== ENCOUNTER → 2023-07-30 | Outpatient (CLI) | payer MEDICAID, SELFPAY ==
[2022-10-07 13:09] VITALS: BMI 33.5
[2023-07-30 12:37] LABS: AST(SGOT) 21 U/L (15-37); Alanine Aminotransfer ALT/SGPT 25 U/L (16-61); Albumin, Serum 3.8 g/dL (3.2-5.0); Alkaline Phosphatase 59 U/L (45-117); Anion Gap 4 (5-15); BUN 20 mg/dL (7-18); BUN/Creat Ratio 14.2 RATIO (10-20); Bilirubin, Direct 0.27 mg/dL (0.00-0.30); Calcium,Total 9.8 mg/dL (8.5-10.1); Chloride 108 mmol/L (98-107); Cholesterol 147 mg/dL (200); Creatinine, Serum 1.41 mg/dL (0.70-1.30); EST Glomerular Filtration Rate 56 mL/min (>60); Est Glom Filt Rate - Afr Amer 68 mL/min (>60); Globulin 3.8 g/dL (2.2-4.2); Glucose 97 mg/dL (74-106); High Density Lipoprotein 43 mg/dL; Potassium 3.9 mmol/L (3.5-5.1); Protein, Total 7.6 g/dL (6.4-8.2); Sodium Level 139 mmol/L (136-145); Triglycerides 154 mg/dL; Very Low Density Lipoprotein 31 mg/dL (5-40)
== END | disposition home or self-care (01) ==
LOC: LAB 11:40
PROVIDERS: PCP Family Medicine Geriatric Medicine; Referring Provider Internal Medicine Cardiovascular Disease; Visit Provider Internal Medicine Cardiovascular Disease
DX: I12.9 Hypertensive chronic kidney disease with stage 1 through stage 4 chronic kidney disease, or unspecified chronic kidney disease (principal); N18.9 Chronic kidney disease, unspecified; E78.00 Pure hypercholesterolemia, unspecified
CPT/HCPCS: 36415; 80048; 80061; 80076

== ENCOUNTER → 2023-10-20 | Outpatient (CLI) | payer MEDICAID, SELFPAY ==
[2022-10-07 13:09] VITALS: BMI 33.5
[2023-10-20 13:12] LABS: Vitamin D,25 Hydroxy 21.8 ng/mL
[2023-10-20 13:14] LABS: Albumin, Serum 3.6 g/dL (3.2-5.0); BUN 22 mg/dL (7-18); BUN/Creat Ratio 12.6 RATIO (10-20); Calcium,Total 8.9 mg/dL (8.5-10.1); Chloride 109 mmol/L (98-107); Creatinine, Serum 1.74 mg/dL (0.70-1.30); EST Glomerular Filtration Rate 44 mL/min (>60); Est Glom Filt Rate - Afr Amer 54 mL/min (>60); Glucose 103 mg/dL (74-106); Phosphorus 3.2 mg/dL (2.5-4.9); Sodium Level 140 mmol/L (136-145); Uric Acid 5.7 mg/dL (3.5-7.2)
== END | disposition home or self-care (01) ==
LOC: LAB 11:27
PROVIDERS: PCP Family Medicine Geriatric Medicine; Referring Provider Internal Medicine Nephrology; Visit Provider Internal Medicine Nephrology
DX: N18.31 Chronic kidney disease, stage 3a (principal); E55.9 Vitamin D deficiency, unspecified; M10.9 Gout, unspecified
CPT/HCPCS: 36415; 80069; 82306; 84550

== ENCOUNTER → 2024-01-05 | Outpatient (CLI) | payer MEDICAID, SELFPAY ==
[2022-10-07 13:09] VITALS: BMI 33.5
[2024-01-05 11:03] LABS: Hematocrit 36.6 % (40-54); Hemoglobin 11.5 g/dL (13.0-16.5); Mean Corp Hgb Conc 31.4 g/dL (32-36); Mean Corpuscular Hgb 29.2 pg (27.0-32.0); Mean Corpuscular Volume 92.9 fL (80-94); Platelet Count 205 K/mm3 (150-450); RBC Distribution Width CV 13.5 % (11.6-14.6); RBC Distribution Width SD 45.8 fl (35.1-43.9); Red Blood Count 3.94 M/mm3 (4.6-6.2); White Blood Count 6.1 K/mm3 (4.4-11.0)
[2024-01-05 11:55] LABS: AST(SGOT) 23 U/L (15-37); Alanine Aminotransfer ALT/SGPT 22 U/L (16-61); Albumin, Serum 3.5 g/dL (3.2-5.0); Alkaline Phosphatase 52 U/L (45-117); Anion Gap 5 (5-15); BUN 20 mg/dL (7-18); BUN/Creat Ratio 13.9 RATIO (10-20); Calcium,Total 8.8 mg/dL (8.5-10.1); Chloride 107 mmol/L (98-107); Creatinine, Serum 1.44 mg/dL (0.70-1.30); EST Glomerular Filtration Rate 55 mL/min (>60); Est Glom Filt Rate - Afr Amer 66 mL/min (>60); Globulin 3.4 g/dL (2.2-4.2); Glucose 96 mg/dL (74-106); Phosphorus 2.8 mg/dL (2.5-4.9); Potassium 3.7 mmol/L (3.5-5.1); Protein, Total 6.9 g/dL (6.4-8.2); Sodium Level 138 mmol/L (136-145)
== END | disposition home or self-care (01) ==
LOC: LAB 10:28
PROVIDERS: PCP Family Medicine Geriatric Medicine; Referring Provider Internal Medicine Cardiovascular Disease; Visit Provider Internal Medicine Nephrology
DX: N18.31 Chronic kidney disease, stage 3a (principal)
CPT/HCPCS: 36415; 80053; 84100; 85027

== ENCOUNTER → 2024-03-09 | Outpatient (CLI) | payer MEDICAID, SELFPAY ==
[2022-10-07 13:09] VITALS: BMI 33.5
[2024-03-09 10:19] LABS: Absolute Lymphocyte Count 1.72 X10^3/uL (0.83-4.51); Absolute Neutrophil Count 3.6 X10^3/uL (2.0-7.7); Basophil# 0.03 X10^3/uL; Basophil% 0.5 % (0-1); Eosinophil# 0.44 X10^3/uL; Eosinophils% 6.8 % (0-5); Hematocrit 37.4 % (40-54); Hemoglobin 11.9 g/dL (13.0-16.5); Lymphocyte # 1.72 X10^3/ul (0.83-4.51); Lymphocyte % 26.7 % (19-41); Mean Corp Hgb Conc 31.8 g/dL (32-36); Mean Corpuscular Volume 94.2 fL (80-94); Mean Platelet Vol. 11.1 fl (6.2-12.0); Monocyte# 0.58 X10^3/uL; NRBC Flagged by Analyzer 0 % (0-5); Neutrophil # 3.64 X10^3/uL (2.7-7.7); Neutrophil % 56.4 % (47-70); Platelet Count 220 K/mm3 (150-450); RBC Distribution Width CV 13.7 % (11.6-14.6); RBC Distribution Width SD 46.6 fl (35.1-43.9); Red Blood Count 3.97 M/mm3 (4.6-6.2); White Blood Count 6.5 K/mm3 (4.4-11.0)
[2024-03-09 11:36] LABS: AST(SGOT) 29 U/L (15-37); Alanine Aminotransfer ALT/SGPT 34 U/L (16-61); Albumin, Serum 3.7 g/dL (3.2-5.0); Alkaline Phosphatase 60 U/L (45-117); Anion Gap 5 (5-15); BUN 25 mg/dL (7-18); BUN/Creat Ratio 16.4 RATIO (10-20); Calcium,Total 9.4 mg/dL (8.5-10.1); Chloride 106 mmol/L (98-107); Cholesterol 158 mg/dL (200); Creatinine, Serum 1.52 mg/dL (0.70-1.30); EST Glomerular Filtration Rate 52 mL/min (>60); Est Glom Filt Rate - Afr Amer 62 mL/min (>60); Globulin 3.7 g/dL (2.2-4.2); Glucose 103 mg/dL (74-106); High Density Lipoprotein 40 mg/dL; Potassium 3.9 mmol/L (3.5-5.1); Protein, Total 7.4 g/dL (6.4-8.2); Sodium Level 137 mmol/L (136-145); Triglycerides 168 mg/dL; Uric Acid 4.8 mg/dL (3.5-7.2); Very Low Density Lipoprotein 34 mg/dL (5-40)
== END | disposition home or self-care (01) ==
LOC: POLAB3 10:03
PROVIDERS: PCP Family Medicine Geriatric Medicine; Visit Provider Family Medicine Geriatric Medicine
DX: E78.5 Hyperlipidemia, unspecified (principal); M10.9 Gout, unspecified; R53.83 Other fatigue
CPT/HCPCS: 36415; 80053; 80061; 84443; 84550; 85025

== ENCOUNTER → 2024-05-10 | Outpatient (CLI) | payer MEDICAID, SELFPAY ==
[2022-10-07 13:09] VITALS: BMI 33.5
[2024-05-10 13:55] LABS: Vitamin D,25 Hydroxy 22.1 ng/mL
[2024-05-10 14:01] LABS: Albumin, Serum 3.8 g/dL (3.2-5.0); BUN 27 mg/dL (7-18); BUN/Creat Ratio 18.4 RATIO (10-20); Calcium,Total 8.8 mg/dL (8.5-10.1); Chloride 106 mmol/L (98-107); Creatinine, Serum 1.47 mg/dL (0.70-1.30); EST Glomerular Filtration Rate 54 mL/min (>60); Est Glom Filt Rate - Afr Amer 65 mL/min (>60); Glucose 106 mg/dL (74-106); Phosphorus 2.8 mg/dL (2.5-4.9); Sodium Level 140 mmol/L (136-145)
== END | disposition home or self-care (01) ==
LOC: LAB 13:17
PROVIDERS: PCP Family Medicine Geriatric Medicine; Referring Provider Internal Medicine Nephrology; Visit Provider Internal Medicine Nephrology
DX: N18.31 Chronic kidney disease, stage 3a (principal); E55.9 Vitamin D deficiency, unspecified
CPT/HCPCS: 36415; 80069; 82306

== ENCOUNTER 2024-11-29 13:17 | Emergency (ER) | payer OTHER, SELFPAY ==
[2022-10-07 13:09] VITALS: BMI 33.5
[2024-11-29 13:18] VITALS: BP 145/100; PULSE 84; RESP 19; TEMP 36.7; O2SAT 98; BMI 34.4
--- NOTE | 2024-11-29 13:45 | EKG12_ITS ---
Test Reason : CHEST PRESSURE Blood Pressure : */* mmHG Vent. Rate : 73 BPM Atrial Rate : 73 BPM P-R Int : 168 ms QRS Dur : 68 ms QT Int : 378 ms P-R-T Axes : 44 -18 -36 degrees QTcB Int : 416 ms Normal sinus rhythm Inferior infarct , age undetermined Abnormal ECG Confirmed by Foreign Stroud ([id number]), sound editor NIMESH DAVIS ([id number]) on 11/30/2024 9:55:02 AM Referred By: BEVERLY/ERICK Confirmed By: Foreign Stroud
[2024-11-29 14:08] LABS: Absolute Lymphocyte Count 1.32 X10^3/uL (0.83-4.51); Absolute Neutrophil Count 3.3 X10^3/uL (2.0-7.7); Basophil# 0.02 X10^3/uL; Basophil% 0.4 % (0-1); Eosinophil# 0.49 X10^3/uL; Eosinophils% 8.9 % (0-5); Hematocrit 35.2 % (40-54); Hemoglobin 11.6 g/dL (13.0-16.5); Lymphocyte # 1.32 X10^3/ul (0.83-4.51); Mean Corpuscular Hgb 29.9 pg (27.0-32.0); Mean Corpuscular Volume 90.7 fL (80-94); Mean Platelet Vol. 11.3 fl (6.2-12.0); Monocyte# 0.34 X10^3/uL; Monocyte% 6.2 % (0-10); NRBC Flagged by Analyzer 0 % (0-5); Platelet Count 199 K/mm3 (150-450); RBC Distribution Width CV 13.3 % (11.6-14.6); RBC Distribution Width SD 44.3 fl (35.1-43.9); Red Blood Count 3.88 M/mm3 (4.6-6.2); White Blood Count 5.5 K/mm3 (4.4-11.0)
--- NOTE | 2024-11-29 14:10 | RAD_ITS ---
PROCEDURE: CHEST 1 VIEW (PORTABLE) 11/29/2024 REASON FOR EXAM: CHEST PAIN TECHNIQUE: Frontal view of the chest. COMPARISON: 08/12/2022 FINDINGS: Lungs: Lungs clear of pneumonia and congestion. Pleura: No pleural effusions, thickening, or pneumothorax. Heart: Normal in size and configuration. Mediastinum/Reyna: Unremarkable. Great vessels: Unremarkable. Bones/soft tissues: Unremarkable. Cardiac monitoring leads overlie the chest wall. RAD/Chest 1 View (Portable) IMPRESSION: No active cardiopulmonary disease. Reading Location: [place] [address]
[2024-11-29 14:18] LABS: Troponin T High Sensitivity 12 ng/L (<=22)
[2024-11-29 14:19] LABS: Anion Gap 11 (5-15); BUN 21 mg/dL (4-19); BUN/Creat Ratio 64.7 RATIO (10-20); Carbon Dioxide 21.3 mmol/L (21.0-32.0); Chloride 105 mmol/L (98-108); Creatinine, Serum 0.33 mg/dL (0.70-1.20); EST Glomerular Filtration Rate 139 (>60); Estimated Creatinine Clearance 343.26 ml/min (50-250); Glucose 90 mg/dL (70-99); Potassium 4.4 mmol/L (3.3-5.1); Sodium Level 138 mmol/L (133-145)
[2024-11-29 14:57] VITALS: BP 119/90; PULSE 74; RESP 15; TEMP 36.7; O2SAT 98
--- NOTE | 2024-11-29 15:02 | ED.VIS.CHEST ---
HPI History of Present Illness Chief Complaint: Chest Pain Informant: patient Narrative Narrative: 54-year-old male with history of coronary artery disease having had stent placement August 12, 2022 presenting to the emergency room with intermittent chest discomfort. Patient notes a pressure discomfort midsternally that lasted maybe a minute. Typically comes on at rest sometimes with exertion. He denies any radiation of the pain. No sweating nausea dyspepsia shortness of breath. He called his lye machine operator on Friday and they called him back today recommending that he come to emergency. He states he has not had a stress test or echocardiogram that he knows of/recalls since his heart catheterization because insurance will not approve it. [facility] Medical History History of coronary artery disease Influenza A Coronary artery disease Essential (primary) hypertension Atherosclerosis of coronary artery of [place] heart without angina pectoris Swelling of arm Dyslipidemia Chronic kidney disease STEMI (ST elevation myocardial infarction) Acute otitis media of left ear with perforation URI (upper respiratory infection) Gout Home Medications ?Medication ?Instructions ?Recorded ?Last Taken ?Type nitroglycerin 0.4 mg sublingual 0.4 mg sublingual Q5M PRN chest 08/15/22 Unknown Rx tablet pain #30 tabs allopurinol 300 mg tablet 300 mg PO DAILY 09/10/22 11/29/24 History ergocalciferol (vitamin D2) 1,250 50,000 unit PO QMONTH 09/10/22 11/22/24 History mcg (50,000 unit) capsule amlodipine 5 mg tablet 5 mg PO DAILY #90 tabs 12/29/23 11/29/24 Rx aspirin 81 mg tablet,delayed 81 mg PO DAILY #90 tabs 01/30/24 11/29/24 Rx release clopidogrel 75 mg tablet 75 mg PO DAILY #90 tabs 09/21/24 11/29/24 Rx atorvastatin 40 mg tablet 40 mg PO QHS #90 tabs 11/01/24 11/28/24 Rx metoprolol tartrate 50 mg tablet 50 mg PO BID #180 tabs 11/01/24 11/29/24 Rx diphenhydramine HCl 25 mg tablet 25 mg PO DAILY PRN allergy symptoms 11/29/24 11/29/24 History ([id number]) Allergy/AdvReac Type Severity Reaction Status Date / Time No Known Allergies Allergy Verified 07/20/24 14:39 Family History no significant family his Surgical History Hx of tonsillectomy History of coronary artery stent placement (~08/12/22) Social History Smoking Status: Never smoker alcohol intake: current alcohol intake frequency: holidays/special occasions only details: rarely substance use type: does not use caffeine: Yes Type: coffee Number of servings: 1 ROS ROS ED Constitutional Constitutional ED: Denies chills, fever(s) or weight loss Eyes Eyes: Denies change in vision or diplopia ENT ENT ED: Denies ear pain, rhinorrhea or sore throat Cardiovascular Cardiovascular: Reports as per HPI and chest pain; Denies orthopnea, palpitations or racing heartbeat Respiratory/Chest Respiratory/Chest: Denies cough, dyspnea or orthopnea Gastrointestinal Gastrointestinal: Denies abdominal pain, diarrhea, nausea or vomiting Genitourinary Genitourinary ED: Denies dysuria, hematuria or urinary frequency Musculoskeletal Musculoskeletal: Denies arthralgias or myalgias Integumentary Denies abscess or rash Neurologic Neurologic: Denies headache(s) or weakness Psychiatric Psychiatric: Denies anxiety, depression, suicidal ideation or suicidal thoughts Endocrine Endocrinology: Denies polydipsia, polyphagia or polyuria Allergic/Immunologic Allergic/Immunologic ED: Denies mouth swelling, tongue swelling or urticaria EXAM Physical Exam Const Vital Signs: 11/29/24 13:18 11/29/24 13:57 11/29/24 14:57 Temperature 98.1 F 98.1 F Temperature Source Oral Pulse Rate 84 74 Respiratory Rate 19 H 15 Respiratory Effort Normal Non-Labored Blood Pressure 145/100 H 119/90 H Blood Pressure Mean 115 99 Pulse Ox 98 98 Oxygen Delivery Method Room Air Positive well nourished and well developed General Appearance ED: well developed HEENT Reports normocephalic, head/scalp atraumatic and moist mucous membranes Eyes PERRL and EOMs intact bilaterally Neck no lymphadenopathy, supple and no JVD Resp normal respiratory effort and clear to auscultation bilaterally Cardio regular rate, regular rhythm and no murmurs GI normal to inspection, nondistended, normoactive bowel sounds and non-tender Palpation: soft Back/Spine no CVA tenderness and normal ROM Extremity normal to inspection General Extremety ED: Negative for edema General Extremity: Negative for edema Neuro oriented x3 and CN's II-XII intact bilaterally Sensorium / Orientation: alert Motor Exam: strength 5/5 throughout Psych mental status grossly normal Mood & Affect: Negative for depressed or tearful Skin no rashes or lesions noted and no wounds MDM MDM MDM Narrative Medical decision making narrative: Differential diagnosis includes but not limited to pleurisy esophagitis esophageal spasm acute coronary syndrome pericarditis costochondritis Patient's EKG is normal sinus rhythm with rate of 73. My independent interpretation of the chest x-ray is no acute process. Troponin is 12. Glucose 90 white count 5.5 hemoglobin 11.6 creatinine 0.33. Clinically given that it is intermittent I do not think it is pulmonary embolism. I do not see evidence of pericarditis. Is not reproducible with palpation of the chest wall. A second troponin I do not feel is indicated as this been intermittent over the past week. Patient to follow-up with cardiology return if worsening or concerns History & Record Review Additional record(s) reviewed:: Prior inpatient record, Prior outpatient record, Prior ED visit and Prior labs Lab Data Attestation: I reviewed the patient's lab results. Labs: Laboratory Results - last 24 hr 11/29/24 13:15 WBC 5.5 RBC 3.88 L Hgb 11.6 L Hct 35.2 L MCV 90.7 MCH 29.9 MCHC 33.0 RDW Std Deviation 44.3 H RDW Coeff of Marquis 13.3 Plt Count 199 MPV 11.3 Immature Gran % (Auto) 0.500 Neut % (Auto) 60.0 Lymph % (Auto) 24.0 [place] % (Auto) 6.2 Eos % (Auto) 8.9 H Baso % (Auto) 0.4 Absolute Neuts (auto) 3.3 Absolute Lymphs (auto) 1.32 Nucleated RBC % 0 Sodium 138 Potassium 4.4 Chloride 105 Carbon Dioxide 21.3 Anion Gap 11 BUN 21 H Creatinine 0.33 L Estim Creat Clear Calc 343.26 H Est GFR (MDRD) Non-Af 139 BUN/Creatinine Ratio 64.7 H Glucose 90 Calcium 9.0 Troponin T High Sens 12 Radiography Diagnostic Testing: Clinical Impression(s) from Imaging Studies Chest X-Ray 11/29/24 14:10 IMPRESSION: No active cardiopulmonary disease. Reading Location: [place] [address] EKG Initial EKG: Attestation: I personally reviewed and interpreted this EKG as follows: Comments: Normal sinus rhythm ventricular to 73 bpm Prior EKG tracings: available for review Prior: Unchanged Discharge Plan Triage Chief Complaint: Chest Pain ED Provider: Domingo Beauchamp Dx/Rx/DC Orders Clinical Impression: Coronary artery disease, Chest pain Instructions: ED Chest Pain, Uncertain Cause Prescriptions: No Action allopurinol 300 mg tablet 300 mg PO DAILY ergocalciferol (vitamin D2) 1,250 mcg (50,000 unit) capsule 50,000 unit PO QMONTH amlodipine 5 mg tablet 5 mg PO DAILY Qty: 90 3RF nitroglycerin 0.4 mg tablet, sublingual 0.4 mg sublingual Q5M PRN (Reason: chest pain) Qty: 30 0RF Rx Instructions: do not exceed 3 doses per episode diphenhydramine HCl [Kkeyq-R-Kndp] 25 mg tablet 25 mg PO DAILY PRN (Reason: allergy symptoms) aspirin 81 mg tablet,delayed release (DR/EC) 81 mg PO DAILY Qty: 90 3RF clopidogrel 75 mg tablet 75 mg PO DAILY Qty: 90 3RF atorvastatin 40 mg tablet 40 mg PO QHS Qty: 90 3RF metoprolol tartrate 50 mg tablet 50 mg PO BID Qty: 180 3RF Primary Care Provider: Berto Urena Chi Referrals: Taz Brown MD [Med Staff - Active Staff] - (call to arrange follow up) Berto Urena Chi, MD [Primary Care Provider] - Print Language: Uzbek Disposition Disposition: Home, Self Care
== END 2024-11-29 15:03 | disposition home or self-care (01) ==
PROVIDERS: Emergency Provider Emergency Medicine; PCP Family Medicine Geriatric Medicine; Visit Provider Emergency Medicine
DX: I25.10 Atherosclerotic heart disease of native coronary artery without angina pectoris (principal); R07.9 Chest pain, unspecified; I12.9 Hypertensive chronic kidney disease with stage 1 through stage 4 chronic kidney disease, or unspecified chronic kidney disease; E78.5 Hyperlipidemia, unspecified; N18.9 Chronic kidney disease, unspecified; Z79.82 Long term (current) use of aspirin; Z79.02 Long term (current) use of antithrombotics/antiplatelets; Z79.899 Other long term (current) drug therapy; Z95.5 Presence of coronary angioplasty implant and graft; I25.2 Old myocardial infarction
CPT/HCPCS: 71045; 80048; 84484; 85025; 93005; 99284; A4216

== ENCOUNTER → 2025-02-02 | Outpatient (CLI) | payer MEDICAID, SELFPAY ==
[2022-10-07 13:09] VITALS: BMI 33.5
--- OUTSIDE RECORDS SUMMARY | 2025-02-02 19:57 | XMS RPT_ITS | CCD ---
Author Organization [facility] Care Team Providers Care Field Technical Assistant Name Role Phone Unavailable Primary Care Provider Unavailabl Care Physician, No Primary Primary Care Provider Unavailable Dr. Wayne Gonzalez Emergency Provider [phone] Sue, Dr. Mcghee Admit Provider Sue, Dr. Mcghee Referring Provider Sue, Dr. Mcghee Other Provider Dr. Oscar Pace Attending Provider Sue, Dr. Mcghee Attending Provider Sue, Dr. Mcghee Referring Provider Dr. Jonah Carmen Attending Provider Dr. Jonah Carmen Other Provider Dr. Oscar Pace Primary Care Provider Dr. Ulises Carrillo Attending Provider Dr. Jonah Carmen Referring Provider Care Physician, No Primary Primary Care Provider Unavailable Dr. Wayne Gonzalez Emergency Provider Sue, Dr. Mcghee Admit Provider Sue, Dr. Mcghee Other Provider Dr. Oscar Pace Attending Provider Sue, Dr. Mcghee Attending Provider Sue, Dr. Mcghee Referring Provider Dr. Jonah Carmen Attending Provider Dr. Jonah Carmen Other Provider Dr. Oscar Pace Primary Care Provider Dr. Ulises Carrillo Attending Provider Dr. Jonah Carmen Referring Provider [phone] Katelynn, Dr. Moore Referring Provider Alfredo DATABASE TECHNICIAN.Waleska HERNANDEZ Primary Care Provider Katelynn, Dr. Moore Primary Care Provider Sue, Dr. Mcghee Attending Provider Kiki Watts Attending Provider Unavailable Pace, Dr. Moore Primary Care Provider Katelynn, Dr. Moore Referring Provider Sue, Dr. Mcghee Attending Provider WALESKA SENA Attending Unavailable WALESKA SENA A Primary Care Unavailable Sue, Dr. Mcghee Attending Provider Romel, Dr. Berto Cardenas Primary Care Provider Romel, Dr. Berto Cardenas Referring Provider Sue, Dr. Mcghee Attending Provider Romel, Dr. Berto Cardenas Primary Care Provider Romel, Dr. Berto Cardenas Referring Provider Romel , Dr. Berto Cardenas Primary Care Provider [phone] Dr. Domingo Beauchamp DO Emergency Provider Dr. Domingo Beauchamp DO Attending Provider Romel RODRIGUEZ, Dr. Berto Cardenas Referring Provider Nathan DISC INSPECTOR-C, Marina Attending Provider Ted DISC INSPECTOR-C, Sofia Murray Attending Provider Cynthia Ruffin Attending Unavailable Romel, Berto Chi Primary Care Unavailable Romel, Berto Chi Primary Care Unavailable SueaTz Attending Unavailable SueTaz andino Referring Unavailable Cynthia Ruffin Attending Unavailable Cynthia Ruffin Referring Unavailable Romel, Berto Chi Primary Care Unavailable Romel, Berto Chi Primary Care Unavailable Romel, Berto Chi Attending Unavailable Romel, Berto Chi Primary Care Unavailable Taz Rogers Attending Unavailable Taz Rogers Referring Unavailable Domingo Beauchamp Attending Unavailable Romel, Berto Chi Primary Care Unavailable Nathan MANCIA, Marina Attending Unavailable Marina Evans NP Referring Unavailable Romel, Berto Chi Primary Care Unavailable Romel, Berto Chi Referring Unavailable Romel, Berto Chi Primary Care Unavailable Sofia Jean Attending Unavailable Romel, Berto Chi Primary Care Unavailable Romel, Berto Chi Referring Unavailable Taz Rogers Attending Unavailable Nathan MANCIA, Marina Attending Unavailable Romel, Berto Chi Referring Unavailable Romel, Berto Chi Primary Care Unavailable Romel, Berto Chi Referring Unavailable Romel, Berto Chi Primary Care Unavailable Sofia Jean Attending Unavailable Romel, Berto Chi Primary Care Unavailable Sofia Jean Attending Unavailable Sofia Jean Referring Unavailable Medications Current Medications Medication Drug Class(es) Dates Sig (Normalized) Sig (Original) allopurinol 300 mg oral tablet (20 sources) Xanthine Oxidase Inhibitor Start: 07-20-2022 take 1 tablet by mouth once daily Allopurinol 300 mg tablet Active 300 mg PO DAILY September 10, 2022 12:00am Start: 07-13-2020 End: 09-10-2022 take 2 tablets by mouth once daily Allopurinol 100 MG tablet Discontinued 200 mg PO DAILY July 13, 2020 1:00am September 10, 2022 10:24am Start: 07-13-2020 End: 09-10-2022 take 200 mg by mouth once daily Allopurinol Discontinu ed 200 MG PO DAILY July 13, 2020 1:00am September 10, 2022 10:24am amLODIPine 5 mg oral tablet (3 sources) Dihydropyridine Calcium Channel Jessica Start: 12-29-2023 take 1 tablet by mouth once daily Amlodipine 5 mg tablet Active 5 mg PO DAILY 90 3 December 29, 2023 12:00am amoxicillin 875 mg oral tablet (1 source) Penicillin-class Antibacterial Start: 10-26-2021 End: 11-02-2021 take 1 tablet by mouth twice daily amoxicillin (AMOXIL) 875 mg tablet Indications: Other acute nonsuppurative otitis media of right ear, recurrence not specified Take 1 tablet by mouth twice daily for 7 days. 14 tablet 0 10/26/2021 11/02/2021 Active Comment on above: Take 1 tablet by raphael th twice daily for 7 days. aspirin 81 mg oral tablet (20 sources) Platelet Aggregation Inhibitor, Nonsteroidal Anti-inflammatory Drug Start: 12-27-2024 take 1 tablet by mouth once daily Aspirin 81 mg tablet Active 81 mg PO daily December 27, 2024 12:00am Start: 08-15-2022 End: 12-07-2024 take 1 tablet by mouth once daily Aspirin 81 mg tablet,delayed release (DR/EC) Discontinued 81 mg PO DAILY 90 January 30, 2024 12:28pm December 07, 2024 3:32pm Comment on above: TAKE 1 TABLET BY RAPHAEL TH ONCE DAILY AT 8 AM clopidogrel 75 mg oral tablet (8 sources) [id number] Platelet Inhibitor Start: 07-22-19 End: 09-22-19 take 1 tablet by mouth once daily Clopidogrel 75 mg tablet Active 75 mg PO DAILY 90 September 21, 2024 3:41pm ipratropium bromide 0.042 mg/actuat metered dose nasal spray (2 sources) Anticholinergic Start: 12-28-19 Ipratropium [place] 42 mcg (0.06 %) spray,non-aerosol Active INTRANASAL as needed December 27, 2024 9:56am Completed/Discontinued Medications Medication Drug Class(es) Dates Sig (Normalized) Sig (Original) acetaminophen 325 mg / HYDROcodone bitartrate 5 mg oral tablet (20 sources) Opioid Agonist Start: 08-25-2021 End: 09-10-2022 Hydrocodone-Acetami nophen 5-325 mg tablet Discontinued 1 {tbl} PO EVERY 6 HOURS as needed for pain 12 3 0 June 10, 2022 September 10, 2022 10:24am Acute gout Gout, unspecified Start: 08-25-2021 End: 09-10-2022 take 1 tablet by mouth every six hours Hydrocodone-Acetaminophen Discontinued 1 TABLET PO EVERY 6 HOURS 12 3 June 10, 2022 September 10, 2022 10:24am Start: 08-17-2020 End: 08-20-2020 Hydrocodone-Acetaminophen 1 TABLET tablet Discontinued 1 {tbl} PO EVERY 6 HOURS NEEDED as needed for Pain 10 3 0 August 17, 2020 August 19, 2020 1:00am August 20, 2020 1:03am Acute gout Gout, unspecified Start: 08-17-2020 End: 08-20-2020 take 1 tablet by mouth every six hours as needed Hydrocodone-Acetaminophen Discontinued 1 TABLET PO EVERY 6 HOURS NEEDED 10 3 August 17, 2020 August 20, 2020 1:03am Start: 07-13-2020 End: 07-16-2020 Hydrocodone-Acetaminophen 1 TABLET tablet Discontinued 1 {tbl} PO EVERY 6 HOURS NEEDED as needed for Pain 10 3 0 July 13, 2020 July 15, 2020 1:00am July 16, 2020 1:03am Acute gout Gout, unspecified Start: 07-13-2020 End: 07-16-2020 take 1 tablet by mouth every six hours as needed Hydrocodone-Acetaminophen Discontinued 1 TABLET PO EVERY 6 HOURS NEEDED 10 3 July 13, 2020 July 16, 2020 1:03am allopurinol (ZYLOPRIM) 200 mg tablet [place] Formulary (2 sources) take 1 tablet by mouth once daily allopurinol (ZYLOPRIM) 200 mg tablet Swedish Formulary Take 200 mg by mouth once daily. 0 Active Comment on above: Take 200 mg by mouth once daily. atorvastatin 40 mg oral tablet (20 sources) HMG-CoA Reductase Inhibitor Start: 08-15-19 End: 11-02-19 take 1 tablet by mouth at bedtime Atorvastatin 40 mg tablet Discontinued 40 mg PO AT BEDTIME 90 3 December 13, 2022 1:36pm November 01, 2024 9:59am Comment on above: Take 40 mg by mouth daily at bedtime. diphenhydrAMINE hydrochloride 25 mg oral tablet (3 sources) Histamine-1 Receptor Antagonist Start: 11-30-19 End: 12-08-19 take 1 tablet by mouth once daily as needed Diphenhydramine Hcl (Zurqj-G-Qwmp) 25 mg tablet Discontinued 25 mg PO DAILY as needed for allergy symptoms November 29, 2024 12:00am December 07, 2024 3:33pm ergocalciferol 1.25 mg oral capsule (17 sources) Provitamin D2 Compound Start: 09-11-19 End: 12-08-19 Ergocalciferol (Vitamin D2) 1,250 mcg (50,000 unit) capsule Discontinued 36056 U PO EVERY MONTH September 10, 2022 12:00am December 07, 2024 3:33pm Start: 03-14-2023 take 88384 [IU] by m outh every month Ergocalciferol (Vitamin D2) Active 39432 UNIT PO EVERY MONTH September 10, 2022 12:00am Start: 10-13-2021 take [address] [facility] every week, then take 1 capsule by mouth every month ergocalciferol 50,000 unit capsule (VITAMIN D2, DRISDOL) TAKE 1 CAPSULE BY MOUTH ONCE A WEEK FOR 8 WEEKS, THEN DECREASE TO 1 CAPSULE ONCE PER MONTH 0 10/13/2021 Active Comment on above: TAKE 1 CAPSULE BY MO [facility] ONCE A WEEK FOR 8 WEEKS, THEN DECREASE TO 1 CAPSULE ONCE PER MONTH hydroCHLOROthiazide 12.5 mg oral tablet (5 sources) Thiazide Diuretic Start: 2023 End: 2023 take 1 tablet by mouth once daily Hydrochlorothiazide 12.5 mg tablet Discontinued 12.5 mg PO DAILY 90 July 22, 2023 1:00am December 23, 2023 10:58am hydrocortisone acetate 0.025 mg/mg / lidocaine hydrochloride 0.03 mg/mg rectal gel (1 source) Antiarrhythmic, Corticosteroid, Amide Local Anesthetic Start: 2009 End: 2021 hc acetate/lidocain hcl/halle v(ANAMANTLE HC 3 %-2.5 % (7 GRAM) RECTAL KIT) Indications: Rectal pain Apply up to twice per day as needed. 7g 0 08/04/2009 10/18/2021 Discontinued Comment on above: Apply up to twice pe r day as needed. Ipratropium [place] 42 mcg (0.06 %) spray,non-aerosol (2 sources) Start: 2024 End: 2024 Ipratropium [place] 42 mcg (0.06 %) spray,non-aerosol Discontinued INTRANASAL December 07, 2024 12:00am December 27, 2024 9:56am levocetirizine dihydrochloride 5 mg oral tablet (2 sources) Histamine-1 Receptor Antagonist Start: 2024 End: 2024 take 1 tablet by mouth once daily Levocetirizine (Xyzal) 5 mg tablet Discontinued 5 mg PO daily December 07, 2024 12:00am December 27, 2024 9:56am metoprolol tartrate 50 mg oral tablet (20 sources) beta-Adrenergic Jessica Start: 2022 End: 2024 take 1 tablet by mouth twice daily Metoprolol Tartrate 50 mg tablet Discontinued 0 .ROUTE .COMPLEX 180 July 10, 2023 10:35am July 22, 2023 3:28pm Take 1 tablet by mouth twice daily Start: 08-15-2022 End: 09-10-2022 take 1 tablet by mouth twice daily Metoprolol Tartrate 25 mg Tablet Discontinued 25 mg PO TWICE A DAY 60 August 15, 2022 1:00am September 10, 2022 10:40am Comment on above: Take 50 mg by mouth twice daily. nitroglycerin 0.4 mg sublingual tablet (16 sources) Nitrate Vasodilator Start: 08-15-2022 nitroglycerin sublingual (NITROQUICK) 0.4 mg SL tablet Nitroglycerin Active 0.4 MG SL Q5M August 15, 2022 1:00am do not exceed 3 doses per episode 0 08/15/2022 Active Start: 08-15-2022 End: 12-07-2024 Nitroglycerin 0.4 mg tablet, sublingual Discontinued 0.4 mg SL Q5M as needed for chest pain August 15, 2022 1:00am December 07, 2024 3:33pm do not exceed 3 doses per episode Start: 08-15-2022 Nitroglycerin Active 0.4 MG SL Q5M August 15, 2022 1:00am do not exceed 3 doses per episode Comment on above: Nitroglycerin Active 0.4 MG SL Q5M August 15, 2022 1:00am do not exceed 3 doses per episode predniSONE 20 mg oral tablet (20 sources) Start: End: take 2 tablets by mouth once daily Prednisone 20 mg tablet Discontinued 40 mg PO DAILY January 21, 2023 12:00am July 22, 2023 3:27pm Start: 01-21-2023 End: 07-22-2023 take 40 mg by mouth once daily Prednisone Discontinued 40 MG PO DAILY 20 January 21, 2023 12:00am July 22, 2023 3:27pm Start: 08-28-2022 End: 09-10-2022 take 2 tablets by mouth once daily Prednisone 20 mg tablet Discontinued 40 mg PO DAILY 12 August 28, 2022 1:00am September 10, 2022 10:25am Start: 08-28-2022 End: 09-10-2022 take 40 mg by mouth once daily Prednisone Discontinued 40 MG PO DAILY August 28, 2022 1:00am September 10, 2022 10:25am Start: 08-25-2021 End: 08-15-2022 take 2 tablets by mouth once daily Prednisone 20 mg tablet Discontinued 40 mg PO DAILY June 10, 2022 1:00am August 15, 2022 9:06am Start: 08-25-2021 End: 08-15-2022 take 40 mg by mouth once daily Prednisone Discontinued 40 MG PO DAILY June 10, 2022 1:00am August 15, 2022 9:06am ticagrelor 90 mg oral tablet (20 sources) Start: 08-15-2022 End: 07-22-2023 take 1 tablet by mouth twice daily Ticagrelor (Brilinta) 90 mg tablet Discontinued 90 mg PO TWICE A DAY 180 December 13, 2022 1:36pm July 22, 2023 3:28pm Comment on above: Take 90 mg by mouth twice daily. Problems Active Problems Problem Classification Problem Date Documented Da te Episodic/Chronic Abdominal pain (1 source) Right lower quadrant pain; Translations: [Right lower quadrant pain] Episodic Acute myocardial infarction (18 sources) Myocardial infarction; Translations: [ST elevation (STEMI) myocardial infarction of unspecified site] Onset: 09-04-2022 08-12-2022 Chronic Chronic kidney disease (20 sources) Chronic kidney disease; Translations: [Chronic kidney disease, unspecified] Onset: 08-08-2022 03-25-2022 Chronic Chronic kidney disease (2 sources) Chronic kidney disease; Translations: [Chronic kidney disease, stage 3b] Onset: 06-06-2024 Coronary atherosclerosis and other heart disease (20 sources) Coronary arteriosclerosis; Translations: [Atherosclerotic heart disease of [place] coronary artery without angina pectoris] Onset: 09-04-2022 09-10-2022 Chronic Disorders of lipid metabolism (20 sources) Dyslipidemia; Translations: [Hyperlipidemia, unspecified] Onset: 09-04-2022 08-23-2022 Chronic Essential hypertension (20 sources) Essential hypertension; Translations: [Essential (primary) hypertension] Onset: 09-10-2022 09-10-2022 Chronic Gout and other crystal arthropathies (20 sources) Arthritis of knee; Translations: [Gout, unspecified] Onset: 09-04-2022 08-18-2020 Chronic Influenza (6 sources) Influenza due to Influenza A virus; Translations: [Influenza due to other identified influenza virus with other respiratory manifestations] 06-27-2023 Episodic Nonspecific chest pain (6 sources) Chest pain; Translations: [Chest pain, unspecified] Onset: 01-29-2025 11-29-2024 Episodic Other circulatory disease (6 sources) H/O: heart disorder; Translations: [Personal history of other diseases of the circulatory system] 06-27-2023 Episodic Other connective tissue disease (16 sources) Foot pain; Translations: [Pain in left foot] 06-18-2022 Episodic Other connective tissue disease (13 sources) Swelling of upper limb; Translations: [Other specified soft tissue disorders] 08-23-2022 Episodic Other nutritional; endocrine; and metabolic disorders (3 sources) Obese class I; Translations: [Obesity, unspecified] Onset: 09-24-2022 09-24-2022 Chronic Other upper respiratory disease (5 sources) Seasonal allergy; Translations: [Other seasonal allergic rhinitis] Onset: 06-13-2009 06-13-2009 Chronic Other upper respiratory infections (19 sources) Upper respiratory infection; Translations: [Acute upper respiratory infection, unspecified] 04-03-2022 Episodic Otitis media and related conditions (20 sources) Acute secretory otitis media; Translations: [Other acute nonsuppurative otitis media, right ear] Episodic Residual codes; unclassified (5 sources) Sleep apnea; Translations: [Sleep apnea, unspecified] Onset: 06-13-2009 06-13-2009 Chronic Residual codes; unclassified (2 sources) Obstructive sleep apnea (adult) (pediatric); Translations: [Obstructive sleep apnea syndrome] Onset: 06-13-2009 Chronic Residual codes; unclassified (2 sources) Obstructive sleep apnea syndrome; Translations: [Obstructive sleep apnea (adult) (pediatric)] 12-29-2024 Chronic Residual codes; unclassified (1 source) Hypersomnia, unspecified; Translations: [Hypersomnia, unspecified] Onset: 01-26-2025 Chronic Unclassified (3 sources) call to arrange follow up Viral infection (17 sources) Viral disease; Translations: [Viral infection, unspecified] 04-11-2022 Episodic Past or Other Problems Problem Classification Problem Date Documented Da te Episodic/Chronic Coronary atherosclerosis and other heart disease (5 sources) History of cardiovascular surgery; Translations: [Presence of coronary angioplasty implant and graft] Onset: 09-23-2022 09-24-2022 Episodic Other screening for suspected conditions (not mental disorders or infectious disease) (2 sources) Patient encounter status; Translations: [Encounter for screening for malignant neoplasm of colon] Onset: 09-24-2022 Episodic Results Test Name Value Interpretation Reference Range Facility Pulmonary Visit Reporton Pulmonary Visit Report [facility] [address] [place] [address] OFFICE VISIT Date of Service: 12/29/24 MR#: [id number] Acct: [id number] Name: MARTHALUKESHAYAN RUFFIN Jr. Rep #: [id number] : 1970 Provider: Sofia Jean NP Age/Sex: 54/M Location: [facility] [place] Status: Signed Assessment and Plan Assessment and Plan (1) Obstructive sleep apnea: Status: Acute Plan: The patient has a longstanding history of obstructive sleep apnea. Unfortunately I do not have baseline data to review today. I have recommended that he proceed with split-night testing at this time. He does carry significant risk factors for which can be worsened with untreated sleep apnea. The patient is agreeable to complete a study. After the results are received he will be set up with new device. He should follow up in 3 months with compliance download. Orders: Orders Split Night Sleep Study Today G47.10 - Hypersomnia, unspecified, G47.33 - Obstructive sleep apnea (adult) (pediatric) Plan Details Follow Up: 3 Months (LMR) HPI HPI Comments Details: Patient is a 54-year-old male who presents today to establish for RONEN. He is ambulatory and currently on room air. He is being referred by Dr. Urena. He has a history of obstructive sleep apnea but I do not have his baseline studies available to review today. He indicates that he had sleep studies performed over 20 years ago. He reports that his device is old and needs to be replaced, he believes his device is greater than 10 years old. His device is so old that he has not been able to receive replacement supplies. He does snore. There is no family history of sleep apnea. He is tired on occasion. He denies nocturia. He denies gasping. His neck circumference is 48 cm. His ESS today is 11. 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 He has no history of asthma or bronchitis or pneumonia. He is a lifetime non-smoker. Intake Vital Signs 11/29/24 13:18 12/29/24 09:24 Height 6 ft 6 ft Weight: 247 lb BMI 33.5 BP 117/78 Blood Pressure Location Lt brachial Position Sitting Respiration 18 Pulse 61 Pulse Source Monitor Temp 97.3 F L Temperature Source Temporal Artery Pulse Oximetry (%) 98 Oxygen Delivery Method room air Intake Visit Reasons: Sleep apnea Chief Complaint: STEMI Diesel Motor Mechanic Required: No DME Vendor: [employer] Accompanied by: Self Is patient in pain?: No Allergies No Known Allergies Allergy (Verified 12/29/24 13:46) Medications ???Medication ???Instructions ???Recorded ???Confirmed ???Type allopurinol 300 mg tablet 300 mg PO DAILY 09/10/22 12/29/24 History amlodipine 5 mg tablet 5 mg PO DAILY #90 tabs 12/29/23 Rx clopidogrel 75 mg tablet 75 mg PO DAILY #90 tabs 09/21/24 0 12/29/24 Rx atorvastatin 40 mg tablet 40 mg PO QHS #90 tabs 11/01/2408/24 Rx metoprolol tartrate 50 mg tablet 50 mg PO BID #180 tabs 11/01/24 Rx aspirin 81 mg tablet 81 mg PO QDAY 12/27/24 12/29/24 Hi story ipratropium bromide 42 mcg (0.06 intranasal PRN 12/27/24 12/29/24 H istory %) nasal spray [facility] Medical History History of coronary artery disease Influenza A Coronary artery disease Essential (primary) hypertension Atherosclerosis of coronary artery of [place] heart without angina pectoris Swelling of arm Dyslipidemia Chronic kidney disease STEMI (ST elevation myocardial infarction) Acute otitis media of left ear with perforation URI (upper respiratory infection) Gout Surgical History Hx of tonsillectomy History of coronary artery stent placement ( 08/12/22) Social History (Updated 12/29/24 @ 13:48 by Angelica Workman) current occupational status: employed 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 Smoking Status: Never smoker alcohol intake: current alcohol intake frequency: holidays/special occasions only details: rarely substance use type: does not use caffeine: Yes Type: coffee Number of servings: 1 Review of Systems Resp Respiratory: Yes as per HPI Exam Const Constitutional: Positive cooperative, in no acute respiratory distress, healthy appearing, well developed, well nourished and obese; Negative ill appearing Appears tired Head Head: Yes normocephalic and Yes atraumatic Eyes Eye: Positive clear conjunctiva Ears Ear: Positive hearing normal and external ears normal Nose Nose: Yes external nose normal Mouth Mouth: Positive oral mucosae normal and good dentition Neck Neck: Positive normal visual inspection and trachea midline Chest Wall Chest: Positive symmetric chest move (more content not included)... Normal [facility] Cardiology Visit Reporton Cardiology Visit Report [facility] [address] [place] [address] OFFICE VISIT Date of Service: 12/27/24 MR#: [id number] Acct: [id number] Name: LUKE THOMAS Jr. Rep #: [id number] : 1970 Provider: COLLIN fuchs Age/Sex: 54/M Location[place] [facility] [place] Status: Signed HPI HPI History of Present Illness Details: This is a 54-year-old gentleman who presents to the office today for cardiovascular follow-up visit. He has a history of coronary artery disease status post inferior LA, status post drug-eluting stent to the distal RCA in July 2022. From a cardiac standpoint, the patient is doing well. He does acknowledge occasional chest pain-this was located midsternal. He described this as a dull pain. He denies any palpitations, pressure or heaviness. He denies SOB, Orthopnea, and PND. He does not have bleeding issues; no blood in urine, stool, or nosebleeds. He denies any decrease in energy level, myalgias, or claudication. He does not have edema, or sudden weight gain. He denies lightheadedness, dizziness, syncopal or near syncopal episodes, and headaches. Intake Vital Signs 11/29/24 13:18 12/27/24 07:42 Height 6 ft 6 ft Weight: 249 lb BMI 33.7 BP 128/86 H Blood Pressure Location Lt brachial Position Sitting Respiration 18 Pulse 58 L Pulse Source Monitor Pulse Oximetry (%) 96 Intake Visit Reasons: 6 M Diesel Motor Mechanic Required: No Is patient in pain?: No Allergies No Known Allergies Allergy (Verified 12/27/24 10:08) Medications ???Medication ???Instructions ???Recorded ???Confirmed ???Type allopurinol 300 mg tablet 300 mg PO DAILY 09/10/22 12/27/24 History amlodipine 5 mg tablet 5 mg PO DAILY #90 tabs 12/29/23 Rx clopidogrel 75 mg tablet 75 mg PO DAILY #90 tabs 09/21/24 0 12/27/24 Rx atorvastatin 40 mg tablet 40 mg PO QHS #90 tabs 11/01/24 Rx metoprolol tartrate 50 mg tablet 50 mg PO BID #180 tabs 11/01/24 Rx aspirin 81 mg tablet 81 mg PO QDAY 12/27/24 12/27/24 Hi story ipratropium bromide 42 mcg (0.06 intranasal PRN 12/27/24 12/27/24 H istory %) nasal spray Ejection fraction %: 50 Have you fallen in the past year?: No PFSH Medical History History of coronary artery disease Influenza A Coronary artery disease Essential (primary) hypertension Atherosclerosis of coronary artery of [place] heart without angina pectoris Swelling of arm Dyslipidemia Chronic kidney disease STEMI (ST elevation myocardial infarction) Acute otitis media of left ear with perforation URI (upper respiratory infection) Gout Surgical History Hx of tonsillectomy History of coronary artery stent placement ( 02/13/23) Social History Smoking Status: Never smoker alcohol intake: current alcohol intake frequency: holidays/special occasions only details: rarely substance use type: does not use caffeine: Yes Type: coffee Number of servings: 1 ROS Const Const: Negative for fatigue, weakness, headache(s) or frequent falls Eyes Eyes: Negative for blurry vision ENT ENT: Negative for headache(s), dizziness or Nosebleed/epistaxis Cardio Chest Pain: Yes Frequency: other Character: dull Onset: at rest Location: mid sternal Duration: minutes Palpitations: No Edema: None Muscle aches with walking: None Resp Respiratory: Negative for SOB with activity, SOB at rest or SOB orthopnea SOB lying down GI GI: Negative nausea, vomiting, heartburn, bright, red blood in stools or black,tarry stools : Negative for hematuria Neuro Neuro: Negative for dizziness, lightheadedness, near syncope, syncope, frequent falls, headache(s), weakness or blurry vision Endo Endo: Negative for fatigue Cardiology Exam Const Appearance: cooperative, comfortable and no acute distress Nutritional Appearance: well nourished and obese Orientation: alert and oriented x3 Head Head: normal to inspection Ears: hearing grossly normal bilaterally Nose: external nose normal Face and Sinus: face symmetric Eyes General: appearance normal, both eyes and all related structures Eyelids: eyelids normal Conjunctivae: conjunctivae normal Pupils: PERRL and pupil size EOM: EOM intact bilaterally Neck Neck: no JVD Carotids: Negative bruit Chest Chest inspection: normal inspection of the chest and normal respiratory effort Auscultation: Bilateral: Clear to Auscultation Cardio Palpation: normal PMI Rate: regular rate Rhythm: regular rhythm Heart sounds: S1 normal and S2 normal GI GI: normal to inspection, soft and obese Neuro General: patient alert, patient awake and p (more content not included)... Normal [facility] 12 Lead EKGon 11-29-2024 12 Lead EKG [facility] Cardiovascular Services [address] [place] [address] 12 Lead EKG 11/29/24 1325 MR#: [id number] Acct: [id number] Name: LUKE THOMAS Jr. Rep #: [id number] : 1970 54 From: Foreign Stroud MD Attending Dr: Status: DEP ER Ordering Dr: Domingo Beauchamp DO Date: 11/29/24 Location: ED Sex: M AA Admitted: Test Reason : CHEST PRESSURE Blood Pressure : */* mmHG Vent. Rate : 73 BPM Atrial Rate : 73 BPM P-R Int : 168 ms QRS Dur : 68 ms QT Int : 378 ms P-R-T Axes : 44 -18 -36 degrees QTcB Int : 416 ms Normal sinus rhythm Inferior infarct , age undetermined Abnormal ECG Confirmed by Foreign Stroud ([id number]), newspaper managing editor NIMESH DAVIS ([id number]) on 11/30/2024 9:55:02 AM Referred By: BEVERLY/ERICK Confirmed By: Foreign Stroud 11/30/24 0955 Date Foreign Stroud MD CC: Dr. Domingo Beauchamp DO; Dr. Berto Urena MD Signed Normal [facility] Absolute lymphocyte countOrd ered By: Domingo Beauchamp on 11-29-2024 Lymphocytes Auto (Unsp spec) [#/Vol] 1.32 10*3/uL 0.83-4.51 [facility] Absolute neutrophil countOrd ered By: Domingo Beauchamp on 11-29-2024 Neutrophils (Bld) [#/Vol] 3.3 10*3/uL 2.0-7.7 [facility] Anion gap in Serum or Plasma Ordered By: Domingo Beauchamp on 11-29-2024 Anion gap [Moles/Vol] 11 mmol/L 5-15 [facility] Automated lymphocyte count a s percentage of total leukocytesOrdered By: Domingo Beauchamp on 11-29-2024 Lymphocytes/100 WBC Auto (Unsp spec) 24.0 % - [facility] BUN/creatinine ratioOrdered By: Domingo Beauchamp on 11-29-2024 Urea nitrogen/Creatinine [Mass ratio] 64.7 mg/mg High - [facility] Basic Metabolic Profile (BMP )on 11-29-2024 BUN/CRE 64.7 RATIO High 04-18 [facility] Comment on above: Performed By: #### L 501.4021, L500.2500, L100.0100 #### [facility] [address] [place], [address] Calcium [Mass/Vol] 9.0 mg/dL Normal 7.6-11.0 [facility] Comment on above: Performed By: #### L 501.4021, L500.2500, L100.0100 #### [facility] [address] [place], [address] Chloride [Moles/Vol] 105 mmol/L Normal 98-108 [facility] Comment on above: Performed By: #### L 501.4021, L500.2500, L100.0100 #### [facility] [address] [place], [address] CO2 [Moles/Vol] 21.3 mmol/L Normal 21.0-32.0 [facility] Comment on above: Performed By: #### L 501.4021, L500.2500, L100.0100 #### [facility] [address] [place], [address] Creatinine [Mass/Vol] 0.33 mg/dL Low 0.70-1.20 [facility] Comment on above: Performed By: #### L 501.4021, L500.2500, L100.0100 #### [facility] [address] [place], [address] GAP 11 Normal 5-15 [facility] Comment on above: Performed By: #### L 501.4021, L500.2500, L100.0100 #### [facility] [address] [place], [address] GFR/1.73 sq M.predicted among non-blacks MDRD (S/P/Bld) [Vol rate/Area] 139 mL/min/{1.73_m2} Normal >60 [facility] Comment on above: Result Comment: mL/m in/1.73m2 CKD-EPI Creatinine Equation (2020) Performed By: #### L 501.4021, L500.2500, L100.0100 #### [facility] [address] [place], [address] Glucose [Mass/Vol] 90 mg/dL Normal 70-99 [facility] Comment on above: Performed By: #### L 501.4021, L500.2500, L100.0100 #### [facility] [address] [place], [address] Potassium [Moles/Vol] 4.4 mmol/L Normal 3.3-5.1 [facility] Comment on above: Result Comment: Hemo lysis present, Results??could be affected. ?? Performed By: #### L 501.4021, L500.2500, L100.0100 #### [facility] [address] [place], [address] Sodium [Moles/Vol] 138 mmol/L Normal 133-145 [facility] Comment on above: Performed By: #### L 501.4021, L500.2500, L100.0100 #### [facility] [address] [place], [address] Urea nitrogen [Mass/Vol] 21 mg/dL High 4-19 [facility] Comment on above: Performed By: #### L 501.4021, L500.2500, L100.0100 #### [facility] [address] [place], [address] Basophil percentageOrdered B y: Domingo Beauchamp on 11-29-2024 Basophils/100 WBC (Bld) 0.4 % 0-1 [facility] CBC W/Diff, Automatedon Absolute Lymph 1.32 X10 3/uL Normal 0.83-4.51 [facility] Comment on above: Performed By: #### L 501.4021, L500.2500, L100.0100 #### [facility] [address] [place], [address] Absolute Neut 3.3 X10 3/uL Normal 2.0-7.7 [facility] Comment on above: Performed By: #### L 501.4021, L500.2500, L100.0100 #### [facility] [address] [place], [address] Basophils/100 WBC (Bld) 0.4 % Normal 0-1 [facility] Comment on above: Performed By: #### L 501.4021, L500.2500, L100.0100 #### [facility] [address] [place], [address] Eosinophils/100 WBC (Bld) 8.9 % High 0-5 [facility] Comment on above: Performed By: #### L 501.4021, L500.2500, L100.0100 #### [facility] [address] [place], [address] Erythrocyte distribution width (RBC) [Ratio] 13.3 % Normal 11.6-14.6 [facility] Comment on above: Performed By: #### L 501.4021, L500.2500, L100.0100 #### [facility] [address] [place], [address] Hematocrit (Bld) [Volume fraction] 35.2 % Low 40-54 [facility] Comment on above: Performed By: #### L 501.4021, L500.2500, L100.0100 #### [facility] [address] [place], [address] Hemoglobin (Bld) [Mass/Vol] 11.6 g/dL Low 13.0-16.5 [facility] Comment on above: Performed By: #### L 501.4021, L500.2500, L100.0100 #### [facility] [address] [place], [address] IG% 0.500 Normal 0.0-0.9 [facility] Comment on above: Result Comment: IG% - Immature Granulocytes (promyelocytes, myelocytes and metamyelocytes) > 1% indicates that a LEFT SHIFT is Present. Performed By: #### L 501.4021, L500.2500, L100.0100 #### [facility] [address] [place], [address] Lymphocytes/100 WBC (Bld) 24.0 % Normal 19-41 [facility] Comment on above: Performed By: #### L 501.4021, L500.2500, L100.0100 #### [facility] [address] [place], [address] MCH (RBC) [Entitic mass] 29.9 pg Normal 27.0-32.0 [facility] Comment on above: Performed By: #### L 501.4021, L500.2500, L100.0100 #### [facility] [address] [place], [address] MCHC (RBC) [Mass/Vol] 33.0 g/dL Normal 32-36 [facility] Comment on above: Performed By: #### L 501.4021, L500.2500, L100.0100 #### [facility] [address] [place], [address] MCV (RBC) [Entitic vol] 90.7 fL Normal 80-94 [facility] Comment on above: Performed By: #### L 501.4021, L500.2500, L100.0100 #### [facility] [address] [place], [address] Monocytes/100 WBC (Bld) 6.2 % Normal 0-10 [facility] Comment on above: Performed By: #### L 501.4021, L500.2500, L100.0100 #### [facility] [address] [place], [address] Neutrophils/100 WBC (Bld) 60.0 % Normal 47-70 [facility] Comment on above: Performed By: #### L 501.4021, L500.2500, L100.0100 #### [facility] [address] [place], [address] Nucleated RBC (Bld) [#/Vol] 0 10*3/uL Normal 0-5 [facility] Comment on above: Performed By: #### L 501.4021, L500.2500, L100.0100 #### [facility] [address] [place], [address] Platelet mean volume (Bld) [Entitic vol] 11.3 fL Normal 6.2-12.0 [facility] Comment on above: Performed By: #### L 501.4021, L500.2500, L100.0100 #### [facility] [address] [place], [address] Platelets (Bld) [#/Vol] 199 10*3/uL Normal 150-450 [facility] Comment on above: Performed By: #### L 501.4021, L500.2500, L100.0100 #### [facility] [address] [place], [address] RBC (Bld) [#/Vol] 3.88 10*6/uL Low 4.6-6.2 [facility] Comment on above: Performed By: #### L 501.4021, L500.2500, L100.0100 #### [facility] [address] [place], [address] RDW SD 44.3 fl High 35.1-43.9 [facility] Comment on above: Performed By: #### L 501.4021, L500.2500, L100.0100 #### [facility] [address] [place], [address] WBC (Bld) [#/Vol] 5.5 10*3/uL Normal 4.4-11.0 [facility] Comment on above: Performed By: #### L 501.4021, L500.2500, L100.0100 #### [facility] [address] [place], [address] Carbon dioxide, total [Moles /volume] in Central venous bloodOrdered By: Domingo Beauchamp on 11-29-2024 CO2 [Moles/Vol] 21.3 mmol/L 21.0-32.0 [facility] Chest 1 View (Portable)on Chest 1 View (Portable) [facility] Imaging Services [address] [place] [address] Chest 1 View (Portable) MR#: [id number] Acct: [id number] Name: LUKE THOMAS JrShiloh Rep #: [id number] : 1970 M 54 From: Ulises Andrew MD PCP: Dr. Berto Urena MD Status: [facility] ER Study: Chest 1 View (Portable) Date of Exam: 11/29/24 Exam# [id number] Ordering Dr: Domingo Beauchamp DO PROCEDURE: CHEST 1 VIEW (PORTABLE) 11/29/2024 REASON FOR EXAM: CHEST PAIN TECHNIQUE: Frontal view of the chest. COMPARISON: 08/12/2022 FINDINGS: Lungs: Lungs clear of pneumonia and congestion. Pleura: No pleural effusions, thickening, or pneumothorax. Heart: Normal in size and configuration. Mediastinum/Reyna: Unremarkable. Great vessels: Unremarkable. Bones/soft tissues: Unremarkable. Cardiac monitoring leads overlie the chest wall. RAD/Chest 1 View (Portable) IMPRESSION: No active cardiopulmonary disease. Reading Location: [place] [address] CC: Dr. Domingo Beauchamp DO; Dr. Berto Urena MD [employer]: Signed Normal [facility] Chloride assayOrdered By: Shahram Beauchamp on 11-29-2024 Chloride [Moles/Vol] 105 mmol/L 98-108 [facility] Emergency Department Summary on 11-29-2024 Emergency Department Summary [facility] Medical Records Department [address] [place] [address] Emergency Department Summary 11/29/24 MR#: [id number] Acct: [id number] Name: LUKE THOMAS Jr. Rep #: [id number] : 1970 54 From: Domingo Beauchamp DO PCP: Dr. Berto Urena MD Status:DEP ER Location: ED HPI History of Present Illness Chief Complaint: Chest Pain Informant: patient Narrative Narrative: 54-year-old male with history of coronary artery disease having had stent placement August 12, 2022 presenting to the emergency room with intermittent chest discomfort. Patient notes a pressure discomfort midsternally that lasted maybe a minute. Typically comes on at rest sometimes with exertion. He denies any radiation of the pain. No sweating nausea dyspepsia shortness of breath. 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 He states he has not had a stress test or echocardiogram that he knows of/recalls since his heart catheterization because insurance will not approve it. [facility] Medical History History of coronary artery disease Influenza A Coronary artery disease Essential (primary) hypertension Atherosclerosis of coronary artery of [place] heart without angina pectoris Swelling of arm Dyslipidemia Chronic kidney disease STEMI (ST elevation myocardial infarction) Acute otitis media of left ear with perforation URI (upper respiratory infection) Gout Home Medications ???Medication ???Instructions ???Recorded ???Last Taken ???Type nitroglycerin 0.4 mg sublingual 0.4 mg sublingual Q5M PRN chest Unknown Rx tablet pain #30 tabs allopurinol 300 mg tablet 300 mg PO DAILY 09/10/22 11/29/24 History ergocalciferol (vitamin D2) 1,250 50,000 unit PO QMONTH 09/10/22 History mcg (50,000 unit) capsule amlodipine 5 mg tablet 5 mg PO DAILY #90 tabs 12/29/23 Rx aspirin 81 mg tablet,delayed 81 mg PO DAILY #90 tabs 01/30/24 0 11/29/24 Rx release clopidogrel 75 mg tablet 75 mg PO DAILY #90 tabs 09/21/24 0 11/29/24 Rx atorvastatin 40 mg tablet 40 mg PO QHS #90 tabs 11/01/2407/24 Rx metoprolol tartrate 50 mg tablet 50 mg PO BID #180 tabs 11/01/24 Rx diphenhydramine HCl 25 mg tablet 25 mg PO DAILY PRN allergy symptom s 11/29/24 11/29/24 History (Ertpi-I-Eykc) Allergy/AdvReac Type Severity Reaction Status Date / Time No Known Allergies Allergy Verified 07/20/24 14:39 Family History no significant family his Surgical History Hx of tonsillectomy History of coronary artery stent placement ( 08/12/22) Social History Smoking Status: Never smoker alcohol intake: current alcohol intake frequency: holidays/special occasions only details: rarely substance use type: does not use caffeine: Yes Type: coffee Number of servings: 1 ROS ROS ED Constitutional Constitutional ED: Denies chills, fever(s) or weight loss Eyes Eyes: Denies change in vision or diplopia ENT ENT ED: Denies ear pain, rhinorrhea or sore throat Cardiovascular Cardiovascular: Reports as per HPI and chest pain; Denies orthopnea, palpitations or racing heartbeat Respiratory/Chest Respiratory/Chest: Denies cough, dyspnea or orthopnea Gastrointestinal Gastrointestinal: Denies abdominal pain, diarrhea, nausea or vomiting Genitourinary Genitourinary ED: Denies dysuria, hematuria or urinary frequency Musculoskeletal Musculoskeletal: Denies arthralgias or myalgias Integumentary Denies abscess or rash Neurologic Neurologic: Denies headache(s) or weakness Psychiatric Psychiatric: Denies anxiety, depression, suicidal ideation or suicidal thoughts Endocrine Endocrinology: Denies polydipsia, polyphagia or polyuria Allergic/Immunologic Allergic/Immunologic ED: Denies mouth swelling, tongue swelling or urticaria EXAM Physical Exam Const Vital Signs: 11/29/24 13:18 11/29/24 13:57 11/29/24 14:57 Temperature 98.1 F 98.1 F Temperature Source Oral Pulse Rate 84 74 Respiratory Rate 19 H 15 Respiratory Effort Normal Non-Labored Blood Pressure 145/100 H 119/90 H Blood Pressure Mean 115 99 Pulse Ox 98 98 Oxygen Delivery Method Room Air Positive well nourished and well developed General Appearance ED: well developed HEENT Reports normocephalic, head/scalp atraumatic and moist mucous membranes Eyes PERRL and EOMs intact bilaterally Neck no lymphadenopathy, supple and no JVD Resp normal respiratory effort and clear to auscultation bilaterally Cardio regular rate, regular rhythm and no murmurs GI normal to inspection, nondistended, n (more content not included)... Normal [facility] Eosinophil percentageOrdered By: Domingo Beauchamp on 11-29-2024 Eosinophils/100 WBC (Bld) 8.9 % High 0-5 [facility] Erythrocyte distribution wid th ratioOrdered By: Domingo Beauchamp on 11-29-2024 Erythrocyte distribution width (RBC) [Ratio] 13.3 % 11.6-14.6 [facility] Erythrocyte distribution wid th standard deviationOrdered By: Domingo Beauchamp on 11-29-2024 Erythrocyte distribution width (RBC) [Ratio] 44.3 fl High 35.1-43.9 [facility] Glomerular filtration rate ( GFR) estimation/1.73 sq m using serum, plasma, or whole bOrdered By: Domingo Beauchamp on 11-29-2024 GFR/1.73 sq M.predicted among non-blacks MDRD (S/P/Bld) [Vol rate/Area] 139 mL/min/{1.73_m2} >60 [facility] Comment on above: mL/min/1.73m2 CKD-EP I Creatinine Equation (2020) Hematocrit Auto (Bld) [Volum e fraction]Ordered By: Domingo Beauchamp on 11-29-2024 Hematocrit (Bld) [Volume fraction] 35.2 % Low 40-54 [facility] Hemoglobin measurementOrdere d By: Domingo Beauchamp on 11-29-2024 Hemoglobin (Bld) [Mass/Vol] 11.6 g/dL Low 13.0-16.5 [facility] Immature granulocytes/100 WB C Auto (Bld)Ordered By: Domingo Beauchamp on 11-29-2024 Immature granulocytes/100 WBC (Bld) 0.500 % 0.0-0.9 [facility] Comment on above: IG% - Immature Granu locytes (promyelocytes, myelocytes and metamyelocytes) > 1% indicates that a LEFT SHIFT is Present. L499.0042on 11-29-2024 Trop T High Sen Normal <=22 [facility] Comment on above: Result Comment: Canc elled via OM: Order cancelled - Patient discharged Performed By: #### L 499.0042 ####[facility] [address] [place], [address] L499.0043on 11-29-2024 Trop T High Sen Normal <=22 [facility] Comment on above: Result Comment: Canc elled via OM: Order cancelled - Patient discharged Performed By: #### L 499.0043 ####[facility] [address] [place], [address] L501.4021on 11-29-2024 Trop T High Sen 12 ng/L Normal <=22 [facility] Comment on above: Performed By: #### L 501.4021, L500.2500, L100.0100 #### [facility] [address] [place], [address] MCV (mean corpuscular volume ) determinationOrdered By: Domingo Beauchamp on 11-29-2024 MCV (RBC) [Entitic vol] 90.7 fL 80-94 [facility] Mean corpuscular hemoglobin (MCH) determinationOrdered By: Domingo Beauchamp on 11-29-2024 MCH (RBC) [Entitic mass] 29.9 pg 27.0-32.0 [facility] Mean corpuscular hemoglobin concentration (MCHC) determinationOrdered By: Domingo Beauchamp on 11-29-2024 MCHC (RBC) [Mass/Vol] 33.0 g/dL 32-36 [facility] Mean platelet volume determi nationOrdered By: Domingo Beauchamp on 11-29-2024 Platelet mean volume (Bld) [Entitic vol] 11.3 fL 6.2-12.0 [facility] Monocyte percentageOrdered B y: Domingo Beauchamp on 11-29-2024 Monocytes/100 WBC (Bld) 6.2 % 0-10 [facility] Neutrophil percentageOrdered By: Domingo Beauchamp on 11-29-2024 Neutrophils/100 WBC (Bld) 60.0 % 47-70 [facility] Nucleated red blood cell per centageOrdered By: Domingo Beauchamp on 11-29-2024 Nucleated RBC/100 WBC (Bld) [Ratio] 0 % 0-5 [facility] Platelet countOrdered By: Shahram Beauchamp on 11-29-2024 Platelets (Bld) [#/Vol] 199 10*3/uL 150-450 [facility] Potassium measurement (mass/ volume)Ordered By: Domingo Beauchamp on 11-29-2024 Potassium (Unsp spec) [Mass/Vol] 4.4 mmol/L 3.3-5.1 [facility] Comment on above: Hemolysis present, R esults could be affected. RBC Auto (Bld) [#/Vol]Ordere d By: Domingo Beauchamp on 11-29-2024 RBC (Bld) [#/Vol] 3.88 10*6/uL Low 4.6-6.2 [facility] Serum creatinine measurement (mass/volume)Ordered By: Domingo Beauchamp on 11-29-2024 Creatinine [Mass/Vol] 0.33 mg/dL Low 0.70-1.20 [facility] Serum glucose measurement (m ass/volume)Ordered By: Domingo Beauchamp on 11-29-2024 Glucose [Mass/Vol] 90 mg/dL 70-99 [facility] Serum or plasma calcium sharon urement (mass/volume)Ordered By: Domingo Beauchamp on 11-29-2024 Calcium [Mass/Vol] 9.0 mg/dL 7.6-11.0 [facility] Serum or plasma urea nitroge n measurement (mass/volume)Ordered By: Domingo Beauchamp on 11-29-2024 Urea nitrogen [Mass/Vol] 21 mg/dL High 4-19 [facility] Sodium levelOrdered By: Caio Beauchamp on 11-29-2024 Sodium [Moles/Vol] 138 mmol/L 133-145 [facility] Troponin T.cardiac [Mass/vol ume] in Serum or Plasma by High sensitivity methodOrdered By: Domingo Beauchamp on 11-29-2024 Troponin T.cardiac High sensitivity method [Mass/Vol] 12 ng/L <22 [facility] White blood cell (WBC) count Ordered By: Domingo Beauchamp on 11-29-2024 WBC (Bld) [#/Vol] 5.5 10*3/uL 4.4-11.0 [facility] Cardiology Visit Reporton Cardiology Visit Report [facility] [address] [place], [place] [address] OFFICE VISIT Date of Service: 07/20/24 MR#: [id number] Acct: [id number] Name: LUKE THOMAS Jr. Rep #: [id number] : 1970 Provider: Dr. Taz Rogers MD Age/Sex: 53/M Location: [facility] Status: Signed HPI HPI History of Present Illness Details: This gentleman with history of coronary artery disease status post inferior LA, status post drug- eluting stent to the distal RCA in July 2022, is here for follow-up visit. Overall reports doing well. Denies any complaints. No chest pains. No shortness of breath. No palpitations. No orthopnea or PND. No ankle edema. Intake Vital Signs 12/29/23 10:31 07/20/24 08:55 Height 6 ft 6 ft Weight: 254 lb BMI 34.4 BP 119/80 Blood Pressure Location Lt brachial Position Sitting Respiration 16 Pulse 73 Pulse Source NIBP Intake Visit Reasons: 6 M FU [employer]el [employer] Required: No Accompanied by: Self Is patient in pain?: No Allergies No Known Allergies Allergy (Verified 07/20/24 14:39) Medications ???Medication ???Instructions ???Recorded ???Confirmed ???Type nitroglycerin 0.4 mg sublingual 0.4 mg sublingual Q5M PRN chest 08/15/22 07/20/24 Rx tablet pain #30 tabs allopurinol 300 mg tablet 300 mg PO DAILY 09/10/22 07/20/24 History ergocalciferol (vitamin D2) 1,250 50,000 unit PO QMONTH 09/10/22 07/20/24 History mcg (50,000 unit) capsule atorvastatin 40 mg tablet 40 mg PO QHS #90 tabs 12/13/22 07/20/24 Rx clopidogrel 75 mg tablet 75 mg PO DAILY #90 tabs 07/22/23 07/20/24 Rx metoprolol tartrate 50 mg tablet 50 mg PO BID #180 tabs 07/22/23 07/20/24 Rx amlodipine 5 mg tablet 5 mg PO DAILY #90 tabs 12/29/23 07/20/24 Rx aspirin 81 mg tablet,delayed 81 mg PO DAILY #90 tabs 01/30/24 07/20/24 Rx release Ejection fraction %: 50 Have you fallen in the past year?: No PFSH Medical History Acute otitis media of left ear with perforation Atherosclerosis of coronary artery of [place] heart without angina pectoris Chronic kidney disease Coronary artery disease Dyslipidemia Essential (primary) hypertension Gout History of coronary artery disease Influenza A STEMI (ST elevation myocardial infarction) Swelling of arm URI (upper respiratory infection) Surgical History History of coronary artery stent placement ( 08/12/22) Hx of tonsillectomy Social History Smoking Status: Former smoker alcohol intake: current alcohol intake frequency: holidays/special occasions only details: rarely substance use type: does not use caffeine: Yes Type: coffee Number of servings: 1 ROS Const Const: Negative for fatigue, weakness, headache(s) or weight gain ENT ENT: Negative for headache(s), dizziness, Nosebleed/epistaxis or balance problems Cardio Chest Pain: No Palpitations: No (unsure, sometimes I think it's in my head per pt) Edema: Bilateral (occasional, resolves quickly) Muscle aches with walking: None Resp Respiratory: Negative for SOB with activity, SOB at rest or SOB orthopnea SOB lying down GI GI: Negative nausea, vomiting or heartburn Musc Musc: Negative for muscle aches/ myalgia, muscle weakness, joint pain or balance problems Neuro Neuro: Negative for dizziness, lightheadedness, near syncope, syncope, headache(s) or weakness Endo Endo: Negative for fatigue Cardiology Exam Const Appearance: comfortable and no acute distress Nutritional Appearance: well nourished Neck Neck: no JVD Carotids: Negative bruit Chest Auscultation: Bilateral: Clear to Auscultation Cardio Rate: regular rate Rhythm: regular rhythm Heart sounds: S1 normal and S2 normal Neuro General: patient alert, patient awake and patient oriented x3 Extremities Lower Extremity Edema: None: Bilateral Supplemental Info Supplemental Information ECHOCARDIOGRAM 08/13/22 Interpretation Summary Mild concentric left ventricular hypertrophy. The left ventricular ejection fraction is 50 %. Severe inferior and posterior hypokinesis Cardiac Intervention 08/12/22 CONCLUSIONS 100% distal RCA 40% ostial, 30% Prox LAD 50% distal LCX LVEDP 31 mm Hg post-dilated using 3.5 mm balloon RECOMMENDATIONS ASA Indefinitley Brilinta for at least 12 months CORONARY ANGIOGRAPHY DOMINANCE:??? Right Dominant LEFT HEART ASSESSMENT Left Ventricular Ejection Fraction: Not assessed LVEDP: 31 mmHg LEFT ANTERIOR DESCENDING ARTERY: LAD: Tubular 40% Ostial lesion in LAD Tubular 30% Proximal lesion in LAD CIRCUMFLEX ARTERY: CIRCUMFLEX: Tubular 50% Distal lesion in Circumflex Tubular 40% Mid lesion in Circumflex (more content not included)... Normal [facility] Renal Profileon 05-10-2024 Albumin [Mass/Vol] 3.8 g/dL Normal 3.2-5.0 [facility] Comment on above: Performed By: #### L 506.1000, L500.3600 ####[facility] [address] [place], [address] BUN/CRE 18.4 RATIO Normal - [facility] Comment on above: Performed By: #### L 506.1000, L500.3600 ####[facility] [address] [place], [address] CA,Total 8.8 mg/dL Normal 8.5-10.1 [facility] Comment on above: Result Comment: Slig ht Lipemia, Result may be falsely increased. Performed By: #### L 506.1000, L500.3600 ####[facility] [address] [place], [address] Chloride [Moles/Vol] 106 mmol/L Normal 98-107 [facility] Comment on above: Performed By: #### L 506.1000, L500.3600 ####[facility] [address] [place], [address] CO2 [Moles/Vol] 27.0 mmol/L Normal 21.0-32.0 [facility] Comment on above: Result Comment: Slig ht Lipemia, Result may be falsely increased. Performed By: #### L 506.1000, L500.3600 ####[facility] [address] [place], [address] Creatinine [Mass/Vol] 1.47 mg/dL High 0.70-1.30 [facility] Comment on above: Result Comment: Slig ht Lipemia, Result may be falsely increased. The validity of the calculated GFR GFRAA in patients over 70 years has not been determined. Clinical correlation is essential. Performed By: #### L 506.1000, L500.3600 ####[facility] [address] [place], [address] EST GFR - AA 65 mL/min Normal >60 [facility] Comment on above: Result Comment: Afri can [place]is[place] GFR Calc Performed By: #### L 506.1000, L500.3600 ####[facility] [address] [place], [address] GFR/1.73 sq M.predicted among non-blacks MDRD (S/P/Bld) [Vol rate/Area] 54 mL/min/{1.73_m2} Low >60 [facility] Comment on above: Result Comment: Non- GFR Calc Performed By: #### L 506.1000, L500.3600 ####[facility] [address] [place], [address] Glucose [Mass/Vol] 106 mg/dL Normal 74-106 [facility] Comment on above: Result Comment: Slig ht Lipemia, Result may be falsely increased. Fasting Glucose result from 100 to 125 mg/dL suggests IMPAIRED HOMEOSTASIS per A.D.A. criteria. Performed By: #### L 506.1000, L500.3600 ####[facility] [address] [place], [address] Phosphate [Mass/Vol] 2.8 mg/dL Normal 2.5-4.9 [facility] Comment on above: Result Comment: Slig ht Lipemia, Result may be falsely increased. Performed By: #### L 506.1000, L500.3600 ####[facility] [address] [place], [address] Potassium [Moles/Vol] 4.0 mmol/L Normal 3.5-5.1 [facility] Comment on above: Result Comment: Mode rate Hemolysis, Result may be falsely increased.-Slight Lipemia, Result may be falsely increased. Performed By: #### L 506.1000, L500.3600 ####[facility] [address] [place], [address] Sodium [Moles/Vol] 140 mmol/L Normal 136-145 [facility] Comment on above: Performed By: #### L 506.1000, L500.3600 ####[facility] [address] [place], [address] Urea nitrogen [Mass/Vol] 27 mg/dL High 7-18 [facility] Comment on above: Result Comment: Slig ht Lipemia, Result may be falsely increased. Performed By: #### L 506.1000, L500.3600 ####[facility] [address] [place], [address] Vitamin D,25 Hydroxyon 11-11 -2024 Vitamin D 25-OH 22.1 ng/mL Normal [facility] Comment on above: Result Comment: Nisha min D 25(OH) Status Range Deficiency <20 ng/mL (50nmol/L) Insufficiency 20 - 30 ng/mL (50 - 75 nmol/L) Sufficiency 30 - 100 ng/mL (75 - 250 nmol/L) Toxicity >100 ng/mL (>250 nmol/L) Performed By: #### L 506.1000, L500.3600 ####[facility] [address] [place], [address] CBC W/Diff, Automatedon 02-28 Absolute Lymph 1.72 X10 3/uL Normal 0.83-4.51 [facility] Comment on above: Order Comment: CC CM P AND LIPID TO CRISTINE GREGORY CC CMP TO TAZ SUE Performed By: #### L 501.1400, L100.0100, L500.4100, L501.9520, L500.4050 #### [facility] [address] [place], [address] Absolute Neut 3.6 X10 3/uL Normal 2.0-7.7 [facility] Comment on above: Order Comment: CC CM P AND LIPID TO CRISTINE GREGORY CC CMP TO TAZ SUE Performed By: #### L 501.1400, L100.0100, L500.4100, L501.9520, L500.4050 #### [facility] [address] [place], [address] Basophils/100 WBC (Bld) 0.5 % Normal 0-1 [facility] Comment on above: Order Comment: CC CM P AND LIPID TO CRISTINE GREGORY CC CMP TO TAZ SUE Performed By: #### L 501.1400, L100.0100, L500.4100, L501.9520, L500.4050 #### [facility] [address] [place], [address] Eosinophils/100 WBC (Bld) 6.8 % High 0-5 [facility] Comment on above: Order Comment: CC CM P AND LIPID TO CRISTINE PRATHERONNELL CC CMP TO TAZ SUE Performed By: #### L 501.1400, L100.0100, L500.4100, L501.9520, L500.4050 #### [facility] [address] [place], [address] Erythrocyte distribution width (RBC) [Ratio] 13.7 % Normal 11.6-14.6 [facility] Comment on above: Order Comment: CC CM P AND LIPID TO CRISTINE GREGORY CC CMP TO TAZ SUE Performed By: #### L 501.1400, L100.0100, L500.4100, L501.9520, L500.4050 #### [facility] [address] [place], [address] Hematocrit (Bld) [Volume fraction] 37.4 % Low 40-54 [facility] Comment on above: Order Comment: CC CM P AND LIPID TO CRISTINE PRATHERONNELL CC CMP TO TAZ SUE Performed By: #### L 501.1400, L100.0100, L500.4100, L501.9520, L500.4050 #### [facility] [address] [place], [address] Hemoglobin (Bld) [Mass/Vol] 11.9 g/dL Low 13.0-16.5 [facility] Comment on above: Order Comment: CC CM P AND LIPID TO CRISTINE GREGORY CC CMP TO TAZ SUE Performed By: #### L 501.1400, L100.0100, L500.4100, L501.9520, L500.4050 #### [facility] [address] [place], [address] IG% 0.600 Normal 0.0-0.9 [facility] Comment on above: Order Comment: CC CM P AND LIPID TO CRISTINE GREGORY CC CMP TO TAZ SUE Result Comment: IG% - Immature Granulocytes (promyelocytes, myelocytes and metamyelocytes) > 1% indicates that a LEFT SHIFT is Present. Performed By: #### L 501.1400, L100.0100, L500.4100, L501.9520, L500.4050 #### [facility] [address] [place], [address] Lymphocytes/100 WBC (Bld) 26.7 % Normal 19-41 [facility] Comment on above: Order Comment: CC CM P AND LIPID TO CRISTINE GREGORY CC CMP TO TAZ SUE Performed By: #### L 501.1400, L100.0100, L500.4100, L501.9520, L500.4050 #### [facility] [address] [place], [address] MCH (RBC) [Entitic mass] 30.0 pg Normal 27.0-32.0 [facility] Comment on above: Order Comment: CC CM P AND LIPID TO CRISTINE GREGORY CC CMP TO TAZ SUE Performed By: #### L 501.1400, L100.0100, L500.4100, L501.9520, L500.4050 #### [facility] [address] [place], [address] MCHC (RBC) [Mass/Vol] 31.8 g/dL Low 32-36 [facility] Comment on above: Order Comment: CC CM P AND LIPID TO CRISTINE GREGORY CC CMP TO TAZ SUE Performed By: #### L 501.1400, L100.0100, L500.4100, L501.9520, L500.4050 #### [facility] [address] [place], [address] MCV (RBC) [Entitic vol] 94.2 fL High 80-94 [facility] Comment on above: Order Comment: CC CM P AND LIPID TO CRISTINE GREGORY CC CMP TO TAZ SUE Performed By: #### L 501.1400, L100.0100, L500.4100, L501.9520, L500.4050 #### [facility] [address] [place], [address] Monocytes/100 WBC (Bld) 9.0 % Normal 0-10 [facility] Comment on above: Order Comment: CC CM P AND LIPID TO CRISTINE GREGORY CC CMP TO TAZ SUE Performed By: #### L 501.1400, L100.0100, L500.4100, L501.9520, L500.4050 #### [facility] [address] [place], [address] Neutrophils/100 WBC (Bld) 56.4 % Normal 47-70 [facility] Comment on above: Order Comment: CC CM P AND LIPID TO CRISTINE GREGORY CC CMP TO TAZ SUE Performed By: #### L 501.1400, L100.0100, L500.4100, L501.9520, L500.4050 #### [facility] [address] [place], [address] Nucleated RBC (Bld) [#/Vol] 0 10*3/uL Normal 0-5 [facility] Comment on above: Order Comment: CC CM P AND LIPID TO CRISTINE GREGORY CC CMP TO TAZ SUE Performed By: #### L 501.1400, L100.0100, L500.4100, L501.9520, L500.4050 #### [facility] [address] [place], [address] Platelet mean volume (Bld) [Entitic vol] 11.1 fL Normal 6.2-12.0 [facility] Comment on above: Order Comment: CC CM P AND LIPID TO CRISTINE GREGORY CC CMP TO TAZ SUE Performed By: #### L 501.1400, L100.0100, L500.4100, L501.9520, L500.4050 #### [facility] [address] [place], [address] Platelets (Bld) [#/Vol] 220 10*3/uL Normal 150-450 [facility] Comment on above: Order Comment: CC CM P AND LIPID TO CRISTINE GREGORY CC CMP TO TAZ SUE Performed By: #### L 501.1400, L100.0100, L500.4100, L501.9520, L500.4050 #### [facility] [address] [place], [address] RBC (Bld) [#/Vol] 3.97 10*6/uL Low 4.6-6.2 [facility] Comment on above: Order Comment: CC CM P AND LIPID TO CRISTINE GREGORY CC CMP TO TAZ SUE Performed By: #### L 501.1400, L100.0100, L500.4100, L501.9520, L500.4050 #### [facility] [address] [place], [address] RDW SD 46.6 fl High 35.1-43.9 [facility] Comment on above: Order Comment: CC CM P AND LIPID TO CRISTINE GREGORY CC CMP TO TAZ SUE Performed By: #### L 501.1400, L100.0100, L500.4100, L501.9520, L500.4050 #### [facility] [address] [place], [address] WBC (Bld) [#/Vol] 6.5 10*3/uL Normal 4.4-11.0 [facility] Comment on above: Order Comment: CC CM P AND LIPID TO CRISTINE GREGORY CC CMP TO TAZ SUE Performed By: #### L 501.1400, L100.0100, L500.4100, L501.9520, L500.4050 #### [facility] [address] [place], [address] Comprehensive Metabolic Prof il 03-09-2024 Albumin [Mass/Vol] 3.7 g/dL Normal 3.2-5.0 [facility] Comment on above: Order Comment: CC CM P AND LIPID TO CRISTINE GREGORY CC CMP AND LIPID TO TAZ SUE Performed By: #### L 501.1400, L100.0100, L500.4100, L501.9520, L500.4050 #### [facility] [address] [place], [address] Albumin/Globulin [Mass ratio] 1.0 {ratio} Normal 0.9-2.4 [facility] Comment on above: Order Comment: CC CM P AND LIPID TO CRISTINE GREGORY CC CMP AND LIPID TO TAZ SUE Performed By: #### L 501.1400, L100.0100, L500.4100, L501.9520, L500.4050 #### [facility] [address] [place], [address] ALK P 60 U/L Normal 45-117 [facility] Comment on above: Order Comment: CC CM P AND LIPID TO CRISTINE GREGORY CC CMP AND LIPID TO TAZ SUE Performed By: #### L 501.1400, L100.0100, L500.4100, L501.9520, L500.4050 #### [facility] [address] [place], [address] ALT [Catalytic activity/Vol] 34 U/L Normal 16-61 [facility] Comment on above: Order Comment: CC CM P AND LIPID TO CRISTINE GREGORY CC CMP AND LIPID TO TAZ SUE Performed By: #### L 501.1400, L100.0100, L500.4100, L501.9520, L500.4050 #### [facility] [address] [place], [address] AST [Catalytic activity/Vol] 29 U/L Normal 15-37 [facility] Comment on above: Order Comment: CC CM P AND LIPID TO CRISTINE GREGORY CC CMP AND LIPID TO TAZ SUE Performed By: #### L 501.1400, L100.0100, L500.4100, L501.9520, L500.4050 #### [facility] [address] [place], [address] Bilirubin [Mass/Vol] 0.90 mg/dL Normal 0.20-1.00 [facility] Comment on above: Order Comment: CC CM P AND LIPID TO CRISTINE GREGORY CC CMP AND LIPID TO TAZ SUE Result Comment: For patients on eltrombopag therapy, use of Dimension [place] TBIL is not recommended. Performed By: #### L 501.1400, L100.0100, L500.4100, L501.9520, L500.4050 #### [facility] [address] [place], [address] BUN/CRE 16.4 RATIO Normal 10-20 [facility] Comment on above: Order Comment: CC CM P AND LIPID TO CRISTINE GREGORY CC CMP AND LIPID TO TAZ SUE Performed By: #### L 501.1400, L100.0100, L500.4100, L501.9520, L500.4050 #### [facility] [address] [place], [address] CA,Total 9.4 mg/dL Normal 8.5-10.1 [facility] Comment on above: Order Comment: CC CM P AND LIPID TO CRISTINE GREGORY CC CMP AND LIPID TO TAZ SUE Performed By: #### L 501.1400, L100.0100, L500.4100, L501.9520, L500.4050 #### [facility] [address] [place], [address] Chloride [Moles/Vol] 106 mmol/L Normal 98-107 [facility] Comment on above: Order Comment: CC CM P AND LIPID TO CRISTINE GREGORY CC CMP AND LIPID TO TAZ SUE Performed By: #### L 501.1400, L100.0100, L500.4100, L501.9520, L500.4050 #### [facility] [address] [place], [address] CO2 [Moles/Vol] 26.0 mmol/L Normal 21.0-32.0 [facility] Comment on above: Order Comment: CC CM P AND LIPID TO CRISTINE GREGORY CC CMP AND LIPID TO TAZ SUE Performed By: #### L 501.1400, L100.0100, L500.4100, L501.9520, L500.4050 #### [facility] [address] [place], [address] Creatinine [Mass/Vol] 1.52 mg/dL High 0.70-1.30 [facility] Comment on above: Order Comment: CC CM P AND LIPID TO CRISTINE GREGORY CC CMP AND LIPID TO TAZ SUE Result Comment: The validity of the calculated GFR GFRAA in patients over 70 years has not been determined. Clinical correlation is essential. Performed By: #### L 501.1400, L100.0100, L500.4100, L501.9520, L500.4050 #### [facility] [address] [place], [address] EST GFR - AA 62 mL/min Normal >60 [facility] Comment on above: Order Comment: CC CM P AND LIPID TO CRISTINE GREGORY CC CMP AND LIPID TO TAZ SUE Result Comment: Afri can [place] GFR Calc Performed By: #### L 501.1400, L100.0100, L500.4100, L501.9520, L500.4050 #### [facility] [address] [place], [address] GAP 5 Normal 5-15 [facility] Comment on above: Order Comment: CC CM P AND LIPID TO CRISTINE GREGORY CC CMP AND LIPID TO TAZ SUE Performed By: #### L 501.1400, L100.0100, L500.4100, L501.9520, L500.4050 #### [facility] [address] [place], [address] GFR/1.73 sq M.predicted among non-blacks MDRD (S/P/Bld) [Vol rate/Area] 52 mL/min/{1.73_m2} Low >60 [facility] Comment on above: Order Comment: CC CM P AND LIPID TO CRISTINE GREGORY CC CMP AND LIPID TO TAZ ROGERS Result Comment: Non- GFR Calc Performed By: #### L 501.1400, L100.0100, L500.4100, L501.9520, L500.4050 #### [facility] [address] [place], [address] Globulin (S) [Mass/Vol] 3.7 g/dL Normal 2.2-4.2 [facility] Comment on above: Order Comment: CC CM P AND LIPID TO CRISTINE GREGORY CC CMP AND LIPID TO TAZ ROGERS Performed By: #### L 501.1400, L100.0100, L500.4100, L501.9520, L500.4050 #### [facility] [address] [place], [address] Glucose [Mass/Vol] 103 mg/dL Normal 74-106 [facility] Comment on above: Order Comment: CC CM P AND LIPID TO CRISTINE GREGORY CC CMP AND LIPID TO TAZ ROGERS Result Comment: Fast ing Glucose result from 100 to 125 mg/dL suggests IMPAIRED HOMEOSTASIS per A.D.A. criteria. Performed By: #### L 501.1400, L100.0100, L500.4100, L501.9520, L500.4050 #### [facility] [address] [place], [address] Potassium [Moles/Vol] 3.9 mmol/L Normal 3.5-5.1 [facility] Comment on above: Order Comment: CC CM P AND LIPID TO CRISTINE GREGORY CC CMP AND LIPID TO TAZ SUE Performed By: #### L 501.1400, L100.0100, L500.4100, L501.9520, L500.4050 #### [facility] [address] [place], [address] Sodium [Moles/Vol] 137 mmol/L Normal 136-145 [facility] Comment on above: Order Comment: CC CM P AND LIPID TO CRISTINE GREGORY CC CMP AND LIPID TO TAZ SUE Performed By: #### L 501.1400, L100.0100, L500.4100, L501.9520, L500.4050 #### [facility] [address] [place], [address] T PROT 7.4 g/dL Normal 6.4-8.2 [facility] Comment on above: Order Comment: CC CM P AND LIPID TO CRISTINE GREGORY CC CMP AND LIPID TO TAZ SUE Performed By: #### L 501.1400, L100.0100, L500.4100, L501.9520, L500.4050 #### [facility] [address] [place], [address] Urea nitrogen [Mass/Vol] 25 mg/dL High 7-18 [facility] Comment on above: Order Comment: CC CM P AND LIPID TO CRISTINE GREGORY CC CMP AND LIPID TO TAZ SUE Performed By: #### L 501.1400, L100.0100, L500.4100, L501.9520, L500.4050 #### [facility] [address] [place], [address] Lipid Profileon 03-09-2024 Cholesterol [Mass/Vol] 158 mg/dL Normal 200 [facility] Comment on above: Order Comment: CC CM P AND LIPID TO CRISTINE GREGORY CC CMP AND LIPID TO TAZ SUE Result Comment: <200 mg/dL Desirable 200-240 mg/dL Borderline >240 mg/dL High Risk Performed By: #### L 501.1400, L100.0100, L500.4100, L501.9520, L500.4050 #### [facility] [address] [place], [address] Cholesterol in HDL [Mass/Vol] 40 mg/dL Normal [facility] Comment on above: Order Comment: CC CM P AND LIPID TO CRISTINE GREGORY CC CMP AND LIPID TO TAZ SUE Result Comment: The drugs N-Acetylcysteine and Metamizole may falsely depress this assay. Reference Range HDL <40 mg/dL Low HDL Cholesterol HDL >or= 60 mg/dL High HDL Cholesterol Performed By: #### L 501.1400, L100.0100, L500.4100, L501.9520, L500.4050 #### [facility] [address] [place], [address] Cholesterol in LDL [Mass/Vol] 84 mg/dL Normal 0-130 [facility] Comment on above: Order Comment: CC CM P AND LIPID TO CRISTINE GREGORY CC CMP AND LIPID TO TAZ SUE Performed By: #### L 501.1400, L100.0100, L500.4100, L501.9520, L500.4050 #### [facility] [address] [place], [address] Cholesterol in VLDL [Mass/Vol] 34 mg/dL Normal 5-40 [facility] Comment on above: Order Comment: CC CM P AND LIPID TO CRISTINE GREGORY CC CMP AND LIPID TO TAZ SUE Performed By: #### L 501.1400, L100.0100, L500.4100, L501.9520, L500.4050 #### [facility] [address] [place], [address] Triglyceride [Mass/Vol] 168 mg/dL Normal [facility] Comment on above: Order Comment: CC CM P AND LIPID TO CRISTINE GREGORY CC CMP AND LIPID TO TAZ SUE Result Comment: The drugs N-Acetylcysteine and Metamizole may falsely depress this assay. Serum Triglycerides Reference Interval Normal <150 mg/dL Borderline high 150 - 199 mg/dL High 200 - 499 mg/dL Very High > or = 500 mg/dL Performed By: #### L 501.1400, L100.0100, L500.4100, L501.9520, L500.4050 #### [facility] [address] [place], [address] CHOL Normal 200 [facility] Comment on above: Result Comment: DUP ORDER Performed By: #### L 500.4100 #### [facility] [address] [place], [address] HDL Normal [facility] Comment on above: Result Comment: DUP ORDER The drugs N-Acetylcysteine and Metamizole may falsely depress this assay. Performed By: #### L 500.4100 #### [facility] [address] [place], [address] LDL Normal 0-130 [facility] Comment on above: Result Comment: DUP ORDER Performed By: #### L 500.4100 #### [facility] [address] [place], [address] TRIG Normal [facility] Comment on above: Result Comment: DUP ORDER The drugs N-Acetylcysteine and Metamizole may falsely depress this assay. Performed By: #### L 500.4100 #### [facility] [address] [place], [address] VLDL Normal 5-40 [facility] Comment on above: Result Comment: DUP ORDER Performed By: #### L 500.4100 #### [facility] [address] [place], [address] Liver Profileon 03-09-2024 ALB Normal 3.2-5.0 [facility] Comment on above: Result Comment: DUP ORDER Performed By: #### L 500.3400 #### [facility] [address] [place], [address] ALK P Normal 45-117 [facility] Comment on above: Result Comment: DUP ORDER Performed By: #### L 500.3400 #### [facility] [address] [place], [address] ALT Normal 16-61 [facility] Comment on above: Result Comment: DUP ORDER Performed By: #### L 500.3400 #### [facility] [address] [place], [address] AST Normal 15-37 [facility] Comment on above: Result Comment: DUP ORDER Performed By: #### L 500.3400 #### [facility] [address] [place], [address] D BILI Normal 0.00-0.30 [facility] Comment on above: Result Comment: DUP ORDER Performed By: #### L 500.3400 #### [facility] [address] [place], [address] T BILI Normal 0.20-1.00 [facility] Comment on above: Result Comment: DUP ORDER Performed By: #### L 500.3400 #### [facility] [address] [place], [address] T PROT Normal 6.4-8.2 [facility] Comment on above: Result Comment: DUP ORDER Performed By: #### L 500.3400 #### [facility] [address] [place], [address] Thyroid Stim Hormone (TSH)on 03-09-2024 TSH 2.870 uIU/mL Normal 0.358-3.740 [facility] Comment on above: Order Comment: CC CM P AND LIPID TO CRISTINE SWAN CMP AND LIPID TO TAZ ROGERS Performed By: #### L 501.1400, L100.0100, L500.4100, L501.9520, L500.4050 ####[facility] [id number] [place], [address] Uric Acidon 03-09-2024 URIC 4.8 mg/dL Normal 3.5-7.2 [facility] Comment on above: Order Comment: CC CM P AND LIPID TO CRISTINE SWAN CMP AND LIPID TO TAZ ROGERS Result Comment: The drugs N-Acetylcysteine and Metamizole may falsely depress this assay. Performed By: #### L 501.1400, L100.0100, L500.4100, L501.9520, L500.4050 ####[facility] [id number] [place], [address] Basophil percentageOrdered B y: Cynthia Ruffin on 10-20-2023 Basophil percentage 3.2 mg/dL 2.5-4.9 [facility] Chloride [Moles/Vol] 109 mmol/L 98-107 [facility] Glucose [Mass/Vol] 103 mg/dL 74-106 [facility] Comment on above: Fasting Glucose resu lt from 100 to 125 mg/dL suggests IMPAIRED HOMEOSTASIS per A.D.A. criteria. Potassium [Moles/Vol] 4.0 mmol/L 3.5-5.1 [facility] Sodium [Moles/Vol] 140 mmol/L 136-145 [facility] Laboratory - Chemistry and C hemistry - challengeOrdered By: Cynthia Ruffin on 10-20-2023 CO2 [Moles/Vol] 25.0 mmol/L 21.0-32.0 [facility] Urea nitrogen/Creatinine [Mass ratio] 12.6 mg/mg 10- [facility] No Panel InformationOrdered By: Cynthia Ruffin on 10-20-2023 Estimated GFR (MDRD) Amer 54 mL/min >60 [facility] Comment on above: GFR Calc Estimated GFR (MDRD) Non-Af Amer 44 mL/min >60 [facility] Comment on above: Non- GFR Calc Vitamin D 25-Hydroxy 21.8 ng/mL [facility] Comment on above: Vitamin D 25(OH) Sta tus Range Deficiency <20 ng/mL (50nmol/L) Insufficiency 20 - 30 ng/mL (50 - 75 nmol/L) Sufficiency 30 - 100 ng/mL (75 - 250 nmol/L) Toxicity >100 ng/mL (>250 nmol/L) Serum or plasma calcium sharon urement (mass/volume)Ordered By: Cynthia Ruffin on 10-20-2023 Calcium [Mass/Vol] 8.9 mg/dL 8.5-10.1 [facility] Serum or plasma creatinine m easurement (mass/volume)Ordered By: Cynthia Ruffin on 10-20-2023 Creatinine [Mass/Vol] 1.74 mg/dL 0.70-1.30 [facility] Comment on above: The validity of the calculated GFR & GFRAA in patients over 70 years has not been determined. Clinical correlation is essential. Serum or plasma urea nitroge n measurement (mass/volume)Ordered By: Cynthia Ruffin on 10-20-2023 Urea nitrogen [Mass/Vol] 22 mg/dL 7-18 [facility] Serum or plasma uric acid me asurement (mass/volume)Ordered By: Cynthia Ruffin on 10-20-2023 Urate [Mass/Vol] 5.7 mg/dL 3.5-7.2 [facility] Comment on above: The drugs N-Acetylcy steine and Metamizole may falsely depress this assay. Thin prep Papanicolaou smear with manual screeningOrdered By: Cynthia Ruffin on 10-20-2023 Thin prep Papanicolaou smear with manual screening 3.6 g/dL 3.2-5.0 [facility] Basophil percentageOrdered B y: Kiki Gregory on 07-30-2023 Bilirubin [Mass/Vol] 1.00 mg/dL 0.20-1.00 [facility] Comment on above: For patients on eltr ombopag therapy, use of Dimension [place] TBIL is not recommended. Cholesterol [Mass/Vol] 147 mg/dL <200 [facility] Comment on above: <200 mg/dL Desirable 200-240 mg/dL Borderline >240 mg/dL High Risk Protein [Mass/Vol] 7.6 g/dL 6.4-8.2 [facility] Triglyceride [Mass/Vol] 154 mg/dL <199 [facility] Comment on above: The drugs N-Acetylcy steine and Metamizole may falsely depress this assay.Serum Triglycerides Reference Interval Normal <150 mg/dL Borderline high 150 - 199 mg/dL High 200 - 499 mg/dL Very High > or = 500 mg/dL Basophil percentageOrdered B y: Taz Rogers on 07-30-2023 Chloride [Moles/Vol] 108 mmol/L 98-107 [facility] Glucose [Mass/Vol] 97 mg/dL 74-106 [facility] Potassium [Moles/Vol] 3.9 mmol/L 3.5-5.1 [facility] Sodium [Moles/Vol] 139 mmol/L 136-145 [facility] Direct bilirubinOrdered By: Kiki Gregory on 07-30-2023 Bilirubin.direct [Mass/Vol] 0.27 mg/dL 0.00-0.30 [facility] Laboratory - Chemistry and C hemistry - challengeOrdered By: Kiki Gregory on 07-30-2023 ALP [Catalytic activity/Vol] 59 U/L 45-117 [facility] ALT [Catalytic activity/Vol] 25 U/L 16-61 [facility] Cholesterol in HDL (Body fld) [Mass/Vol] 43 mg/dL >40 [facility] Comment on above: The drugs N-Acetylcy steine and Metamizole may falsely depress this assay. Reference Range HDL <40 mg/dL Low HDL Cholesterol HDL >or= 60 mg/dL High HDL Cholesterol Cholesterol in LDL (Body fld) [Moles/Vol] 73 mg/dL 0-130 [facility] Cholesterol in VLDL Calc [Moles/Vol] 31 mg/dL 5-40 [facility] Globulin (S) [Mass/Vol] 3.8 g/dL 2.2-4.2 [facility] Laboratory - Chemistry and C hemistry - challengeOrdered By: Taz Rogers on 07-30-2023 CO2 [Moles/Vol] 27.0 mmol/L 21.0-32.0 [facility] Urea nitrogen/Creatinine [Mass ratio] 14.2 mg/mg 10-20 [facility] No Panel InformationOrdered By: Taz Rogers on 07-30-2023 Estimated GFR (MDRD) Amer 68 mL/min >60 [facility] Comment on above: GFR Calc Estimated GFR (MDRD) Non-Af Amer 56 mL/min >60 [facility] Comment on above: Non- GFR Calc Serum or plasma calcium sharon urement (mass/volume)Ordered By: Taz Rogers on 07-30-2023 Calcium [Mass/Vol] 9.8 mg/dL 8.5-10.1 [facility] Serum or plasma creatinine m easurement (mass/volume)Ordered By: Taz Rogers on 07-30-2023 Creatinine [Mass/Vol] 1.41 mg/dL 0.70-1.30 [facility] Comment on above: The validity of the calculated GFR & GFRAA in patients over 70 years has not been determined. Clinical correlation is essential. Serum or plasma urea nitroge n measurement (mass/volume)Ordered By: Taz Rogers on 07-30-2023 Urea nitrogen [Mass/Vol] 20 mg/dL 7-18 [facility] Thin prep Papanicolaou smear with manual screeningOrdered By: Kiki Gregory on 07-30-2023 Thin prep Papanicolaou smear with manual screening 3.8 g/dL 3.2-5.0 [facility] Thin prep Papanicolaou smear with manual screening 21 U/L 15-37 [facility] Thin prep Papanicolaou smear with manual screeningOrdered By: Taz Rogers on 07-30-2023 Thin prep Papanicolaou smear with manual screening 4 5-15 [facility] Laboratory - Microbiology an d Antimicrobial susceptibilityOrdered By: Dav Woody on 06-27-2023 SARS-CoV-2 (COVID-19) RNA KEELY+probe Ql (Unsp spec) Influenzae A [facility] Absolute lymphocyte countOrd ered By: Berto Urena on 04-01-2023 Lymphocytes Auto (Unsp spec) [#/Vol] 1.38 10*3/uL 0.83-4.51 [facility] Basophil percentageOrdered B y: Berto Urena on 04-01-2023 Basophils/100 WBC (Bld) 0.6 % 0-1 [facility] Bilirubin [Mass/Vol] 0.90 mg/dL 0.20-1.00 [facility] Comment on above: For patients on eltr ombopag therapy, use of [place] TBIL is not recommended. Chloride [Moles/Vol] 111 mmol/L 98-107 [facility] Cholesterol [Mass/Vol] 164 mg/dL <200 [facility] Comment on above: <200 mg/dL Desirable 200-240 mg/dL Borderline >240 mg/dL High Risk Eosinophils/100 WBC (Bld) 6.8 % 0-5 [facility] Glucose [Mass/Vol] 91 mg/dL 74-106 [facility] Neutrophils (Bld) [#/Vol] 4.0 10*3/uL 2.0-7.7 [facility] Neutrophils/100 WBC (Bld) 62.9 % 47-70 [facility] Potassium [Moles/Vol] 4.5 mmol/L 3.5-5.1 [facility] Protein [Mass/Vol] 7.4 g/dL 6.4-8.2 [facility] Sodium [Moles/Vol] 142 mmol/L 136-145 [facility] Triglyceride [Mass/Vol] 237 mg/dL <199 [facility] Comment on above: The drugs N-Acetylcy steine and Metamizole may falsely depress this assay.Serum Triglycerides Reference Interval Normal <150 mg/dL Borderline high 150 - 199 mg/dL High 200 - 499 mg/dL Very High > or = 500 mg/dL WBC (Bld) [#/Vol] 6.3 10*3/uL 4.4-11.0 [facility] Blood erythrocytes count (nu mber/volume)Ordered By: Berto Urena on 04-01-2023 RBC (Bld) [#/Vol] 4.18 10*6/uL 4.6-6.2 [facility] Blood hemoglobin measurement (mass/volume)Ordered By: Berto Urena on 04-01-2023 Hemoglobin (Bld) [Mass/Vol] 12.7 g/dL 13.0-16.5 [facility] Blood lymphocytes/100 leukoc ytesOrdered By: Berto Urena on 04-01-2023 Lymphocytes/100 WBC (Bld) 21.8 % 19-41 [facility] Blood monocytes/100 leukocyt esOrdered By: Berto Urena on 04-01-2023 Monocytes/100 WBC (Bld) 7.6 % 0-10 [facility] Blood platelet mean volumeOr dered By: Berto Urena on 04-01-2023 Platelet mean volume (Bld) [Entitic vol] 10.3 fL 6.2-12.0 [facility] Determination of erythrocyte mean corpuscular volume (MCV)Ordered By: Berto Urena on 04-01-2023 MCV (RBC) [Entitic vol] 94.5 fL 80-94 [facility] Hematocrit Auto (Bld) [Volum e fraction][facility]: [facility] 04-01-2023 Hematocrit (Bld) [Volume fraction] 39.5 % 40-54 [facility] Laboratory - Chemistry and C hemistry - challengeOrdered By: [facility] on 04-01-2023 ALP [Catalytic activity/Vol] 49 U/L 45-117 [facility] ALT [Catalytic activity/Vol] 29 U/L 16-61 [facility] CO2 [Moles/Vol] 28.0 mmol/L 21.0-32.0 [facility] Globulin (S) [Mass/Vol] 3.8 g/dL 2.2-4.2 [facility] Urea nitrogen/Creatinine [Mass ratio] 12.2 mg/mg 10-20 [facility] Laboratory - Hematology and Cell countsOrdered By: [facility] Romel on 04-01-2023 Erythrocyte distribution width (RBC) [Entitic vol] 45.0 fL 35.1-43.9 [facility] Erythrocyte distribution width (RBC) [Ratio] 13.1 % 11.6-14.6 [facility] Immature granulocytes/100 WBC (Bld) 0.300 % 0.0-0.9 [facility] Comment on above: IG% - Immature Granu locytes (promyelocytes, myelocytes and metamyelocytes) > 1% indicates that a LEFT SHIFT is Present. MCH (RBC) [Entitic mass] 30.4 pg 27.0-32.0 [facility] Nucleated RBC/100 WBC (Bld) [Ratio] 0 % 0-5 [facility] MCHC Auto (RBC) [Mass/Vol]Or dered By: Berto Urena on 04-01-2023 MCHC (RBC) [Mass/Vol] 32.2 g/dL 32-36 [facility] No Panel InformationOrdered By: Berto Urena on 04-01-2023 Estimated GFR (MDRD) Amer 65 mL/min >60 [facility] Comment on above: GFR Calc Estimated GFR (MDRD) Non-Af Amer 54 mL/min >60 [facility] Comment on above: Non- GFR Calc Hepatitis C Antibody Non-Reactive Nonreactive [facility] Comment on above: Non Reactive: < 0.8 Equivocal: >/= 0.8 to < 1.0 Reactive: >/= 1.0The CDC recommends that a reactive/equivocal HCV antibody result be followed up by the HCV Nucleic Acid Amplificationtest (192300) Thyroid Stimulating Hormone (TSH) 2.10 uIU/mL 0.358-3.74 [facility] Vitamin D 25-Hydroxy 35.3 ng/mL [facility] Comment on above: Vitamin D 25(OH) Sta tus Range Deficiency <20 ng/mL (50nmol/L) Insufficiency 20 - 30 ng/mL (50 - 75 nmol/L) Sufficiency 30 - 100 ng/mL (75 - 250 nmol/L) Toxicity >100 ng/mL (>250 nmol/L) Platelets bldOrdered By: Berot Urena on 04-01-2023 Platelets (Bld) [#/Vol] 227 10*3/uL 150-450 [facility] Serum or plasma albumin sharon urement (mass/volume)Ordered By: Berto Urena on 04-01-2023 Albumin [Mass/Vol] 3.6 g/dL 3.2-5.0 [facility] Serum or plasma albumin/glob ulin mass ratioOrdered By: Berto Urena on 04-01-2023 Albumin/Globulin [Mass ratio] 0.9 {ratio} 0.9-2.4 [facility] Serum or plasma calcium sharon urement (mass/volume)Ordered By: Berto Urena on 04-01-2023 Calcium [Mass/Vol] 9.2 mg/dL 8.5-10.1 [facility] Serum or plasma cholesterol in HDL measurement (mass/volume)Ordered By: Berto Urena on 04-01-2023 Cholesterol in HDL [Mass/Vol] 40 mg/dL >40 [facility] Comment on above: The drugs N-Acetylcy steine and Metamizole may falsely depress this assay. Reference Range HDL <40 mg/dL Low HDL Cholesterol HDL >or= 60 mg/dL High HDL Cholesterol Serum or plasma cholesterol in VLDL measurement (mass/volume)Ordered By: Berto Urena on 04-01-2023 Cholesterol in VLDL [Mass/Vol] 47 mg/dL 5-40 [facility] Serum or plasma creatinine m easurement (mass/volume)Ordered By: Berto Urena on 04-01-2023 Creatinine [Mass/Vol] 1.47 mg/dL 0.70-1.30 [facility] Comment on above: The validity of the calculated GFR & GFRAA in patients over 70 years has not been determined. Clinical correlation is essential. Serum or plasma low density lipoprotein (LDL) cholesterol measurement (mass/volume)Ordered By: Berto Urena on 04-01-2023 Cholesterol in LDL [Mass/Vol] 77 mg/dL 0-130 [facility] Serum or plasma urea nitroge n measurement (mass/volume)Ordered By: Berto Urena on 04-01-2023 Urea nitrogen [Mass/Vol] 18 mg/dL 7-18 [facility] Serum or plasma uric acid me asurement (mass/volume)Ordered By: Berto Urena on 04-01-2023 Urate [Mass/Vol] 5.6 mg/dL 3.5-7.2 [facility] Comment on above: The drugs N-Acetylcy steine and Metamizole may falsely depress this assay. Thin prep Papanicolaou smear with manual screeningOrdered By: Berto Urena on 04-01-2023 Thin prep Papanicolaou smear with manual screening 20 U/L 15-37 [facility] Thin prep Papanicolaou smear with manual screening 3 5-15 [facility] No Panel InformationOrdered By: Cynthia Ruffin on 02-19-2023 Vitamin D 25-Hydroxy 32.8 ng/mL [facility] Comment on above: Vitamin D 25(OH) Sta tus Range Deficiency <20 ng/mL (50nmol/L) Insufficiency 20 - 30 ng/mL (50 - 75 nmol/L) Sufficiency 30 - 100 ng/mL (75 - 250 nmol/L) Toxicity >100 ng/mL (>250 nmol/L) Basophil percentageOrdered B y: Cynthia Ruffin on 02-14-2023 Basophil percentage 3.1 mg/dL 2.5-4.9 [facility] Chloride [Moles/Vol] 108 mmol/L 98-107 [facility] Glucose [Mass/Vol] 102 mg/dL 74-106 [facility] Comment on above: Fasting Glucose resu lt from 100 to 125 mg/dL suggests IMPAIRED HOMEOSTASIS per A.D.A. criteria. Potassium [Moles/Vol] 3.9 mmol/L 3.5-5.1 [facility] Sodium [Moles/Vol] 138 mmol/L 136-145 [facility] Laboratory - Chemistry and C hemistry - challengeOrdered By: Cynthia Ruffin on 02-14-2023 CO2 [Moles/Vol] 27.0 mmol/L 21.0-32.0 [facility] Urea nitrogen/Creatinine [Mass ratio] 12.0 mg/mg 10-20 [facility] No Panel InformationOrdered By: Cynthia Ruffin on 02-14-2023 Estimated GFR (MDRD) Amer 68 mL/min >60 [facility] Comment on above: GFR Calc Estimated GFR (MDRD) Non-Af Amer 56 mL/min >60 [facility] Comment on above: Non- GFR Calc Serum or plasma albumin sharon urement (mass/volume)Ordered By: Cynthia Ruffin on 02-14-2023 Albumin [Mass/Vol] 3.5 g/dL 3.2-5.0 [facility] Serum or plasma calcium sharon urement (mass/volume)Ordered By: Cynthia Ruffin on 02-14-2023 Calcium [Mass/Vol] 9.0 mg/dL 8.5-10.1 [facility] Serum or plasma creatinine m easurement (mass/volume)Ordered By: Cynthia Ruffin on 02-14-2023 Creatinine [Mass/Vol] 1.42 mg/dL 0.70-1.30 [facility] Comment on above: The validity of the calculated GFR & GFRAA in patients over 70 years has not been determined. Clinical correlation is essential. Serum or plasma urea nitroge n measurement (mass/volume)Ordered By: Cynthia Ruffin on 02-14-2023 Urea nitrogen [Mass/Vol] 17 mg/dL 7-18 [facility] Serum or plasma uric acid me asurement (mass/volume)Ordered By: Cynthia Ruffin on 02-14-2023 Urate [Mass/Vol] 5.5 mg/dL 3.5-7.2 [facility] Comment on above: The drugs N-Acetylcy steine and Metamizole may falsely depress this assay. Basophil percentageOrdered B y: Taz Rogers on 12-26-2022 Bilirubin [Mass/Vol] 1.30 mg/dL 0.20-1.00 [facility] Comment on above: For patients on eltr ombopag therapy, use of [place] TBIL is not recommended. Cholesterol [Mass/Vol] 120 mg/dL <200 [facility] Comment on above: <200 mg/dL Desirable 200-240 mg/dL Borderline >240 mg/dL High Risk Protein [Mass/Vol] 7.4 g/dL 6.4-8.2 [facility] Triglyceride [Mass/Vol] 115 mg/dL <199 [facility] Comment on above: The drugs N-Acetylcy steine and Metamizole may falsely depress this assay.Serum Triglycerides Reference Interval Normal <150 mg/dL Borderline high 150 - 199 mg/dL High 200 - 499 mg/dL Very High > or = 500 mg/dL Direct bilirubinOrdered By: Taz Rogers on 12-26-2022 Bilirubin.direct [Mass/Vol] 0.30 mg/dL 0.00-0.30 [facility] Laboratory - Chemistry and C hemistry - challengeOrdered By: Taz Rogers on 12-26-2022 ALP [Catalytic activity/Vol] 56 U/L 45-117 [facility] ALT [Catalytic activity/Vol] 23 U/L 16-61 [facility] CK [Catalytic activity/Vol] 330 U/L 39-308 [facility] Globulin (S) [Mass/Vol] 3.7 g/dL 2.2-4.2 [facility] Serum or plasma albumin sharon urement (mass/volume)Ordered By: Taz Rogers on 12-26-2022 Albumin [Mass/Vol] 3.7 g/dL 3.2-5.0 [facility] Serum or plasma cholesterol in HDL measurement (mass/volume)Ordered By: Taz Rogers on 12-26-2022 Cholesterol in HDL [Mass/Vol] 41 mg/dL >40 [facility] Comment on above: The drugs N-Acetylcy steine and Metamizole may falsely depress this assay. Reference Range HDL <40 mg/dL Low HDL Cholesterol HDL >or= 60 mg/dL High HDL Cholesterol Serum or plasma cholesterol in VLDL measurement (mass/volume)Ordered By: Taz Rogers on 12-26-2022 Cholesterol in VLDL [Mass/Vol] 23 mg/dL 5-40 [facility] Serum or plasma low density lipoprotein (LDL) cholesterol measurement (mass/volume)Ordered By: Taz Rogers on 12-26-2022 Cholesterol in LDL [Mass/Vol] 56 mg/dL 0-130 [facility] Thin prep Papanicolaou smear with manual screeningOrdered By: Taz Rogers on 12-26-2022 Thin prep Papanicolaou smear with manual screening 19 U/L 15-37 [facility] CNPNon 10-02-2022 CNPN Telephone (CHRISTOPHER) LUKE THOMAS ([id number]) 1970 [facility] Date Time Provider Department 10/02/22 DYLON JEAN During your visit today, we recorded the following information about you: Zeina Garrison, RN 10/02/2022 1:03 PM Signed Screening Colonoscopy Checklist Luke Thomas [phone] (home) [phone] (work) 1970 52 year old Date of Referral: 09/24/22 Referral #: [id number] Referring physician: Lisa Sena Height: 6f Weight: 248lb BMI: 33.63 *If BMI is 40 or > or weight is >350 lbs., schedule at the hospital. Assessment Questions 80 years old or greater? No *If yes, requires an office visit Do you live in a penitentiary? No *If from half-way facility schedule at [facility]. Can you ambulate without assistance? ambulatory *Schedule at [facility] if needs more than 1 assist and or Jonathan lift. Are you using oxygen at home? No *Continuous oxygen schedule at [facility]. Did you use a CPAP or BIPAP machine? Yes Any previous problems with anesthesia? No *Any personal history of difficult airway or personal or family history of malignant hyperthermia schedule at [facility]. Have you had a heart attack or stents placed in your heart in the past year? Yes *If yes, refer back to PCP to schedule a later date; if no proceed to next question. Do you see a circus roustabout on a regular basis? Yes *If yes, has patient seen circus roustabout in past year? If yes, OK to schedule, if no, patient to see circus roustabout before scheduling at [facility] or schedule at [facility]. Have you had a stroke in the last year? No *If yes, has patient had follow up in the last 6 months? If yes, OK to schedule, if no, patient needs follow up appointment or schedule at [facility]. Do you have a pacemaker or an ICD? No *If yes, document in [facility], schedule so instructions can be obtained [...] yes, patient needs to have seen a circus roustabout within the last year or be scheduled at [facility]. Are you currently on any blood thinners? Yes (Coumadin, Xarelto, Plavix, Eliquis, Pradaxa, Brillinta,Effient) [] Managed by PCP [x] Managed by [employer] In[employer] [] Managed by [facility] Are you [...] Yes Date/time: 03/25/2023 Endoscopist: Dylon Jean Locations:[x] [facility] [] [facility] Endo [] [facility] Case#: [x] On spreadsheet [] Referral list completed [] On Completed by: Meli Hatfield Reminder phone call (date/time/initials) : Allergies As of Date: 10/02/2022 (No Known Allergies) Date Reviewed: 09/24/2022 Reviewed by: Waleska Sena APRN.CELLOPHANE WORKER - Fully Assessed Reason for Visit: screening colonoscopy checklist [Other] Prescriptions as of 05/08/2023 - allopurinol (ZYLOPRIM) 300 mg tablet - BRILINTA 90 mg tablet Take 90 mg by mouth twice daily. - nitroglycerin sublingual (NITROQUICK) 0.4 mg SL tablet Nitroglycerin Active 0.4 MG SL Q5M August 15, 2022 1:00am do not exceed 3 doses per episode - metoprolol tartrate, short acting, (LOPRESSOR) 50 mg tablet Take 50 mg by mouth twice daily. - aspirin, enteric coated (ASPIRIN, ENTERIC COATED) 81 mg EC tablet TAKE 1 TABLET BY MOUTH ONCE DAILY AT 8 AM - atorvastatin (LIPITOR) 40 mg tablet Take 40 mg by mouth daily at bedtime. - ergocalciferol 50,000 unit capsule (VITAMIN D2, DRISDOL) TAKE 1 CAPSULE BY MOUTH ONCE A WEEK FOR 8 WEEKS, THEN DECREASE TO 1 CAPSULE ONCE PER MONTH (more content not included)... Normal [facility] CNOVon 09-24-2022 CNOV Office Visit (AGFAMPLE) LUKE THOMAS ([id number]) 1970 [facility] Date Time Provider Department 09/24/22 10:40 AM WALESKA SENA During your visit today, we recorded the following information about you: Temperature Pulse Respiration Blood pressure 98 degrees 62/minute 19/minute 120/76 Weight Height 112.5 kg 1.829 m Waleska Sena APRN.CELLOPHANE WORKER 09/24/2022 5:43 PM Signed [facility] Waleska Sena DATABASE TECHNICIAN-CELLOPHANE WORKER [address] [place] [address] Dept Dept. Visit Date: September 24, 2022 Mr.Johnnie Mauro Thomas Date of : 1970 MRN/E #: [id number] Chief Complaint: Patient presents with: Wellness Establish Care History of Present Illness Luke Thomas is a 51 year old male presenting [...] His previous PCP was Dr. Tate with [facility] but he didn't see him much the last few years. 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 Rogers in [place] Due for colonoscopy, has never had one No family history of colon cancer Has RONEN and has a CPAP machine but it is old. Thinks his last sleep study was back in 2008. The history is provided by the patient. No customer training specialist was used. PAST MEDICAL HISTORY Diagnosis Date [...] 1 CAPSULE ONCE PER MONTH No current facility-administere d medications for this visit. Review of Systems [...] Musculoskeletal: Negative. Skin: Negative. Neurological: Negative for (more content not included)... Normal [facility] [place] Telephone ([place]) LUKE THOMAS ([id number]) 1970 [facility] Date Time Provider Department 09/24/22 WALESKA SENA During your visit today, we recorded the following information about you: Pamella Mar 09/24/2022 12:01 PM Signed Referral for Dr. Jean was placed on [facility] Portal with Id # [id number]. Pamella Mar Allergies As of Date: 09/24/2022 (No Known Allergies) Date Reviewed: 09/24/2022 Reviewed by: Waleska Sena APRN.[facility] - Fully Assessed Reason for Visit: Referral Information [[id number]] Prescriptions as of 10/16/2022 - allopurinol (ZYLOPRIM) 300 mg tablet - BRILINTA 90 mg tablet Take 90 mg by mouth twice daily. - nitroglycerin sublingual (NITROQUICK) 0.4 mg SL tablet Nitroglycerin Active 0.4 MG SL Q5M August 15, 2022 1:00am do not exceed 3 doses per episode - metoprolol tartrate, short acting, (LOPRESSOR) 50 mg tablet Take 50 mg by mouth twice daily. - aspirin, enteric coated (ASPIRIN, ENTERIC COATED) 81 mg EC tablet TAKE 1 TABLET BY MOUTH ONCE DAILY AT 8 AM - atorvastatin (LIPITOR) 40 mg tablet Take 40 mg by mouth daily at bedtime. - ergocalciferol 50,000 unit capsule (VITAMIN D2, DRISDOL) TAKE 1 CAPSULE BY MOUTH ONCE A WEEK FOR 8 WEEKS, THEN DECREASE TO 1 CAPSULE ONCE PER MONTH Problem List As Of Date 09/24/2022 Noted Resolved Sleep Apnea [G47.30] 06/13/2009 Seasonal Allergies [J30.2] 06/13/2009 Obesity, Class I, BMI 30-34.9 [E66.9] 09/24/2022 Chronic kidney disease [N18.9] 08/08/2022 Presence of coronary angioplasty implant and gr*09/23/2022 Arteriosclerosis of coronary artery [I25.10] 09/04/2022 Arthritis of knee [M17.10] 09/04/2022 Myocardial infarction (HCC) [I21.9] 09/04/2022 Essential (primary) hypertension [I10] 09/10/2022 Dyslipidemia [E78.5] 09/04/2022 Encounter Status:Closed by PAMELLA MAR on 10/16/22 [facility] Basophil percentageOrdered B y: Dr. Rogers on 09-10-2022 Chloride [Moles/Vol] 107 mmol/L 98-107 [facility] Glucose [Mass/Vol] 93 mg/dL 74-106 [facility] Potassium [Moles/Vol] 4.0 mmol/L 3.5-5.1 [facility] Comment on above: Slight Hemolysis, Re sult may be falsely increased. Sodium [Moles/Vol] 139 mmol/L 136-145 [facility] WBC (Bld) [#/Vol] 9.5 10*3/uL 4.4-11.0 [facility] Blood erythrocytes count (nu mber/volume)Ordered By: Dr. Rogers on 09-10-2022 RBC (Bld) [#/Vol] 3.96 10*6/uL 4.6-6.2 [facility] Blood hemoglobin measurement (mass/volume)Ordered By: Dr. Rogers on 09-10-2022 Hemoglobin (Bld) [Mass/Vol] 11.6 g/dL 13.0-16.5 [facility] Blood platelet mean volumeOr dered By: Dr. Rogers on 09-10-2022 Platelet mean volume (Bld) [Entitic vol] 11.0 fL 6.2-12.0 [facility] Determination of erythrocyte mean corpuscular volume (MCV)Ordered By: Dr. Rogers on 09-10-2022 MCV (RBC) [Entitic vol] 93.9 fL 80-94 [facility] Hematocrit Auto (Bld) [Volum e fraction]Ordered By: Dr. Rogers on 09-10-2022 Hematocrit (Bld) [Volume fraction] 37.2 % 40-54 [facility] Laboratory - Chemistry and C hemistry - challengeOrdered By: Dr. Rogers on 09-10-2022 CO2 [Moles/Vol] 27.0 mmol/L 21.0-32.0 [facility] Urea nitrogen/Creatinine [Mass ratio] 13.5 mg/mg 10-20 [facility] Laboratory - Hematology and Cell countsOrdered By: Dr. Rogers on 09-10-2022 Erythrocyte distribution width (RBC) [Entitic vol] 46.4 fL 35.1-43.9 [facility] Erythrocyte distribution width (RBC) [Ratio] 13.5 % 11.6-14.6 [facility] MCH (RBC) [Entitic mass] 29.3 pg 27.0-32.0 [facility] MCHC Auto (RBC) [Mass/Vol]Or dered By: Dr. Rogers on 09-10-2022 MCHC (RBC) [Mass/Vol] 31.2 g/dL 32-36 [facility] No Panel InformationOrdered By: Dr. Rogers on 09-10-2022 Estimated GFR (MDRD) Amer 68 mL/min >60 [facility] Comment on above: GFR Calc Estimated GFR (MDRD) Non-Af Amer 57 mL/min >60 [facility] Comment on above: Non- GFR Calc Platelets bldOrdered By: Dr. Rogers on 09-10-2022 Platelets (Bld) [#/Vol] 249 10*3/uL 150-450 [facility] Serum or plasma calcium sharon urement (mass/volume)Ordered By: Dr. Rogers on 09-10-2022 Calcium [Mass/Vol] 9.6 mg/dL 8.5-10.1 [facility] Serum or plasma creatinine m easurement (mass/volume)Ordered By: Dr. Rogers on 09-10-2022 Creatinine [Mass/Vol] 1.41 mg/dL 0.70-1.30 [facility] Comment on above: The validity of the calculated GFR & GFRAA in patients over 70 years has not been determined. Clinical correlation is essential. Serum or plasma urea nitroge n measurement (mass/volume)Ordered By: Dr. Rogers on 09-10-2022 Urea nitrogen [Mass/Vol] 19 mg/dL 7-18 [facility] Thin prep Papanicolaou smear with manual screeningOrdered By: Dr. Rogers on 09-10-2022 Thin prep Papanicolaou smear with manual screening 5 5-15 [facility] Absolute lymphocyte countOrd ered By: Dr. Carmen on 08-15-2022 Lymphocytes Auto (Unsp spec) [#/Vol] 1.25 10*3/uL 0.83-4.51 [facility] Basophil percentageOrdered B y: Dr. Carmen on 08-15-2022 Basophils/100 WBC (Bld) 0.3 % 0-1 [facility] Chloride [Moles/Vol] 109 mmol/L 98-107 [facility] Eosinophils/100 WBC (Bld) 5.4 % 0-5 [facility] Glucose [Mass/Vol] 95 mg/dL 74-106 [facility] Neutrophils (Bld) [#/Vol] 4.5 10*3/uL 2.0-7.7 [facility] Neutrophils/100 WBC (Bld) 68.7 % 47-70 [facility] Potassium [Moles/Vol] 3.8 mmol/L 3.5-5.1 [facility] Sodium [Moles/Vol] 141 mmol/L 136-145 [facility] WBC (Bld) [#/Vol] 6.5 10*3/uL 4.4-11.0 [facility] Blood erythrocytes count (nu mber/volume)Ordered By: Dr. Carmen on 08-15-2022 RBC (Bld) [#/Vol] 3.27 10*6/uL 4.6-6.2 [facility] Blood hemoglobin measurement (mass/volume)Ordered By: Dr. Carmen on 08-15-2022 Hemoglobin (Bld) [Mass/Vol] 9.7 g/dL 13.0-16.5 [facility] Blood lymphocytes/100 leukoc ytesOrdered By: Dr. Carmen on 08-15-2022 Lymphocytes/100 WBC (Bld) 19.1 % 19-41 [facility] Blood monocytes/100 leukocyt esOrdered By: Dr. Carmen on 08-15-2022 Monocytes/100 WBC (Bld) 6.3 % 0-10 [facility] Blood platelet mean volumeOr dered By: Dr. Carmen on 08-15-2022 Platelet mean volume (Bld) [Entitic vol] 10.8 fL 6.2-12.0 [facility] Determination of erythrocyte mean corpuscular volume (MCV)Ordered By: Dr. Carmen on 08-15-2022 MCV (RBC) [Entitic vol] 93.6 fL 80-94 [facility] Hematocrit Auto (Bld) [Volum e fraction]Ordered By: Dr. Carmen on 08-15-2022 Hematocrit (Bld) [Volume fraction] 30.6 % 40-54 [facility] Laboratory - Chemistry and C hemistry - challengeOrdered By: Dr. Carmen on 08-15-2022 CO2 [Moles/Vol] 25.0 mmol/L 21.0-32.0 [facility] Urea nitrogen/Creatinine [Mass ratio] 12.5 mg/mg 10-20 [facility] Laboratory - Hematology and Cell countsOrdered By: Dr. Carmen on 08-15-2022 Erythrocyte distribution width (RBC) [Entitic vol] 47.9 fL 35.1-43.9 [facility] Erythrocyte distribution width (RBC) [Ratio] 14.0 % 11.6-14.6 [facility] Immature granulocytes/100 WBC (Bld) 0.200 % 0.0-0.9 [facility] Comment on above: IG% - Immature Granu locytes (promyelocytes, myelocytes and metamyelocytes) > 1% indicates that a LEFT SHIFT is Present. MCH (RBC) [Entitic mass] 29.7 pg 27.0-32.0 [facility] Nucleated RBC/100 WBC (Bld) [Ratio] 0 % 0-5 [facility] MCHC Auto (RBC) [Mass/Vol]Or dered By: Dr. Carmen on 08-15-2022 MCHC (RBC) [Mass/Vol] 31.7 g/dL 32-36 [facility] No Panel InformationOrdered By: Dr. Carmen on 08-15-2022 Estimated Creatinine Clearance Calc 64.52 ml/min [facility] Estimated GFR (MDRD) Amer 63 mL/min >60 [facility] Comment on above: GFR Calc Estimated GFR (MDRD) Non-Af Amer 52 mL/min >60 [facility] Comment on above: Non- GFR Calc Platelets bldOrdered By: Dr. Carmen on 08-15-2022 Platelets (Bld) [#/Vol] 209 10*3/uL 150-450 [facility] Serum or plasma calcium sharon urement (mass/volume)Ordered By: Dr. Carmen on 08-15-2022 Calcium [Mass/Vol] 8.6 mg/dL 8.5-10.1 [facility] Serum or plasma creatinine m easurement (mass/volume)Ordered By: Dr. Carmen on 08-15-2022 Creatinine [Mass/Vol] 1.52 mg/dL 0.70-1.30 [facility] Comment on above: The validity of the calculated GFR & GFRAA in patients over 70 years has not been determined. Clinical correlation is essential. Serum or plasma urea nitroge n measurement (mass/volume)Ordered By: Dr. Carmen on 08-15-2022 Urea nitrogen [Mass/Vol] 19 mg/dL 7-18 [facility] Thin prep Papanicolaou smear with manual screeningOrdered By: Dr. Carmen on 08-15-2022 Thin prep Papanicolaou smear with manual screening 7 5-15 [facility] Basophil percentageOrdered B y: Dr. Rogers on 08-13-2022 Bilirubin [Mass/Vol] 0.60 mg/dL 0.20-1.00 [facility] Comment on above: For patients on eltr ombopag therapy, use of Dimension [place] TBIL is not recommended. Cholesterol [Mass/Vol] 184 mg/dL <200 [facility] Comment on above: <200 mg/dL Desirable 200-240 mg/dL Borderline >240 mg/dL High Risk Protein [Mass/Vol] 6.5 g/dL 6.4-8.2 [facility] Triglyceride [Mass/Vol] 98 mg/dL <199 [facility] Comment on above: The drugs N-Acetylcy steine and Metamizole may falsely depress this assay.Serum Triglycerides Reference Interval Normal <150 mg/dL Borderline high 150 - 199 mg/dL High 200 - 499 mg/dL Very High > or = 500 mg/dL Laboratory - Chemistry and C hemistry - challengeOrdered By: Dr. Rogers on 08-13-2022 ALP [Catalytic activity/Vol] 43 U/L 45-117 [facility] ALT [Catalytic activity/Vol] 38 U/L 16-61 [facility] Globulin (S) [Mass/Vol] 3.2 g/dL 2.2-4.2 [facility] Serum or plasma albumin sharon urement (mass/volume)Ordered By: Dr. Rogers on 08-13-2022 Albumin [Mass/Vol] 3.3 g/dL 3.2-5.0 [facility] Serum or plasma albumin/glob ulin mass ratioOrdered By: Dr. Rogers on 08-13-2022 Albumin/Globulin [Mass ratio] 1.0 {ratio} 0.9-2.4 [facility] Serum or plasma cholesterol in HDL measurement (mass/volume)Ordered By: Dr. Rogers on 08-13-2022 Cholesterol in HDL [Mass/Vol] 46 mg/dL >40 [facility] Comment on above: The drugs N-Acetylcy steine and Metamizole may falsely depress this assay. Reference Range HDL <40 mg/dL Low HDL Cholesterol HDL >or= 60 mg/dL High HDL Cholesterol Serum or plasma cholesterol in VLDL measurement (mass/volume)Ordered By: Dr. Rogers on 08-13-2022 Cholesterol in VLDL [Mass/Vol] 20 mg/dL 5-40 [facility] Serum or plasma low density lipoprotein (LDL) cholesterol measurement (mass/volume)Ordered By: Dr. Rogers on 08-13-2022 Cholesterol in LDL [Mass/Vol] 118 mg/dL 0-130 [facility] Thin prep Papanicolaou smear with manual screeningOrdered By: Dr. Rogers on 08-13-2022 Thin prep Papanicolaou smear with manual screening 253 U/L 15-37 [facility] Absolute lymphocyte countOrd ered By: Dr. Gonzalez on 08-12-2022 Lymphocytes Auto (Unsp spec) [#/Vol] 1.07 10*3/uL 0.83-4.51 [facility] Basophil percentageOrdered B y: Dr. Gonzalez on 08-12-2022 Basophils/100 WBC (Bld) 0.2 % 0-1 [facility] Chloride [Moles/Vol] 109 mmol/L 98-107 [facility] Eosinophils/100 WBC (Bld) 1.7 % 0-5 [facility] Glucose [Mass/Vol] 103 mg/dL 74-106 [facility] Comment on above: Fasting Glucose resu lt from 100 to 125 mg/dL suggests IMPAIRED HOMEOSTASIS per A.D.A. criteria. Neutrophils (Bld) [#/Vol] 7.9 10*3/uL 2.0-7.7 [facility] Neutrophils/100 WBC (Bld) 81.1 % 47-70 [facility] Potassium [Moles/Vol] 4.4 mmol/L 3.5-5.1 [facility] Sodium [Moles/Vol] 142 mmol/L 136-145 [facility] WBC (Bld) [#/Vol] 9.7 10*3/uL 4.4-11.0 [facility] Blood erythrocytes count (nu mber/volume)Ordered By: Dr. Gonzalez on 08-12-2022 RBC (Bld) [#/Vol] 3.91 10*6/uL 4.6-6.2 [facility] Blood hemoglobin measurement (mass/volume)Ordered By: Dr. Gonzalez on 08-12-2022 Hemoglobin (Bld) [Mass/Vol] 11.4 g/dL 13.0-16.5 [facility] Blood lymphocytes/100 leukoc ytesOrdered By: Dr. Gonzalez on 08-12-2022 Lymphocytes/100 WBC (Bld) 11.1 % 19-41 [facility] Blood monocytes/100 leukocyt esOrdered By: Dr. Gonzalez on 08-12-2022 Monocytes/100 WBC (Bld) 5.2 % 0-10 [facility] Blood platelet mean volumeOr dered By: Dr. Gonzalez on 08-12-2022 Platelet mean volume (Bld) [Entitic vol] 10.7 fL 6.2-12.0 [facility] Determination of erythrocyte mean corpuscular volume (MCV)Ordered By: Dr. Gonzalez on 08-12-2022 MCV (RBC) [Entitic vol] 90.8 fL 80-94 [facility] Hematocrit Auto (Bld) [Volum e fraction]Ordered By: Dr. Gonzalez on 08-12-2022 Hematocrit (Bld) [Volume fraction] 35.5 % 40-54 [facility] INR in Blood by Coagulation assayOrdered By: Dr. Gonzalez on 08-12-2022 INR Coag (Bld) [Relative time] 1.0 {INR} [facility] Laboratory - Chemistry and C hemistry - challengeOrdered By: Dr. Gonzalez on 08-12-2022 CO2 [Moles/Vol] 24.0 mmol/L 21.0-32.0 [facility] Urea nitrogen/Creatinine [Mass ratio] 16.8 mg/mg 10-20 [facility] Laboratory - CoagulationOrde red By: Dr. Gonzalez on 08-12-2022 aPTT Coag (Bld) [Time] 30.4 s 24.1-36.2 [facility] PT Coag (PPP) [Time] 13.2 s 11.7-14.9 [facility] Laboratory - Hematology and Cell countsOrdered By: Dr. Gonzalez on 08-12-2022 Erythrocyte distribution width (RBC) [Entitic vol] 45.5 fL 35.1-43.9 [facility] Erythrocyte distribution width (RBC) [Ratio] 13.6 % 11.6-14.6 [facility] Immature granulocytes/100 WBC (Bld) 0.700 % 0.0-0.9 [facility] Comment on above: IG% - Immature Granu locytes (promyelocytes, myelocytes and metamyelocytes) > 1% indicates that a LEFT SHIFT is Present. MCH (RBC) [Entitic mass] 29.2 pg 27.0-32.0 [facility] Nucleated RBC/100 WBC (Bld) [Ratio] 0 % 0-5 [facility] MCHC Auto (RBC) [Mass/Vol]Or dered By: Dr. Gonzalez on 08-12-2022 MCHC (RBC) [Mass/Vol] 32.1 g/dL 32-36 [facility] No Panel InformationOrdered By: Dr. Gonzalez on 08-12-2022 Troponin I High Sensitivity 52278 pg/mL 3.0-78.0 [facility] Comment on above: Critical Result(s) C alled at: 00:51:42 08/13/2022 by: Joseph Mccall TO JOCY PRINCE RN (ICU) Results read back by same. Please Note: New Test Units and Gender Specific Reference Ranges. For more information see Policy Stat Procedure [place] High Sensitivity Troponin (TNIH) and attachments. Estimated Creatinine Clearance Calc 48.55 ml/min [facility] Estimated GFR (MDRD) Amer 45 mL/min >60 [facility] Comment on above: GFR Calc Estimated GFR (MDRD) Non-Af Amer 37 mL/min >60 [facility] Comment on above: Non- GFR Calc Troponin I High Sensitivity 35 pg/mL 3.0-78.0 [facility] Comment on above: Please Note: New Shanda t Units and Gender Specific Reference Ranges. For more information see Policy Stat Procedure [place] High Sensitivity Troponin (TNIH) and attachments. No Panel InformationOrdered By: Dr. Carmen on 08-12-2022 Activated Clotting Time 245 sec 74-137 [facility] Platelets bldOrdered By: Dr. Gonzalez on 08-12-2022 Platelets (Bld) [#/Vol] 244 10*3/uL 150-450 [facility] Serum or plasma calcium sharon urement (mass/volume)Ordered By: Dr. Gonzalez on 08-12-2022 Calcium [Mass/Vol] 9.9 mg/dL 8.5-10.1 [facility] Serum or plasma creatinine m easurement (mass/volume)Ordered By: Dr. Gonzalez on 08-12-2022 Creatinine [Mass/Vol] 2.02 mg/dL 0.70-1.30 [facility] Comment on above: The validity of the calculated GFR & GFRAA in patients over 70 years has not been determined. Clinical correlation is essential. Serum or plasma urea nitroge n measurement (mass/volume)Ordered By: Dr. Gonzalez on 08-12-2022 Urea nitrogen [Mass/Vol] 34 mg/dL 7-18 [facility] Thin prep Papanicolaou smear with manual screeningOrdered By: Dr. Gonzalez on 08-12-2022 Thin prep Papanicolaou smear with manual screening 9 5-15 [facility] Basophil percentageOrdered B y: Dr. Ruffin on 07-26-2022 Basophil percentage 2.9 mg/dL 2.5-4.9 [facility] Chloride [Moles/Vol] 107 mmol/L 98-107 [facility] Glucose [Mass/Vol] 102 mg/dL 74-106 [facility] Comment on above: Fasting Glucose resu lt from 100 to 125 mg/dL suggests IMPAIRED HOMEOSTASIS per A.D.A. criteria. Potassium [Moles/Vol] 4.0 mmol/L 3.5-5.1 [facility] Comment on above: Moderate Hemolysis, Result may be falsely increased. Sodium [Moles/Vol] 140 mmol/L 136-145 [facility] Laboratory - Chemistry and C hemistry - challengeOrdered By: Dr. Ruffin on 07-26-2022 CO2 [Moles/Vol] 27.0 mmol/L 21.0-32.0 [facility] Urea nitrogen/Creatinine [Mass ratio] 18.4 mg/mg 10-20 [facility] No Panel InformationOrdered By: Dr. Ruffin on 07-26-2022 Estimated GFR (MDRD) Amer 69 mL/min >60 [facility] Comment on above: GFR Calc Estimated GFR (MDRD) Non-Af Amer 57 mL/min >60 [facility] Comment on above: Non- GFR Calc Serum or plasma albumin sharon urement (mass/volume)Ordered By: Dr. Ruffin on 07-26-2022 Albumin [Mass/Vol] 3.7 g/dL 3.2-5.0 [facility] Serum or plasma calcium sharon urement (mass/volume)Ordered By: Dr. Ruffin on 07-26-2022 Calcium [Mass/Vol] 9.0 mg/dL 8.5-10.1 [facility] Serum or plasma creatinine m easurement (mass/volume)Ordered By: Dr. Ruffin on 07-26-2022 Creatinine [Mass/Vol] 1.41 mg/dL 0.70-1.30 [facility] Comment on above: The validity of the calculated GFR & GFRAA in patients over 70 years has not been determined. Clinical correlation is essential. Serum or plasma urea nitroge n measurement (mass/volume)Ordered By: Dr. Ruffin on 07-26-2022 Urea nitrogen [Mass/Vol] 26 mg/dL 7-18 [facility] Serum or plasma uric acid me asurement (mass/volume)Ordered By: Dr. Ruffin on 07-26-2022 Urate [Mass/Vol] 6.4 mg/dL 3.5-7.2 [facility] Comment on above: The drugs N-Acetylcy steine and Metamizole may falsely depress this assay. Basophil percentageon 2021 Basophil percentage 3.1 mg/dL 2.5-4.9 [facility] Work Phone: Chloride [Moles/Vol] 105 mmol/L 98-107 [facility] Work Phone: Glucose [Mass/Vol] 97 mg/dL 74-106 [facility] Work Phone: Potassium [Moles/Vol] 4.0 mmol/L 3.5-5.1 [facility] Work Phone: Sodium [Moles/Vol] 139 mmol/L 136-145 [facility] Work Phone: Laboratory - Chemistry and C hemistry - challengeon 01-18-2022 CO2 [Moles/Vol] 28.0 mmol/L 21.0-32.0 [facility] Work Phone: Urea nitrogen/Creatinine [Mass ratio] 12.3 mg/mg 10-20 [facility] Work Phone: No Panel Informationon 01-18 Estimated GFR (MDRD) Amer 62 mL/min >60 [facility] Work Phone: Comment on above: GFR Calc Estimated GFR (MDRD) Non-Af Amer 51 mL/min >60 [facility] Work Phone: Comment on above: Non- GFR Calc Serum or plasma albumin sharon urement (mass/volume)on 01-18-2022 Albumin [Mass/Vol] 3.7 g/dL 3.2-5.0 [facility] Work Phone: Serum or plasma calcium sharon urement (mass/volume)on 01-18-2022 Calcium [Mass/Vol] 9.5 mg/dL 8.5-10.1 [facility] Work Phone: Serum or plasma creatinine m easurement (mass/volume)on 01-18-2022 Creatinine [Mass/Vol] 1.54 mg/dL 0.70-1.30 [facility] Work Phone: Comment on above: The validity of the calculated GFR & GFRAA in patients over 70 years has not been determined. Clinical correlation is essential. Serum or plasma urea nitroge n measurement (mass/volume)on 01-18-2022 Urea nitrogen [Mass/Vol] 19 mg/dL 7-18 [facility] Work Phone: Serum or plasma uric acid me asurement (mass/volume)on 01-18-2022 Urate [Mass/Vol] 9.0 mg/dL 3.5-7.2 [facility] Work Phone: Comment on above: The drugs N-Acetylcy steine and Metamizole may falsely depress this assay. DANNYOVevelyn 10-26-2021 CNOV Office Visit ([facility]) LUKE THOMAS ([id number]) 1970 [facility] Date Time Provider Department 10/26/21 1:45 PM MAGGIE WASHINGTON [facility] During your visit today, we recorded the following information about you: Temperature Pulse Respiration Blood pressure 97.4 degrees 86/minute 16/minute 130/88 Weight 116.8 kg Maggie Washington APRN.CNP 10/26/2021 1:49 PM Signed ASSESSMENT/PLAN: 1. Other acute nonsuppurative otitis media [...] Discussed expected course of illness Maggie Washington APRN.CELLOPHANE WORKER OTITIS MEDIA GENERAL INFORMATION: Otitis media is [...] even if the symptoms go away. 2. Mhdl-gxe-uqulnig pain medication may be taken or other [...] soothed by you holding him or her). Maggie Washington APRN.DAVID 10/26/2021 1:58 PM Signed Subjective HPI Luke Thomas is a 51 year old male who [...] PER MONTH allopurinol (ZYLOPRIM) 200 mg tablet Swedish Formulary Take 200 mg by mouth once [...] Nose normal. Mouth/Throat: Mouth: Mucous membranes are (more content not included)... Normal [facility] CNOVon 10-18-2021 CNOV Office Visit ([facility]) LUKE THOMAS ([id number]) 1970 [facility] Date Time Provider Department 10/18/21 12:45 PM JOSUE COVINGTON [facility] During your visit today, we recorded the following information about you: Temperature Pulse Blood pressure Weight 97.6 degrees 97/minute 126/84 116.2 kg Josue Covington MD 10/18/2021 2:23 PM Addendum Patient presents with: Pain: Pt reported lower [...] PER MONTH allopurinol (ZYLOPRIM) 200 mg tablet Swedish FormulaWithings Take 200 mg by mouth once daily. [...] pain is not resolving. Josue Covington MD Referring Provider: SELF [200] Allergies As of Date: 10/18/2021 (No Known Allergies) Date Reviewed: 08/04/2009 Reviewed by: Lacie Castro Robotic Technician - Reviewed Reason for Visit: Pain [78] Cmt: Pt reported lower (RT) groin pain radiating to leg, pain rated 3, x5 days Primary Visit Diagnosis:Abdominal pain, RLQ (right lower quadrant) [R10.31] Prescriptions as of 10/18/2021 - ergocalciferol 50,000 unit capsule (VITAMIN D2, DRISDOL) TAKE 1 CAPSULE BY MOUTH ONCE A WEEK FOR 8 WEEKS, THEN DECREASE TO 1 CAPSULE ONCE PER MONTH - allopurinol (ZYLOPRIM) 200 mg tablet [place] Formulary Take 200 mg by mouth once daily. Problem List As Of Date 10/18/2021 Noted Resolved Sleep Apnea [G47.30] 06/13/2009 Seasonal Allergies [J30.2] 06/13/2009 Medications Discontinued During This Encounter Prescriptions - hc acetate/lidocain hcl/halle v([place] HC 3 %-2.5 % (7 GRAM) RECTAL KIT) (Discontinued) Reported on 10/18/2021 Encounter Status:Closed by JOSUE COVINGTON on 10/18/21 Normal [facility] Vital Signs Date Time Vital Sign Value Performing Clinician Facility 12-29-2024 09:24-0400 Body mass index (BMI) [Ratio] 33.5 kg/m2 Dr. Berto Urena MD Work Phone: [facility] 12-29-2024 09:24-0400 Body temperature 97.3 [degF] Dr. Berto Urena MD Work Phone: [facility] 12-29-2024 09:24-0400 Body weight 112.[address] Berto Urena MD Work Phone: [facility] 12-29-2024 09:24-0400 Diastolic blood pressure 78 mm[Hg] Dr. Berto Urena MD Work Phone: [facility] 12-29-2024 09:24-0400 Heart rate 61 /min Dr. Berto Urena MD Work Phone: [facility] 12-29-2024 09:24-0400 Respiratory rate 18 /min Dr. Berto Urena MD Work Phone: [facility] 12-29-2024 09:24-0400 SaO2% (BldA) [Mass fraction] 98 % Dr. Berto Urena MD Work Phone: [facility] 12-29-2024 09:24-0400 Systolic blood pressure 117 mm[Hg] Dr. Berto Urena MD Work Phone: [facility] 12-27-2024 07:42-0400 Body height 182.[address] Berto Urena MD Work Phone: [facility] 12-27-2024 07:42-0400 Body mass index (BMI) [Ratio] 33.7 kg/m2 Dr. Berto Urena MD Work Phone: 6(631)830-595460 [place] [address] 12-27-2024 07:42-0400 Body weight 112.[address] Berto Urena MD Work Phone: 1(383)423-625460 [place] [address] 12-27-2024 07:42-0400 Diastolic blood pressure 86 mm[Hg] Dr. Berto Urena MD Work Phone: 7(530)359-309391 [place] [address] 12-27-2024 07:42-0400 Heart rate 58 /min Dr. Berto Urena MD Work Phone: 8(189)105-376991 [place] [address] 12-27-2024 07:42-0400 Respiratory rate 18 /min Dr. Berto Urena MD Work Phone: 8(479)325-195791 [place] [address] 12-27-2024 07:42-0400 SaO2% (BldA) [Mass fraction] 96 % Dr. Berto Urena MD Work Phone: 3(435)845-726291 [place] [address] 12-27-2024 07:42-0400 Systolic blood pressure 128 mm[Hg] Dr. Berto Urena MD Work Phone: 7(249)951-635591 [place] [address] 11-29-2024 14:57-0400 Body temperature 98.1 [degF] Dr. Berto Urena MD Work Phone: 3(140)331-751291 [place] [address] 11-29-2024 14:57-0400 Diastolic blood pressure 90 mm[Hg] Dr. Berto Urena MD Work Phone: 8(582)017-825891 [place] [address] 11-29-2024 14:57-0400 Heart rate 74 /min Dr. Berto Urena MD Work Phone: 5(607)680-260960 [place] [address] 11-29-2024 14:57-0400 Respiratory rate 15 /min Dr. Berto Urena MD Work Phone: 9(190)204-318791 [place] [address] 11-29-2024 14:57-0400 SaO2% (BldA) [Mass fraction] 98 % Dr. Berto Urena MD Work Phone: 6(171)949-057060 [place] [address] 11-29-2024 14:57-0400 Systolic blood pressure 119 mm[Hg] Dr. Berto Urena MD Work Phone: 3(737)741-907491 [place] [address] 11-29-2024 13:18-0400 Body height 182.[address] Berto Urena MD Work Phone: [facility] 11-29-2024 13:18-0400 Body mass index (BMI) [Ratio] 34.4 kg/m2 Dr. Berto Urena MD Work Phone: [facility] 11-29-2024 13:18-0400 Body weight 115.[address] Berto Urena MD Work Phone: [facility] 07-22-2023 14:26-0500 Diastolic blood pressure 92 mm[Hg] Dr. Berto Urena Work Phone: 7(525)998-096960 [place] [address] 07-22-2023 14:26-0500 Systolic blood pressure 136 mm[Hg] Dr. Berto Urena Work Phone: [facility] 07-22-2023 14:16-0500 Body height 182.[address] Berto Urena Work Phone: 6(685)342-931960 [place] [address] 07-22-2023 14:16-0500 Body mass index (BMI) [Ratio] 34.4 kg/m2 Dr. Berto Urena Work Phone: [facility] 07-22-2023 14:16-0500 Body weight 115.[address] Berto Urena Work Phone: [facility] 07-22-2023 14:16-0500 Heart rate 67 /min Dr. Berto Urena Work Phone: [facility] 07-22-2023 14:16-0500 Respiratory rate 16 /min Dr. Berto Urena Work Phone: [facility] 06-27-2023 23:36-0500 Heart rate 93 /min [facility] 06-27-2023 23:36-0500 Respiratory rate 17 /min [facility] 06-27-2023 23:36-0500 SaO2% (BldA) [Mass fraction] 98 % [facility] 06-27-2023 21:14-0500 Body height 182.88 cm [facility] 06-27-2023 21:14-0500 Body mass index (BMI) [Ratio] 34.2 kg/m2 [facility] 06-27-2023 21:14-0500 Body temperature 99.1 [degF] [facility] 06-27-2023 21:14-0500 Body weight 114.3 kg [facility] 06-27-2023 21:14-0500 Diastolic blood pressure 99 mm[Hg] [facility] 06-27-2023 21:14-0500 Systolic blood pressure 142 mm[Hg] [facility] 01-20-2023 23:30-0400 Body height 180.[address] Oscar Pace Work Phone: [facility] 01-20-2023 23:30-0400 Body mass index (BMI) [Ratio] 34.1 kg/m2 Dr. Oscar Pace Work Phone: [facility] 01-20-2023 23:30-0400 Body temperature 96.4 [degF] Dr. Oscar Pace Work Phone: [facility] 01-20-2023 23:30-0400 Body weight 111.[address] Oscar Pace Work Phone: [facility] 01-20-2023 23:30-0400 Diastolic blood pressure 110 mm[Hg] Dr. Oscar Pace Work Phone: [facility] 01-20-2023 23:30-0400 Heart rate 75 /min Dr. Oscar Pace Work Phone: [facility] 01-20-2023 23:30-0400 Respiratory rate 16 /min Dr. Oscar Pace Work Phone: [facility] 01-20-2023 23:30-0400 SaO2% (BldA) [Mass fraction] 97 % Dr. Oscar Pace Work Phone: [facility] 01-20-2023 23:30-0400 Systolic blood pressure 156 mm[Hg] Dr. Oscar Pace Work Phone: [facility] 12-25-2022 14:19-0400 Body height 182.[address] Oscar Pace Work Phone: [facility] 12-25-2022 14:19-0400 Body mass index (BMI) [Ratio] 33 kg/m2 Dr. Oscar Pace Work Phone: [facility] 12-25-2022 14:19-0400 Body weight 110.[address] Oscar Pace Work Phone: [facility] 12-25-2022 14:19-0400 Diastolic blood pressure 81 mm[Hg] Dr. Oscar Pace Work Phone: [facility] 12-25-2022 14:19-0400 Heart rate 59 /min Dr. Oscar Pace Work Phone: [facility] 12-25-2022 14:19-0400 Respiratory rate 16 /min Dr. Oscar Pace Work Phone: [facility] 12-25-2022 14:19-0400 Systolic blood pressure 118 mm[Hg] Dr. Oscar Pace Work Phone: [facility] 10-07-2022 13:09-0400 Body weight 112.[address] Oscar Pace Work Phone: [facility] 09-23-2022 09:46-0400 Body height 182.88 cm No Primary Care Physician [facility] 09-23-2022 09:46-0400 Body weight 111.85 kg No Primary Care Physician [facility] 09-10-2022 10:22-0400 Body height 182.88 cm No Primary Care Physician [facility] 09-10-2022 10:22-0400 Body mass index (BMI) [Ratio] 34 kg/m2 No Primary Care Physician [facility] 09-10-2022 10:22-0400 Body weight 113.85 kg No Primary Care Physician [facility] 09-10-2022 10:22-0400 Diastolic blood pressure 96 mm[Hg] No Primary Care Physician [facility] 09-10-2022 10:22-0400 Heart rate 68 /min No Primary Care Physician [facility] 09-10-2022 10:22-0400 Respiratory rate 16 /min No Primary Care Physician [facility] 09-10-2022 10:22-0400 Systolic blood pressure 142 mm[Hg] No Primary Care Physician [facility] 09-05-2022 10:20-0500 Body weight 116.11 kg No Primary Care Physician [facility] 09-05-2022 10:01-0500 Body mass index (BMI) [Ratio] 35.6 kg/m2 No Primary Care Physician [facility] 09-05-2022 10:01-0500 Body temperature 97.4 [degF] No Primary Care Physician [facility] 09-05-2022 10:01-0500 Diastolic blood pressure 67 mm[Hg] No Primary Care Physician [facility] 09-05-2022 10:01-0500 Heart rate 72 /min No Primary Care Physician [facility] 09-05-2022 10:01-0500 Respiratory rate 14 /min No Primary Care Physician [facility] 09-05-2022 10:01-0500 SaO2% (BldA) [Mass fraction] 97 % No Primary Care Physician [facility] 09-05-2022 10:01-0500 Systolic blood pressure 119 mm[Hg] No Primary Care Physician [facility] 08-28-2022 22:08-0500 Respiratory rate 16 /min No Primary Care Physician [facility] 08-28-2022 21:19-0500 Body height 180.34 cm No Primary Care Physician [facility] 08-28-2022 21:19-0500 Body mass index (BMI) [Ratio] 75.9 kg/m2 No Primary Care Physician [facility] 08-28-2022 21:19-0500 Body temperature 98 [degF] No Primary Care Physician [facility] 08-28-2022 21:19-0500 Body weight 247 kg No Primary Care Physician [facility] 08-28-2022 21:19-0500 Diastolic blood pressure 113 mm[Hg] No Primary Care Physician [facility] 08-28-2022 21:19-0500 Heart rate 96 /min No Primary Care Physician [facility] 08-28-2022 21:19-0500 SaO2% (BldA) [Mass fraction] 100 % No Primary Care Physician [facility] 08-28-2022 21:19-0500 Systolic blood pressure 150 mm[Hg] No Primary Care Physician [facility] 08-15-2022 14:18-0500 Body temperature 97.2 [degF] No Primary Care Physician [facility] 08-15-2022 14:18-0500 Diastolic blood pressure 81 mm[Hg] No Primary Care Physician [facility] 08-15-2022 14:18-0500 Heart rate 83 /min No Primary Care Physician [facility] 08-15-2022 14:18-0500 Respiratory rate 15 /min No Primary Care Physician [facility] 08-15-2022 14:18-0500 SaO2% (BldA) [Mass fraction] 98 % No Primary Care Physician [facility] 08-15-2022 14:18-0500 Systolic blood pressure 137 mm[Hg] No Primary Care Physician [facility] 08-15-2022 05:23-0500 Body weight 116.5 kg No Primary Care Physician [facility] 08-13-2022 07:00-0500 Inhaled oxygen flow rate 2 L/min No Primary Care Physician [facility] 08-13-2022 06:56-0500 Inhaled oxygen concentration 98 % No Primary Care Physician [facility] 08-12-2022 22:59-0500 Body mass index (BMI) [Ratio] 34.6 kg/m2 No Primary Care Physician [facility] 08-12-2022 21:46-0500 Body temperature 98.1 [degF] No Primary Care Physician [facility] 08-12-2022 21:46-0500 Diastolic blood pressure 67 mm[Hg] No Primary Care Physician [facility] 08-12-2022 21:46-0500 Heart rate 72 /min No Primary Care Physician [facility] 08-12-2022 21:46-0500 Inhaled oxygen flow rate 2 L/min No Primary Care Physician [facility] 08-12-2022 21:46-0500 Respiratory rate 20 /min No Primary Care Physician [facility] 08-12-2022 21:46-0500 SaO2% (BldA) [Mass fraction] 97 % No Primary Care Physician [facility] 08-12-2022 21:46-0500 Systolic blood pressure 119 mm[Hg] No Primary Care Physician [facility] 08-12-2022 19:18-0500 Body height 182.88 cm No Primary Care Physician [facility] 08-12-2022 19:18-0500 Body mass index (BMI) [Ratio] 34.5 kg/m2 No Primary Care Physician [facility] 08-12-2022 19:18-0500 Body weight 115.66 kg No Primary Care Physician [facility] 06-10-2022 16:34-0500 Body height 180.34 cm [facility] 06-10-2022 16:34-0500 Body mass index (BMI) [Ratio] 30.1 kg/m2 [facility] 06-10-2022 16:34-0500 Body temperature 96.5 [degF] [facility] 06-10-2022 16:34-0500 Body weight 97.97 kg [facility] 06-10-2022 16:34-0500 Diastolic blood pressure 119 mm[Hg] [facility] 06-10-2022 16:34-0500 Heart rate 110 /min [facility] 06-10-2022 16:34-0500 Respiratory rate 18 /min [facility] 06-10-2022 16:34-0500 SaO2% (BldA) [Mass fraction] 99 % [facility] 06-10-2022 16:34-0500 Systolic blood pressure 187 mm[Hg] [facility] 04-03-2022 22:51-0400 Body temperature 98.9 [degF] [facility] Work Phone: 04-03-2022 22:51-0400 Diastolic blood pressure 108 mm[Hg] [facility] Work Phone: 04-03-2022 22:51-0400 Heart rate 120 /min [facility] Work Phone: 04-03-2022 22:51-0400 Respiratory rate 16 /min [facility] Work Phone: 04-03-2022 22:51-0400 SaO2% (BldA) [Mass fraction] 96 % [facility] Work Phone: 04-03-2022 22:51-0400 Systolic blood pressure 168 mm[Hg] [facility] Work Phone: 04-03-2022 22:43-0400 Body height 182.88 cm [facility] Work Phone: 04-03-2022 22:43-0400 Body mass index (BMI) [Ratio] 35.2 kg/m2 [facility] Work Phone: 04-03-2022 22:43-0400 Body weight 117.93 kg [facility] Work Phone: 03-17-2022 14:43-0400 Body height 180.34 cm [facility] Work Phone: 03-17-2022 14:43-0400 Body mass index (BMI) [Ratio] 36.2 kg/m2 [facility] Work Phone: 03-17-2022 14:43-0400 Body temperature 97.8 [degF] [facility] Work Phone: 03-17-2022 14:43-0400 Body weight 117.93 kg [facility] Work Phone: 03-17-2022 14:43-0400 Diastolic blood pressure 99 mm[Hg] [facility] Work Phone: 03-17-2022 14:43-0400 Heart rate 98 /min [facility] Work Phone: 03-17-2022 14:43-0400 Respiratory rate 18 /min [facility] Work Phone: 03-17-2022 14:43-0400 SaO2% (BldA) [Mass fraction] 98 % [facility] Work Phone: 03-17-2022 14:43-0400 Systolic blood pressure 149 mm[Hg] [facility] Work Phone: 10-26-2021 13:41-0400 Body temperature 97.39 [degF] Maggie Praisler-Wood DATABASE 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: [facility] 10-26-2021 13:41-0400 Body weight 116.85 kg Maggie Praisler-Wood DATABASE 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: [facility] 10-26-2021 13:41-0400 Diastolic blood pressure 88 mm[Hg] Maggie Praisler-Wood DATABASE 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: [facility] 10-26-2021 13:41-0400 Heart rate 86 /min Maggie Praisler-Wood DATABASE 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: [facility] 10-26-2021 13:41-0400 Respiratory rate 16 /min Maggie Praisler-Wood DATABASE 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: [facility] 10-26-2021 13:41-0400 SaO2% (BldA) [Mass fraction] 98 % Maggie Praisler-Wood DATABASE 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: [facility] 10-26-2021 13:41-0400 Systolic blood pressure 130 mm[Hg] Maggie Praisler-Wood DATABASE 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: [facility] 10-18-2021 12:41-0400 Body temperature 97.59 [degF] Josue Covington MD Work Phone: [facility] 10-18-2021 12:41-0400 Body weight 116.21 kg Josue Covington MD Work Phone: [facility] 10-18-2021 12:41-0400 Diastolic blood pressure 84 mm[Hg] Josue Covington MD Work Phone: [facility] 10-18-2021 12:41-0400 Heart rate 97 /min Josue Covington MD Work Phone: [facility] 10-18-2021 12:41-0400 SaO2% (BldA) [Mass fraction] 98 % Josue Covington MD Work Phone: [facility] 10-18-2021 12:41-0400 Systolic blood pressure 126 mm[Hg] Josue Covington MD Work Phone: [facility] Encounters Encounter Date Encounter Type Care Provider Facility Start: 02-24-2025 ambulatory Marina Evans DISC INSPECTOR Facili ty:[facility] Start: 02-02-2025 ambulatory Berto Chi Romel Facility:[facility] Start: 01-31-2025 ambulatory [facility] Facility: [facility] Start: 12-29-2024 End: 12-29-2024 Patient encounter procedure DISC INSPECTOR Sofia Jean -[facility] Work Phone: Start: 12-29-2024 End: 12-29-[address] Berto Urena MD Work Phone: -[facility] Start: 12-27-2024 End: 12-27-2024 Patient encounter procedure Marina Evans DISC INSPECTOR-C -[facility] Work Phone: Start: 12-27-2024 End: 12-27-[address] Berto Urena MD Work Phone: -[facility] Start: 12-08-2024 ambulatory Berto Chi Romel Facility:[facility] Start: 11-29-2024 End: 11-29-2024 Emergency department patient visit Dr. Berto Urena MD Work Phone: -Emergency Department Work Phone: Start: 08-18-2024 ambulatory Berto Chi Romel Facility:[facility] Start: 07-20-2024 End: 07-20-2024 ambulatory Berto Chi Romel Facility:[facility] Start: 05-10-2024 End: 05-10-2024 ambulatory Cynthia Froy Facility:[facility] Start: 03-09-2024 End: 03-09-2024 ambulatory Berto Chi Romel Facility:[facility] Start: 02-02-2024 ambulatory Berto Chi Romel Facility:[facility] Start: 10-20-2023 End: 10-20-[address] Berto Urena Work Phone: [facility] Work Phone: Start: 10-20-2023 End: 10-20-[address] [facility] Start: 07-30-2023 End: 07-30-[address] Berto Urena Work Phone: [facility] Work Phone: Start: 07-30-2023 End: 07-30-[address] eBrto Urena Work Phone: [facility] Work Phone: Start: 07-22-2023 End: 07-22-[address] Berto Urena Work Phone: [facility] Work Phone: Start: 06-27-2023 End: 06-27-2023 [facility] Start: 04-01-2023 End: 04-01-2023 Patient encounter procedure [facility]rd Flr Start: 02-19-[address] Oscar Pace Work Phone: [facility] Fl[facility] Start: 02-14-2023 End: 02-14-[address] Oscar Pace Work Phone: [facility] Work Phone: Start: 02-14-2023 End: 02-14-[address] [facility] Start: 01-20-2023 End: 01-21-2023 Emergency department patient visit [facility] Pace [facility] Work [facility]: Start: 12-26-2022 End: 12-26-2022 Orders Only Dylon Jean MD Work Phone: [facility] Comment on above: Encounter for screen ing colonoscopy (Primary Dx) Start: 12-26-2022 End: 12-26-[address] Oscar Pace Work Phone: [facility] Work Phone: Start: 12-25-2022 End: 12-25-[address] Oscar Pace Work Phone: [facility] Work Phone: Start: 12-06-2022 Non-patient / Non-visit Dr. Tai Pace Work Phone: [facility] Work Phone: Start: 10-21-2022 End: 10-27-[address] Oscar Pace Work Phone: [facility] Work Phone: Start: 10-02-2022 Telephone encounter Dylon Jean MD Work Phone: SURGERY Comment on above: screening colonoscop y checklist Start: 09-27-2022 End: 09-27-2022 ambulatory No Primary Care Physician [facility] Work Phone: Start: 09-27-2022 End: 09-27-2022 Discharged Recurring No Primary Care Physician [facility] Start: 09-24-2022 Telephone encounter Waleska Sena APRN.CNP Work Phone: [facility] Comment on above: Referral Information Start: 09-24-2022 End: 09-24-2022 ambulatory [facility]NA [facility] Start: 09-24-2022 Encounter for genera l adult medical examination without abnormal findings WALESKA SENA [facility] Start: 09-23-2022 End: 09-27-2022 ambulatory No Primary Care Physician [facility] Work Phone: Start: 09-23-2022 End: 09-27-2022 Discharged Recurring No Primary Care Physician [facility] Start: 09-23-2022 Registered Recurring No Primar y Care Physician [facility] Start: 09-16-2022 Registered Recurring No Primar y Care Physician [facility] Start: 09-11-2022 Registered Recurring No Primar y Care Physician [facility] Start: 09-10-2022 End: 09-10-2022 ambulatory No Primary Care Physician [facility] Work Phone: Start: 09-10-2022 End: 09-10-2022 Patient encounter procedure No Primary Care Physician [facility] Start: 09-05-2022 End: 09-05-2022 ambulatory No Primary Care Physician [facility] Work Phone: Start: 09-05-2022 End: 09-05-2022 Patient encounter procedure No Primary Care Physician [facility] Start: 08-28-2022 End: 08-28-2022 Emergency department patient visit No Primary Care Physician [facility] Start: 08-15-2022 Non-patient / Non-visit No Karlie bains Care Physician [facility] Start: 08-15-2022 End: 08-15-2022 Non-patient / Non-visit No Primary Care Physician [facility] Start: 08-14-2022 Non-patient / Non-visit No Karlie bains Care Physician [facility] Start: 08-14-2022 Non-patient / Non-visit No Karlie bains Care Physician [facility] Start: 08-13-2022 Non-patient / Non-visit No Karlie nara Care Physician [facility] Start: 08-13-2022 Non-patient / Non-visit No Karlie bains Care Physician [facility] Start: 08-13-2022 Non-patient / Non-visit No Karlie bains Care Physician [facility] Start: 08-12-2022 Non-patient / Non-visit No Karlie bains Care Physician [facility] Start: 08-12-2022 Non-patient / Non-visit No Karlie nara Care Physician [facility] Start: 08-12-2022 End: 08-15-2022 Evaluation and management of inpatient No Primary Care Physician [facility] Start: 07-26-2022 End: 07-26-2022 ambulatory [facility] Work Phone: Start: 07-26-2022 End: 07-26-2022 Patient encounter procedure [facility] Start: 06-10-2022 End: 06-10-2022 Emergency department patient visit [facility] Start: 04-03-2022 End: 04-03-2022 Emergency department patient visit [facility] Start: 03-17-2022 End: 03-17-2022 Emergency department patient visit [facility] Start: 01-18-2022 End: 01-18-2022 Patient encounter procedure [facility] Start: 10-26-2021 End: 10-26-2021 Patient encounter procedure Maggie Washington APRN.CNP Work Phone: [facility] Comment on above: Other acute nonsuppu rative otitis media of right ear, recurrence not specified (Primary Dx) Start: 10-18-2021 End: 10-18-2021 Patient encounter procedure Josue Covington MD Work Phone: [facility] Comment on above: Abdominal pain, RLQ (right lower quadrant) (Primary Dx) Procedures Date Procedure Procedure Detail Performing Clinician Start: 11-29-2024 Plain chest X-ray Dr. Kevin Urena MD Work Phone: Start: 11-29-[address] Berto Urena MD Work Phone: Start: 06-27-2023 SARS-CoV-2, Influenz a & RSV (PCR) Start: 08-12-2022 Plain chest X-ray No [facility] Care Physician Start: 07-31-2022 History of placement of stent for coronary artery disease History of coronary artery stent placement Marina Evans DISC INSPECTOR-C Comment on above: PTCA/DALIA Distal RCA using Resolute [place] 2.5x18mm and Resolute [place] 3.0x8mm Start: 06-10-2022 X-ray of both feet Start: 06-20-2009 Lipid 1996 panel - Serum or Plasma Dylon Jean MD Work Phone: Plan of Treatment Date Care Activity Detail Author Start: 09-13-2026 Urine microalbumin profile [facility] Start: 11-29-[address] [facility] Start: 11-29-[address] [facility] Start: 09-25-2023 ANNUAL PCP TEAM DIRECTOR OF L[place] FRITZ DISEASE VISIT ANNUAL PCP TEAM CHRONIC DISEASE VISIT [facility] Start: 09-25-2023 BP CONTROLLED (<130/80) BP CONTROLLE D (<130/80) [facility] Start: 09-25-2023 COLORECTAL CANCER SCREENING COLORECTAL CANCER SCREENING [facility] Comment on above: Postponed from 09/29 (Declined at this time) Start: 09-25-2023 COVID-19 VACCINE (#1) COVID-19 VACCI NE (#1) [facility] Comment on above: Postponed from 03/31 (Declined at this time) Start: 09-25-2023 HEPATITIS B (1 of 3 - 3-dose series) HEPATITIS B (1 of 3 - 3-dose series) [facility] Comment on above: Postponed from 09/29 (Declined at this time) Start: 09-25-2023 Hepatitis B Vaccine (1 of 3 - 3-dose series) Hepatitis B Vaccine (1 of 3 - 3-dose series) [facility] [facility] Comment on above: Postponed from 09/29 (Declined at this time) Start: 06-27-[address] [facility] Start: 03-25-2023 End: 12-27-2023 Screening colonoscopy COLONOSCOPY SCREENING Endoscopy Routine Encounter for screening colonoscopy Expected: 03/25/2023, Expires: 12/27/2023 [facility] Work Phone: Comment on above: Expected: 03/25/2023 , Expires: 12/27/2023 Start: 02-28-2023 Influenza vaccination [facility] Start: 2022 SHINGRIX VACCINE (1 of 2) SHINGRIX VACCINE (1 of 2) [facility] Start: 09-05-2022 Patient referral to dietitian [facility] Start: 08-15-2022 Patient discharge [facility] Start: 08-13-2022 Patient referral [facility] Work Phone: Start: 08-12-2022 Ambulation without limitation [facility] Start: 08-12-[address] [facility] Start: 08-12-2022 Cardiac monitoring [facility] Start: 08-12-2022 Cardiac rehabilitati on - phase 1 [facility] Start: 08-12-2022 Cardiac rehabilitati on - phase 2 [facility] Start: 08-12-2022 End: 08-12-2022 Notification of physician [facility] Start: 08-12-2022 Oxygen therapy [facility] Start: 08-12-2022 Provision of activit y privileges [facility] Start: 08-12-2022 Taking patient vital signs [facility] Start: 08-12-2022 Vascular disease ris k assessment [facility] Start: 08-12-2022 Vital signs measurements [facility] Start: 08-12-2022 End: 08-12-2022 [facility] Start: 08-12-2022 Following clinical pathway protocol [facility] Start: 08-12-2022 Admission procedure [facility] Start: 08-12-2022 Blood chemistry [facility] Start: 08-12-2022 End: 08-13-2022 [facility] Start: 02-28-2022 Influenza vaccination INFLUENZ A (Season Ended) [facility] Start: 01-16-2019 Urine microalbumin profile DTAP,TDAP,TD (2 - Td or Tdap) [facility] Start: 2017 COLOGUARD (FIT-DNA) COLOGUARD (FIT-D NA) [facility] Start: 2017 Colonoscopy COLONOSCOPY [facility] Start: 2017 COLORECTAL CANCER SCREENING COLORECTAL CANCER SCREENING [facility] Start: [address] COLONOGRAPHY [facility] Start: 2017 DIABETES SCREEN DIABETES SCREEN [facility] Start: 2017 Diabetes Screening Diabetes Screenin g [facility] Start: 2017 FECAL OCCULT BLOOD FECAL OCCULT BLOO D [facility] Start: 2017 SIGMOIDOSCOPY SIGMOIDOSCOPY [facility] Start: 06-20-2014 Lipid 1996 panel - S lori or Plasma Lipid Screening [facility] Start: 06-20-2014 LIPID SCREEN LIPID SCREEN [facility] Start: 06-20-2010 HEMOGLOBIN/HEMATOCRIT HEMOGLOBIN/HEM ATOCRIT [facility] Start: 06-20-2010 Hepatitis B surface antibody level LDL CHOLESTEROL [facility] Start: 1990 HEPATITIS C SCREENING HEPATITIS C SC REENING [facility] Start: 1990 HIV SCREENING HIV SCREENING [facility] Start: 1990 SERUM CREATININE SERUM CREATININE [facility] Start: 1984 Adult depression screening assessment DEPRESSION SCREENING [facility] Start: 1977 COVID-19 VACCINE (1) COVID-19 VACCIN E (1) [facility] H&P for surgery H&P FOR SURGERY Procedures Routine Encounter for screening colonoscopy Ordered: 12/26/2022 [facility] Work Phone: Comment on above: Ordered: 12/26/[address] [facility] Work Phone: Patient referral [facility] Work Phone: Radionuclide imaging of perfusion of myocardium under exercise stress [facility] Immunizations Immunization Date Immunization Notes Care Provider Adithya grace 09-13-2016 tetanus toxoid, redu whitney diphtheria toxoid, and acellular pertussis vaccine, adsorbed Waleska Sena APRN.CNP Work Phone: [facility] 01-16-2009 tetanus toxoid, redu whitney diphtheria toxoid, and acellular pertussis vaccine, adsorbed Josue Covington MD Work Phone: [facility] Work Phone: Payers Date Payer Category Payer Self-pay [id number] 2022 Medicaid [place] MED[place] [facility] MEDICAID [id number] 2022-Present [phone] [address] [place] [address] Medicaid [id number] 2022 Unknown [id number] [facility] 2019 Medicaid [place] [facility] MEDICAID [id number] 2019-Present [phone] [address] [place] [address] Medicaid [id number] 2011 Unknown [id number] Unknown [id number] Unknown [id number] Unknown [id number] Unknown [id number] Unknown [id number] Unknown [id number] Unknown [id number] Unknown [id number] Unknown [id number] Unknown [id number] Unknown [id number] Unknown [id number] Social History Date Type Detail Facility Start: 09-24-2022 Tobacco smoking stat us NHIS Ex-smoker [facility] End: 06-30-2000 History of tobacco use Current smoker [facility] End: 06-30-2000 History of tobacco use Cigarette Smoker [facility] Start: 10-18-2021 End: 09-24-2022 Alcohol intake Current drinker of alcohol (finding) [facility] Start: 06-13-2009 History SDOH Alcohol Comment rare use - much less than one drink/week [facility] Start: 1970 Sex Assigned At Not on file [facility] Start: 10-08-2021 End: 10-26-2021 Exposure to SARS-CoV-2 (event) Not sure [facility] Start: 08-25-2021 End: 07-22-2023 Tobacco smoking status INIS Unknown if ever smoked [facility] Start: 08-17-[address] [facility] Start: 08-17-2020 Spouse/ Signif icant Other [facility] Start: 1970 Sex Assigned At Male [facility] Start: 09-24-2022 Cigarettes smoked current (pack per day) - Reported 0.5 [facility] Work Phone: Start: 09-24-2022 Tobacco use and exposure Smokeless tobacco non-user [facility] Start: 09-24-2022 Tobacco use panel [facility] Work Phone: Adult Depression Screening Assessment 0 [facility] Work Phone: Start: 11-29-2024 End: 12-29-2024 Tobacco smoking status NHIS Never smoked tobacco (finding) [facility] Medical Equipment Procedure Code Equipment Code Equipment Origin al Text Equipment Identifier Dates Drug-eluting coronary artery stent, [id number] lymer-coated [id number] FDA Start: 08-12-2022 Drug-eluting coronary artery stent, [id number] lymer-coated ()[id number] FDA Start: 08-12-2022 Goals Date Patient Goal Desired Activity /State Functional Status Date Assessment Result Facility 08-15-2022 Functional status Ambulates;Bathroom Priv ilege [facility] Work Phone: Mental Status Date Assessment Result Facility 11-29-2024 Cognitive function Voice/Name [facility] Work Phone: 06-27-2023 Cognitive function Level Of Cons ciousness Awake;Alert;Appropriate;Follow s Commands [facility] Work Phone: 08-15-2022 Cognitive function Voice/Name [facility] Work Phone: 08-12-2022 Cognitive function Voice/Name [facility] Work Phone: 04-03-2022 Cognitive function Level Of Cons ciousness Awake;Alert;Appropriate;Follow s Commands [facility] Work Phone: Clinical Notes 10-18-2021 to 12-27-2024 Note Date & Type Note Facility 12-27-2024 Evaluation note Diagnosis Onset Date Resolution Chronic kidney disease chronic December 27, 2024 9:51am Dyslipidemia chronic December 27 9:51am Essential (primary) hypertension chronic December 27, 2024 9:51am History of coronary artery stent placement July, chronic December 27, 2024 9:51am Chest pain inactive December 27 9:51am Obstructive sleep apnea acute December 29, 2024 1:37pm [facility] Work Phone: 1(438) 679-569306-02-2025 Radiology Diagnostic study note [facility] Imaging Services [address] [place] [address] Chest 1 View (Portable) MR#: [id number] Acct: [id number] Name: LUKE THOMAS Rep #: [id number] : 1970 M 54 From: Margaret Andrew MD PCP: Dr. Berto Urena MD Status: REG E R Study:Chest 1 View (Portable) Date of Exam: 11/29/24 Exam# [id number] Ordering Dr: Gaston Beauchamp DO PROCEDURE: CHEST 1 VIEW (PORTABLE) 11/29/2024 REASON FOR EXAM: CHEST PAIN TECHNIQUE: Frontal view of the chest. COMPARISON: 08/12/2022 FINDINGS: Lungs: Lungs clear of pneumonia and congestion. Pleura: No pleural effusions, thickening, or pneumothorax. Heart: Normal in size and configuration. Mediastinum/Reyna: Unremarkable. Great vessels: Unremarkable. Bones/soft tissues: Unremarkable. Cardiac monitoring leads overlie the chest wall. RAD/Chest 1 View (Portable) IMPRESSION: No active cardiopulmonary disease. Reading Location: [place] [address] CC: Dr. Domingo Beauchamp DO; Dr. Berto Urnea MD ~ [employer] Member: Signed [facility]12-29-2023 Discharge summary Author Dav Woody [facility] June 27, 2023 11:32pm Note Date/Time June 27, 2023 10:18pm [facility] Medical Records Department [address] [place] [address] Emergency Department Summary 06/27/23 MR#: [id number] Acct: [id number] Name: LUKE THOMAS Mauro Meade Rep #:[id number] : 1970 52 From: Dav Woody MD PCP: Dr. Berto Urena MD Status:REG E R Location: ED HPI History of Present Illness Chief Complaint: General Illness Informant: patient Onset/Context/Timing Onset: Today and Yesterday Context: Gradual Onset Timing: Continuous Current Severity: Mild Maximum Severity: Mild Narrative Narrative: 52-year-old male history of CAD and CKD. On Brilinta. URI symptoms last 2 days. Denies nausea or vomiting. He has been taking in p.o. fluids. He still urinating. Complaining of dry cough fever and body aches. Prior similar symptoms: Yes Recent Illness/Hospitalization: No PFSH PFSH Medical History Acute otitis media of left ear with perforation Atherosclerosis of coronary artery of cachil dehe heart without angina pectoris Chronic kidney disease Dyslipidemia Essential (primary) hypertension Gout STEMI (ST elevation myocardial infarction) Swelling of arm URI (upper respiratory infection) Home Medications nitroglycerin 0.4 mg sublingual tablet 0.4 mg sublingual Q5M PRN chest pain #30 tabs 08/15/22 [Rx Last Taken Unknown] allopurinol 300 mg tablet 300 mg PO DAILY 09/10/22 [History Last Taken Unknown] ergocalciferol (vitamin D2) 1,250 mcg (50,000 unit) capsule 50,000 unit PO QMONTH 09/10/22 [History Last Taken Unknown] atorvastatin 40 mg tablet 40 mg PO QHS #90 tabs 12/13/22 [Rx Last Taken Unknown] ticagrelor 90 mg tablet (Brilinta) 90 mg PO BID #180 tabs 12/13/22 [Rx Last Taken Unknown] aspirin 81 mg tablet,delayed release 81 mg PO DAILY #90 tabs 01/13/23 [Rx Last Taken Unknown] prednisone 20 mg tablet 40 mg (2 x 20 mg) PO DAILY 10 days #20 tabs 01/21/23 [Rx Last Taken Unknown] metoprolol tartrate 50 mg tablet See Rx Instructions .Route .COMPLEX #180 tabs 06/24/23 [Rx Last Taken Unknown] Allergy/AdvReac Type Severity Reaction Status Date / Time No Known Allergies Allergy Verified 06/27/23 21:16 Surgical History History of coronary artery stent placement (~08/12/22) Hx of tonsillectomy Social History Smoking Status: Former smoker alcohol intake: current alcohol intake frequency: holidays/special occasions only details: rarely substance use type: does not use caffeine: Yes Type: coffee Number of servings: 1 ROS ROS ED ROS Narrative Dry cough. Fever and chills. Review of Systems ROS Unobtainable: Denies due to encephalopathy Constitutional Constitutional ED: Reports chills and fever(s) Eyes Eyes: Denies blurry vision ENT ENT ED: Denies ear pain, rhinorrhea or sore throat Cardiovascular Cardiovascular: Denies chest pain or palpitations Respiratory/Chest Respiratory/Chest: Reports cough; Denies dyspnea Gastrointestinal Gastrointestinal: Denies abdominal pain, constipation, diarrhea, melena, nausea or vomiting Genitourinary Genitourinary ED: Denies dysuria Musculoskeletal Musculoskeletal: Reports myalgias; Denies arthralgias, back pain or neck pain Integumentary Denies abscess, Abrasions or rash Neurologic Neurologic: Denies headache(s) Psychiatric Psychiatric: Denies anxiety or depression Endocrine Endocrinology: Denies cold intolerance Hematologic/Lymphatic Hematologic/Lymphatic: Reports none Allergic/Immunologic Allergic/Immunologic ED: Denies mouth swelling, tongue swelling or urticaria EXAM Physical Exam Narrative Exam Narrative: Well-appearing 52-year-old male. Vital signs are stable. Temperature 99.1 he does not look septic or toxic. He does not look dehydrated. He is resting comfortably. H EENT exam unremarkable. Moist membranes. Neck nontender. Lungs dry cough. No rales, rhonchi or wheezing. Equal symmetrical. Clear. Heart regular rhythm rate about 90 no murmur. Abdomen soft nontender. Moving all 4 extremities. Calves are nontender without edema or cords. Neurologicallyis awake and alert. Const Vital Signs: 06/27/23 21:14 06/27/23 21:13 Temperature 99.1 F Temperature Source Temporal Pulse Rate 92 Respiratory Effort Normal Non-Labored Respiratory Pattern Normal Blood Pressure 142/99 H Blood Pressure Mean 113 Pulse Ox 96 Oxygen Delivery Method Room Air Positive well nourished and well developed; Negative for cachectic, contracturesor unkempt General Appearance ED: well developed and NAD; Negative for unkempt, cachectic, contractures, cyanotic, diaphoretic or pallor Nutritional Appearance: Negative for cachectic HEENT Reports moist mucous membranes Negative for trauma or tenderness Eyes PERRL and EOMs intact bilaterally General Eye ED: Negative for pale conjunctiva, scleral icterus or other Neck no lymphadenopathy, supple and no JVD General: Negative for tenderness Lymph Lymphatic: Negative for other Chest Wall inspection of chest normal and palpation of chest normal Chest: Negative for other Resp normal respiratory effort and clear to auscultation bilaterally Effort and Inspection: Negative for retractions Auscultation: Negative for rales, rhonchi or wheezes Cardio regular rate, regular rhythm, S1 normal heart sound, S2 normal heart sound and no murmurs Rhythm: Negative for abnormal rhythm GI normal to inspection, nondistended, normoactive bowel sounds, non-tender, non-distended and no masses Inspection: Negative for abdominal distention Auscultation: normoactive bowel sounds Palpation: soft; Negative for tender or guarding Back/Spine no CVA tenderness General Back: Negative for CVA tenderness or other Cervical Spine: Negative for cervical spine tenderness Thoracic Spine / Upper Back: Negative for thoracic spinal tenderness or paraspinal muscle tenderness Lumbar Spine / Lower Back: Negative for lumbar spinal tenderness Extremity normal to inspection General Extremety ED: Negative for edema, tenderness or other findings General Extremity: Negative for edema or other findings Neuro oriented x3 and CN's II-XII intact bilaterally Sensorium / Orientation: alert; Negative for orientation impaired, lethargic or stuporous Motor Exam: strength 5/5 throughout Psych mental status grossly normal Appearance: Negative for unkempt Attitude: No agitated Mood & Affect: Negative for depressed, anxious or tearful Skin no rashes or lesions noted, no wounds and skin turgor normal General Skin Exam: elasticity normal; Negative for jaundice or pallor Lesions: No lesion noted Rashes: No rashes noted Trauma: Negative for abrasion Wounds: Negative for wounds noted MDM MDM MDM Narrative Medical decision making narrative: 52-year-old male with URI symptoms. I do not believe he needs a chest x-ray at this time I do not hear any pneumonia. RSV COVID and flu will be obtained. He did not want an IV or IV fluids clinically I do not think he needs it at this time and he is drinking glasses ice water bedside. repeat exam doing well at 11:30 p.m. His drink p.o. fluids. History & Record Review Discussion w/independent historian: Patient Additional record(s) reviewed:: Prior inpatient record, Prior outpatient record,Prior ED visit and Prior labs Lab Data Attestation: I reviewed the patient's lab results. Lab results narrative: Influenza A positive. COVID and RSV negative. Discharge Plan Triage Chief Complaint: General Illness ED Provider: Dav Woody Dx/Rx/DC Orders Clinical Impression: Influenza A, Chronic kidney disease, History of coronary artery disease Instructions: The Flu (Influenza) Prescriptions: No Action allopurinol 300 mg tablet 300 mg PO DAILY ergocalciferol (vitamin D2) 1,250 mcg (50,000 unit) capsule 50,000 unit PO QMONTH nitroglycerin 0.4 mg tablet, sublingual 0.4 mg sublingual Q5M PRN (Reason: chest pain) Qty: 30 0RF Rx Instructions: do not exceed 3 doses per episode prednisone 20 mg tablet 40 mg PO DAILY 10 Days Qty: 20 0RF atorvastatin 40 mg tablet 40 mg PO QHS Qty: 90 3RF Brilinta 90 mg tablet 90 mg PO BID Qty: 180 3RF aspirin 81 mg tablet,delayed release (DR/EC) 81 mg PO DAILY Qty: 90 3RF metoprolol tartrate 50 mg tablet See Rx Instructions .ROUTE .COMPLEX Qty: 180 3RF Dose Instruction: Take 1 tablet by mouth twice daily Rx Instructions: Take 1 tablet by mouth twice daily Primary Care Provider: Berto Urena Chi Referrals: Berto Urena Chi, MD [Primary Care Provider] - 3-5 Days if not improving Activity Restrictions/Additional Instructions: Plenty of fluids and rest. Tylenol for fever. Follow-up if not improving or return if worse. You have the flu. Disposition Disposition: Home, Self Care What to do if you have Problems For any increased pain, shortness of breath, bleeding, nausea or vomiting, chestpain, or any unexpected problems, contact your Primary Care Provider. Call [facility] ([phone]) or report to the closest Emergency Room. Call 911 if necessary. 06/27/232 <Electronically signed by Dav Woody MD> Cosigner Signature (if applicable): CC: Dr. Berto Urena MD ~ Signed [facility] Work Phone: 1(928) 289-944404-05-2023 Miscellaneous Notes* Telephone Encounter - Zeina Garrison RN - 10/02/2022 12:44 PM EDT Images from the original note were not included. Screening Colonoscopy Checklist Luke Thomas [phone] (home) [phone] (work) 1970 52 year old Date of Referral: 09/24/22 Referral #: [id number] Referring physician: Lisa Sena Height: 6f Weight: 248lb BMI: 33.63 *If BMI is 40 or > or weight is >350 lbs., schedule at the hospital. Assessment Questions 80 years old or greater? No *If yes, requires an office visit Do you live in a penitentiary? No *If from half-way facility schedule at [facility]. Can you ambulate without assistance? ambulatory *Schedule at [facility] main [facility] if needs more than 1 assist and or Jonathan lift. Are you using oxygen at home? No *Continuous oxygen schedule at [facility]. Did you use a CPAP or BIPAP machine? Yes Any previous problems with anesthesia? No *Any personal history of difficult airway or personal or family history of malignant hyperthermia schedule at [facility]. Have you had a heart attack or stents placed in your heart in the past year? Yes *If yes, refer back to PCP to schedule a later date; if no proceed to next question. Do you see a circus roustabout on a regular basis? Yes *If yes, has patient seen circus roustabout in past year? If yes, OK to schedule, if no, patient to see circus roustabout before scheduling at [facility] or schedule at [facility]. Have you had a stroke in the last year? No *If yes, has patient had follow up in the last 6 months? If yes, OK to schedule, if no, patient needs follow up appointment or schedule at [facility]. Do you have a pacemaker or an ICD? No *If yes, document in [facility], schedule so instructions can be obtained [...] yes, patient needs to have seen a circus roustabout within the last year or be scheduled at [facility]. Are you currently on any blood thinners? Yes (Coumadin, Xarelto, Plavix, Eliquis, Pradaxa, Brillinta,Effient) [] Managed by PCP [x] Managed by English As A Second Language Instructor [] Managed by [facility] Are you currently on Aspirin? Yes [x] 81 mg daily (pt to continue) [] 325 mg daily (pt to DISCONTINUE prior to procedure) Are you currently undergoing treatment for cancer? No *Current treatment for head, neck, or lung cancer, schedule at [facility]. Do you have a history of renal [...] Yes Date/time: 03/25/2023 Endoscopist: Dylon Jean Locations:[x] [facility] [] [facility] Endo [] [facility] Case#: [x] On spreadsheet [] Referral list completed [] On calendar Completed by: Meli Hatfield Reminder phone call (date/time/initials): documented in this encounterOhio[facility]-2023 NoteHNO ID: [id number] Author: Waleska Sena APRN.CELLOPHANE WORKER Service: ? Author Type: Nurse Practitioner Type: Progress Notes Filed: 09/24/2022 5:43 PM Note Text: [facility] Waleska Sena DATABASE TECHNICIAN-CELLOPHANE WORKER [address] [place] [address] Dept Dept. Visit Date: September 24, 2022 Mr.Johnnie Mauro Thomas Date of : 1970 MRN/E #: [id number] Chief Complaint: Patient presents with: Wellness Establish Care History of Present Illness Luke Thomas is a 51 year old male presenting [...] His previous PCP was Dr. Tate with [facility] but he didn't see him much the last few years. 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 Rogers in [place] Due for colonoscopy, has never had one No family history of colon cancer Has RONEN and has a CPAP machine but it is old. Thinks his last sleep study was back in 2008. The history is provided by the patient. No customer training specialist was used. PAST MEDICAL HISTORY Diagnosis Date [...] lb (112.5kg) SpO2 98% (more content not included)...[facility]03-28-2023 Miscellaneous Notes* Telephone Encounter - Pamella Mar - 09/24/2022 12:01 PM EDT Referral for Dr. Jean was placed on [facility] Portal with Id # [id number]. Pamella Mar documented in this encounterOhiohealth [facility]04-29-2022 NoteHNO ID: [id number] Author: Maggie Washington APRN.CELLOPHANE WORKER Service: ? Author Type: Nurse Practitioner Type: Progress Notes Filed: 10/26/2021 1:58 PM Note Text: Subjective HPI Luke Thomas is a 51 year old male who [...] PER MONTH allopurinol (ZYLOPRIM) 200 mg tablet Swedish FormulaWithings Take 200 mg by mouth once daily. [...] Discussed expected course of illness Maggie Washington APRN.[facility] History of Present illness Narrative* Maggie Washington APRN.DAVID - 10/26/2021 1:56 PM EDT Subjective HPI Luke Thomas is a 51 year old male who [...] PER MONTH allopurinol (ZYLOPRIM) 200 mg tablet Swedish Project Travel Take 200 mg by mouth once daily. [...] Discussed expected course of illness Maggie Washington APRN.DAVID documented [facility] encounter[facility] Instructions* Patient Instructions* Maggie Washington APRN.DAVID - 10/26/2021 1:48 PM EDT ASSESSMENT/PLAN: 1. [...] Discussed expected course of illness Maggie Washington APRN.CELLOPHANE WORKER OTITIS MEDIA GENERAL INFORMATION: Otitis media is [...] even if the symptoms go away. 2. Sqiv-mkg-gyyakoi pain medication may be taken or other [...] holding him or her). documented in this encounterOhio[facility]-21-2022 NoteHNO ID: [id number] Author: Josue Covington MD Service: ? Author [...] PER MONTH allopurinol (ZYLOPRIM) 200 mg tablet Swedish Formula Take 200 mg by mouth once [...] if pain is not resolving. Josue Covington [facility]04-21-2022 History of Present illness Narrative* Josue Covington MD - 10/18/2021 12:49 PM EDT Patient presents with: Pain: Pt reported lower [...] PER MONTH allopurinol (ZYLOPRIM) 200 mg tablet Swedish Formula Take 200 mg by mouth once [...] resolving. Josue Covington MD [facility]* Diagnosis Abdominal pain, RLQ (right lower quadrant)- Primary Abdominal pain, right lower quadrant documented in this encounter [facility] note* Diagnosis Other acute nonsuppurative otitis media of right ear, recurrence not specified- Primary documented in this encounter [facility] noteNo assessment information availableWReg[facility] Work Phone: Evaluation note* Diagnosis Onset Date Resolution Status STEMI (ST elevation myocardial infarction) acute Chronic kidney disease [facility] Work Phone: Evaluation note* Diagnosis Onset Date Resolution Status Chronic kidney disease chron ic Dyslipidemia chronic Chronic kidney disease chron ic Coronary artery disease collections assistant fritz Dyslipidemia chronic Essential (primary) hypertension [facility] Work Phone: Evaluation note* Diagnosis Encounter for screening colonoscopy- Primary Special screening for malignant neoplasms, colon documented in this encounter [facility] note* Diagnosis Onset Date Resolution Status Chronic kidney disease chron ic Coronary artery disease collections assistant fritz Dyslipidemia chronic Essential (primary) hypertension chronic Chronic kidney disease chron ic Coronary artery disease collections assistant fritz Dyslipidemia chronic Essential (primary) hypertension [facility] Work Phone: Evaluation note* Diagnosis Onset Date Resolution Status Chronic kidney disease chron ic Coronary artery disease collections assistant fritz Dyslipidemia chronic Essential (primary) hypertension [facility] Work Phone: Evaluation note* Diagnosis Onset Date Resolution Status Admit Date Chronic kidney disease chronic Ju ne 2024 9:51am Coronary artery disease chronic J une 2024 9:51am Dyslipidemia chronic December 27, 2 025 9:51am Essential (primary) hypertension chronic December 27, 2024 9:51am History of coronary artery stent placement July, chronic December 27, 2024 9:51am [facility] Work Phone: History and physical note Author Dr. Pace [facility] August 12, 2022 9:43pm Note Date/Time August 12, 2022 9:43pm [facility] Medical Records Department [address] [place] [address] History & Physical Exam 08/12/222137 MR#: [id number] Acct: [id number] Name: LUKE THOMAS Jr. Rep #:[id number] : 1970 51 From: Oscar Pace MD PCP: Care Physician,No Primary Status :ADM IN Location: ICU CVICU20 4-1 HPI - General General Date of Admission: 08/12/22 Date of Service: 08/12/22 Chief Complaint: Chest pain HPI Narrative LUKE THOMAS, is a 51 M who presents to the emergency room with acute onset of chest pain. Patient states he was working out prior to arrival when he became more short of breath than usual for his workout along with some substernal chest pain pressure. Patient has no significant past medical historyof known cardiac disease but he does have a history of chronic kidney disease. Current creatinine is 2.0 and was last tested at 1.4 on 26 July. Upon evaluation in the emergency room patient was given an EKG and found to have elevated ST segments in 2 3 aVF leads and a STEMI emergency was called. Patientwas then transferred to the catheterization lab and evaluation is currently pending as I dictate now. Patient will be admitted to the ICU following his catheterization. [facility] Medical History Chronic kidney disease Gout Home Medications allopurinol 100 mg tablet 200 mg PO DAILY 07/13/20 [History Last Taken Unknown] hydrocodone-acetaminophen 5-325mg 5mg-325mg 2 tab PO Q6H PRN pain 5 days #20 tabs 08/25/21 [Rx Last Taken Unknown] prednisone 20 mg tablet 40 mg PO DAILY 6 days #12 tabs 03/17/22 [Rx Last Taken Unknown] hydrocodone-acetaminophen 5-325mg 5mg-325mg 1 tab PO Q6H PRN pain 3 days #12 tabs 06/10/22 [Rx Last Taken Unknown] prednisone 20 mg tablet 40 mg PO DAILY #8 tabs 06/10/22 [Rx Last Taken Unknown] Allergy/AdvReac Type Severity Reaction Status Date / Time No Known Allergies Allergy Verified 06/10/22 16:34 Social History Smoking Status: Never smoker ROS Constitutional Constitutional: Denies chills or fever(s) Eyes Eyes: Denies blurry vision ENT HEENT: Denies abnormal hearing Cardiovascular Cardiovascular: Reports chest pain Respiratory/Chest Respiratory/Chest: Reports shortness of breath at rest; Denies cough Gastrointestinal Gastrointestinal: Denies abdominal pain Genitourinary Genitourinary: Denies dysuria Musculoskeletal Musculoskeletal: Denies back pain Integumentary Integumentary: Denies jaundice Neurologic Neurologic: Denies abnormal gait, abnormal speech or confusion Psychiatric Psychiatric: Denies anxiety Vital Signs Vital Signs Vital Signs: 08/12/22 19:18 08/12/22 20:14 08/12/22 20:55 Temperature 97.4 F L Temperature Source Temporal Pulse Rate 93 Respiratory Rate 20 H 21 H Respiratory Effort Pursed Lip Respiratory Depth Normal Blood Pressure 116/78 113/66 Blood Pressure Mean 90 Pulse Ox 100 Oxygen Delivery Method Room Air Room Air 08/12/22 20:30 08/12/22 21:15 Temperature Temperature Source Pulse Rate Respiratory Rate Respiratory Effort Pursed Lip Respiratory Depth Blood Pressure Blood Pressure Mean Pulse Ox Oxygen Delivery Method Room Air Weight Weight: 255 lb Body Mass Index (BMI) 34.5 Physical Exam Const alert and oriented x3 General Appearance: cooperative and well developed HEENT normocephalic and head/scalp atraumatic Eyes PERRL Lymph Lymphatic: no lymphadenopathy noted Resp normal respiratory effort, normal air movement and clear to auscultation bilaterally Cardio regular rate, regular rhythm, S1 normal heart sound, S2 normal heart sound and no murmurs GI normal to inspection, nondistended, normoactive bowel sounds Skin General Skin Exam: no breakdown and turgor normal Neuro CN's II-XII intact bilaterally Psych cooperative and affect normal Appearance: appropriate Mood & Affect: anxious Results Lab / Micro Data Result Diagrams: 08/12/22 20:30 08/12/22 20:30 Labs: Laboratory Results - last 24 hr 08/12/22 20:30: WBC 9.7, RBC 3.91 L, Hgb 11.4 L, Hct 35.5 L, MCV 90.8, MCH 29.2,MCHC 32.1, RDW Std Deviation 45.5 H, RDW Coeff of Marquis 13.6, Plt Count 244, MPV 10.7, Immature Gran % (Auto) 0.700, Neut % (Auto) 81.1 H, Lymph % (Auto) 11.1 L,Baylor % (Auto) 5.2, Eos % (Auto) 1.7, Baso % (Auto) 0.2, Absolute Neuts (auto) 7.9 H, Absolute Lymphs (auto) 1.07, Nucleated RBC % 0 08/12/22 20:30: Sodium 142, Potassium 4.4, Chloride 109 H, Carbon Dioxide 24.0, Anion Gap 9, BUN 34 H, Creatinine 2.02 H, Estim Creat Clear Calc 48.55, Est GFR (MDRD) Af Amer 45 L, Est GFR (MDRD) Non-Af 37 L, BUN/Creatinine Ratio 16.8, Glucose 103, Calcium 9.9, Troponin I High Sens 35 08/12/22 20:30: PT 13.2, INR 1.0, APTT 30.4 Assessment & Plan Assessment/Plan (1) STEMI (ST elevation myocardial infarction): (2) Chronic kidney disease: PLAN: Plan [address] elevation LA. Patient is in the heart catheterization lab with Dr. ROGERS. Following catheterization patient will be transferred to the intensive care unit. 2. Chronic kidney disease?continue to follow basic metabolic panel especially following IV contrast media given during catheterization. We will continue IV hydration 3. DVT prophylaxis?anticoagulation per cardiology. 08/12/22 [id number] <Electronically signed by Oscar Pace MD> Cosigner Signature (if applicable): CC: Dr. Oscar Pace MD; No Primary Care Physician~ Signed [facility] Work Phone: Hospital Discharge instructions Additional Instructions Plenty of fluids and rest. Tylenol for any fever. Follow-up with your doctor if not improving return if worse. At this time, Exam is unremarkable and you have no clinical findings to be prescribed antibiotics at this time.[facility] Work Phone: Hospital Discharge instructions Additional Instructions Avoid NSAIDs with your recent heart attack. May use Tylenol. Take prednisone as prescribed. Next dose tomorrow.[facility] Work Phone: Hospital Discharge instructions Additional Instructions Plenty of fluids and rest. Tylenol for fever. Follow-up if not improving or return if worse. You have the flu.[facility] Work Phone: Reason for referral (narrative)* Outpatient Procedure (Routine) - Authorized Specialty Diagnoses / Procedures Referred By Controro t Referred To Contact [facility] Diagnoses Encounter for screening colonoscopy Procedures COLONOSCOPY SCREENING COLONOSCOPY FLX DX W/COLLJ SPEC WHEN PFRMD Ted, Dylon Roe MD [address] [address] [facility] [address] [place] [address] Referral ID Status Reason Start Date Expiration Date Visits Requested Visits Authorized [id number] Authorized Auto-Generat ed Referral 03/25/2023 12/27/2023 1 1 [facility] Summary Purpose Family History No Family History Records FoundNo Family History Records FoundNo Family History Records Found Advance Directives No Advanced Directives Records Found Advance Directive Response Recorded Date/ Time Living Will No August 25 6:24pm Power of Licensed Psychologist No August 25, 2021 6:24pm Advance Directive Response Recorded Date/ Time Living Will No March 17, 2022 4:06pm Power of Licensed Psychologist No February 4:06pm Advance Directive Response Recorded Date/ Time Living Will No April 03 10:51pm Power of Licensed Psychologist No April 03 10:51pm Advance Directive Response Recorded Date/ Time Living Will No June 10, 2 022 8:13pm Power of Licensed Psychologist No June 10, 2022 8:13pm Advance Directive Response Recorded Date/ Time Living Will No August 12, 2 023 8:14pm Power of Licensed Psychologist No August 12, 2022 8:14pm Advance Directive Response Recorded Date/ Time Living Will No August 28, 2022 9:47pm Power of Licensed Psychologist No August 28 9:47pm Advance Directive Response Recorded Date/ Time Advance Directives on File No September 05, 2022 11:01am Living Will No September 05, 2022 11:01am Power of Licensed Psychologist No September 05 11:01am Advance Directive Response Recorded Date/ Time Living Will No January 20, 2023 11:30pm Power of Licensed Psychologist No January 20 11:30pm Advance Directive Response Recorded Date/ Time Living Will No June 27, 2 023 9:13pm Power of Licensed Psychologist No June 27, 2023 9:13pm Advance Directive Response Recorded Date/ Time Living Will No June 27, 2 023 10:13pm Power of Licensed Psychologist No June 27, 2023 10:13pm Advance Directive Response Recorded Date/ Time Do you have a Healthcare Power of Licensed Psychologist? No November 29, 2024 1:56pm Chief Complaint and Reason for Visit Chief Complaint gout in right big to e Chief Complaint gout in right big to e FEVER, MARLEY, BILAT EAR PAIN Chief Complaint gout in right big to e FEVER, MARLEY, BILAT EAR PAIN lower extremity Chief Complaint lower extremity Chief Complaint lower extremity NSTEMI NSTEMI Reason for Visit STEMI (ST elevation myocardial infarction) Chronic kidney disease Chief Complaint lower extremity NSTEMI STEMI NSTEMI STEMI STEMI STEMI AM EKG STEMI left foot pain Chief Complaint lower extremity NSTEMI STEMI NSTEMI STEMI STEMI STEMI AM EKG STEMI left foot pain STEMI, PCI W/CORONARY STENTING S/P [facility] STEMI E ORDER ST Elevated LA & PCI w/coronary stent Reason for Visit Chronic kidney disea se Dyslipidemia Chronic kidney disease Coronary artery disease Dyslipidemia Essential (primary) hypertension Chief Complaint lower extremity NSTEMI STEMI NSTEMI STEMI STEMI STEMI AM EKG STEMI left foot pain STEMI, PCI W/CORONARY STENTING S/P [facility] STEMI E ORDER OBESITY ST Elevated LA & PCI w/coronary stent Reason for Visit Chronic kidney disea se Dyslipidemia Chronic kidney disease Coronary artery disease Dyslipidemia Essential (primary) hypertension Chief Complaint STEMI, PCI W/CORONAR Y STENTING S/P [facility] STEMI E ORDER OBESITY ST Elevated LA & PCI w/coronary stent ST Elevated LA & PCI w/coronary stent Amb Documentation 3 M FU INT LABS Reason for Visit Chronic kidney disea se Coronary artery disease Dyslipidemia Essential (primary) hypertension Chronic kidney disease Coronary artery disease Dyslipidemia Essential (primary) hypertension Chief Complaint Amb Documentation 3 M FU INT LABS r elbow pain Reason for Visit Chronic kidney disea se Coronary artery disease Dyslipidemia Essential (primary) hypertension Chief Complaint SOB, WEAKNESS Chief Complaint SOB, WEAKNESS 6 M FU Reason for Visit Chronic kidney disea se Coronary artery disease Dyslipidemia Essential (primary) hypertension Chief Complaint 6 M FU DUE AROUND DATE LISTED Reason for Visit Chronic kidney disea se Coronary artery disease Dyslipidemia Essential (primary) hypertension Chief Complaint Admit Date CHEST PAIN November 29, 2024 1:17p m Chief Complaint Admit Date CHEST PAIN November 29, 2024 1:17p m 6 M FU December 27, 2024 9:51 am Reason for Visit Admit Date Chronic kidney disease December 27, 2024 9 :51am Coronary artery disease December 27, 2024 9:51am Dyslipidemia December 27, 2024 9:51 am Essential (primary) hypertension December 272024 9:51am History of coronary artery stent placeme nt December 27, 2024 9:51am Chief Complaint Admit Date CHEST PAIN November 29, 2024 1:17p m 6 M FU December 27, 2024 9:51 am Sleep apnea December 29, 2024 1:37p m Reason for Visit Admit Date Chronic kidney disease December 27, 2024 9 :51am Dyslipidemia December 27, 2024 9:51 am Essential (primary) hypertension December 272024 9:51am History of coronary artery stent placeme nt December 27, 2024 9:51am Chest pain December 27, 2024 9:51 am Obstructive sleep apnea December 29, 2024 1 :37pm Additional Source Comments Source Comments (unrecognize d section and content) In the event this informatio n is protected by the Federal Confidentiality of Alcohol and Drug Abuse Patient Records regulations: The Federal rules restrict any use of the information to criminally investigate or prosecute any alcohol or drug abuse patient.[facility] Hospital[facility] the event this information is protected by the Federal Confidentiality of Alcohol and Drug Abuse Patient Records regulations: The Federal rules restrict any use of the information to criminally investigate or prosecute any alcohol or drug abuse patient.[facility] HospitalIn the event this information is protected by the Federal Confidentiality of Alcohol and Drug Abuse Patient Records regulations: The Federal rules restrict any use of the information to criminally investigate or prosecute any alcohol or drug abuse patient.[facility] HospitalIn the event this information is protected by the Federal Confidentiality of Alcohol and Drug Abuse Patient Records regulations: The Federal rules restrict any use of the information to criminally investigate or prosecute any alcohol or drug abuse patient.[facility] HospitalIn the event this information is protected by the Federal Confidentiality of Alcohol and Drug Abuse Patient Records regulations: The Federal rules restrict any use of the information to criminally investigate or prosecute any alcohol or drug abuse patient.[facility] Reason for Visit (unrecogniz ed section and content) Reason Comments Pain Pt reported lower (R T) groin pain radiating to leg, pain rated 3, x5 days Reason Comments Ear Pain Bilateral ear pain r ated 5, x1 week swelling neck Reason Comments Referral Information Reason Comments screening colonoscopy checklist (unrecognized sect ion and content) No Status Records FoundNo Status Records FoundNo Status Records Found INFORMATION SOURCE (unrecogn ized section and content) DATE CREATED AUTHOR 10/29/2021 [facility] DATE CREATED AUTHOR AUTHOR'S ORGANIZ ATION 05/10/2023 [facility] DATE CREATED AUTHOR AUTHOR'S ORGANIZ ATION 01/31/2025 [facility] Goals (unrecognized section and content) Goals may be documented in a n alternate sectionGoals may be documented in an alternate sectionGoals may be documented in an alternate sectionGoals may be documented in an alternate sectionGoals may be documented in an alternate sectionGoals may be documented in an alternate sectionGoals may be documented in an alternate sectionGoals may be documented in an alternate sectionGoals may be documented in an alternate sectionGoals may be documented in an alternate sectionGoals may be documented in an alternate sectionGoals may be documented in an alternate sectionGoals may be documented in an alternate sectionGoals may be documented in an alternate section Care Teams (unrecognized sec tion and content) Team Status: Active Member Role Status Dates Dr. Oscar Pace MD Family Provider Active No Primary Care Physician Primary Care Provider Active Team Status: Inactive Member Role Status Dates Dr. Cynthia Ruffin , Attending Provider Active No Primary Care Physician Primary Care Provider Active Team Status: Inactive Member Role Status Dates No Primary Care Physician Primary Care Provider Active Dr. Carmen Casanova , DO Attending Provider, Emergency Khang ayoub Active Team Status: Active Member Role Status Dates No Primary Care Physician Primary Care Provider Active Dr. Wayne Gonzalez , DO Emergency Provider Active Dr. Taz Rogers MD Admit Provider, Re ferring Provider, Other Provider Active Dr. Oscar Pace MD Attending Provider Active Team Status: Active Member Role Status Dates No Primary Care Physician Primary Care Provider Active Dr. Taz Rogers MD Admit Provider, At tending Provider, Referring Provider Active Dr. Wayne Gonzalez DO Emergency Provider Active Team Status: Active Member Role Status Dates Dr. Oscar Pace MD Family Provider Active Dr. Oscar Pace MD Primary Care Provider Active Team Status: Active Member Role Status Dates No Primary Care Physician Primary Care Provider Active Dr. Wayne Gonzalez DO Emergency Provider Active Dr. Taz Rogers MD Admit Provider, Other Provider A ctive Dr. Oscar Pace MD Attending Provider Active Team Status: Active Member Role Status Dates No Primary Care Physician Primary Care Provider Active Dr. Taz Rogers MD Admit Provider, At tending Provider, Referring Provider, Other Provider Active Dr. Wayne Gonzalez DO Emergency Provider Active Team Status: Active Member Role Status Dates No Primary Care Physician Primary Care Provider Active Dr. Taz Rogers MD Attending Provider Active Team Status: Active Member Role Status Dates Dr. Taz Rogers MD Admit Provider, Other Provider A ctive Dr. Wayne Gonzalez DO Emergency Provider Active Dr. Jonah Carmen MD Attending Provider, Other Provi yung Active Dr. Oscar Pace MD Primary Care Provider Active Team Status: Active Member Role Status Dates Dr. Oscar Pace MD Primary Care Provider Active Dr. Ulises Carrillo MD Attending Provider Active Team Status: Active Member Role Status Dates Dr. Taz Rogers MD Admit Provider, At tending Provider, Referring Provider, Other Provider Active Dr. Wayne Gonzalez DO Emergency Provider Active Dr. Jonah Carmen MD Other Provider Active Dr. Oscar Pace MD Primary Care Provider Active Team Status: Active Member Role Status Dates Dr. Oscar Pace MD Primary Care Provider Active Dr. Taz Rogers MD Attending Provider Active Dr. Jonah Carmen MD Referring Provider Active Team Status: Inactive Member Role Status Dates Dr. Taz Rogers MD Admit Provider, Re ferring Provider, Other Provider Active Dr. Wayne Gonzalez DO Emergency Provider Active Dr. Jonah Carmen MD Attending Provider Active Dr. Oscar Pace MD Primary Care Provider Active Team Status: Inactive Member Role Status Dates Dr. Oscar Pcae MD Primary Care Provider Active Dr. Piotr Russo DO Emergency Provider Active Team Status: Inactive Member Role Status Dates Dr. Oscar Pace MD Primary Care Provider, Referring Provider Active Dr. Taz Rogers MD Attending Provider Active Team Status: Inactive Member Role Status Dates Dr. Oscar Pace MD Primary Care Provider Active Dr. Taz Rogers MD Attending Provider, Referring Pr ovider Active Team Status: Inactive Member Role Status Dates Dr. Oscar Pace MD Primary Care Provider Active Dr. Piotr Russo DO Attending Provider, Emergency Provide r Active Team Status: Active Member Role Status Dates Dr. Oscar Pace MD Primary Care Provider Active Dr. Taz Rogers MD Attending Provider Active Team Status: Active Member Role Status Dates Dr. Oscar Pace MD Primary Care Provider Active Dr. Ulises Carrillo MD Attending Provider Active Dr. Taz Rogers MD Referring Provider Active Team Status: Inactive Member Role Status Dates Dr. Oscar Pace MD Primary Care Provider Active Dr. Taz Rogers MD Attending Provider Active Field Technical Assistant Relationship Specialty Start Date End Date Alfredo, Waleska A, DATABASE TECHNICIAN.CELLOPHANE WORKER [address] [place] [address] PCP - General Family Medicine 09/24/22 Field Technical Assistant Relationship Specialty Start Date End Date Alfredo, Waleska A, DATABASE TECHNICIAN.CELLOPHANE WORKER [address] [place] [address] PCP - General Family Medicine 09/24/22 Team Status: Active Member Role Status Dates Dr. Oscar Pace MD Primary Care Provider Active Kiki Watts Attending Provider Active Team Status: Active Member Role Status Dates Dr. Oscar Pace MD Family Provider Active Team Status: Inactive Member Role Status Dates No Primary Care Physician Primary Care Provider Active Dr. Cynthia Ruffin DO Attending Provider, Referring P rovider Active Team Status: Inactive Member Role Status Dates Dr. Dav Woody MD Attending Provider, Emergency Pro vider Active No Primary Care Physician Primary Care Provider Active Team Status: Active Member Role Status Dates Dr. Cynthia Ruffin DO Attending Provider Active Field Technical Assistant Relationship Specialty Start Date End Date QueWaleska guzman A, DATABASE TECHNICIAN.CELLOPHANE WORKER [address] [place] [address] PCP - General Family Medicine 09/24/22 Team Status: Active Member Role Status Dates Dr. Oscar Pace MD Family Provider Active Dr. Berto Urena MD Primary Care Provider Active Team Status: Inactive Member Role Status Dates Dr. Berto Urena MD Attending Provider Active Team Status: Inactive Member Role Status Dates Dr. Berto Urena MD Primary Care Provider Active Dr. Dav Woody MD Referring Provider, Emergency Pro vider Active Team Status: Inactive Member Role Status Dates Dr. Taz Rogers MD Attending Provider Active Dr. Berto Urena MD Primary Care Provider, Referring Provider Active Team Status: Inactive Member Role Status Dates Dr. Berto Urena MD Primary Care Provider Active Dr. Taz Rogers MD Attending Provider, Referring Pr ovider Active Team Status: Inactive Member Role Status Dates Dr. Berto Urena MD Primary Care Provider Active Dr. Dav Woody MD Attending Provider, Referring Provider, Emergency Provider Active Team Status: Inactive Member Role Status Dates Dr. Cynthia Ruffin DO Attending Provider, Referring P rovider Active Dr. Berto Urena MD Primary Care Provider Active Team Status: Active Member Role Status Dates Dr. Berto Urena MD Primary Care Provider Active Team Status: Inactive Member Role Status Dates Dr. Berto Urena MD Primary Care Provider Active Start: November 29, 2024 End: November 29, 2024 Dr. Domingo Beauchamp DO Emergency Provider Active Start: November 29, 2024 End: November 29, 2024 Team Status: Active Member Role/Relationship Status Dates Dr. Berto Urena MD Primary Care Provider Active Team Status: Inactive Member Role/Relationship Status Dates Dr. Berto Urena MD Primary Care Provider Active Start: November 29, 2024 End: November 29, 2024 Dr. Domingo Beauchamp DO Attending Provider Active Start: November 29, 2024 End: November 29, 2024 Dr. Domingo Beauchamp DO Emergency Provider Active Start: November 29, 2024 End: November 29, 2024 Team Status: Inactive Member Role/Relationship Status Dates Dr. Berto Urena MD Primary Care Provider Active Start: December 27, 2024 End: December 27, 2024 Dr. Berto Urena MD Referring Provider Active Start: December 27, 2024 End: December 27, 2024 Marina Evans NP, DISC INSPECTOR-C Attending Provider Active Start: December 27, 2024 End: December 27, 2024 Team Status: Inactive Member Role/Relationship Status Dates Dr. Berto Urena MD Primary Care Provider Active Start: December 29, 2024 End: December 29, 2024 Dr. Berto Urena MD Referring Provider Active Start: December 29, 2024 End: December 29, 2024 Sofia Jean NP-C Attending Provider Active Start: December 29, 2024 End: December 29, 2024 FOR RECORDS PERTAINING TO PATIENTS WHO ARE [...] BE BASED ON THE PRIMARY CLINICAL RECORDS. [facility] [employer] [facility]. provides no warranty or guarantee of the accuracy or completeness of information in this document.
== END | disposition home or self-care (01) ==
LOC: SL 19:55
PROVIDERS: PCP Family Medicine Geriatric Medicine; Referring Provider Nurse Practitioner Family; Visit Provider Nurse Practitioner Family
DX: G47.33 Obstructive sleep apnea (adult) (pediatric) (principal); G47.10 Hypersomnia, unspecified
CPT/HCPCS: 95811

== ENCOUNTER → 2025-03-03 | Outpatient (CLI) | payer MEDICAID, SELFPAY ==
[2022-10-07 13:09] VITALS: BMI 33.5
[2025-03-03 14:28] LABS: Albumin, Serum 4.2 g/dL (3.5-5.0); Anion Gap 11 (5-15); BUN 16 mg/dL (4-19); BUN/Creat Ratio 10.4 RATIO (10-20); Calcium,Total 9.4 mg/dL (7.6-11.0); Carbon Dioxide 23.0 mmol/L (21.0-32.0); Chloride 105 mmol/L (98-108); Glucose 107 mg/dL (70-99); Potassium 3.8 mmol/L (3.3-5.1)
== END | disposition home or self-care (01) ==
LOC: LAB 13:25
PROVIDERS: PCP Family Medicine Geriatric Medicine; Referring Provider Internal Medicine Nephrology; Visit Provider Internal Medicine Nephrology
DX: N18.31 Chronic kidney disease, stage 3a (principal)
CPT/HCPCS: 36415; 80069

== ENCOUNTER → 2025-03-17 | Outpatient (CLI) | payer MEDICAID, SELFPAY ==
[2022-10-07 13:09] VITALS: BMI 33.5
[2025-03-17 11:52] LABS: Hematocrit 39.4 % (40-54); Hemoglobin 12.6 g/dL (13.0-16.5); Immature Granulocytes Count 0.030 X10^3/uL (0.0-0.0); Mean Corp Hgb Conc 32.0 g/dL (32-36); Mean Corpuscular Volume 93.4 fL (80-94); Mean Platelet Vol. 10.2 fl (6.2-12.0); NRBC Flagged by Analyzer 0 % (0-5); Platelet Count 277 K/mm3 (150-450); RBC Distribution Width CV 14.0 % (11.6-14.6); RBC Distribution Width SD 46.5 fl (35.1-43.9); Red Blood Count 4.22 M/mm3 (4.6-6.2); White Blood Count 6.9 K/mm3 (4.4-11.0)
[2025-03-17 12:22] LABS: AST(SGOT) 23 U/L (<=37); Alanine Aminotransfer ALT/SGPT 19 U/L (<=46); Albumin, Serum 4.4 g/dL (3.5-5.0); Alkaline Phosphatase 51 U/L (40-129); Anion Gap 11 (5-15); BUN 19 mg/dL (4-19); BUN/Creat Ratio 12.2 RATIO (10-20); Calcium,Total 9.8 mg/dL (7.6-11.0); Carbon Dioxide 25.3 mmol/L (21.0-32.0); Chloride 104 mmol/L (98-108); Cholesterol 198 mg/dL (<=200); Globulin 3.3 g/dL (2.2-4.2); Glucose 99 mg/dL (70-99); Low Density Lipoprotein Calc. 107 mg/dL; Potassium 4.1 mmol/L (3.3-5.1); Triglycerides 237 mg/dL; Uric Acid 5.0 mg/dL (3.5-7.2); Very Low Density Lipoprotein 47 mg/dL (5-40); cholesterol:hdl ratio screen 4.56
[2025-03-17 19:43] LABS: Xtra Tube Kwok EXTRA TUBE
== END | disposition home or self-care (01) ==
LOC: POLAB3 11:42
PROVIDERS: PCP Family Medicine Geriatric Medicine; Visit Provider Family Medicine Geriatric Medicine
DX: I10 Essential (primary) hypertension (principal); M10.9 Gout, unspecified; E78.5 Hyperlipidemia, unspecified
CPT/HCPCS: 36415; 80053; 80061; 84443; 84550; 85025

== ENCOUNTER 2025-06-07 10:55 | Emergency (ER) | payer MEDICAID, SELFPAY ==
[2022-10-07 13:09] VITALS: BMI 33.5
[2025-06-07 10:56] VITALS: BP 151/101; PULSE 78; RESP 16; TEMP 35.9; O2SAT 97; BMI 33.0
--- NOTE | 2025-06-07 11:32 | CT_ITS ---
PROCEDURE: SPINE LUMBAR WITHOUT CONTRAST 06/07/2025 REASON FOR EXAM: LOW BACK INJURY History of fall. TECHNIQUE: Procedure Code: CTSPL Modality: CT Procedure: SPINE LUMBAR WITHOUT CONTRAST Coronal and Sagittal reconstruction series were provided. One or more dose reduction techniques were used (e.g., Automated exposure control, adjustment of the mA and/or kV according to patient size, use of iterative reconstruction technique COMPARISON: None RADIATION DOSE SUMMARY: CTDlvol: 24 mGy DLP: 2194.76 mGycm FINDINGS: Vertebrae: Normal lumbar vertebral body heights. No lytic or blastic lesions identified. No evidence of fracture. Alignment: Loss of the normal lumbar lordosis most likely secondary to muscular spasm. L1-2: Disc space is well-maintained. No evidence of stenosis. L2-3: Unremarkable L3-4: Unremarkable L4-5: Unremarkable L5-S1: Unremarkable Sacrum: Unremarkable Partially visualized soft tissue mass in the left midabdomen with rim-like calcification. Correlation with the CT scan of the abdomen and pelvis recommended. CT/Spine Lumbar without Contrast IMPRESSION: NEGATIVE LUMBAR SPINE CT. Loss of the normal lumbar lordosis. Partially calcified mass in the left midabdomen as described. Correlation with a CT scan of the abdomen and pelvis recommended. Reading Location: [facility]
--- NOTE | 2025-06-07 11:37 | EDS_ITS ---
HPI HPI - Fall History of Present Illness Chief Complaint: Fall Informant: patient Narrative Narrative: 54-year-old male history of hypertension and CAD on Plavix presenting to the emergency room with low back pain following a fall. Patient states on Friday evening he slipped on ice landing in a sitting position. States Friday night he did have much discomfort but on Friday morning when he went to get up he had pain in the low back. He notes them radiation of the pain into the bilateral thighs. No difficulty with bowel or bladder function. He denies any loss of sensation alteration of sensation or weakness of the lower legs. No fevers. He denies any mid or upper back pain. He states that most of his pain is occurs when he goes to get from a sitting position to a standing and is in the bilateral left greater than right low back. [facility] Medical History History of coronary artery disease Influenza A Coronary artery disease Essential (primary) hypertension Atherosclerosis of coronary artery of [place] without angina pectoris Swelling of arm Dyslipidemia Chronic kidney disease STEMI (ST elevation myocardial infarction) Acute otitis media of left ear with perforation URI (upper respiratory infection) Gout Home Medications ?Medication ?Instructions ?Recorded ?Last Taken ?Type allopurinol 300 mg tablet 300 mg PO DAILY 09/10/2208/24 History clopidogrel 75 mg tablet 75 mg PO DAILY #90 tabs 08/2911/29/24 Rx metoprolol tartrate 50 mg tablet 50 mg PO BID #180 tab s 11/01/24 11/29/24 Rx ipratropium bromide 42 mcg (0.06 intranasal PRN Unknown History %) nasal spray amlodipine 5 mg tablet 5 mg PO DAILY #90 tabs 02/11 Unknown Rx aspirin 81 mg tablet 81 mg PO QDAY #90 tabs 02/11 Unknown Rx CPAP - Continuous Positive Airway 03/25/25 Unknown Hi story Pressure([facility] INFORMATIONAL USE ONLY) ergocalciferol (vitamin D2) 1,250 1,250 mcg PO QMONTH 04/05/25 Unknown History mcg (50,000 unit) capsule atorvastatin 40 mg tablet 40 mg PO QHS 102 days #102 t abs 04/25/25 Unknown Rx cyclobenzaprine 10 mg tablet 10 mg PO TID PRN Muscle S pasm #15 06/07/25 Unknown Rx TABLETS oxycodone-acetaminophen 5 mg-325 1 tab PO Q6H PRN PRN Pain 3 days 06/07/25 Unknown Rx mg tablet #12 TABLETS Allergy/AdvReac Type Severity Reaction Status Date / Time No Known Allergies Allergy Verified 06/07/25 11:00 Surgical History Hx of tonsillectomy History of coronary artery stent placement (~08/12/22) Social History current occupational status: employed 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 Smoking Status: Never smoker alcohol intake: current alcohol intake frequency: holidays/special occasions only details: rarely substance use type: does not use caffeine: Yes Type: coffee Number of servings: 1 ROS ROS ED Constitutional Constitutional ED: Denies chills, fever(s) or weight loss Eyes Eyes: Denies change in vision or diplopia ENT ENT ED: Denies ear pain, rhinorrhea or sore throat Cardiovascular Cardiovascular: Denies chest pain, orthopnea, palpitations or racing heartbeat Respiratory/Chest Respiratory/Chest: Denies cough, dyspnea or orthopnea Gastrointestinal Gastrointestinal: Denies abdominal pain, diarrhea, nausea or vomiting Genitourinary Genitourinary ED: Denies dysuria, hematuria or urinary frequency Musculoskeletal Musculoskeletal: Reports back pain; Denies arthralgias, myalgias or neck pain Integumentary Denies abscess or rash Neurologic Neurologic: Denies headache(s), paresthesias or weakness Psychiatric Psychiatric: Denies anxiety, depression, suicidal ideation or suicidal thoughts Endocrine Endocrinology: Denies polydipsia, polyphagia or polyuria Allergic/Immunologic Allergic/Immunologic ED: Denies mouth swelling, tongue swelling or urticaria EXAM Physical Exam Const Vital Signs: 06/07/25 10:56 06/07/25 11:15 06/07/25 12:41 Temperature 96.7 F L 96.7 F L Temperature Source Oral Pulse Rate 78 82 Respiratory Rate 16 14 Respiratory Effort Normal Blood Pressure 151/101 H 151/101 H Blood Pressure Mean 117 117 Pulse Ox 97 97 Oxygen Delivery Method Room Air Room Air Positive well nourished and well developed General Appearance ED: well developed and NAD HEENT Reports normocephalic, head/scalp atraumatic and moist mucous membranes Eyes PERRL and EOMs intact bilaterally Neck no lymphadenopathy, supple and no JVD Resp normal respiratory effort and clear to auscultation bilaterally Cardio regular rate, regular rhythm and no murmurs GI normal to inspection, nondistended, normoactive bowel sounds and non-tender Palpation: soft Back/Spine no CVA tenderness Back/Spine Narrative: Painful range of motion. Tender to palpation in the lower lumbar paraspinal musculature. There is no midline pain. Extremity normal to inspection General Extremety ED: Negative for edema General Extremity: Negative for edema Neuro oriented x3, CN's II-XII intact bilaterally, no focal motor deficits and no sensory deficits noted Neuro Narrative: Patient able to sit on the side of the bed. He has +2 patellar and Achilles reflexes bilaterally. Normal sensation. Normal strength. Sensorium / Orientation: alert Motor Exam: strength 5/5 throughout Psych mental status grossly normal Mood & Affect: Negative for depressed or tearful Skin no rashes or lesions noted and no wounds MDM MDM MDM Narrative Medical decision making narrative: Differential diagnosis includes but not limited to transverse process fracture lumbar myofascial strain contusion compression fracture spinal cord injury hematoma (epidural muscular) CT of the lumbar spine does not demonstrate any fracture. There is straightening of the normal lordotic curve. There is noted to be lesion on the left kidney and a CT of the abdomen pelvis was obtained while she was on the table showing a 6.7 cm x 6.6 cm x 6.4 cm hypodense mass with peripheral and central calcification arising from the lower pole of the left kidney. The patient was updated with above results. He does see nephrology, Dr. Mcduffie. I would encourage him to follow-up with them regarding the above CT finding. For the lumbar myofascial strain I will write for some Flexeril and Percocet. Patient to monitor for any neurologic changes return if worsening or concerns History & Record Review Discussion w/independent historian: Patient Radiography Diagnostic Testing: Clinical Impression(s) from Imaging Studies Lumbar Spine CT 06/07/25 11:32 IMPRESSION: NEGATIVE LUMBAR SPINE CT. Loss of the normal lumbar lordosis. Partially calcified mass in the left midabdomen as described. Correlation with a CT scan of the abdomen and pelvis recommended. Reading Location: [facility] Abdomen/Pelvis CT 06/07/25 11:45 IMPRESSION: 6.7 cm 6.6 cm 6.4 cm hypodense mass with peripheral and central calcification arising from the lower pole of the left kidney. A neoplastic process should be ruled out. Reading Location: [facility] Discharge Plan Triage Chief Complaint: Fall ED Provider: Domingo Beauchamp Dx/Rx/DC Orders Clinical Impression: Acute lumbar myofascial strain, Left kidney mass, Fall Instructions: ED Back Sprain/Strain Prescriptions: New cyclobenzaprine 10 mg tablet 10 mg PO TID PRN (Reason: Muscle Spasm) Qty: 15 0RF oxycodone-acetaminophen 5-325 mg tablet 1 tab PO Q6H PRN PRN (Reason: Pain) 3 Days Qty: 12 0RF No Action allopurinol 300 mg tablet 300 mg PO DAILY ipratropium bromide 42 mcg (0.06 %) spray,non-aerosol intranasal PRN Patient Comments: [NO ORIGINAL SIG] ergocalciferol (vitamin D2) 1,250 mcg (50,000 unit) capsule 1,250 mcg PO QMONTH (DME) CPAP - Continuous Positive Airway Pressure([facility] INFORMATIONAL USE ONLY) See Rx Instructions .Route .MEDSUPPLY Rx Instructions: CPAP 11 CMH2O DME- FRESHAIRE MASK- RESMED AIRFIT N30i NASAL MASK, STD FRAME, SW CUSHION clopidogrel 75 mg tablet 75 mg PO DAILY Qty: 90 3RF metoprolol tartrate 50 mg tablet 50 mg PO BID Qty: 180 3RF amlodipine 5 mg tablet 5 mg PO DAILY Qty: 90 3RF aspirin 81 mg tablet 81 mg PO QDAY Qty: 90 3RF atorvastatin 40 mg tablet 40 mg PO QHS 102 Days Qty: 102 3RF Primary Care Provider: Berto Urena Chi Referrals: Cynthia Mcduffie DO [Med Staff - Consulting, Nephrology] Referral Note: for new renal mass on left side Berto Urena Chi, MD [Primary Care Provider, Geriatrics] - 1 Week if not improving Print Language: Nauruan Disposition Disposition: Home, Self Care Discharge Date/Time: 06/07/25 12:41
--- NOTE | 2025-06-07 11:45 | CT_ITS ---
PROCEDURE: ABDOMEN/PELVIS WITHOUT CONT 06/07/2025 REASON FOR EXAM: LEFT KIDNEY CALCIFICATION TECHNIQUE: Procedure Code: CTABDPEL Modality: CT Procedure: ABDOMEN/PELVIS WITHOUT CONT Noncontrast technique limits evaluation of the abdominal and pelvic viscera. Coronal and Sagittal reconstruction series were provided. One or more dose reduction techniques were used (e.g., Automated exposure control, adjustment of the mA and/or kV according to patient size, use of iterative reconstruction technique). RADIATION DOSE SUMMARY: CTDlvol: 22.95 mGy DLP: 1209.98 mGycm COMPARISON: None FINDINGS: Lung bases: Mild degree of dependent bibasilar atelectasis. Coronary artery calcification. Liver: Normal size. No obvious mass. Gallbladder: Unremarkable Spleen: Normal size. Pancreas: Normal size. No surrounding inflammation. Adrenals: Unremarkable Kidneys: There is a 6.7 cm x 6.6 cm x 6.4 cm hypodense mass with the peripheral and central calcification arising from the lower pole of the left kidney. A neoplastic process should be ruled out. There is also evidence of a 12 mm cyst in the anterior midportion of the left kidney as well as a 2.8 cm cyst in the posterior upper pole of the left kidney. Bladder: The urinary bladder is only partially opacified. Diffuse bladder wall thickening. Bowel: Scattered sigmoid diverticula. Appendix: Unremarkable Lymph nodes: Small benign-appearing mediastinal lymph nodes. Vasculature: Mild diffuse atherosclerotic calcifications are noted. Peritoneum / Retroperitoneum: Small right inguinal hernia containing fat. There is a 3.8 cm lipoma in the lateral gluteus muscle. Bones: Unremarkable CT/Abdomen/Pelvis without Cont IMPRESSION: 6.7 cm 6.6 cm 6.4 cm hypodense mass with peripheral and central calcification a rising from the lower pole of the left kidney. A neoplastic process should be ruled out. Reading Location: [place] [id number]
[2025-06-07 12:41] VITALS: BP 151/101; PULSE 82; RESP 14; TEMP 35.9; O2SAT 97
== END 2025-06-07 12:41 | disposition home or self-care (01) ==
PROVIDERS: Emergency Provider Emergency Medicine; PCP Family Medicine Geriatric Medicine; Visit Provider Emergency Medicine
DX: S39.012A Strain of muscle, fascia and tendon of lower back, initial encounter (principal); W00.0XXA Fall on same level due to ice and snow, initial encounter; N28.89 Other specified disorders of kidney and ureter; I10 Essential (primary) hypertension; I25.2 Old myocardial infarction; E78.5 Hyperlipidemia, unspecified; M10.9 Gout, unspecified; I25.10 Atherosclerotic heart disease of native coronary artery without angina pectoris; Z95.5 Presence of coronary angioplasty implant and graft; Z79.82 Long term (current) use of aspirin; Z79.02 Long term (current) use of antithrombotics/antiplatelets; Z79.899 Other long term (current) drug therapy
CPT/HCPCS: 72131; 74176; 99282